=== PATIENT | female | born 1960 | race African-American/Black ===

== ENCOUNTER 2017-01-08 19:57 | Emergency (ER) | payer SELFPAY ==
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
[2017-01-08] MEDS ORDERED: ACETAMINOPHEN WITH CODEINE #3 TABLET PO ONE (22:15)
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
[2017-01-08] MEDS ORDERED: NAPROXEN 250 MG TABLET PO ONE (22:16)
[2017-01-08 22:41] VITALS: BP 179/81
== END 2017-01-08 22:40 | disposition home or self-care (01) ==
LOC: ER 19:57
DX: S16.1XXA Strain of muscle, fascia and tendon at neck level, initial encounter (principal); S20.219A Contusion of unspecified front wall of thorax, initial encounter; V43.52XA Car driver injured in collision with other type car in traffic accident, initial encounter; R07.89 Other chest pain; E10.9 Type 1 diabetes mellitus without complications; I10 Essential (primary) hypertension
CPT/HCPCS: 71020; 72050; 82962; 99285

== ENCOUNTER 2017-10-22 12:19 | Emergency (ER) | payer SELFPAY ==
[2017-10-22] MEDS ORDERED: NORMAL SALINE 1000 ML 1,000 ML IV ONE (13:31)
--- NOTE | 2017-10-22 13:31 | ER Document Report ---
ED Medical Screen (RME) - General Chief Complaint: Vomiting/Diarrhea Stated Complaint: VOMITING, DIARRHEA Time Seen by Provider: 10/22/17 13:31 Notes: Patient states all weekend she has been vomiting. She states she cannot tolerate her medicines. She also complains of diffuse abdominal pain. TRAVEL OUTSIDE OF THE [place] IN LAST 30 DAYS: No - Related Data Allergies/Adverse Reactions: No Known Allergies Allergy (Verified 10/22/17 12:23) Past Medical History - Social History Frequency of alcohol use: None Drug Abuse: None - Past Medical History Cardiac Medical History: Reports: Hx Hypercholesterolemia, Hx Hypertension Endocrine Medical History: Reports: Hx Diabetes Mellitus Type 1, Hx Diabetes Mellitus Type 2 Renal/ Medical History: Denies: Hx Peritoneal Dialysis Past Surgical History: Reports: Hx Cardiac Catheterization Physical Exam - Vital signs Vitals: Temp Pulse Resp BP Pulse Ox 98.7 F 74 16 168/78 H 96 10/22/17 12:35 10/22/17 12:35 10/22/17 12:35 10/22/17 12:35 10/22/17 12:35 Course - Vital Signs Vital signs: Temp Pulse Resp BP Pulse Ox 98.7 F 74 16 168/78 H 96 10/22/17 12:35 10/22/17 12:35 10/22/17 12:35 10/22/17 12:35 10/22/17 12:35
[2017-10-22 14:23] LABS: ABSOLUTE EOSINOPHILS # (AUTO) 0.1 10^3/uL (0.0-0.6); ABSOLUTE LYMPHOCYTES (AUTO) 1.5 10^3/uL (0.5-4.7); ABSOLUTE MONOCYTES (AUTO) 0.5 10^3/uL (0.1-1.4); ABSOLUTE NEUT (AUTO) 4.5 10^3/uL (1.7-8.2); BASOPHILS % (AUTO) 0.4 % (0-2); EOSINOPHILS % (AUTO) 1.3 % (0-6); HEMATOCRIT 34.5 % (36.0-47.0); HEMOGLOBIN 11.2 g/dL (12.0-15.5); LYMPHOCYTES % (AUTO) 22.9 % (13-45); MEAN CORPUSCULAR HEMOGLOBIN 24.7 pg (27.0-33.4); MEAN CORPUSCULAR HGB CONC 32.5 g/dL (32.0-36.0); MEAN CORPUSCULAR VOLUME 76 fl (80-97); MONOCYTES % (AUTO) 7.3 % (3-13); PLATELET COUNT 276 10^3/uL (150-450); RED BLOOD COUNT 4.56 10^6/uL (3.72-5.28); RED CELL DISTRIBUTION WIDTH 14.7 % (11.5-14.0); SEGMENTED NEUTROPHILS % (AUTO) 68.1 % (42-78); TOTAL CELLS COUNTED % (AUTO) 100 %; WHITE BLOOD COUNT 6.6 10^3/uL (4.0-10.5)
[2017-10-22 14:47] LABS: ALANINE AMINOTRANSFERASE 27 U/L (9-52); ALBUMIN 3.5 g/dL (3.5-5.0); ALKALINE PHOSPHATASE 141 U/L (38-126); ANION GAP 10 (5-19); ASPARTATE AMINO TRANSFERASE 15 U/L (14-36); BILIRUBIN,DIRECT 0.2 mg/dL (0.0-0.4); BILIRUBIN,TOTAL 0.2 mg/dL (0.2-1.3); BLOOD UREA NITROGEN 21 mg/dL (7-20); CALCIUM 9.2 mg/dL (8.4-10.2); CARBON DIOXIDE 27 mmol/L (22-30); CHLORIDE 96 mmol/L (98-107); GLUCOSE 316 mg/dL (75-110); LIPASE 71.8 U/L (23-300); POTASSIUM 4.4 mmol/L (3.6-5.0); SODIUM 133.2 mmol/L (137-145)
[2017-10-22] MEDS ORDERED: ONDANSETRON HCL INJ/PF 4 MG/2 ML SDV IV ONE (14:49)
--- NOTE | 2017-10-22 15:15 | ER Document Report ---
ED General - General Chief Complaint: Vomiting/Diarrhea Stated Complaint: VOMITING, DIARRHEA Time Seen by Provider: 10/22/17 13:31 Notes: Patient says she has been having vomiting and diarrhea for the past 3 days. Symptoms started on Sunday and still persists today. She is been unable to eat. Has not noticed any blood in her vomitus or in her bowel movements. She says the diarrhea is like "slime". She does not have any underlying gastrointestinal diseases. She has some lower abdominal discomfort for the 3 days. Some frequency with urination. Not aware of any fever. PMH: Patient has a history of but no other surgeries. History of NIDDM, hypertension, on metoprolol and furosemide, but ran out of the latter and is not taking it at this time. Hypothyroid. TRAVEL OUTSIDE OF THE [place] IN LAST 30 DAYS: No - Related Data Allergies/Adverse Reactions: No Known Allergies Allergy (Verified 10/22/17 12:23) Past Medical History - Social History Smoking Status: Never Smoker Frequency of alcohol use: None Drug Abuse: None Family History: Reviewed & Not Pertinent Patient has suicidal ideation: No Patient has homicidal ideation: No - Past Medical History Cardiac Medical History: Reports: Hx Hypercholesterolemia, Hx Hypertension Endocrine Medical History: Reports: Hx Diabetes Mellitus Type 2, Hx Hypothyroidism GI Medical History: Reports: None Past Surgical History: Reports: Hx Cardiac Catheterization, Hx Section Review of Systems - Review of Systems Notes: REVIEW OF SYSTEMS: CONSTITUTIONAL : Denies fever. EENT: Denies eye, ear, nose or mouth or throat pain or other symptoms. CARDIOVASCULAR: Denies chest pain. RESPIRATORY: Denies cough, chest congestion, or shortness of breath. GASTROINTESTINAL: See HPI. GENITOURINARY: Denies difficulty or painful urinating,, blood in urine, but has some urinary frequency. MUSCULOSKELETAL: Denies back or neck pain. Denies joint pain or swelling. SKIN: Denies rash or skin lesions. Swelling both lower legs for several weeks. Redness and warmth to the lower legs for about a year. NEUROLOGICAL: Denies LOC or altered mental status. Denies headache. Denies sensory loss or motor deficits. ALL OTHER SYSTEMS REVIEWED AND NEGATIVE. Physical Exam - Vital signs Vitals: Temp Pulse Resp BP Pulse Ox 98.7 F 74 16 168/78 H 96 10/22/17 12:35 10/22/17 12:35 10/22/17 12:35 10/22/17 12:35 10/22/17 12:35 Interpretation: Normal - Very minimal blood pressure elevation. - Notes Notes: PHYSICAL EXAMINATION: GENERAL: Well-appearing, in no acute distress. 139 kg. Afebrile. HEAD: Atraumatic, normocephalic. EYES: Pupils equal round and reactive to light, extraocular movements intact. ENT: oropharynx clear without exudates. Moist mucous membranes. NECK: Normal range of motion, supple. LUNGS: Breath sounds clear and equal bilaterally. HEART: Regular rate and rhythm without murmurs. ABDOMEN: Soft, not really tender anywhere. Certainly no guarding and no rebound present. No masses felt. No bruits heard. BACK: No tenderness throughout entire back. EXTREMITIES: Normal range of motion without pain. Patient has +3 pitting presacral edema bilaterally. This swelling has occurred since she ran out of her furosemide. Negative Homans bilaterally. Patient's skin in the lower leg is warm to the touch and slightly erythematous in color. Patient says this is been this way for about a year. Nothing new about the appearance of her legs. NEUROLOGICAL: Normal speech, normal gait. Normal sensory, motor, and reflex exams. Awake, alert, and oriented x3. Cranial nerves normal. PSYCH: Normal mood, normal affect. SKIN: Warm, dry, no rashes. Course - Vital Signs Vital signs: Temp Pulse Resp BP Pulse Ox 97.5 F 72 18 174/79 H 100 10/22/17 17:26 10/22/17 17:26 10/22/17 17:26 10/22/17 17:26 10/22/17 17:26 - Laboratory Result Diagrams: 10/22/17 13:52 10/22/17 13:52 Laboratory results interpreted by me: 10/22/17 10/22/17 13:52 13:52 Hgb 11.2 L Hct 34.5 L MCV 76 L MCH 24.7 L RDW 14.7 H Sodium 133.2 L Chloride 96 L BUN 21 H Glucose 316 H Alkaline Phosphatase 141 H Total Protein 6.0 L Discharge - Discharge Clinical Impression: Vomiting and diarrhea, Viral illness, Dehydration, Peripheral edema Disposition: HOME, SELF-CARE Additional Instructions: VOMITING: Vomiting (or nausea without vomiting) can be caused by many other different problems. It can mean that something's wrong with the stomach, such as ulcers or inflammation or the intestinal tract, such as appendicitis. But it can also be a symptom of a problem that has nothing to do with the stomach or intestines. Vomiting is common with severe headaches, earaches, tonsillitis, and kidney infections, etc. We see it with pneumonia or heart attacks. Drugs can cause nausea and vomiting. Many abdominal problems cause vomiting; for example, gallstones, kidney stones, pancreatitis, and intestinal obstruction ( blocked bowels). In most cases, curing the vomiting depends on fixing the problem that caused it. For temporary relief, we may use an anti-nausea medicine. For home use, we can prescribe suppositories, chewable pills, pills that dissolve in the mouth, or liquid anti-nausea drugs. If the vomiting seems to be caused by a problem in the stomach, acid-suppressing drugs may be prescribed as well. It's important to avoid dehydration. Sip small amounts of clear liquids ( soft drinks, tea, broth, etc) . Try to take fluids frequently even if you are vomiting to prevent dehydration. Take increasing amounts of fluid and when liquids are being consumed successfully, advance to small amounts of bland food (toast, soups, mashed potatoes, etc.) until you are able to resume a regular diet. Avoid aspirin, tobacco, and alcohol. If the vomiting worsens, if the problem that's making you vomit worsens, or if there's evidence of bleeding in the stomach (such as black, tarry stool, or bloody or black vomit), you should return immediately. Also, return if abdominal pain worsens or becomes localized to one area or you develop high fever. Call your doctor if you aren't improved in 24 hours. DIARRHEA, NON-SPECIFIC: Diarrhea means frequent, watery stools. There are many causes. Any problem that keeps the intestinal tract from absorbing water from the stool can lead to diarrhea. A sudden new diarrhea problem is usually caused by a virus, food sensitivity, toxic bacteria, or drugs. In this case, we expect the problem to go away soon. Testing is done only if you seem seriously ill from the diarrhea. If you have chronic diarrhea, or diarrhea that keeps coming back, we need to find out why. Chronic diarrhea can be due to inflammation of the bowels such as Crohn's disease or ulcerative colitis, food sensitivity such as intolerance to lactose or wheat protein, irritable bowel syndrome, and other problems. If your diarrhea is a significant problem but it's not clear why you have it, we' ll refer you to a specialist for further testing. During an episode of diarrhea, drink small amounts (two to six ounces) of clear liquids (soft drinks, sport drinks, herb teas, broth, etc). Take fluids frequently to prevent dehydration. It's usually not a problem to take mild anti- diarrhea medication such as Kaopectate or Pepto-Bismol. As the diarrhea eases, advance to small amounts of bland food (mashed potato, toast) for 24 hours. Call the physician if blood appears in your vomit or stool, if vomiting lasts longer than 24 hours, if the abdominal pain worsens or becomes localized to one area, if you develop high fever, or if you become lightheaded and weak. VIRAL SYNDROME: The physician has diagnosed a viral infection. Viruses not only cause "colds," but can cause many different symptoms including generalized aching, fever, headache, cough, diarrhea, nausea, vomiting, and fatigue. The treatment, for the most part, is simply relief of symptoms. This means that antibiotics are usually not given. Rest, fluids, pain medications and, occasionally, medication for the specific symptoms that are most bothersome will be prescribed. Use good handwashing to avoid passing the virus to others. Shared toys should be cleaned with disinfectant. Clean the toilets, sinks, and counter surfaces in bathrooms. Launder clothing in hot water. Contact the physician if you develop any new or unusual symptoms such as severe headache, stiff neck, high fever, chest pain, productive cough, or shortness of breath. You should be rechecked if you don't see marked improvement within seven to 10 days. INTRAVENOUS (I V) FLUIDS: As part of your care today, you received intravenous (IV) fluids. IV fluids are administered to patients who are dehydrated or to those who have certain chemical (electrolyte) abnormalities that need correcting. ANTINAUSEA MEDICATION: You have been given a medication to suppress nausea and vomiting. This type of medication can be given as a shot, pill, or suppository. It will usually last for many hours. Pills and shots usually last six to eight hours. For the typical illness, only one or two doses of the medication may be necessary. Mild lightheadedness may occur. This type of medicine can cause drowsiness. Do not drive or operate dangerous machinery while under its influence. Do not mix with alcohol. See your doctor at once if you have muscle spasms or tightness, or uncontrollable motions (particularly of the neck, mouth, or jaw). Persistent vomiting or severe lightheadedness should also be evaluated by the physician. Edema, Peripheral You have swelling in your legs. This is called peripheral edema. It can be caused by "leaky capillaries," inflammation, disease of the leg veins, or excess salt and water in your body. Edema may be a sign of heart, kidney, or liver disease. A medical evaluation can determine if there is a serious underlying cause for your edema. Avoid prolonged standing. If you must sit for a long time, occasionally get up and walk around or elevate your legs. Support stockings can be helpful in limiting swelling. Often diuretic or water pills are used to remove excess salt and water from your body. Call the doctor or return if you develop increased swelling, pain, or redness, shortness of breath, chest pain, or any other significant change. HYPERGLYCEMIA (HIGH BLOOD SUGAR): You have an abnormally high blood sugar. Not all high blood sugar requires long-term treatment. High blood sugar can be due to medications, , or the stress of illness. (These cases are "borderline diabetes.") If the doctor feels your high blood sugar might resolve with time, you may not require treatment now. It's very important that you follow through, to see if the blood sugar returns to normal levels. Uncontrolled high blood sugar leads to early heart disease, strokes, nerve damage, eye damage, and kidney damage. Call the physician if there is faintness, excess sleepiness, or very rapid breathing. ORAL HYPOGLYCEMIC MEDICATION: Oral hypoglycemics are medicines that lower blood sugar in diabetics. They are not effective for younger diabetics who require insulin. Some brands are tolbutamide, Orinase, glipizide, Glucotrol, glyburide, DiaBeta, Glynase, and Micronase. Some medications can increase or decrease the effect of Diabinese. Examples are Clofibrate (Atromid-S), phenylbutazone (Butazolidin), aspirin, sulfonamides, Coumadin, allopurinol (Zyloprim), probenecid (Benemid), acetazolamide (Diamox), beta blockers, steroids, estrogens, Indocin, INH, Levothyroxine, nicotinic acid, Diflucan, Dilantin, and thiazide diuretics. Be sure your doctor knows all the medicines you take, and talk to your doctor before making any changes in your medicines. If you develop symptoms of shakiness, sweats, and lightheadedness, your blood sugar may have gone too low. Eat or drink a small amount of sweet food. If symptoms don't go away, call your doctor. FOLLOW-UP CARE: If you have been referred to a physician for follow-up care, call the physician s office for an appointment as you were instructed or within the next two days. If you experience worsening or a significant change in your symptoms, notify the physician immediately or return to the Emergency Department at any time for re-evaluation. Prescriptions: Promethazine HCl [Phenergan 25 mg Tablet] 1 - 2 tab PO Q6HP PRN #15 tablet PRN Reason: Furosemide [Lasix 40 mg Tablet] 40 mg PO DAILY #30 tablet Glipizide 10 mg PO BID #60 tablet Forms: Return to Work
[2017-10-22 17:27] VITALS: BP 174/79
== END 2017-10-22 17:27 | disposition home or self-care (01) ==
LOC: ER 12:19
DX: B34.9 Viral infection, unspecified (principal); E86.0 Dehydration; R11.10 Vomiting, unspecified; R19.7 Diarrhea, unspecified; R35.0 Frequency of micturition; E11.9 Type 2 diabetes mellitus without complications; I10 Essential (primary) hypertension; R60.0 Localized edema; T50.1X6A Underdosing of loop [high-ceiling] diuretics, initial encounter; Z91.128 Patient's intentional underdosing of medication regimen for other reason; Z91.14 Patient's other noncompliance with medication regimen
CPT/HCPCS: 99283; 96361; 96374; 36415; 83690; 85025; 80053; J2405; J7030

== ENCOUNTER 2017-10-25 15:49 | Inpatient (IN) | payer SELFPAY ==
--- NOTE | 2017-10-25 17:08 | ER Document Report ---
ED General - General Chief Complaint: Diarrhea Stated Complaint: BREATHING DIFFICULTY Time Seen by Provider: 10/25/17 16:33 Notes: 57-year-old female to the emergency department via EMS for multiple complaints. Patient states that she was here recently for nausea, vomiting and diarrhea. Was treated and released. Presents today stating that she feels weak all over, numbness in her hands and feet, shortness of breath, generally not feeling well , unsteady on her feet. States that she does not have a primary care provider but uses walk-in clinics in the ER when she gets really sick. TRAVEL OUTSIDE OF THE [place] IN LAST 30 DAYS: No - Related Data Allergies/Adverse Reactions: No Known Allergies Allergy (Verified 10/25/17 16:18) Past Medical History - General Information source: Patient - Social History Smoking Status: Never Smoker Chew tobacco use (# tins/day): No Frequency of alcohol use: None Drug Abuse: None Lives with: Family Family History: Reviewed & Not Pertinent Patient has suicidal ideation: No Patient has homicidal ideation: No - Past Medical History Cardiac Medical History: Reports: Hx Hypercholesterolemia, Hx Hypertension Endocrine Medical History: Reports: Hx Diabetes Mellitus Type 1, Hx Diabetes Mellitus Type 2, Hx Hypothyroidism Renal/ Medical History: Denies: Hx Peritoneal Dialysis Past Surgical History: Reports: Hx Cardiac Catheterization, Hx Section Review of Systems - Review of Systems Constitutional: Malaise, Weakness. denies: Fever EENT: denies: Double vision, Ear pain, Difficulty swallowing, Throat swelling, Mouth pain Cardiovascular: Chest pain, Palpitations, Dyspnea. denies: Heart racing Respiratory: Short of breath. denies: Hurts to breathe, Wheezing Gastrointestinal: Abdominal pain, Diarrhea, Nausea, Vomiting Genitourinary: denies: Burning, Dysuria, Discharge, Flank pain, Hematuria, Incontinence Musculoskeletal: See HPI, Leg swelling. denies: Back pain, Joint pain, Muscle pain Skin: Dryness. denies: Lesions, Rash Hematologic/Lymphatic: denies: Anemia, Blood clots, Easy bleeding, Easy bruising Neurological/Psychological: Sensory change, Numbness, Tingling. denies: Confusion, Dementia, Depression, Weakness Physical Exam - Vital signs Vitals: Temp Pulse Resp BP Pulse Ox 97.7 F 86 22 H 157/94 H 100 10/25/17 15:55 10/25/17 15:55 10/25/17 15:55 10/25/17 15:55 10/25/17 15:55 Interpretation: Normal - Notes Notes: Patient is talking excessively. Has very difficult time explaining just exactly why she is here. Has a positive review of systems. - General General appearance: Appears well, Alert - HEENT Head: Normocephalic, Atraumatic Eyes: Normal Pupils: PERRL - Respiratory Respiratory status: No respiratory distress Chest status: Nontender Breath sounds: Normal Chest palpation: Normal - Cardiovascular Rhythm: Regular Heart sounds: Normal auscultation Murmur: No Notes: Bilateral lower extremity edema noted - Abdominal Inspection: Normal Distension: No distension Bowel sounds: Normal Tenderness: Nontender Organomegaly: No organomegaly - Back Back: Normal, Nontender - Extremities General upper extremity: Normal inspection, Nontender, Normal color, Normal ROM , Normal temperature General lower extremity: Normal inspection, Nontender, Edema, Normal color, Normal ROM, Normal temperature, Normal weight bearing. No: Nathaniel's sign - Neurological Neuro grossly intact: Yes Cognition: Normal Orientation: AAOx4 [place] Coma Scale Eye Opening: Spontaneous Les Coma Scale Verbal: Oriented [place] Coma Scale Motor: Obeys Commands Les Coma Scale Total: 15 Speech: Normal Motor strength normal: LUE, RUE, LLE, RLE Sensory: Normal - Psychological Associated symptoms: Anxious, Flight of ideas, Confucianism preoccupation - Skin Skin Temperature: Warm Skin Moisture: Dry Skin Color: Normal Course - Re-evaluation Re-evalutation: 10/25/17 18:18 Patient is basically complaining of just about everything you can think of. It is possible she could have an electrolyte abnormality or something else being that she had a recent gastroenteritis type presentation. She is denying any significant abdominal pain. Complaining of numbness in her feet with swelling. Hyperglycemia. Wants something done for her blood sugar. I will do a basic comprehensive workup on her at this time. We will address what we finding go from there. 10/25/17 18:36 Laboratory 10/25/17 10/25/17 10/25/17 16:01 16:01 16:01 WBC 7.1 RBC 4.77 Hgb 11.4 L Hct 36.2 MCV 76 L MCH 23.8 L MCHC 31.4 L RDW 14.9 H Plt Count 261 Seg Neutrophils % 68.2 Lymphocytes % 23.8 Monocytes % 7.1 Eosinophils % 0.7 Basophils % 0.2 Absolute Neutrophils 4.8 Absolute Lymphocytes 1.7 Absolute Monocytes 0.5 Absolute Eosinophils 0.1 Absolute Basophils 0.0 Sodium 132.0 L Potassium 4.2 Chloride 96 L Carbon Dioxide 26 Anion Gap 10 BUN 21 H Creatinine 0.91 Est GFR ( Amer) > 60 Est GFR (Non-Af Amer) > 60 Glucose 413 H* Calcium 9.0 Magnesium 1.1 L* Total Bilirubin 0.5 Direct Bilirubin 0.3 Neonat Total Bilirubin Not Reportable Neonat Direct Bilirubin Not Reportable Neonat Indirect Bili Not Reportable AST 16 ALT 27 Alkaline Phosphatase 132 H Troponin I < 0.012 NT-Pro-B Natriuret Pep 216 Total Protein 6.3 Albumin 3.5 TSH Free T4 10/25/17 16:01 WBC RBC Hgb Hct MCV MCH MCHC RDW Plt Count Seg Neutrophils % Lymphocytes % Monocytes % Eosinophils % Basophils % Absolute Neutrophils Absolute Lymphocytes Absolute Monocytes Absolute Eosinophils Absolute Basophils Sodium Potassium Chloride Carbon Dioxide Anion Gap BUN Creatinine Est GFR ( Amer) Est GFR (Non-Af Amer) Glucose Calcium Magnesium Total Bilirubin Direct Bilirubin Neonat Total Bilirubin Neonat Direct Bilirubin Neonat Indirect Bili AST ALT Alkaline Phosphatase Troponin I NT-Pro-B Natriuret Pep Total Protein Albumin TSH 5.45 H Free T4 1.92 Patient with atrial fibrillation which is new diagnosis, hyponatremia, hypomagnesia with hyperglycemia. Treating at this time with magnesium and insulin. IV fluids. Feel comfortable at this time stating that patient likely needs to be admitted. Consulted with Dr. Hood who will pass information on to Dr. Meraz. 10/25/17 18:44 Chest X-Ray 10/25/17 17:09 IMPRESSION: NO ACUTE RADIOGRAPHIC FINDING IN THE CHEST. - Vital Signs Vital signs: Temp Pulse Resp BP Pulse Ox 97.7 F 86 22 H 157/94 H 100 10/25/17 15:55 10/25/17 15:55 10/25/17 15:55 10/25/17 15:55 10/25/17 15:55 - Laboratory Result Diagrams: 10/25/17 16:01 10/25/17 16:01 Laboratory results interpreted by me: 10/25/17 10/25/17 10/25/17 16:01 16:01 16:01 Hgb 11.4 L MCV 76 L MCH 23.8 L MCHC 31.4 L RDW 14.9 H Sodium 132.0 L Chloride 96 L BUN 21 H Glucose 413 H* Magnesium 1.1 L* Alkaline Phosphatase 132 H TSH 5.45 H - EKG Interpretation by Me EKG shows normal: ST-T Waves Rhythm: A.Fib, A.Flutter Voltage: Consistant with LVH Discharge - Discharge Clinical Impression: Hyponatremia, Hypomagnesemia Atrial fibrillation Qualifiers: Atrial fibrillation type: unspecified Qualified Code(s): I48.91 - Unspecified atrial fibrillation Hyperglycemia due to type 2 diabetes mellitus Qualifiers: Diabetes mellitus retirement insulin use: without retirement use Qualified Code(s ): E11.65 - Type 2 diabetes mellitus with hyperglycemia Condition: Good Disposition: ADMITTED INPATIENT Admitting Provider: Hospitalist Unit [facility]
[2017-10-25 17:45] LABS: ABSOLUTE EOSINOPHILS # (AUTO) 0.1 10^3/uL (0.0-0.6); ABSOLUTE LYMPHOCYTES (AUTO) 1.7 10^3/uL (0.5-4.7); ABSOLUTE MONOCYTES (AUTO) 0.5 10^3/uL (0.1-1.4); ABSOLUTE NEUT (AUTO) 4.8 10^3/uL (1.7-8.2); BASOPHILS % (AUTO) 0.2 % (0-2); EOSINOPHILS % (AUTO) 0.7 % (0-6); HEMATOCRIT 36.2 % (36.0-47.0); HEMOGLOBIN 11.4 g/dL (12.0-15.5); LYMPHOCYTES % (AUTO) 23.8 % (13-45); MEAN CORPUSCULAR HEMOGLOBIN 23.8 pg (27.0-33.4); MEAN CORPUSCULAR HGB CONC 31.4 g/dL (32.0-36.0); MEAN CORPUSCULAR VOLUME 76 fl (80-97); MONOCYTES % (AUTO) 7.1 % (3-13); PLATELET COUNT 261 10^3/uL (150-450); RED BLOOD COUNT 4.77 10^6/uL (3.72-5.28); RED CELL DISTRIBUTION WIDTH 14.9 % (11.5-14.0); SEGMENTED NEUTROPHILS % (AUTO) 68.2 % (42-78); TOTAL CELLS COUNTED % (AUTO) 100 %; WHITE BLOOD COUNT 7.1 10^3/uL (4.0-10.5)
[2017-10-25 17:50] LABS: ALANINE AMINOTRANSFERASE 27 U/L (9-52); ALBUMIN 3.5 g/dL (3.5-5.0); ALKALINE PHOSPHATASE 132 U/L (38-126); ANION GAP 10 (5-19); ASPARTATE AMINO TRANSFERASE 16 U/L (14-36); BILIRUBIN,DIRECT 0.3 mg/dL (0.0-0.4); BILIRUBIN,TOTAL 0.5 mg/dL (0.2-1.3); BLOOD UREA NITROGEN 21 mg/dL (7-20); CARBON DIOXIDE 26 mmol/L (22-30); CHLORIDE 96 mmol/L (98-107); POTASSIUM 4.2 mmol/L (3.6-5.0); TOTAL PROTEIN 6.3 g/dL (6.3-8.2)
[2017-10-25 17:59] LABS: GLUCOSE 413 mg/dL (75-110)
[2017-10-25 18:02] LABS: NT PRO BNP 216 pg/mL (5-900); TROPONIN I < 0.012 ng/mL
[2017-10-25 18:07] LABS: FREE T4 (FREE THYROXINE) 1.92 ng/dL (0.78-2.19)
[2017-10-25 18:21] LABS: THYROID STIMULATING HORMONE 5.45 uIU/mL (0.47-4.68)
[2017-10-25] MEDS ORDERED: NORMAL SALINE 1000 ML 1,000 ML IV ONE (18:22)
--- NOTE | 2017-10-25 18:32 | RADIOLOGY REPORT (SQ) ---
EXAM DESCRIPTION: CHEST SINGLE VIEW COMPLETED DATE/TIME: 10/25/2017 6:24 pm REASON FOR STUDY: sob COMPARISON: 01/08/2017 EXAM PARAMETERS: NUMBER OF VIEWS: One view. TECHNIQUE: Single frontal radiographic view of the chest acquired. RADIATION DOSE: NA LIMITATIONS: None. FINDINGS: LUNGS AND PLEURA: Relatively low lung volumes. No infiltrate or effusion. No mass. MEDIASTINUM AND HILAR STRUCTURES: No masses. Contour normal. HEART AND VASCULAR STRUCTURES: Heart normal in size. Normal vasculature. BONES: No acute findings. HARDWARE: None in the chest. OTHER: No other significant finding. IMPRESSION: NO ACUTE RADIOGRAPHIC FINDING IN THE CHEST. TECHNICAL DOCUMENTATION: JOB ID: [id number] [employer]- All Rights Reserved Reading location - IP/workstation name: [email or web address]
[2017-10-25] MEDS ORDERED: INSULIN REG, HUMAN 100 UNIT/ML 3 ML VIAL (PYX) SUBCUT ONE (18:37)
[2017-10-25] MEDS: MAGNESIUM SULFATE/D5W 1 GM/100 ML RTUPB IV SCH ×2 (18:39→20:05)
[2017-10-25] MEDS ORDERED: ALBUTEROL SULFATE 0.083% NEB 2.5 MG/3 ML AMPUL NEB PRN (19:08)
[2017-10-25] MEDS ORDERED: PROMETHAZINE HCL INJ 25 MG/1 ML VIAL IV PRN (19:08)
[2017-10-25] MEDS ORDERED: ACETAMINOPHEN 325 MG TABLET PO PRN (19:08)
[2017-10-25] MEDS ORDERED: NORMAL SALINE 1000 ML 1,000 ML IV PRN (19:08)
[2017-10-25] MEDS ORDERED: INSULIN LISPRO 100 UNIT/ML 3 ML VIAL SUBCUT ONE (19:41)
[2017-10-25 19:53] LABS: APPEARANCE,URINE CLOUDY; BILIRUBIN,URINE NEGATIVE (NEGATIVE); COLOR,URINE YELLOW; GLUCOSE, URINE >=500 mg/dL (NEGATIVE); KETONES,URINE 20 mg/dL (NEGATIVE); LEUKOCYTE ESTERASE,URINE MODERATE (NEGATIVE); NITRITE,URINE NEGATIVE (NEGATIVE); PROTEIN,URINE 100 mg/dL (NEGATIVE); URINE SPECIFIC GRAVITY 1.014; UROBILINOGEN,URINE NEGATIVE mg/dL (<2.0)
[2017-10-25] MEDS ORDERED: ASPIRIN 325 MG TABLET PO ONE (20:00)
[2017-10-25 20:22] LABS: URINE AMPHETAMINES SCREEN NEGATIVE; URINE BARBITURATES SCREEN NEGATIVE; URINE BENZODIAZEPINES SCREEN NEGATIVE; URINE COCAINE SCREEN NEGATIVE; URINE MARIJUANA (THC) SCREEN NEGATIVE; URINE METHADONE SCREEN NEGATIVE; URINE PHENCYCLIDINE SCREEN NEGATIVE
[2017-10-25] MEDS ORDERED: DEXTROSE 50%-WATER 25 GM/50 ML DISP.SYRIN IV PRN ×2 (20:34)
[2017-10-25] MEDS ORDERED: DEXTROSE 40% GEL 15 GM TUBE PO PRN ×2 (20:34)
[2017-10-25] MEDS ORDERED: GLUCAGON,HUMAN RECOMB 1 MG INJ IM PRN (20:34)
[2017-10-25] MEDS ORDERED: FLUTICASONE NASAL SPRAY 50 MCG/SPRY 120 SPRAY/16 GM NASL ONE (21:00)
--- NOTE | 2017-10-25 22:05 | EKG REPORT ---
SEVERITY:- ABNORMAL ECG - ATRIAL FIBRILLATION, V-RATE 78-82 LEFT VENTRICULAR HYPERTROPHY : Confirmed by: Dario Keller 25-Oct-2017 22:04:43
[2017-10-25] MEDS ORDERED: METOPROLOL TARTRATE 50 MG TABLET PO SCH (23:15)
[2017-10-25] MEDS: INSULIN LISPRO 100 UNIT/ML 3 ML VIAL SUBCUT PRN (23:27)
--- NOTE | 2017-10-25 23:40 | PDOC H&P ---
History of Present Illness Patient complains of: Presyncope and generalized weakness today. She was found to be in atrial fib on admission with heart rate of 86. History of Present Illness: MARGARITO COLEY is a 57 year old female morbidly obese with history of hypertension and type 2 diabetes mellitus was admitted with above-mentioned complaints. She apparently presented to the ED on 10/22/2017 complaining of nausea, vomiting and diarrhea. She was diagnosed with viral syndrome and discharged from the ED since her symptoms improved. She returns today since she has not been feeling well since last night. She had recurrent diarrhea, 2- 3 times a day of liquid, nonbloody stool with some abdominal cramps. She denied any constipation, fever but complained of having chills, no urinary symptoms. She also denied any sick contact or recent antibiotics use or having eaten a different kind of food. But she said that she had some stool incontinence at times which has been getting more frequent. Of note, she is on metformin but she said that she has been taking it for many years now. I am not sure about her compliance with medications. The patient also denied any chest pain but complained of shortness of breath today and productive cough of yellowish sputum with nasal congestion since yesterday. She also said that she felt lightheaded/dizzy today but her blood pressure was 135/103 when she checked it. And later in the day, it was up to 175/117 so she decided to come back to the hospital for further management and treatment. She denied any loss of consciousness or any focal weakness or numbness but she said that she felt generally weak. In the ED, her temperature was 97.7, heart rate 86, respiratory rate 22, blood pressure 157/94 with oxygen saturation of 100% on room air. Her WBC was 7.1 with hemoglobin of 11.4. Her blood glucose was 413 with magnesium of 1.1. Her initial troponin was negative. UA and UDS pending. A CXR of the chest was done which was unremarkable. She received 10 units of regular insulin 1, 1 g of magnesium sulfate 1 and 1 L of normal saline 1 Past Medical History Medical History: Other - According to the patient and based on previous records. Cardiac Medical History: Reports: Hyperlipidema, Hypertension Endocrine Medical History: Reports: Diabetes Mellitus Type 2, Hypothyroidism Psychiatric Medical History: Reports: Depression Past Surgical History Past Surgical History: Reports: Section - x1, Other - post uvelectomy. Social History Lives with: Family Smoking Status: Never Smoker Frequency of Alcohol Use: None Hx Recreational Drug Use: No - Advance Directive Resuscitation Status: Full Code Family History Family History: Reviewed & Not Pertinent Parental Family History Reviewed: Yes - Mother: CAD, DM2. Children Family History Reviewed: No Sibling(s) Family History Reviewed.: Yes Medication/Allergy Home Medications: Ascorbic Acid [Vitamin C 500 mg Tablet] 500 mg PO DAILY 10/25/17 Furosemide [Lasix 40 mg Tablet] 40 mg PO QAM 10/25/17 Glipizide [Glocotrol 5 Mg Tablet] 10 mg PO BIDBS 10/25/17 Levothyroxine Sodium [Synthroid 0.15 mg Tablet] 0.15 mg PO Q6AM 10/25/17 Metformin HCl [Glucophage 500 mg Tablet] 1,000 mg PO BIDBS 10/25/17 Metoprolol Tartrate [Lopressor 50 mg Tablet] 50 mg PO Q12 10/25/17 Multivitamin [Tab-A-Stephen (Multiple Vitamin) Tablet] 1 tab PO DAILY 10/25/17 Promethazine HCl [Phenergan 25 mg Tablet] 25 mg PO Q6HP PRN 10/25/17 Allergies/Adverse Reactions: No Known Allergies Allergy (Verified 10/25/17 16:18) Review of Systems ROS unobtainable: Other - Pertinent positives and negatives as detailed in the HPI. Physical Exam Vital Signs: Temp Pulse Resp BP Pulse Ox 97.7 F 86 22 H 157/94 H 100 10/25/17 15:55 10/25/17 15:55 10/25/17 15:55 10/25/17 15:55 10/25/17 15:55 Intake & Output 10/24/17 10/25/17 10/26/17 06:59 06:59 06:59 Weight 128.8 kg General appearance: PRESENT: no acute distress, well-developed, well-nourished Head exam: PRESENT: atraumatic, normocephalic Eye exam: PRESENT: conjunctiva pink, EOMI. ABSENT: scleral icterus Mouth exam: PRESENT: moist, neck supple Neck exam: PRESENT: full ROM. ABSENT: JVD Respiratory exam: PRESENT: decreased breath sounds. ABSENT: rales, rhonchi, wheezes Cardiovascular exam: PRESENT: RRR, +S1, +S2 Pulses: PRESENT: normal dorsalis pedis pul GI/Abdominal exam: PRESENT: normal bowel sounds, soft. ABSENT: distended, rebound, tenderness Rectal exam: PRESENT: deferred Extremities exam: PRESENT: pedal edema, +1 edema - bilateral legs. Musculoskeletal exam: PRESENT: other - Limited range of motion bilateral lower extremities. Neurological exam: PRESENT: alert, altered, awake, motor sensory deficit - Motor bilateral lower extremities 3/5. Numbness of toes bilateral feet. Motor bilateral upper extremities 4+/5. Skin exam: PRESENT: dry, warm. ABSENT: erythema, rash Results Laboratory Results: 10/25/17 16:01 10/25/17 16:01 10/25/17 10/25/17 10/25/17 16:01 16:01 16:01 WBC 7.1 RBC 4.77 Hgb 11.4 L Hct 36.2 MCV 76 L MCH 23.8 L MCHC 31.4 L RDW 14.9 H Plt Count 261 Seg Neutrophils % 68.2 Lymphocytes % 23.8 Monocytes % 7.1 Eosinophils % 0.7 Basophils % 0.2 Absolute Neutrophils 4.8 Absolute Lymphocytes 1.7 Absolute Monocytes 0.5 Absolute Eosinophils 0.1 Absolute Basophils 0.0 Sodium 132.0 L Potassium 4.2 Chloride 96 L Carbon Dioxide 26 Anion Gap 10 BUN 21 H Creatinine 0.91 Est GFR ( Amer) > 60 Est GFR (Non-Af Amer) > 60 Glucose 413 H* Calcium 9.0 Magnesium 1.1 L* Total Bilirubin 0.5 AST 16 ALT 27 Alkaline Phosphatase 132 H Total Protein 6.3 Albumin 3.5 TSH 5.45 H Free T4 1.92 10/25/17 16:01 Troponin I < 0.012 NT-Pro-B Natriuret Pep 216 EKG Comments: Twelve-lead EKG, A. fib, ventricular rate 80, [place] 0, QTC prolongation, poor R- wave propagation no other changes. No previous EKG to compare. Impressions: Chest X-Ray 10/25/17 17:09 IMPRESSION: NO ACUTE RADIOGRAPHIC FINDING IN THE CHEST. Assessment & Plan - Diagnosis (1) Atrial fibrillation Qualifiers: Atrial fibrillation type: unspecified Qualified Code(s): I48.91 - Unspecified atrial fibrillation Is this a current diagnosis for this admission?: Yes Plan: Possibly new and/or paroxysmal. Her [id number] score is 3. Her TSH is 5.45 but her FT4 is 1.92. Will continue to cycle cardiac enzymes and repeat 12-lead EKG. We will also check an echocardiogram and replace her electrolytes as indicated. Will start ASA for now and resume her metoprolol. (2) Pre-syncope Is this a current diagnosis for this admission?: Yes Plan: Will continue IV fluids and check orthostatics in a.m. We will follow-up UA and UDS. Further management as mentioned in #1. (3) Type 2 diabetes mellitus Qualifiers: Diabetes mellitus senior living insulin use: without senior living use Is this a current diagnosis for this admission?: Yes Plan: Uncontrolled. According to the patient, her last HbA1c was 11 and she used to be on insulin. She is currently on metformin 1000 mg twice a day in addition to glipizide 10 mg twice a day. Will start 10 units Lantus daily with the Humalog sliding scale and adjust doses as needed. (4) Acute diarrhea Is this a current diagnosis for this admission?: Yes Plan: She denied any recent antibiotic use. Will check stool studies including C. difficile and CAT scan abdomen/pelvis. Will hold metformin for now although the patient said that she has been taking it for several years. If her symptoms persist, she may need to be referred for colonoscopy as outpatient. (5) Essential (primary) hypertension Is this a current diagnosis for this admission?: No Plan: Will monitor and adjust her BP medications as indicated. (6) Hypomagnesemia Is this a current diagnosis for this admission?: Yes Plan: Secondary to diarrhea most likely. Will replace as indicated. (7) Hypothyroid Is this a current diagnosis for this admission?: No Plan: Will resume Synthroid at 150 mcg every morning. - Time Time Spent: Greater than 70 Minutes Anticipated discharge: Home
--- NOTE | 2017-10-26 01:00 | RADIOLOGY REPORT (SQ) ---
EXAM DESCRIPTION: CT ABDOMEN AND PELVIS WITH CONTRAST CLINICAL HISTORY: Acute diarrhea COMPARISON: None Available. TECHNIQUE: CT of the abdomen and pelvis performed following IV administration of 100.3 mL of Isovue-370. DLP: 2306.00 mGycm FINDINGS: Lung Bases: Minimal dependent atelectasis or scarring. Bones: Degenerative spondylosis of the visualized thoracic and lumbar spine. Abdomen: Liver: The liver has normal size and density. No intrahepatic mass or biliary dilatation. Gallbladder: Cholelithiasis. Spleen, Pancreas, and Adrenal Glands: 1.4 cm right lipid rich adrenal adenoma. Left adrenal gland, spleen, and pancreas are unremarkable. Kidneys: The kidneys have normal size and contour without evidence of solid mass or hydronephrosis. Vasculature: Aortoiliac atherosclerosis. IVC is unremarkable. The portal vein is patent. The proximal visceral and renal arteries are patent. Stomach: The stomach and duodenum have normal course. Other: No free intraperitoneal air. No free fluid or lymphadenopathy. Pelvis: Bladder: Urinary bladder is unremarkable. Bowel: Wall thickening of the ascending colon. No dilated loops of large or small bowel. Appendix: The appendix is not identified however there is no right lower quadrant inflammatory change. Pelvis: Uterus is not enlarged. IMPRESSION: 1. Wall thickening of the ascending colon. This could be seen with colitis of infectious or inflammatory etiology. Neoplasm could also produce a similar appearance. 2. Cholelithiasis. This exam was performed according to our departmental dose-optimization program, which includes automated exposure control, adjustment of the mA and/or kV according to patient size and/or use of iterative reconstruction technique.
[2017-10-26] MEDS: LEVOTHYROXINE SODIUM 0.15 MG TABLET PO SCH (05:22)
[2017-10-26 07:35] LABS: HEMOGLOBIN 10.5 g/dL (12.0-15.5); MEAN CORPUSCULAR HEMOGLOBIN 23.8 pg (27.0-33.4); MEAN CORPUSCULAR VOLUME 75 fl (80-97); PLATELET COUNT 249 10^3/uL (150-450); RED BLOOD COUNT 4.42 10^6/uL (3.72-5.28); RED CELL DISTRIBUTION WIDTH 14.8 % (11.5-14.0); WHITE BLOOD COUNT 6.3 10^3/uL (4.0-10.5)
[2017-10-26 07:54] LABS: ANION GAP 7 (5-19); BLOOD UREA NITROGEN 14 mg/dL (7-20); CALCIUM 8.4 mg/dL (8.4-10.2); CARBON DIOXIDE 27 mmol/L (22-30); CHLORIDE 104 mmol/L (98-107); CHOLESTEROL 203.18 mg/dL (0-200); GLUCOSE 134 mg/dL (75-110); POTASSIUM 3.3 mmol/L (3.6-5.0); SODIUM 137.9 mmol/L (137-145); TRIGLYCERIDES 269 mg/dL (<150)
[2017-10-26 08:05] LABS: DIRECT LDL 101 mg/dL (<100)
[2017-10-26 08:06] LABS: VLDL CHOLESTEROL 53.8 mg/dL (10-31)
[2017-10-26] MEDS ORDERED: FUROSEMIDE INJ/PF 20 MG/2 ML SDV IV SCH (09:30)
[2017-10-26] MEDS ORDERED: ASPIRIN 325 MG TABLET, ENT COATED PO SCH (10:00)
[2017-10-26] MEDS ORDERED: INSULIN GLARGINE,HUM.REC.ANLOG 300 UNIT/3 ML INSULN.PEN SUBCUT SCH ×2 (10:00→22:00)
[2017-10-26] MEDS ORDERED: ENOXAPARIN SODIUM INJ 40 MG/0.4 ML DISP.SYRIN SUBCUT SCH (10:00)
[2017-10-26] MEDS ORDERED: MAGNESIUM SULFATE/D5W 1 GM/100 ML RTUPB IV SCH (11:00)
[2017-10-26] MEDS ORDERED: FUROSEMIDE INJ/PF 40 MG/4 ML SDV IV ONE (11:00)
[2017-10-26] MEDS ORDERED: APIXABAN 5 MG TABLET PO ONE (11:00)
[2017-10-26] MEDS ORDERED: METOPROLOL SUCCINATE 50 MG TAB.SR.24H PO ONE (11:00)
[2017-10-26] MEDS ORDERED: AMLODIPINE BESYLATE 5 MG TABLET PO ONE (11:00)
[2017-10-26] MEDS ORDERED: MAGNESIUM OXIDE 400 MG TABLET PO ONE (11:00)
[2017-10-26] MEDS ORDERED: LORAZEPAM INJ 2 MG/1 ML VIAL IV PRN (11:11)
[2017-10-26] MEDS ORDERED: FENOFIBRATE NANOCRYSTALLIZED 48 MG TABLET PO ONE (11:30)
[2017-10-26] MEDS ORDERED: LISINOPRIL 10 MG TABLET PO ONE (11:30)
[2017-10-26] MEDS: FLUTICASONE NASAL SPRAY 50 MCG/SPRY 120 SPRAY/16 GM NASL SCH (12:59)
[2017-10-26] MEDS: MAGNESIUM SULFATE/D5W 1 GM/100 ML RTUPB IV SCH ×3 (12:59→16:18)
[2017-10-26] MEDS: INSULIN LISPRO 100 UNIT/ML 3 ML VIAL SUBCUT PRN ×3 (13:23→22:00)
[2017-10-26] MEDS: POTASSIUM CHLORIDE 10 MEQ TABLET.SA PO SCH ×2 (13:24→21:14)
--- NOTE | 2017-10-26 14:29 | PDOC PROGRESS REPORT ---
Subjective Progress Note for:: 10/26/17 Subjective:: Patient complains of leg swelling. She denies drinking alcohol. Review of systems All organ systems evaluated and negative All significant laboratories and diagnostics have been reviewed Reason For Visit: AFIB NEW VS. PAROXYSMAL Physical Exam Vital Signs: Temp Pulse Resp BP Pulse Ox 97.4 F 83 18 168/69 H 97 10/26/17 03:58 10/26/17 07:00 10/26/17 03:58 10/26/17 03:58 10/26/17 03:58 Intake & Output 10/25/17 10/26/17 10/27/17 06:59 06:59 06:59 Intake Total 1070 Output Total 200 Balance 870 Weight 133.1 kg General appearance: PRESENT: cooperative, morbidly obese Head exam: PRESENT: atraumatic, normocephalic Eye exam: PRESENT: conjunctiva pink, EOMI, PERRLA Ear exam: PRESENT: normal external ear exam Mouth exam: PRESENT: neck supple Neck exam: PRESENT: full ROM. ABSENT: JVD, lymphadenopathy, tenderness Respiratory exam: PRESENT: clear to auscultation singh Cardiovascular exam: PRESENT: irregular rhythm. ABSENT: diastolic murmur, systolic murmur Vascular exam: PRESENT: normal capillary refill GI/Abdominal exam: PRESENT: normal bowel sounds, soft. ABSENT: tenderness Extremities exam: PRESENT: full ROM, +2 edema Musculoskeletal exam: PRESENT: ambulatory Neurological exam: PRESENT: alert, awake, oriented to person, oriented to place , oriented to time, oriented to situation, CN II-XII grossly intact Psychiatric exam: PRESENT: appropriate affect, normal mood Skin exam: PRESENT: intact, normal color Results Laboratory Results: 10/25/17 10/25/17 10/25/17 19:27 20:08 20:08 Lipase 48.6 TSH 4.46 Urine Color YELLOW Urine Appearance CLOUDY Urine pH 7.0 Ur Specific [place] 1.014 Urine Protein 100 H Urine Glucose (UA) >=500 H Urine Ketones 20 H Urine Blood NEGATIVE Urine Nitrite NEGATIVE Ur Leukocyte Esterase MODERATE H Urine WBC (Auto) 93 Urine RBC (Auto) 3 Stool Occult Blood Stool for White Cells 10/26/17 10/26/17 05:30 05:30 Lipase TSH Urine Color Urine Appearance Urine pH Ur Specific [place] Urine Protein Urine Glucose (UA) Urine Ketones Urine Blood Urine Nitrite Ur Leukocyte Esterase Urine WBC (Auto) Urine RBC (Auto) Stool Occult Blood POSITIVE Stool for White Cells NO WBCs SEEN 10/25/17 10/26/17 20:08 01:24 Troponin I < 0.012 < 0.012 Impressions: Abdomen/Pelvis CT 10/25/17 00:00 IMPRESSION: 1. Wall thickening of the ascending colon. This could be seen with colitis of infectious or inflammatory etiology. Neoplasm could also produce a similar appearance. 2. Cholelithiasis. This exam was performed according to our departmental dose-optimization program, which includes automated exposure control, adjustment of the mA and/or kV according to patient size and/or use of iterative reconstruction technique. Chest X-Ray 10/25/17 17:09 IMPRESSION: NO ACUTE RADIOGRAPHIC FINDING IN THE CHEST. Assessment & Plan - Diagnosis (1) Hypokalemia Is this a current diagnosis for this admission?: Yes Plan: Replace p.o. and trend (2) Atrial fibrillation Qualifiers: Atrial fibrillation type: paroxysmal Qualified Code(s): I48.0 - Paroxysmal atrial fibrillation Is this a current diagnosis for this admission?: Yes Plan: To place patient on Toprol-XL. Patient has a Chads- Vasc score of 3 and will start Eliquis. Likely exacerbated due to electrolyte abnormalities. Concern about the possibility of a sleep apnea on this patient. Order echocardiogram and nuclear stress test. (3) Essential (primary) hypertension Is this a current diagnosis for this admission?: Yes Plan: To place patient on Norvasc, lisinopril and metoprolol (4) Hyperglycemia due to type 2 diabetes mellitus Qualifiers: Diabetes mellitus long-term insulin use: without long-term use Qualified Code(s): E11.65 - Type 2 diabetes mellitus with hyperglycemia Is this a current diagnosis for this admission?: Yes Plan: Will discontinue IV fluids. Will increase Lantus and will continue on Humalog sliding scale coverage (5) Hypomagnesemia Is this a current diagnosis for this admission?: Yes Plan: Replace IV and p.o. and to trend (6) Hyponatremia Is this a current diagnosis for this admission?: Yes Plan: Due to volume contraction and improved (7) Hypothyroid Qualifiers: Hypothyroidism type: unspecified Qualified Code(s): E03.9 - Hypothyroidism , unspecified Is this a current diagnosis for this admission?: Yes Plan: Continue outpatient regimen (8) Pre-syncope Is this a current diagnosis for this admission?: Yes Plan: Likely due to hypotension. Considered MRI of head but patient refused due to claustrophobia. To order CT of head (9) Morbid obesity with BMI of 45.0-49.9, adult Is this a current diagnosis for this admission?: Yes Plan: Lifestyle modifications (10) Acute diarrhea Is this a current diagnosis for this admission?: Yes Plan: Improving. Contributing to presentation.. Add lactobacillus (11) Localized swelling of both lower legs Is this a current diagnosis for this admission?: Yes Plan: Concerned about pulmonary hypertension. To place patient on IV diuretic. Echocardiogram ordered - Time Time Spent with patient: 15-24 minutes Medications reviewed and adjusted accordingly: Yes Anticipated discharge: Home Within: within 48 hours - Inpatient Certification Based on my medical assessment, after consideration of the patient's comorbidities, presenting symptoms, or acuity I expect that the services needed warrant INPATIENT care.: Yes I certify that my determination is in accordance with my understanding of Medicare's requirements for reasonable and necessary INPATIENT services [42 CFR 412.3e].: Yes Medical Necessity: Need Close Monitoring Due to Risk of Patient Decompensation, Need For Continuous Telemetry Monitoring
--- NOTE | 2017-10-26 16:21 | RADIOLOGY REPORT (SQ) ---
EXAM DESCRIPTION: CT HEAD WITHOUT COMPLETED DATE/TIME: 10/26/2017 3:27 pm REASON FOR STUDY: pre syncope COMPARISON: None. TECHNIQUE: Axial images acquired through the brain without intravenous contrast. Images reviewed wi th bone, brain and subdural windows. Images stored on PACS. All CT scanners at this facility use dose modulation, iterative reconstruction, and/or weight based d osing when appropriate to reduce radiation dose to as low as reasonably achievable (ALARA). [facility]: Dose Right [facility]: CareDose [facility]: Dose Right [facility]: Teradose 4D [facility]: [email or web address] RADIATION DOSE: CT Rad equipment meets quality standard of care and radiation dose reduction techniq ues were employed. CTDIvol: 49.0 mGy. DLP: 881 mGy-cm. mGy. LIMITATIONS: None. FINDINGS: VENTRICLES: Normal size and contour. CEREBRUM: No masses. No hemorrhage. No midline shift. No evidence for acute infarction. Normal gra y/white matter differentiation. No areas of low density in the white matter. Cavum septum pellucidum , normal variant CEREBELLUM: No masses. No hemorrhage. No alteration of density. No evidence for acute infarction. EXTRAAXIAL SPACES: No fluid collections. No masses. ORBITS AND GLOBE: No intra- or extraconal masses. Normal contour of globe without masses. CALVARIUM: No fracture. PARANASAL SINUSES: No fluid or mucosal thickening. SOFT TISSUES: No mass or hematoma. OTHER: No other significant finding. IMPRESSION: NORMAL BRAIN CT WITHOUT CONTRAST. EVIDENCE OF ACUTE STROKE: NO. COMMENT: Quality ID # [id number]: Final reports with documentation of one or more dose reduction techniques (e.g., Automated exposure control, adjustment of the mA and/or kV according to patient size, use of iterative reconstruction technique) TECHNICAL DOCUMENTATION: JOB ID: [id number] [employer]- All Rights Reserved Reading location - IP/workstation name: [email or web address]
[2017-10-26] MEDS: MAGNESIUM OXIDE 400 MG TABLET PO SCH (18:19)
[2017-10-26] MEDS: APIXABAN 5 MG TABLET PO SCH (18:19)
[2017-10-26] MEDS: LACTOBACILLUS ACIDOPHILUS 250 MG TAB PO SCH (18:19)
[2017-10-26] MEDS: FUROSEMIDE INJ/PF 40 MG/4 ML SDV IV SCH (21:14)
[2017-10-26] MEDS: ATORVASTATIN CALCIUM 80 MG TABLET PO SCH (21:14)
[2017-10-26] MEDS ORDERED: ATORVASTATIN CALCIUM 40 MG TABLET PO SCH (22:00)
[2017-10-26] MEDS ORDERED: INSULIN LISPRO 100 UNIT/ML 3 ML VIAL SUBCUT ONE (23:15)
[2017-10-27] MEDS: INSULIN LISPRO 100 UNIT/ML 3 ML VIAL SUBCUT PRN ×4 (00:10→21:22)
[2017-10-27] MEDS: POTASSIUM CHLORIDE 10 MEQ TABLET.SA PO SCH ×2 (05:37→11:42)
[2017-10-27] MEDS: LEVOTHYROXINE SODIUM 0.15 MG TABLET PO SCH (05:37)
[2017-10-27 06:42] LABS: ANION GAP 6 (5-19); BLOOD UREA NITROGEN 12 mg/dL (7-20); CARBON DIOXIDE 33 mmol/L (22-30); CHLORIDE 101 mmol/L (98-107); GLUCOSE 130 mg/dL (75-110); POTASSIUM 3.9 mmol/L (3.6-5.0); SODIUM 140.1 mmol/L (137-145)
[2017-10-27] MEDS ORDERED: AMLODIPINE BESYLATE 5 MG TABLET PO SCH (10:00)
[2017-10-27] MEDS ORDERED: INSULIN GLARGINE,HUM.REC.ANLOG 300 UNIT/3 ML INSULN.PEN SUBCUT SCH ×2 (10:00→22:00)
[2017-10-27] MEDS ORDERED: LISINOPRIL 10 MG TABLET PO SCH (10:00)
[2017-10-27] MEDS: LACTOBACILLUS ACIDOPHILUS 250 MG TAB PO SCH ×2 (11:41→17:50)
[2017-10-27] MEDS: INSULIN LISPRO 100 UNIT/ML 3 ML VIAL SUBCUT SCH ×2 (11:41→16:51)
[2017-10-27] MEDS: MAGNESIUM OXIDE 400 MG TABLET PO SCH ×2 (11:42→17:51)
[2017-10-27] MEDS: APIXABAN 5 MG TABLET PO SCH ×2 (11:42→17:50)
[2017-10-27] MEDS: METOPROLOL SUCCINATE 50 MG TAB.SR.24H PO SCH (11:42)
[2017-10-27] MEDS: FLUTICASONE NASAL SPRAY 50 MCG/SPRY 120 SPRAY/16 GM NASL SCH (11:43)
[2017-10-27] MEDS: FUROSEMIDE INJ/PF 40 MG/4 ML SDV IV SCH ×2 (11:44→21:20)
[2017-10-27] MEDS: INSULIN GLARGINE,HUM.REC.ANLOG 300 UNIT/3 ML INSULN.PEN SUBCUT SCH ×2 (11:44→21:21)
--- NOTE | 2017-10-27 12:34 | PDOC PROGRESS REPORT ---
Subjective Progress Note for:: 10/27/17 Subjective:: Patient states that blood sugar was high yesterday because the friend brought her [employer]. Review of systems All organ systems evaluated and negative All significant laboratories and diagnostics have been reviewed Reason For Visit: AFIB NEW VS. PAROXYSMAL Physical Exam Vital Signs: Temp Pulse Resp BP Pulse Ox 97.7 F 92 18 167/73 H 97 10/27/17 04:24 10/27/17 04:24 10/27/17 04:24 10/27/17 04:24 10/27/17 04:24 Intake & Output 10/26/17 10/27/17 10/28/17 06:59 06:59 06:59 Intake Total 1070 3555 Output Total 200 Balance 870 3555 Weight 133.1 kg 133.1 kg General appearance: PRESENT: cooperative, morbidly obese Head exam: PRESENT: atraumatic, normocephalic Eye exam: PRESENT: conjunctiva pink, EOMI, PERRLA Mouth exam: PRESENT: moist Neck exam: PRESENT: full ROM. ABSENT: JVD, lymphadenopathy, tenderness Respiratory exam: PRESENT: clear to auscultation singh Cardiovascular exam: PRESENT: RRR. ABSENT: diastolic murmur, systolic murmur GI/Abdominal exam: PRESENT: normal bowel sounds, soft. ABSENT: tenderness Extremities exam: PRESENT: full ROM Musculoskeletal exam: PRESENT: ambulatory - 3+ edema Neurological exam: PRESENT: alert, awake, oriented to person, oriented to place , oriented to time, oriented to situation, CN II-XII grossly intact Psychiatric exam: PRESENT: appropriate affect, normal mood Skin exam: PRESENT: intact, normal color Results Laboratory Results: 10/26/17 07:10 10/27/17 05:53 10/26/17 10/26/17 10/27/17 07:10 07:10 05:53 WBC 6.3 RBC 4.42 Hgb 10.5 L Hct 33.0 L MCV 75 L MCH 23.8 L MCHC 32.0 RDW 14.8 H Plt Count 249 Sodium 137.9 140.1 Potassium 3.3 L 3.9 Chloride 104 101 Carbon Dioxide 27 33 H Anion Gap 7 6 BUN 14 12 Creatinine 0.60 0.66 Est GFR ( Amer) > 60 > 60 Est GFR (Non-Af Amer) > 60 > 60 Glucose 134 H 130 H Calcium 8.4 9.0 Magnesium 1.5 L 1.9 Triglycerides 269 H Cholesterol 203.18 H LDL Cholesterol Direct 101 H VLDL Cholesterol 53.8 H HDL Cholesterol 26 L 10/25/17 10/26/17 10/26/17 20:08 01:24 07:10 Troponin I < 0.012 < 0.012 < 0.012 Impressions: Abdomen/Pelvis CT 10/25/17 00:00 IMPRESSION: 1. Wall thickening of the ascending colon. This could be seen with colitis of infectious or inflammatory etiology. Neoplasm could also produce a similar appearance. 2. Cholelithiasis. This exam was performed according to our departmental dose-optimization program, which includes automated exposure control, adjustment of the mA and/or kV according to patient size and/or use of iterative reconstruction technique. Chest X-Ray 10/25/17 17:09 IMPRESSION: NO ACUTE RADIOGRAPHIC FINDING IN THE CHEST. Head CT 10/26/17 00:00 IMPRESSION: NORMAL BRAIN CT WITHOUT CONTRAST. EVIDENCE OF ACUTE STROKE: NO. Assessment & Plan - Diagnosis (1) Hypokalemia Is this a current diagnosis for this admission?: Yes Plan: Replaced (2) Atrial fibrillation Qualifiers: Atrial fibrillation type: paroxysmal Qualified Code(s): I48.0 - Paroxysmal atrial fibrillation Is this a current diagnosis for this admission?: Yes Plan: Likely precipitated by electrolyte abnormalities and dehydration. Continue Toprol-XL. Patient has a Chads- Vasc score of 3. Continue Eliquis. Echocardiogram pending. Nuclear stress test pending. CT of head negative (3) Essential (primary) hypertension Is this a current diagnosis for this admission?: Yes Plan: Continue Norvasc and metoprolol. Discontinue lisinopril because of cough and to place on losartan. 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: without engineering operator use Qualified Code(s): E11.65 - Type 2 diabetes mellitus with hyperglycemia Is this a current diagnosis for this admission?: Yes Plan: Will increase Lantus , add premeal Humalog and continue on Humalog sliding scale coverage (5) Hypomagnesemia Is this a current diagnosis for this admission?: Yes Plan: Replaced (6) Hyponatremia Is this a current diagnosis for this admission?: Yes Plan: Due to volume contraction and improved (7) Hypothyroid Qualifiers: Hypothyroidism type: unspecified Qualified Code(s): E03.9 - Hypothyroidism , unspecified Is this a current diagnosis for this admission?: Yes Plan: Continue outpatient regimen (8) Pre-syncope Is this a current diagnosis for this admission?: Yes Plan: Likely due to hypotension. CT of head negative (9) Morbid obesity with BMI of 45.0-49.9, adult Is this a current diagnosis for this admission?: Yes Plan: Lifestyle modifications (10) Acute diarrhea Is this a current diagnosis for this admission?: Yes Plan: Improving. Contributing to presentation. Continue lactobacillus (11) Localized swelling of both lower legs Is this a current diagnosis for this admission?: Yes Plan: Concerned about pulmonary hypertension. Continue IV diuretic. Echocardiogram ordered - Time Time Spent with patient: 15-24 minutes Medications reviewed and adjusted accordingly: Yes Anticipated discharge: Home Within: within 48 hours - Inpatient Certification Based on my medical assessment, after consideration of the patient's comorbidities, presenting symptoms, or acuity I expect that the services needed warrant INPATIENT care.: Yes I certify that my determination is in accordance with my understanding of Medicare's requirements for reasonable and necessary INPATIENT services [42 CFR 412.3e].: Yes Medical Necessity: Need Close Monitoring Due to Risk of Patient Decompensation
--- NOTE | 2017-10-27 13:01 | DRAGON STRESS TEST REPORT ---
INTRAVENOUS LEXISCAN CARDIOLITE STRESS TEST USING SINGLE PHOTON EMMISION COMPUTERIZED TOMOGRAPHIC. DATE OF PROCEDURE: October 27, 2017, INDICATION : Chest pain CARDIAC RISK FACTORS: Diabetes, hypertension RESTING EKG: Sinus rhythm without any baseline ST-T wave changes STRESS EKG: No significant ST segment changes noted with LexiScan bolus REASON FOR TERMINATION: Protocol. PROCEDURE REPORT: Baseline heart rate 82 beats per minute with blood pressure of 165/85. Patient had no significant complaints. Patient was bolused with Lexiscan 0.4 mg intravenously followed by saline bolus. Heart rate at 2 minutes post bolus 97 with a blood pressure of 187/86. 3 minutes post bolus heart rate 93 with blood pressure of 180/80. No significant EKG changes were noted. Patient had no significant complaints during the procedure or postprocedure. Patient injected with Aminophyllin 75 mg at 3 minutes or later after Lexiscan bolus. CONCLUSIONS: Normal EKG and hemodynamic response to IV LexiScan. NUCLEAR DATA: At rest the patient was given 14.25 millicuries of technetium 99 sestamibi injected intravenously. As per protocol rest gated SPECT images were obtained. On day of stress test, the patient was given intravenous LexiScan at a dose of 0.4 mg in 5 mL intravenously, followed by flush with normal saline. Subsequently the stress dose of 46.5 millicuries of technetium 99 sestamibi was injected intravenously. As per protocol stress gated images were obtained. NUCLEAR INTERPRETATION: Both raw and processed data were used for interpretation. Visual, qualitative, computer-generated quantitative data was used. There was good myocardial uptake of technetium compound. Motion artifact and soft tissue attenuations were noted. Increased visceral uptake was noted. Significant breast attenuation artifact was also noted. No definitive areas of transient perfusion defect noted, No definitive areas of fixed perfusion defect or scars noted. EKG gated imaging showed LV EF at 62 %, rest and stress gated EF similar visually. T. I D. ratio was 1.06. Lung heart ratio noted to be within normal limits 0.24. No significant extracardiac and abnormal radiotracer activities were noted. RV free wall uptake was noted to be WNL. IMPRESSION: Also refer to comments under nuclear interpretation. Also test results needs to be interpreted in the context of pretest probability. 1. No definitive areas of transient perfusion defect noted. 2. There is no definitive scintigraphic evidence of myocardial infarction/scar. 3. EKG gated imaging shows left ventricular ejection fraction of approx. 62 %. 4. Clinical correlation requested as occasionally single vessel disease or balanced ischemia could be missed. In approximately 10% of the cases Lexiscan may not cause adequate vasodilatory stress. RECOMMENDATIONS: Aggressive risk factor modification and medical management. Further evaluation may be needed if continued symptoms or other high risk indicators are noted on clinical evaluation. Close cardiology follow-up is also recommended. Clinical correlation with echocardiogram derived ejection fraction. Inability to exercise by itself can lead to increased cardiovascular event risks. Consider cardiology consultation and or follow-up if clinically indicated. I am available for cardiology evaluation and consultation if requested by the dermatology nurse, unless patient already has a project eng. JEAN
[2017-10-27] MEDS ORDERED: FUROSEMIDE INJ/PF 40 MG/4 ML SDV IV ONE (13:30)
[2017-10-27] MEDS: HYDRALAZINE HCL 50 MG TABLET PO SCH ×2 (13:41→21:20)
[2017-10-27] MEDS ORDERED: REGADENOSON INJ 0.4 MG/5 ML DISP.SYRIN IV ONE (15:48)
[2017-10-27] MEDS ORDERED: AMINOPHYLLINE INJ/PF 250 MG/10 ML SDV IV ONE (15:48)
[2017-10-27] MEDS: ATORVASTATIN CALCIUM 80 MG TABLET PO SCH (21:21)
[2017-10-27] MEDS ORDERED: INSULIN GLARGINE,HUM.REC.ANLOG 1,000 UNIT/10 ML UNIT SUBCUT ONE (23:15)
[2017-10-27] MEDS ORDERED: INSULIN LISPRO 100 UNIT/ML 3 ML VIAL SUBCUT ONE (23:15)
[2017-10-28 05:21] LABS: ANION GAP 8 (5-19); BLOOD UREA NITROGEN 19 mg/dL (7-20); CALCIUM 9.2 mg/dL (8.4-10.2); CARBON DIOXIDE 29 mmol/L (22-30); CHLORIDE 99 mmol/L (98-107); GLUCOSE 199 mg/dL (75-110); POTASSIUM 4.4 mmol/L (3.6-5.0); SODIUM 135.5 mmol/L (137-145)
[2017-10-28] MEDS: HYDRALAZINE HCL 50 MG TABLET PO SCH ×3 (06:23→22:02)
[2017-10-28] MEDS: LEVOTHYROXINE SODIUM 0.15 MG TABLET PO SCH (06:23)
[2017-10-28] MEDS: INSULIN LISPRO 100 UNIT/ML 3 ML VIAL SUBCUT PRN ×4 (08:14→22:02)
[2017-10-28] MEDS: INSULIN LISPRO 100 UNIT/ML 3 ML VIAL SUBCUT SCH ×3 (08:14→16:57)
[2017-10-28] MEDS: TORSEMIDE 20 MG TABLET PO SCH ×2 (10:37→17:22)
[2017-10-28] MEDS: AMLODIPINE BESYLATE 5 MG TABLET PO SCH (10:38)
[2017-10-28] MEDS: POTASSIUM CHLORIDE 10 MEQ TABLET.SA PO SCH (10:38)
[2017-10-28] MEDS: MAGNESIUM OXIDE 400 MG TABLET PO SCH ×2 (10:38→17:21)
[2017-10-28] MEDS: LACTOBACILLUS ACIDOPHILUS 250 MG TAB PO SCH ×2 (10:38→17:21)
[2017-10-28] MEDS: METOPROLOL SUCCINATE 50 MG TAB.SR.24H PO SCH (10:38)
[2017-10-28] MEDS: INSULIN GLARGINE,HUM.REC.ANLOG 300 UNIT/3 ML INSULN.PEN SUBCUT SCH ×2 (10:38→22:02)
[2017-10-28] MEDS: FLUTICASONE NASAL SPRAY 50 MCG/SPRY 120 SPRAY/16 GM NASL SCH (10:38)
[2017-10-28] MEDS: APIXABAN 5 MG TABLET PO SCH ×2 (10:38→17:22)
[2017-10-28] MEDS: LOSARTAN POTASSIUM 50 MG TABLET PO SCH (10:38)
--- NOTE | 2017-10-28 14:13 | PDOC PROGRESS REPORT ---
Subjective Progress Note for:: 10/28/17 Subjective:: Patient complains of a mole in her right leg. Yesterday a friend brought her a basket of fruits and she ate them Review of systems All organ systems evaluated and negative All significant laboratories and diagnostics have been reviewed Reason For Visit: ATRIAL FIBRILLATION WITH AVR Physical Exam Vital Signs: Temp Pulse Resp BP Pulse Ox 97.7 F 82 16 145/77 H 98 10/28/17 04:00 10/28/17 07:00 10/28/17 04:00 10/28/17 04:00 10/28/17 04:00 Intake & Output 10/27/17 10/28/17 10/29/17 06:59 06:59 06:59 Intake Total 960 Balance 960 Weight 136.9 kg General appearance: PRESENT: cooperative, morbidly obese Head exam: PRESENT: atraumatic, normocephalic Eye exam: PRESENT: conjunctiva pink, EOMI, PERRLA Ear exam: PRESENT: normal external ear exam Neck exam: PRESENT: full ROM. ABSENT: JVD, lymphadenopathy, tenderness Respiratory exam: PRESENT: clear to auscultation singh Cardiovascular exam: PRESENT: RRR. ABSENT: diastolic murmur, systolic murmur GI/Abdominal exam: PRESENT: normal bowel sounds, soft. ABSENT: tenderness Extremities exam: PRESENT: full ROM, +2 edema Musculoskeletal exam: PRESENT: ambulatory Neurological exam: PRESENT: alert, awake, oriented to person, oriented to place , oriented to time, CN II-XII grossly intact Psychiatric exam: PRESENT: appropriate affect, normal mood Skin exam: PRESENT: intact, normal color, other - Brownish mole measuring less than 0.5's centimeters with irregular borders noted to medial aspect of right lower extremity Results Laboratory Results: 10/28/17 03:47 10/28/17 03:47 Sodium 135.5 L Potassium 4.4 Chloride 99 Carbon Dioxide 29 Anion Gap 8 BUN 19 Creatinine 0.75 Est GFR ( Amer) > 60 Est GFR (Non-Af Amer) > 60 Glucose 199 H Calcium 9.2 Magnesium 1.8 10/28/17 03:47 NT-Pro-B Natriuret Pep 79 Impressions: Abdomen/Pelvis CT 10/25/17 00:00 IMPRESSION: 1. Wall thickening of the ascending colon. This could be seen with colitis of infectious or inflammatory etiology. Neoplasm could also produce a similar appearance. 2. Cholelithiasis. This exam was performed according to our departmental dose-optimization program, which includes automated exposure control, adjustment of the mA and/or kV according to patient size and/or use of iterative reconstruction technique. Chest X-Ray 10/25/17 17:09 IMPRESSION: NO ACUTE RADIOGRAPHIC FINDING IN THE CHEST. Head CT 10/26/17 00:00 IMPRESSION: NORMAL BRAIN CT WITHOUT CONTRAST. EVIDENCE OF ACUTE STROKE: NO. Assessment & Plan - Diagnosis (1) Hypokalemia Is this a current diagnosis for this admission?: Yes Plan: Replaced (2) Atrial fibrillation Qualifiers: Atrial fibrillation type: paroxysmal Qualified Code(s): I48.0 - Paroxysmal atrial fibrillation Is this a current diagnosis for this admission?: Yes Plan: Likely precipitated by electrolyte abnormalities and dehydration. Continue Toprol-XL. Patient has a Chads- Vasc score of 3. Continue Eliquis. Echocardiogram pending. Nuclear stress test negative. CT of head negative (3) Essential (primary) hypertension Is this a current diagnosis for this admission?: Yes Plan: Continue Norvasc, metoprolol, losartan and increase hydralazine dose (4) Hyperglycemia due to type 2 diabetes mellitus Qualifiers: Diabetes mellitus terminal gauger insulin use: without terminal gauger use Qualified Code(s): E11.65 - Type 2 diabetes mellitus with hyperglycemia Is this a current diagnosis for this admission?: Yes Plan: Will increase Lantus and premeal Humalog and continue on Humalog sliding scale coverage (5) Hypomagnesemia Is this a current diagnosis for this admission?: Yes Plan: Replaced (6) Hyponatremia Is this a current diagnosis for this admission?: Yes Plan: Due to volume contraction and improved (7) Hypothyroid Qualifiers: Hypothyroidism type: unspecified Qualified Code(s): E03.9 - Hypothyroidism , unspecified Is this a current diagnosis for this admission?: Yes Plan: Continue outpatient regimen (8) Pre-syncope Is this a current diagnosis for this admission?: Yes Plan: Likely due to hypotension. CT of head negative (9) Morbid obesity with BMI of 45.0-49.9, adult Is this a current diagnosis for this admission?: Yes Plan: Lifestyle modifications (10) Acute diarrhea Is this a current diagnosis for this admission?: Yes Plan: Improving. Contributing to presentation. Continue lactobacillus (11) Localized swelling of both lower legs Is this a current diagnosis for this admission?: Yes Plan: Concerned about pulmonary hypertension. Discontinue IV diuretic and change to oral. Echocardiogram ordered - Time Time Spent with patient: 15-24 minutes Medications reviewed and adjusted accordingly: Yes Anticipated discharge: Home Within: within 24 hours - Inpatient Certification Based on my medical assessment, after consideration of the patient's comorbidities, presenting symptoms, or acuity I expect that the services needed warrant INPATIENT care.: Yes I certify that my determination is in accordance with my understanding of Medicare's requirements for reasonable and necessary INPATIENT services [42 CFR 412.3e].: Yes Medical Necessity: Need Close Monitoring Due to Risk of Patient Decompensation, Need For Continuous Telemetry Monitoring
[2017-10-28] MEDS ORDERED: INSULIN GLARGINE,HUM.REC.ANLOG 300 UNIT/3 ML INSULN.PEN SUBCUT SCH (22:00)
[2017-10-28] MEDS: ATORVASTATIN CALCIUM 80 MG TABLET PO SCH (22:02)
[2017-10-29 05:00] VITALS: BP 154/81
[2017-10-29] MEDS: LEVOTHYROXINE SODIUM 0.15 MG TABLET PO SCH (05:57)
[2017-10-29] MEDS: HYDRALAZINE HCL 50 MG TABLET PO SCH (05:57)
[2017-10-29] MEDS: INSULIN LISPRO 100 UNIT/ML 3 ML VIAL SUBCUT SCH ×2 (07:59→12:53)
[2017-10-29] MEDS: INSULIN LISPRO 100 UNIT/ML 3 ML VIAL SUBCUT PRN ×2 (07:59→12:53)
[2017-10-29] MEDS: AMLODIPINE BESYLATE 5 MG TABLET PO SCH (09:22)
[2017-10-29] MEDS: MAGNESIUM OXIDE 400 MG TABLET PO SCH (09:22)
[2017-10-29] MEDS: METOPROLOL SUCCINATE 50 MG TAB.SR.24H PO SCH (09:22)
[2017-10-29] MEDS: INSULIN GLARGINE,HUM.REC.ANLOG 300 UNIT/3 ML INSULN.PEN SUBCUT SCH (09:22)
[2017-10-29] MEDS: TORSEMIDE 20 MG TABLET PO SCH (09:22)
[2017-10-29] MEDS: APIXABAN 5 MG TABLET PO SCH (09:22)
[2017-10-29] MEDS: FLUTICASONE NASAL SPRAY 50 MCG/SPRY 120 SPRAY/16 GM NASL SCH (09:22)
[2017-10-29] MEDS: LOSARTAN POTASSIUM 50 MG TABLET PO SCH (09:22)
[2017-10-29] MEDS: POTASSIUM CHLORIDE 10 MEQ TABLET.SA PO SCH (09:22)
[2017-10-29] MEDS: LACTOBACILLUS ACIDOPHILUS 250 MG TAB PO SCH (09:22)
--- NOTE | 2017-10-29 18:29 | XCELERA REPORT ---
[address] [address] Transthoracic Echocardiogram Report Name: MARGARITO COLEY Age: 57 yrs Gender: Female : 1960 Patient Status: Inpatient Patient Location: [address] [place] [address] Study Date: 10/29/2017 09:55 AM Height: 67 in Weight: 283 lb BSA: 2.3 m2 Procedure: A complete two-dimensional transthoracic echocardiogram was performed (2D, M-mode, spectral and color flow Doppler). The study was technically difficult with many images being suboptimal in quality. Reason For Study: chest pain Ordering Physician: COOPER JOSHI Performed By: Carey Nava Interpretation Summary The left ventricular ejection fraction is normal. There is mild concentric left ventricular hypertrophy. The left ventricle is grossly normal size. Doppler measurements suggest pseudonormalized left ventricular relaxation, which is associated with grade II/IV or mild to moderate diastolic dysfunction Wall motion cannot be accurately commented on, but no definite regional wall motion abnormalities noted. The right ventricular systolic function is normal. The right ventricle is mildly dilated. The left atrial size is normal. The right atrium is normal in size There is a trace amount of mitral regurgitation There is no mitral valve stenosis. No aortic regurgitation is present. There is no aortic valve stenosis There is a trace or physiologic amount of tricuspid regurgitation Tricuspid regurgitation jet envelope not well defined to measure RV systolic pressure accurately. The aortic root is not well visualized but is probably normal size. The inferior vena cava was not well visualized There is no pericardial effusion. MMode/2D Measurements & Calculations RVDd: 3.3 cm LVIDd: 3.3 cm FS: 37.2 % Ao root diam: 2.6 cm IVSd: 1.2 cm LVIDs: 2.0 cm EDV(Teich): 42.9 ml LVPWd: 1.2 cm ESV(Teich): 13.5 ml Ao root area: 5.4 cm2 EF(Teich): 68.5 % LA dimension: 3.1 cm Doppler Measurements & Calculations MV E max enrrique: MV P1/2t max enrrique: Ao V2 max: LV V1 max P.6 cm/sec 71.3 cm/sec 132.7 cm/sec 4.6 mmHg MV A max enrrique: MV P1/2t: 72.4 msec Ao max PG: LV V1 max: 83.4 cm/sec 7.0 mmHg 107.5 cm/sec MV E/A: 0.84 MVA(P1/2t): 3.0 cm2 MV dec slope: 288.6 cm/sec2 PA V2 max: 143.1 cm/sec PA max P.2 mmHg Left Ventricle The left ventricle is grossly normal size. There is mild concentric left ventricular hypertrophy. The left ventricular ejection fraction is normal. Doppler measurements suggest pseudonormalized left ventricular relaxation, which is associated with grade II/IV or mild to moderate diastolic dysfunction. Wall motion cannot be accurately commented on, but no definite regional wall motion abnormalities noted. Right Ventricle The right ventricle is mildly dilated. There is normal right ventricular wall thickness. The right ventricular systolic function is normal. Atria The right atrium is normal in size. The left atrial size is normal. Interarterial septum not well visualized and not well dopplered. Cannot comment on ASD/PFO presence. Mitral Valve The mitral valve is grossly normal. There is no mitral valve stenosis. There is a trace amount of mitral regurgitation. Aortic Valve The aortic valve is grossly normal. There is no aortic valve stenosis. No aortic regurgitation is present. Tricuspid Valve The tricuspid valve is not well visualized, but is grossly normal. There is no tricuspid stenosis. There is a trace or physiologic amount of tricuspid regurgitation. Tricuspid regurgitation jet envelope not well defined to measure RV systolic pressure accurately. Pulmonic Valve The pulmonic valve is not well visualized. Great Vessels The aortic root is not well visualized but is probably normal size. The inferior vena cava was not well visualized. Effusions There is no pericardial effusion. : COOPER JOSHI > Dario Keller
--- NOTE | 2017-10-29 18:56 | PDOC DISCHARGE SUMMARY ---
General - Admit/Disc Date/PCP Admission Date/Primary Care Provider: 10/27/17 09:28 Discharge Date: 10/29/17 - Discharge Diagnosis (1) Atrial fibrillation Is this a current diagnosis for this admission?: Yes (2) Hypokalemia Is this a current diagnosis for this admission?: Yes (3) Essential (primary) hypertension Is this a current diagnosis for this admission?: Yes (4) Hyperglycemia due to type 2 diabetes mellitus Is this a current diagnosis for this admission?: Yes (5) Hypomagnesemia Is this a current diagnosis for this admission?: Yes (6) Hyponatremia Is this a current diagnosis for this admission?: Yes (7) Hypothyroid Is this a current diagnosis for this admission?: Yes (8) Pre-syncope Is this a current diagnosis for this admission?: Yes (9) Morbid obesity with BMI of 45.0-49.9, adult Is this a current diagnosis for this admission?: Yes (10) Acute diarrhea Is this a current diagnosis for this admission?: Yes (11) Localized swelling of both lower legs Is this a current diagnosis for this admission?: Yes (12) Hyperlipidemia Is this a current diagnosis for this admission?: Yes - Additional Information Resuscitation Status: Full Code Prescriptions: Amlodipine Besylate [Norvasc 5 mg Tablet] 10 mg PO DAILY #60 tablet Aspirin [Aspirin 325 mg Tablet] 325 mg PO DAILY PRN #1 pkg PRN Reason: Atorvastatin Calcium [Lipitor 80 mg Tablet] 80 mg PO QHS #30 tablet Hydralazine HCl [Apresoline 50 mg Tablet] 100 mg PO Q8 #180 tablet Losartan Potassium [Cozaar 50 mg Tablet] 100 mg PO DAILY #60 tablet Magnesium Oxide [Mag-Ox 400 mg Tablet] 400 mg PO BID #60 tablet Potassium Chloride [Klor-Con 10 Meq Tablet.sa] 20 meq PO DAILY #30 tablet.sa Home Medications: Ascorbic Acid [Vitamin C 500 mg Tablet] 500 mg PO DAILY 10/25/17 Furosemide [Lasix 40 mg Tablet] 40 mg PO QAM 10/25/17 Glipizide [Glucotrol 5 mg Tablet] 10 mg PO BIDBS 10/25/17 Levothyroxine Sodium [Synthroid 0.15 mg Tablet] 0.15 mg PO Q6AM 10/25/17 Metformin HCl [Glucophage 500 mg Tablet] 1,000 mg PO BIDBS 10/25/17 Metoprolol Tartrate [Lopressor 50 mg Tablet] 50 mg PO Q12 10/25/17 Multivitamin [Tab-A-Stephen (Multiple Vitamin) Tablet] 1 tab PO DAILY 10/25/17 Promethazine HCl [Phenergan 25 mg Tablet] 25 mg PO Q6HP PRN 10/25/17 Amlodipine Besylate [Norvasc 5 mg Tablet] 10 mg PO DAILY #60 tablet 10/29/17 Aspirin [Aspirin 325 mg Tablet] 325 mg PO DAILY PRN #1 pkg 10/29/17 Atorvastatin Calcium [Lipitor 80 mg Tablet] 80 mg PO QHS #30 tablet 10/29/17 Hydralazine HCl [Apresoline 50 mg Tablet] 100 mg PO Q8 #180 tablet 10/29/17 Insulin Glargine,Hum.rec.anlog [Lantus Insulin 100 Unit/mL] 30 unit SUBCUT Q12 insuln.pen 10/29/17 Losartan Potassium [Cozaar 50 mg Tablet] 100 mg PO DAILY #60 tablet 10/29/17 Magnesium Oxide [Mag-Ox 400 mg Tablet] 400 mg PO BID #60 tablet 10/29/17 Potassium Chloride [Klor-Con 10 Meq Tablet.sa] 20 meq PO DAILY #30 tablet.sa History of Present Illness History of Present Illness: MARGARITO COLEY is a 57 year old female morbidly obese with history of hypertension and type 2 diabetes mellitus was admitted with complains of weakness and diarrhea. She presented to the ED on 10/22/2017 complaining of nausea, vomiting and diarrhea. She was diagnosed with viral syndrome and discharged from the ED since her symptoms improved. She returned on the day of admission since she has not been feeling well She had recurrent diarrhea, 2-3 times a day of liquid, nonbloody stool with some abdominal cramps. She denied any constipation, fever but complained of having chills, no urinary symptoms. She also denied any sick contact or recent antibiotics use or having eaten a different kind of food. But she said that she had some stool incontinence at times which has been getting more frequent. The patient also denied any chest pain but complained of shortness of breath today and productive cough of yellowish sputum with nasal congestion for one day. She also said that she felt lightheaded/dizzy today but her blood pressure was 135/103 when she checked it. SINCE BLOOD PRESSURE WENT UP to 175/ 117 so she decided to come back to the hospital for further management and treatment. She denied any loss of consciousness or any focal weakness or numbness but she said that she felt generally weak. In the ED, her temperature was 97.7, heart rate 86, respiratory rate 22, blood pressure 157/94 with oxygen saturation of 100% on room air. Her WBC was 7.1 with hemoglobin of 11.4. Her blood glucose was 413 with magnesium of 1.1. Her initial troponin was negative. UA and UDS pending. A CXR of the chest was done which was unremarkable. She received 10 units of regular insulin 1, 1 g of magnesium sulfate 1 and 1 L of normal saline 1 Hospital Course Hospital Course: Patient was found to be on atrial fibrillation with a rapid ventricular response. Patient improved upon hydration and correction of hypokalemia and hypomagnesemia. Patient's WARREN-Vasc score is 3 however on discharge placed patient on full strength aspirin due to lack of insurance. Nuclear stress test was negative. Blood pressure was treated aggressively as well as diabetes. One limiting factor is that patient lacks adequate follow-up and insurance. Patient has been made for patient to follow-up at the care clinic. Patient has been provided with medications for blood pressure management as for diabetes. Patient has been educated about diet as well. Patient had been advised as to lifestyle modifications. Diarrheal process was deemed to be viral and it improved while hospitalized. Since patient had achieved maximum benefit of hospitalization stay and was stable prompted to discharge Physical Exam Vital Signs: Temp Pulse Resp BP Pulse Ox 98.3 F 101 H 16 154/81 H 98 10/29/17 04:00 10/29/17 04:00 10/29/17 04:00 10/29/17 04:00 10/29/17 04:00 Intake & Output 10/28/17 10/29/17 10/30/17 06:59 06:59 06:59 Intake Total 960 1716 Output Total 0 Balance 960 -334 Weight 136.9 kg General appearance: PRESENT: no acute distress, cooperative, morbidly obese Head exam: PRESENT: atraumatic, normocephalic Eye exam: PRESENT: conjunctiva pink, EOMI, PERRLA Ear exam: PRESENT: normal external ear exam Neck exam: PRESENT: full ROM. ABSENT: JVD, lymphadenopathy, tenderness, thyromegaly Respiratory exam: PRESENT: clear to auscultation singh Cardiovascular exam: PRESENT: RRR. ABSENT: diastolic murmur, systolic murmur GI/Abdominal exam: PRESENT: normal bowel sounds, soft. ABSENT: tenderness Extremities exam: PRESENT: full ROM, +2 edema Musculoskeletal exam: PRESENT: ambulatory Neurological exam: PRESENT: alert, awake, oriented to person, oriented to place , oriented to time, oriented to situation, CN II-XII grossly intact Psychiatric exam: PRESENT: appropriate affect, normal mood Skin exam: PRESENT: intact, normal color Results Laboratory Results: 10/28/17 03:47 10/28/17 03:47 NT-Pro-B Natriuret Pep 79 Impressions: Abdomen/Pelvis CT 10/25/17 00:00 IMPRESSION: 1. Wall thickening of the ascending colon. This could be seen with colitis of infectious or inflammatory etiology. Neoplasm could also produce a similar appearance. 2. Cholelithiasis. This exam was performed according to our departmental dose-optimization program, which includes automated exposure control, adjustment of the mA and/or kV according to patient size and/or use of iterative reconstruction technique. Chest X-Ray 10/25/17 17:09 IMPRESSION: NO ACUTE RADIOGRAPHIC FINDING IN THE CHEST. Head CT 10/26/17 00:00 IMPRESSION: NORMAL BRAIN CT WITHOUT CONTRAST. EVIDENCE OF ACUTE STROKE: NO. Qualifiers - * PATEINT BEING DISCHARGED WITH ANY OF THE FOLLOWING DIAGNOSIS?: No
[2017-10-30] MEDS ORDERED: AMLODIPINE BESYLATE 10 MG TABLET PO SCH (10:00)
== END 2017-10-29 14:23 | disposition home or self-care (01) | DRG 309 ==
LOC: ER 15:49 → EH 19:19 → 5 21:30 → OBSVTOIN 10-27 09:28
PROVIDERS: ADMIT Internal Medicine Geriatric Medicine; ATTEND Internal Medicine Geriatric Medicine
DX: I48.91 Unspecified atrial fibrillation (principal); E87.1 Hypo-osmolality and hyponatremia; Z68.42 Body mass index [BMI] 45.0-49.9, adult; Z79.01 Long term (current) use of anticoagulants; E87.6 Hypokalemia; I10 Essential (primary) hypertension; E11.65 Type 2 diabetes mellitus with hyperglycemia; E83.42 Hypomagnesemia; E03.9 Hypothyroidism, unspecified; E86.0 Dehydration; R55 Syncope and collapse; E66.01 Morbid (severe) obesity due to excess calories; E78.5 Hyperlipidemia, unspecified; R19.7 Diarrhea, unspecified; R60.0 Localized edema; Z79.82 Long term (current) use of aspirin; Z79.84 Long term (current) use of oral hypoglycemic drugs; Z59.7 Insufficient social insurance and welfare support; F32.9 Major depressive disorder, single episode, unspecified; Z98.891 History of uterine scar from previous surgery; Z79.899 Other long term (current) drug therapy
CPT/HCPCS: 36415; 70450; 71045; 74177; 78452; 80048; 80053; 80061; 80307; 81001; 82272; 82962; 83036; 83690; 83735; 83880; 84439; 84443; 84484; 85025; 85027; 87045; 87205; 87493; 89055; 93005; 93010; 93017; 93306; 96365; 96366; 99285; A9500; J0280; J1815; J1940; J2060; J2785; J3475; J7030; Q9969

== ENCOUNTER 2017-11-02 12:06 | Observation (INO) | payer SELFPAY ==
--- NOTE | 2017-11-02 12:35 | ER Document Report ---
ED Medical Screen (RME) - General Chief Complaint: Shortness Of Breath Stated Complaint: CHEST PAIN Time Seen by Provider: 11/02/17 12:33 Mode of Arrival: Wheelchair Information source: Patient, Relative, [facility] Records Notes: 57-year-old female recent admission for A. fib RVR presents with complaints of shortness of breath difficulty ambulating, patient notes ambulation only a few steps causes shortness of breath I have greeted and performed a rapid initial assessment of this patient. A comprehensive ED assessment and evaluation of the patient, analysis of test results and completion of the medical decision making process will be conducted by additional ED providers. PHYSICAL EXAMINATION: GENERAL: Well-appearing, well-nourished and in no acute distress. HEAD: Atraumatic, normocephalic. EYES: Pupils equal round extraocular movements intact, conjunctiva are normal. ENT: Nares patent NECK: Normal range of motion LUNGS: No respiratory distress Musculoskeletal: Normal range of motion NEUROLOGICAL: Normal speech, normal gait. PSYCH: Normal mood, normal affect. SKIN: Warm, Dry, normal turgor, no rashes or lesions noted. TRAVEL OUTSIDE OF THE [place] IN LAST 30 DAYS: No - Related Data Allergies/Adverse Reactions: No Known Allergies Allergy (Verified 11/02/17 12:27) Past Medical History - Social History Chew tobacco use (# tins/day): No Frequency of alcohol use: None Drug Abuse: None - Past Medical History Cardiac Medical History: Reports: Hx Hypercholesterolemia, Hx Hypertension Endocrine Medical History: Reports: Hx Diabetes Mellitus Type 1, Hx Diabetes Mellitus Type 2, Hx Hypothyroidism Renal/ Medical History: Denies: Hx Peritoneal Dialysis Psychiatric Medical History: Reports: Hx Depression Past Surgical History: Reports: Hx Cardiac Catheterization, Hx Section - x1, Other - post uvelectomy. - Immunizations History of Influenza Vaccine for 05/2017 - 10/2017 Season: Yes Physical Exam - Vital signs Vitals: Temp Pulse Resp BP Pulse Ox 98.4 F 108 H 22 H 125/63 100 11/02/17 12:29 11/02/17 12:29 11/02/17 12:29 11/02/17 12:29 11/02/17 12:29 Course - Vital Signs Vital signs: Temp Pulse Resp BP Pulse Ox 98.4 F 108 H 22 H 125/63 100 11/02/17 12:29 11/02/17 12:29 11/02/17 12:29 11/02/17 12:29 11/02/17 12:29
[2017-11-02 13:06] LABS: ABSOLUTE BASOPHILS # (AUTO) 0.1 10^3/uL (0.0-0.2); ABSOLUTE EOSINOPHILS # (AUTO) 0.1 10^3/uL (0.0-0.6); ABSOLUTE MONOCYTES (AUTO) 0.6 10^3/uL (0.1-1.4); ABSOLUTE NEUT (AUTO) 4.2 10^3/uL (1.7-8.2); EOSINOPHILS % (AUTO) 0.8 % (0-6); HEMATOCRIT 35.2 % (36.0-47.0); HEMOGLOBIN 11.3 g/dL (12.0-15.5); MEAN CORPUSCULAR HEMOGLOBIN 24.1 pg (27.0-33.4); MEAN CORPUSCULAR HGB CONC 32.2 g/dL (32.0-36.0); MEAN CORPUSCULAR VOLUME 75 fl (80-97); MONOCYTES % (AUTO) 8.3 % (3-13); PLATELET COUNT 304 10^3/uL (150-450); RED CELL DISTRIBUTION WIDTH 14.9 % (11.5-14.0); SEGMENTED NEUTROPHILS % (AUTO) 60.9 % (42-78); TOTAL CELLS COUNTED % (AUTO) 100 %; WHITE BLOOD COUNT 6.9 10^3/uL (4.0-10.5)
[2017-11-02] MEDS ORDERED: NORMAL SALINE 1000 ML 500 ML IV ONE (13:09)
--- NOTE | 2017-11-02 13:10 | ER Document Report ---
ED Cardiac - General Chief Complaint: Shortness Of Breath Stated Complaint: CHEST PAIN Time Seen by Provider: 11/02/17 12:33 Mode of Arrival: Wheelchair Information source: Patient Notes: Patient is a 57-year-old female with a history of hypertension, newly diagnosed atrial fibrillation, possible history of congestive heart failure who does not see a primary care provider. She presents today with palpitations and shortness of breath on exertion that started today. She denies cough, wheezing , recent illness, fever, chills, swelling to the lower extremities. She denies any history of being short of breath on exertion before. She denies any chest pain. TRAVEL OUTSIDE OF THE [place] IN LAST 30 DAYS: No - Related Data Allergies/Adverse Reactions: No Known Allergies Allergy (Verified 11/02/17 12:27) Past Medical History - General Information source: Patient, Relative, [facility] Records - Social History Smoking Status: Never Smoker Chew tobacco use (# tins/day): No Frequency of alcohol use: None Drug Abuse: None Family History: Reviewed & Not Pertinent Patient has suicidal ideation: No Patient has homicidal ideation: No - Past Medical History Cardiac Medical History: Reports: Hx Hypercholesterolemia, Hx Hypertension Endocrine Medical History: Reports: Hx Diabetes Mellitus Type 1, Hx Diabetes Mellitus Type 2, Hx Hypothyroidism Renal/ Medical History: Denies: Hx Peritoneal Dialysis Psychiatric Medical History: Reports: Hx Depression Past Surgical History: Reports: Hx Cardiac Catheterization, Hx Section - x1, Other - post uvelectomy. Review of Systems - Review of Systems Constitutional: No symptoms reported EENT: No symptoms reported Cardiovascular: See HPI Respiratory: See HPI Gastrointestinal: No symptoms reported Genitourinary: No symptoms reported Female Genitourinary: No symptoms reported Musculoskeletal: No symptoms reported Skin: No symptoms reported Hematologic/Lymphatic: No symptoms reported Neurological/Psychological: No symptoms reported Physical Exam - Vital signs Vitals: Temp Pulse Resp BP Pulse Ox 98.4 F 108 H 22 H 125/63 100 11/02/17 12:29 11/02/17 12:29 11/02/17 12:29 11/02/17 12:29 11/02/17 12:29 - Notes Notes: PHYSICAL EXAMINATION: GENERAL: chronically ill-appearing, but and in no acute distress. HEAD: Atraumatic, normocephalic. EYES: Pupils equal round and reactive to light, extraocular movements intact, sclera anicteric, conjunctiva are normal. ENT: ear canals without erythema or foreign body, TMs pearly garza with good bony landmarks, nares patent, oropharynx clear without exudates. Moist mucous membranes. Airway patent NECK: Normal range of motion, supple without lymphadenopathy LUNGS: Shallow breaths, otherwise CTAB and equal. No wheezes rales or rhonchi. HEART: Tachycardic with regular rhythm without murmurs ABDOMEN: Soft, no tenderness. No guarding, no rebound BACK: no vertebral tenderness, normal ROM GI/: no CVA tenderness EXTREMITIES: Normal range of motion, no pitting edema. No cyanosis. NEUROLOGICAL: Cranial nerves grossly intact. Normal sensory/motor exams. PSYCH: Normal mood, normal affect. SKIN: Warm, Dry, normal turgor, no rashes or lesions noted Course - Re-evaluation Re-evalutation: 11/02/17 17:56 Lab work is unremarkable today, troponin is indeterminate, EKG a sinus tachycardia at a rate of 104 bpm with no evidence of ischemia. Patient has been with provider here in the emergency department for 5 hours at this point and is still tachycardic at right around 104 bpm, not responding to IV fluids. TSH is normal today. BNP is pending at this time. Chest x-ray reports no acute pathology, no fluid overload, CTA of the chest reports no pulmonary emboli or other acute abnormality. Patient is not requiring oxygen, is not hypoxic, just obviously dyspneic on exertion. Dr. Braden has admitted patient at this time for observation. - Vital Signs Vital signs: Temp Pulse Resp BP Pulse Ox 98.4 F 108 H 19 155/64 H 99 11/02/17 12:29 11/02/17 12:29 11/02/17 17:01 11/02/17 17:01 11/02/17 17:01 - Laboratory Result Diagrams: 11/02/17 12:50 11/02/17 13:55 Laboratory results interpreted by me: 11/02/17 11/02/17 12:50 13:55 Hgb 11.3 L Hct 35.2 L MCV 75 L MCH 24.1 L RDW 14.9 H Sodium 136.5 L BUN 35 H Glucose 190 H Alkaline Phosphatase 180 H Discharge - Discharge Clinical Impression: Dyspnea on exertion, Tachycardia Condition: Stable Disposition: ADMITTED OBSERVATION Admitting Provider: Hospitalist Sarah Braden Unit Admitted: Telemetry
--- NOTE | 2017-11-02 13:47 | EKG REPORT ---
SEVERITY:- ABNORMAL ECG - SINUS TACHYCARDIA ATRIAL PREMATURE COMPLEX LEFT VENTRICULAR HYPERTROPHY : Confirmed by: Scott Silverman MD 02-Nov-2017 13:47:08
--- NOTE | 2017-11-02 13:57 | RADIOLOGY REPORT (SQ) ---
EXAM DESCRIPTION: CHEST SINGLE VIEW COMPLETED DATE/TIME: 11/02/2017 1:41 pm REASON FOR STUDY: sob, tachycardia COMPARISON: 10/25/2017 EXAM PARAMETERS: NUMBER OF VIEWS: One view. TECHNIQUE: Single frontal radiographic view of the chest acquired. RADIATION DOSE: NA LIMITATIONS: None. FINDINGS: LUNGS AND PLEURA: No opacities, masses or pneumothorax. No pleural effusion. MEDIASTINUM AND HILAR STRUCTURES: No masses. Contour normal. HEART AND VASCULAR STRUCTURES: Heart normal in size. Normal vasculature. BONES: No acute findings. HARDWARE: None in the chest. OTHER: No other significant finding. IMPRESSION: NO ACUTE RADIOGRAPHIC FINDING IN THE CHEST. TECHNICAL DOCUMENTATION: JOB ID: [id number] [employer]- All Rights Reserved Reading location - IP/workstation name: [email or web address]
[2017-11-02 14:34] LABS: ALANINE AMINOTRANSFERASE 44 U/L (9-52); ALBUMIN 3.6 g/dL (3.5-5.0); ALKALINE PHOSPHATASE 180 U/L (38-126); ANION GAP 10 (5-19); ASPARTATE AMINO TRANSFERASE 20 U/L (14-36); BILIRUBIN,DIRECT 0.3 mg/dL (0.0-0.4); BILIRUBIN,TOTAL 0.4 mg/dL (0.2-1.3); BLOOD UREA NITROGEN 35 mg/dL (7-20); CALCIUM 9.7 mg/dL (8.4-10.2); CARBON DIOXIDE 25 mmol/L (22-30); CHLORIDE 102 mmol/L (98-107); GLUCOSE 190 mg/dL (75-110); POTASSIUM 3.9 mmol/L (3.6-5.0); SODIUM 136.5 mmol/L (137-145); TOTAL PROTEIN 6.6 g/dL (6.3-8.2)
--- NOTE | 2017-11-02 15:10 | RADIOLOGY REPORT (SQ) ---
EXAM DESCRIPTION: CTA CHEST COMPLETED DATE/TIME: 11/02/2017 2:36 pm REASON FOR STUDY: sob, afib COMPARISON: None. TECHNIQUE: CT scan of the chest performed using helical scanning technique with dynamic intravenous contrast injection. Images reviewed with lung, soft tissue and bone windows. Reconstructed coronal and sagittal MPR images reviewed. Additional 3 dimensional post-processing performed to develop Maximal Intensity Projection images (WI P). All images stored on PACS. All CT scanners at this facility use dose modulation, iterative reconstruction, and/or weight based d osing when appropriate to reduce radiation dose to as low as reasonably achievable (ALARA). [facility]: Dose Right [facility]: CareDose [facility]: Dose Right [facility]: Teradose 4D [facility]: [employer] CONTRAST TYPE AND DOSE: contrast/concentration: Isovue 370.00 mg/ml; Total Contrast Delivered: 161.0 ml; Total Saline Delivered: 155.1 ml RENAL FUNCTION: GFR > 60. RADIATION DOSE: CT Rad equipment meets quality standard of care and radiation dose reduction techniq ues were employed. CTDIvol: 26.4 - 35.9 mGy. DLP: 2488 mGy-cm. . LIMITATIONS: Timing of contrast bolus. FINDINGS: LUNGS AND PLEURA: No masses, infiltrates, pneumothorax. No pleural effusions, calcificati ons. AORTA AND GREAT VESSELS: No aneurysm. Contrast bolus not optimized for the aorta. HEART: No pericardial effusion. PULMONARY ARTERIES: No emboli visualized in the main pulmonary arteries or the segmental branches. HILAR AND MEDIASTINAL STRUCTURES: No identified masses or abnormal nodes. HARDWARE: None in the chest. UPPER ABDOMEN: No significant findings. Limited exam. THYROID AND OTHER SOFT TISSUES: No masses. No adenopathy. BONES: No acute or significant finding. 3D MIPS: Confirm above findings. OTHER: No other significant finding. IMPRESSION: No PE. No acute findings. COMMENT: Quality ID # [id number]: Final reports with documentation of one or more dose reduction techniques (e.g., Automated exposure control, adjustment of the mA and/or kV according to patient size, use of iterative reconstruction technique) TECHNICAL DOCUMENTATION: JOB ID: [id number] [employer]- All Rights Reserved Reading location - IP/workstation name: [email or web address]
[2017-11-02] MEDS ORDERED: NORMAL SALINE 1000 ML 1,000 ML IV ONE (16:02)
[2017-11-02] MEDS ORDERED: IPRATROPIUM/ALBUTEROL 0.5-2.5 MG/3 ML AMPUL NEB ONE (16:02)
[2017-11-02] MEDS ORDERED: 1/2 NORMAL SALINE 1,000 ML IV PRN (19:26)
[2017-11-02] MEDS ORDERED: ACETAMINOPHEN 325 MG TABLET PO PRN (19:27)
[2017-11-02] MEDS ORDERED: LEVALBUTEROL HCL NEB 1.25 MG/3 ML AMPUL NEB PRN (19:27)
--- NOTE | 2017-11-02 19:44 | PDOC H&P ---
History of Present Illness Admission Date/PCP: 11/02/17 18:24 [facility] History of Present Illness: MARGARITO COLEY is a 57 year old female With past medical history of Hypertension Insulin-dependent diabetes Hyperlipidemia Hypothyroidism Diastolic dysfunction on recent echocardiogram Atrial fibrillation She was recently discharged from the hospital after complaining of generalized weakness diarrhea nausea and vomiting. She was initially diagnosed with a viral gastroenteritis and sent back from the ED however came back to the hospital with abdominal cramps and liquid stools. She was found to be in A. fib with RVR with multiple electrolyte abnormalities which were corrected. Her medications were adjusted and in terms improved and she was discharged. She was placed on full-strength aspirin for stroke prevention. The patient presented back to the hospital today with generalized weakness severe fatigue dyspnea on exertion and palpitations. Chest x-ray is within normal limits CT angiogram of the chest and abdomen showed no dissection or evidence of pulmonary embolism. Twelve-lead EKG shows sinus tachycardia. TSH is within normal limits. She complains of constant palpitations and chest pressure and dyspnea on exertion. She reports compliance with her medications. BP and glucose have been under control. Past Medical History Cardiac Medical History: Reports: Hyperlipidema, Hypertension Endocrine Medical History: Reports: Diabetes Mellitus Type 2, Hypothyroidism Psychiatric Medical History: Reports: Depression Past Surgical History Past Surgical History: Reports: Cardiac Catheterization, Section - x1, Other - post uvelectomy. Social History Smoking Status: Never Smoker Frequency of Alcohol Use: None Hx Recreational Drug Use: No Drugs: None Hx Prescription Drug Abuse: No Family History Family History: Reviewed & Not Pertinent Parental Family History Reviewed: Yes Children Family History Reviewed: Yes Sibling(s) Family History Reviewed.: Yes Medication/Allergy Home Medications: Ascorbic Acid [Vitamin C 500 mg Tablet] 500 mg PO DAILY 10/25/17 Furosemide [Lasix 40 mg Tablet] 40 mg PO QAM 10/25/17 Glipizide [Glucotrol 5 mg Tablet] 10 mg PO BIDBS 10/25/17 Levothyroxine Sodium [Synthroid 0.15 mg Tablet] 0.15 mg PO Q6AM 10/25/17 Metformin HCl [Glucophage 500 mg Tablet] 1,000 mg PO BIDBS 10/25/17 Metoprolol Tartrate [Lopressor 50 mg Tablet] 50 mg PO Q12 10/25/17 Multivitamin [Tab-A-Stephen (Multiple Vitamin) Tablet] 1 tab PO DAILY 10/25/17 Promethazine HCl [Phenergan 25 mg Tablet] 25 mg PO Q6HP PRN 10/25/17 Amlodipine Besylate [Norvasc 5 mg Tablet] 10 mg PO DAILY #60 tablet 10/29/17 Aspirin [Aspirin 325 mg Tablet] 325 mg PO DAILY PRN #1 pkg 10/29/17 Atorvastatin Calcium [Lipitor 80 mg Tablet] 80 mg PO QHS #30 tablet 10/29/17 Hydralazine HCl [Apresoline 50 mg Tablet] 100 mg PO Q8 #180 tablet 10/29/17 Insulin Glargine,Hum.rec.anlog [Lantus Insulin 100 Unit/mL] 30 unit SUBCUT Q12 insuln.pen 10/29/17 Losartan Potassium [Cozaar 50 mg Tablet] 100 mg PO DAILY #60 tablet 10/29/17 Magnesium Oxide [Mag-Ox 400 mg Tablet] 400 mg PO BID #60 tablet 10/29/17 Potassium Chloride [Klor-Con 10 Meq Tablet.sa] 20 meq PO DAILY #30 tablet.sa Allergies/Adverse Reactions: No Known Allergies Allergy (Verified 11/02/17 12:27) Review of Systems Constitutional: PRESENT: weakness. ABSENT: fever(s), headache(s) Eyes: ABSENT: visual disturbances Ears: ABSENT: hearing changes Nose, Mouth, and Throat: ABSENT: sore throat Cardiovascular: PRESENT: dyspnea on exertion, palpitations. ABSENT: edema Gastrointestinal: ABSENT: abdominal pain, diarrhea, vomiting Musculoskeletal: ABSENT: deformity Integumentary: ABSENT: lesions, rash Neurological: ABSENT: focal weakness, numbness, paresthesias, syncope Psychiatric: ABSENT: hallucinations Endocrine: ABSENT: heat intolerance, menstrual abnormalities Allergic/Immunologic: ABSENT: seasonal rhinorrhea Physical Exam Vital Signs: Temp Pulse Resp BP Pulse Ox 98.4 F 108 H 19 155/64 H 99 11/02/17 12:29 11/02/17 12:29 11/02/17 17:01 11/02/17 17:01 11/02/17 17:01 General appearance: PRESENT: no acute distress, obese Eye exam: PRESENT: EOMI, PERRLA. ABSENT: scleral icterus Mouth exam: PRESENT: neck supple Neck exam: ABSENT: tracheal deviation Cardiovascular exam: PRESENT: RRR, tachycardia GI/Abdominal exam: PRESENT: normal bowel sounds, soft. ABSENT: tenderness Rectal exam: PRESENT: deferred Extremities exam: ABSENT: pedal edema Neurological exam: PRESENT: alert, awake, oriented to person, oriented to place , oriented to time Results Impressions: Chest/Abdomen CTA 11/02/17 12:33 IMPRESSION: No PE. No acute findings. Chest X-Ray 11/02/17 13:11 IMPRESSION: NO ACUTE RADIOGRAPHIC FINDING IN THE CHEST. Assessment & Plan - Diagnosis (1) Dyspnea on exertion Is this a current diagnosis for this admission?: Yes Plan: Monitor on tele for arrhythmias. Will fit her with a cardiac holter monitor in am if no events overnight. Check serial cardiac enzymes, orthostatic BP. (2) Tachycardia Is this a current diagnosis for this admission?: Yes (3) Essential (primary) hypertension Is this a current diagnosis for this admission?: Yes Plan: Outpatient meds will be resumed Will replace hydralazine since it can cause tachycardia and palpitations. 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
[2017-11-02] MEDS ORDERED: HYDRALAZINE HCL 50 MG TABLET PO SCH (19:45)
[2017-11-02 20:37] LABS: TROPONIN I 0.095 ng/mL
[2017-11-02 20:44] LABS: CREATINE KINASE MB < 0.22 ng/mL (<4.55)
[2017-11-02] MEDS ORDERED: ASPIRIN 325 MG TABLET PO ONE (21:30)
[2017-11-02] MEDS ORDERED: INSULIN GLARGINE,HUM.REC.ANLOG 1,000 UNIT/10 ML UNIT SUBCUT ONE (21:41)
[2017-11-02] MEDS: METOPROLOL TARTRATE 50 MG TABLET PO SCH (21:42)
[2017-11-02] MEDS: ATORVASTATIN CALCIUM 80 MG TABLET PO SCH (21:45)
[2017-11-02] MEDS: HEPARIN SOD (PORCINE) 5,000 UNIT/ML 1 ML SYRINGE SUBCUT SCH (21:45)
[2017-11-02] MEDS: INSULIN GLARGINE,HUM.REC.ANLOG 300 UNIT/3 ML INSULN.PEN SUBCUT SCH (21:55)
[2017-11-03 03:07] LABS: CREATINE KINASE MB < 0.22 ng/mL (<4.55)
[2017-11-03 03:10] LABS: TROPONIN I 0.079 ng/mL
[2017-11-03] MEDS: LEVOTHYROXINE SODIUM 0.15 MG TABLET PO SCH (06:12)
[2017-11-03] MEDS: HEPARIN SOD (PORCINE) 5,000 UNIT/ML 1 ML SYRINGE SUBCUT SCH ×3 (06:12→22:23)
[2017-11-03] MEDS ORDERED: METFORMIN HCL 500 MG TABLET PO SCH (08:00)
[2017-11-03 08:28] LABS: HEMATOCRIT 35.2 % (36.0-47.0); HEMOGLOBIN 11.2 g/dL (12.0-15.5); MEAN CORPUSCULAR HEMOGLOBIN 24.1 pg (27.0-33.4); MEAN CORPUSCULAR HGB CONC 31.8 g/dL (32.0-36.0); MEAN CORPUSCULAR VOLUME 76 fl (80-97); PLATELET COUNT 279 10^3/uL (150-450); RED BLOOD COUNT 4.65 10^6/uL (3.72-5.28); RED CELL DISTRIBUTION WIDTH 14.8 % (11.5-14.0); WHITE BLOOD COUNT 6.4 10^3/uL (4.0-10.5)
[2017-11-03 08:47] LABS: INTERNATIONAL RATION (INR) 0.94; PARTIAL THROMBOPLASTIN TIME 32.1 SEC (23.5-35.8); PROTHROMBIN TIME 13.3 SEC (11.4-15.4)
[2017-11-03 08:50] LABS: ANION GAP 6 (5-19); BLOOD UREA NITROGEN 21 mg/dL (7-20); CALCIUM 9.2 mg/dL (8.4-10.2); CARBON DIOXIDE 27 mmol/L (22-30); CHLORIDE 103 mmol/L (98-107); GLUCOSE 177 mg/dL (75-110); PHOSPHORUS 3.7 mg/dL (2.5-4.5); POTASSIUM 4.3 mmol/L (3.6-5.0); SODIUM 136.4 mmol/L (137-145)
[2017-11-03 09:01] LABS: TROPONIN I 0.066 ng/mL
[2017-11-03 09:07] LABS: CREATINE KINASE MB < 0.22 ng/mL (<4.55)
[2017-11-03] MEDS: INSULIN GLARGINE,HUM.REC.ANLOG 300 UNIT/3 ML INSULN.PEN SUBCUT SCH ×2 (09:17→22:22)
[2017-11-03] MEDS: GLIPIZIDE 5 MG TABLET PO SCH ×2 (09:18→17:21)
[2017-11-03] MEDS: MULTIVITAMIN TABLET PO SCH (09:18)
[2017-11-03] MEDS: ASCORBIC ACID 500 MG TABLET PO SCH (09:18)
[2017-11-03] MEDS: POTASSIUM CHLORIDE 10 MEQ TABLET.SA PO SCH (09:18)
[2017-11-03] MEDS: FUROSEMIDE 40 MG TABLET PO SCH (09:19)
[2017-11-03] MEDS: MAGNESIUM OXIDE 400 MG TABLET PO SCH ×2 (09:19→17:21)
[2017-11-03] MEDS: ASPIRIN 325 MG TABLET PO SCH (09:19)
[2017-11-03] MEDS: METOPROLOL TARTRATE 50 MG TABLET PO SCH ×2 (09:19→22:23)
[2017-11-03] MEDS: AMLODIPINE BESYLATE 5 MG TABLET PO SCH (09:20)
[2017-11-03] MEDS: LOSARTAN POTASSIUM 50 MG TABLET PO SCH (09:20)
[2017-11-03] MEDS ORDERED: DEXTROSE 50%-WATER 25 GM/50 ML DISP.SYRIN IV PRN ×2 (11:36)
[2017-11-03] MEDS ORDERED: GLUCAGON,HUMAN RECOMB 1 MG INJ IM PRN (11:36)
[2017-11-03] MEDS ORDERED: DEXTROSE 40% GEL 15 GM TUBE PO PRN ×2 (11:36)
[2017-11-03] MEDS: INSULIN LISPRO 100 UNIT/ML 3 ML VIAL SUBCUT PRN (12:17)
--- NOTE | 2017-11-03 13:24 | PDOC PROGRESS REPORT ---
Subjective Progress Note for:: 11/03/17 Subjective:: 57-year-old female with hypertension insulin-dependent diabetes hypothyroidism and atrial fibrillation who presented to the hospital with fatigue palpitations and dyspnea on exertion. She continued to have sinus tachycardia despite negative workup for PE. TSH was normal. Her hydralazine was held since this was felt to be contributing to the tachycardia. She feels much better today. Her fatigue has improved. She worked with physical therapy. We are in the process of titrating the rest of her blood pressure medications for optimal control. Reason For Visit: PALPITATIONS, DYSPNEA ON EXERTION, R/O ACS Physical Exam Vital Signs: Temp Pulse Resp BP Pulse Ox 97.6 F 74 16 149/73 H 99 11/03/17 07:44 11/03/17 12:10 11/03/17 12:10 11/03/17 07:44 11/03/17 12:10 Intake & Output 11/02/17 11/03/17 11/04/17 06:59 06:59 06:59 Intake Total 1673 Balance 1673 Weight 131.3 kg General appearance: PRESENT: obese Eye exam: PRESENT: EOMI, PERRLA. ABSENT: scleral icterus Ear exam: PRESENT: normal external ear exam Mouth exam: PRESENT: neck supple Neck exam: ABSENT: tracheal deviation Respiratory exam: PRESENT: clear to auscultation singh, symmetrical, unlabored. ABSENT: wheezes Cardiovascular exam: PRESENT: RRR GI/Abdominal exam: PRESENT: normal bowel sounds, soft. ABSENT: tenderness Rectal exam: PRESENT: deferred Extremities exam: ABSENT: calf tenderness, pedal edema Neurological exam: PRESENT: alert, awake, oriented to person, oriented to place , oriented to time Skin exam: ABSENT: rash Results Laboratory Results: 11/03/17 08:08 11/03/17 08:08 11/03/17 11/03/17 11/03/17 08:08 08:08 08:08 WBC 6.4 RBC 4.65 Hgb 11.2 L Hct 35.2 L MCV 76 L MCH 24.1 L MCHC 31.8 L RDW 14.8 H Plt Count 279 Sodium 136.4 L Potassium 4.3 Chloride 103 Carbon Dioxide 27 Anion Gap 6 BUN 21 H Creatinine 0.74 Est GFR ( Amer) > 60 Est GFR (Non-Af Amer) > 60 Glucose 177 H Calcium 9.2 Phosphorus 3.7 Magnesium 1.6 TSH 3.98 11/02/17 11/03/17 11/03/17 19:55 01:38 08:08 CK-MB (CK-2) < 0.22 < 0.22 < 0.22 Troponin I 0.095 0.079 0.066 Impressions: Chest/Abdomen CTA 11/02/17 12:33 IMPRESSION: No PE. No acute findings. Chest X-Ray 11/02/17 13:11 IMPRESSION: NO ACUTE RADIOGRAPHIC FINDING IN THE CHEST. Assessment & Plan - Diagnosis (1) Dyspnea on exertion Is this a current diagnosis for this admission?: Yes Plan: Monitor on tele for arrhythmias. Will fit her with a cardiac holter monitor in am if no events overnight. Serial cardiac enzymes unremarkable, Check orthostatic BP. (2) Tachycardia Is this a current diagnosis for this admission?: Yes Plan: [place] to be secondary to hydralazine. This was stopped. Continue to monitor heart rate and blood pressure closely. Check orthostatic blood pressure. (3) Essential (primary) hypertension Is this a current diagnosis for this admission?: Yes Plan: As above. 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 (5) Hypothyroid Qualifiers: Hypothyroidism type: unspecified Qualified Code(s): E03.9 - Hypothyroidism , unspecified Is this a current diagnosis for this admission?: Yes Plan: Synthroid, TSH normal. (6) Morbid obesity with BMI of 45.0-49.9, adult Is this a current diagnosis for this admission?: Yes (7) Type 2 diabetes mellitus Qualifiers: Diabetes mellitus chcf insulin use: without chcf use Is this a current diagnosis for this admission?: Yes Plan: Continue outpatient meds except for metformin since she received IV contrast yesterday. - Time Time Spent with patient: 25-34 minutes
[2017-11-03] MEDS: ATORVASTATIN CALCIUM 80 MG TABLET PO SCH (22:23)
[2017-11-04] MEDS: HEPARIN SOD (PORCINE) 5,000 UNIT/ML 1 ML SYRINGE SUBCUT SCH ×2 (05:40→14:06)
[2017-11-04] MEDS: LEVOTHYROXINE SODIUM 0.15 MG TABLET PO SCH (05:40)
[2017-11-04] MEDS: GLIPIZIDE 5 MG TABLET PO SCH ×2 (08:01→16:47)
[2017-11-04] MEDS: FUROSEMIDE 40 MG TABLET PO SCH (08:01)
[2017-11-04] MEDS ORDERED: MAGNESIUM SULFATE/D5W 1 GM/100 ML RTUPB IV SCH (09:00)
[2017-11-04] MEDS: ASPIRIN 325 MG TABLET PO SCH (10:55)
[2017-11-04] MEDS: POTASSIUM CHLORIDE 10 MEQ TABLET.SA PO SCH (10:55)
[2017-11-04] MEDS: MAGNESIUM OXIDE 400 MG TABLET PO SCH ×2 (10:55→18:06)
[2017-11-04] MEDS: MULTIVITAMIN TABLET PO SCH (10:55)
[2017-11-04] MEDS: METOPROLOL TARTRATE 50 MG TABLET PO SCH (10:56)
[2017-11-04] MEDS: LOSARTAN POTASSIUM 50 MG TABLET PO SCH (10:56)
[2017-11-04] MEDS: ASCORBIC ACID 500 MG TABLET PO SCH (10:56)
[2017-11-04] MEDS: AMLODIPINE BESYLATE 5 MG TABLET PO SCH (10:56)
[2017-11-04] MEDS: INSULIN GLARGINE,HUM.REC.ANLOG 300 UNIT/3 ML INSULN.PEN SUBCUT SCH (10:57)
[2017-11-04] MEDS: INSULIN LISPRO 100 UNIT/ML 3 ML VIAL SUBCUT PRN ×2 (12:39→16:47)
[2017-11-04] MEDS ORDERED: MAGNESIUM SULFATE/D5W 1 GM/100 ML RTUPB IV ONE (14:45)
[2017-11-04] MEDS ORDERED: PROMETHAZINE HCL 25 MG TABLET PO PRN (16:07)
--- NOTE | 2017-11-04 16:19 | PDOC DISCHARGE SUMMARY ---
General - Admit/Disc Date/PCP Admission Date/Primary Care Provider: 11/02/17 18:24 [facility] Discharge Date: 11/04/17 - Discharge Diagnosis (1) Dyspnea on exertion Is this a current diagnosis for this admission?: Yes (2) Tachycardia Is this a current diagnosis for this admission?: Yes (3) Essential (primary) hypertension Is this a current diagnosis for this admission?: Yes (4) Hyperglycemia due to type 2 diabetes mellitus Is this a current diagnosis for this admission?: No (5) Hypothyroid Is this a current diagnosis for this admission?: Yes (6) Morbid obesity with BMI of 45.0-49.9, adult Is this a current diagnosis for this admission?: Yes (7) Type 2 diabetes mellitus Is this a current diagnosis for this admission?: Yes - Additional Information Resuscitation Status: Full Code Discharge Diet: Cardiac, Diabetic Discharge Activity: Activity As Tolerated, Balance Activity w/Rest Home Medications: Ascorbic Acid [Vitamin C 500 mg Tablet] 500 mg PO DAILY 10/25/17 Furosemide [Lasix 40 mg Tablet] 40 mg PO QAM 10/25/17 Levothyroxine Sodium [Synthroid 0.15 mg Tablet] 0.15 mg PO Q6AM 10/25/17 Metformin HCl [Glucophage 500 mg Tablet] 1,000 mg PO BIDBS 10/25/17 Metoprolol Tartrate [Lopressor 50 mg Tablet] 50 mg PO Q12 10/25/17 Multivitamin [Tab-A-Stephen (Multiple Vitamin) Tablet] 1 tab PO DAILY 10/25/17 Promethazine HCl [Phenergan 25 mg Tablet] 25 mg PO Q6HP PRN 10/25/17 Amlodipine Besylate [Norvasc 5 mg Tablet] 10 mg PO DAILY #60 tablet 10/29/17 Atorvastatin Calcium [Lipitor 80 mg Tablet] 80 mg PO QHS #30 tablet 10/29/17 Insulin Glargine,Hum.rec.anlog [Lantus Insulin 100 Unit/mL] 30 unit SUBCUT Q12 insuln.pen 10/29/17 Losartan Potassium [Cozaar 50 mg Tablet] 100 mg PO DAILY #60 tablet 10/29/17 Magnesium Oxide [Mag-Ox 400 mg Tablet] 400 mg PO BID #60 tablet 10/29/17 Potassium Chloride [Klor-Con 10 Meq Tablet.sa] 20 meq PO DAILY #30 tablet.sa Aspirin [Aspirin 325 mg Tablet] 325 mg PO DAILY 11/03/17 Glipizide [Glucotrol 5 mg Tablet] 10 mg PO Q12 11/03/17 History of Present Illness History of Present Illness: MARGARITO COLEY is a 57 year old female With past medical history of Hypertension Insulin-dependent diabetes Hyperlipidemia Hypothyroidism Diastolic dysfunction on recent echocardiogram Atrial fibrillation She was recently discharged from the hospital after complaining of generalized weakness diarrhea nausea and vomiting. She was initially diagnosed with a viral gastroenteritis and sent back from the ED however came back to the hospital with abdominal cramps and liquid stools. She was found to be in A. fib with RVR with multiple electrolyte abnormalities which were corrected. Her medications were adjusted and in terms improved and she was discharged. She was placed on full-strength aspirin for stroke prevention. The patient presented back to the hospital today with generalized weakness severe fatigue dyspnea on exertion and palpitations. Chest x-ray is within normal limits CT angiogram of the chest and abdomen showed no dissection or evidence of pulmonary embolism. Twelve-lead EKG shows sinus tachycardia. TSH is within normal limits. She complained of constant palpitations and chest pressure and dyspnea on exertion. She reports compliance with her medications. BP and glucose have been under control. She was found to have sinus tachycardia and hypomagnesemia. Magnesium was replaced. Hydralazine was felt to be contributing to her symptoms including tachycardia and was stopped. This tachycardia resolved. Blood pressure remains stable. She was seen by physical therapy. She was felt to benefit from home physical therapy. Stable doing better. Ready for discharge. Hospital Course Hospital Course: As above. Physical Exam Vital Signs: Temp Pulse Resp BP Pulse Ox 97.7 F 78 18 160/76 H 99 11/04/17 15:40 11/04/17 15:40 11/04/17 15:40 11/04/17 15:40 11/04/17 15:40 Intake & Output 11/03/17 11/04/17 11/05/17 06:59 06:59 06:59 Intake Total 1673 1080 Output Total 2300 Balance 1673 -1220 Weight 131.3 kg General appearance: PRESENT: no acute distress, obese Eye exam: PRESENT: PERRLA. ABSENT: scleral icterus Mouth exam: PRESENT: moist Respiratory exam: PRESENT: clear to auscultation singh, symmetrical, unlabored Cardiovascular exam: PRESENT: RRR Results Laboratory Results: 11/03/17 08:08 11/03/17 08:08 11/02/17 11/03/17 11/03/17 19:55 01:38 08:08 CK-MB (CK-2) < 0.22 < 0.22 < 0.22 Troponin I 0.095 0.079 0.066 Impressions: Chest/Abdomen CTA 11/02/17 12:33 IMPRESSION: No PE. No acute findings. Chest X-Ray 11/02/17 13:11 IMPRESSION: NO ACUTE RADIOGRAPHIC FINDING IN THE CHEST. Qualifiers - * PATEINT BEING DISCHARGED WITH ANY OF THE FOLLOWING DIAGNOSIS?: No Plan Time Spent: Greater than 30 Minutes
[2017-11-04 16:59] VITALS: BP 147/75
[2017-11-04] MEDS ORDERED: GLIPIZIDE 5 MG TABLET PO SCH (22:00)
[2017-11-05] MEDS ORDERED: ASPIRIN 325 MG TABLET PO SCH (10:00)
== END 2017-11-04 19:00 | disposition home health service (06) ==
LOC: ER 12:06 → EH 18:24 → 5 22:45
PROVIDERS: ADMIT Internal Medicine; ATTEND Internal Medicine
DX: R06.09 Other forms of dyspnea (principal); R00.0 Tachycardia, unspecified; I48.91 Unspecified atrial fibrillation; I10 Essential (primary) hypertension; E11.65 Type 2 diabetes mellitus with hyperglycemia; E78.5 Hyperlipidemia, unspecified; E03.9 Hypothyroidism, unspecified; E66.01 Morbid (severe) obesity due to excess calories; Z68.42 Body mass index [BMI] 45.0-49.9, adult; Z79.4 Long term (current) use of insulin
CPT/HCPCS: 93005; 94640 ×2; 99285; 96372; 96360; 36415 ×2; 82553 ×2; 82962 ×3; 83735; 84100; 84443 ×2; 85025; 85027; 85610; 85730; 80048; 80053; 84484 ×2; 83880; 71045; 71275; 93010; 97162; G0378 ×4; J1644 ×3; J1815 ×3; J3475; J3490 ×2; J7030; J7620

== ENCOUNTER → 2017-11-16 | Outpatient (CLI) | payer OTHER ==
[2017-11-16 12:40] LABS: ANION GAP 12 (5-19); BLOOD UREA NITROGEN 25 mg/dL (7-20); CALCIUM 9.7 mg/dL (8.4-10.2); CARBON DIOXIDE 29 mmol/L (22-30); CHLORIDE 102 mmol/L (98-107); FOLATE > 20.00 ng/mL (>2.76); GLUCOSE 114 mg/dL (75-110); IRON 44.6 ug/dL (37-170); POTASSIUM 4.2 mmol/L (3.6-5.0); SODIUM 142.8 mmol/L (137-145)
== END ==
LOC: CCC 10:17
DX: I10 Essential (primary) hypertension (principal); E11.8 Type 2 diabetes mellitus with unspecified complications
CPT/HCPCS: 36415; 80048; 82607; 82728; 82746; 83036; 83540; 83735; 84443

== ENCOUNTER 2018-01-24 12:30 | Emergency (ER) | payer MEDICAID, OTHER ==
--- NOTE | 2018-01-24 14:25 | RADIOLOGY REPORT (SQ) ---
EXAM DESCRIPTION: CHEST 2 VIEWS COMPLETED DATE/TIME: 01/24/2018 1:40 pm REASON FOR STUDY: cough COMPARISON: Two-view chest 01/08/2017 EXAM PARAMETERS: NUMBER OF VIEWS: two views TECHNIQUE: Digital Frontal and Lateral radiographic views of the chest acquired. RADIATION DOSE: NA LIMITATIONS: none FINDINGS: LUNGS AND PLEURA: Right upper lobe pneumonia, outlines the right minor fissure. No other focal lung parenchymal consolidation. No pleural effusion. No pneumothorax. MEDIASTINUM AND HILAR STRUCTURES: No masses or contour abnormalities. HEART AND VASCULAR STRUCTURES: Mild stable cardiomegaly BONES: No acute findings. HARDWARE: None in the chest. OTHER: No other significant finding. IMPRESSION: Right upper lobe pneumonia TECHNICAL DOCUMENTATION: JOB ID: [id number] [employer]- All Rights Reserved Reading location - IP/workstation name: [email or web address]
[2018-01-24] MEDS ORDERED: AZITHROMYCIN 250 MG TABLET PO ONE (14:31)
[2018-01-24] MEDS ORDERED: DEXAMETHASONE SOD PHOS INJ 10 MG/1 ML VIAL IM ONE (14:31)
--- NOTE | 2018-01-24 14:34 | ER Document Report ---
ED Respiratory Problem - General Chief Complaint: Chest Congestion Stated Complaint: COUGH, PAIN IN CHEST Time Seen by Provider: 01/24/18 13:20 Mode of Arrival: Ambulatory Information source: Patient Notes: 57-year-old female presents to ED for complaint of cough congestion for the past week. She states she is having trouble getting a real deep breath. States she has had a history of bronchitis blood pressure and cholesterol. She is alert and oriented speaking in the full sentences respirations regular and unlabored and walking with a even steady gait. TRAVEL OUTSIDE OF THE [place] IN LAST 30 DAYS: No - HPI Patient complains to provider of: Cough Onset: Last week Duration: Continuous Initiating Event: URI Quality of pain: No pain Severity: None Pain Level: Denies Cough: Nonproductive Sputum amount: None Associated symptoms: Congestion, Cough, PND, Runny nose, Sinus pain/pressure, Short of breath, Sore Throat Similar symptoms previously: Yes Recently seen / treated by doctor: No - Related Data Allergies/Adverse Reactions: No Known Allergies Allergy (Verified 11/02/17 12:27) Past Medical History - General Information source: Patient - Social History Smoking Status: Never Smoker Cigarette use (# per day): No Chew tobacco use (# tins/day): No Smoking Education Provided: No Frequency of alcohol use: None Drug Abuse: None Lives with: Family Family History: Reviewed & Not Pertinent Patient has suicidal ideation: No Patient has homicidal ideation: No - Past Medical History Cardiac Medical History: Reports: Hx Hypercholesterolemia, Hx Hypertension Pulmonary Medical History: Reports: None EENT Medical History: Reports: None Neurological Medical History: Reports: None Endocrine Medical History: Reports: Hx Diabetes Mellitus Type 2, Hx Hypothyroidism Renal/ Medical History: Reports: None Malignancy Medical History: Reports: None GI Medical History: Reports: None Musculoskeltal Medical History: Reports None Skin Medical History: Reports None Psychiatric Medical History: Reports: Hx Depression Traumatic Medical History: Reports: None Infectious Medical History: Reports: None Past Surgical History: Reports: Hx Cardiac Catheterization, Hx Section - x1, Other - post uvelectomy. - Immunizations Immunizations up to date: Yes Hx Diphtheria, Pertussis, Tetanus Vaccination: Yes Review of Systems - Review of Systems Constitutional: No symptoms reported EENT: Nose congestion, Nose discharge, Sinus discharge, Throat pain Cardiovascular: No symptoms reported Respiratory: Cough, Short of breath Gastrointestinal: No symptoms reported Genitourinary: No symptoms reported Female Genitourinary: No symptoms reported Musculoskeletal: No symptoms reported Skin: No symptoms reported Hematologic/Lymphatic: No symptoms reported Neurological/Psychological: No symptoms reported -: Yes All other systems reviewed and negative Physical Exam - Vital signs Vitals: Temp Pulse Resp BP Pulse Ox 98.6 F 103 H 16 159/72 H 94 01/24/18 12:35 01/24/18 12:35 01/24/18 12:35 01/24/18 12:35 01/24/18 12:35 Interpretation: Normal - General General appearance: Appears well, Alert - HEENT Head: Normocephalic, Atraumatic Eyes: Normal Pupils: PERRL Sinus: Normal Nasal: Purulent discharge, Swelling Mouth/Lips: Normal Mucous membranes: Normal Pharynx: Post nasal drainage. No: Erythema, Exudate, Tonsillar hypertrophy Neck: Normal - Respiratory Respiratory status: No respiratory distress Chest status: Nontender Breath sounds: Nonproductive cough. No: Productive cough, Rales, Rhonchi, Stridor, Wheezing Chest palpation: Normal - Cardiovascular Rhythm: Regular Heart sounds: Normal auscultation Murmur: No - Abdominal Inspection: Normal Distension: No distension Bowel sounds: Normal Tenderness: Nontender Organomegaly: No organomegaly - Back Back: Normal, Nontender - Extremities General upper extremity: Normal inspection, Nontender, Normal color, Normal ROM , Normal temperature General lower extremity: Normal inspection, Nontender, Normal color, Normal ROM , Normal temperature, Normal weight bearing. No: Nathaniel's sign - Neurological Neuro grossly intact: Yes Cognition: Normal Orientation: AAOx4 Care[place] Coma Scale Eye Opening: Spontaneous [place]free Coma Scale Verbal: Oriented [place] Coma Scale Motor: Obeys Commands Carefree Coma Scale Total: 15 Speech: Normal Motor strength normal: LUE, RUE, LLE, RLE Sensory: Normal - Psychological Associated symptoms: Normal affect, Normal mood - Skin Skin Temperature: Warm Skin Moisture: Dry Skin Color: Normal Course - Re-evaluation Re-evalutation: 01/24/18 14:46 Chest x-ray shows a right upper lobe pneumonia. Patient was treated with Decadron and albuterol and azithromycin in the emergency room and discharged home with prescription for albuterol inhaler and azithromycin. Patient to follow-up with her primary doctor. Patient also to follow-up for her blood pressure. She verbalized understanding of instructions and agreement with treatment plan. - Vital Signs Vital signs: Temp Pulse Resp BP Pulse Ox 98.6 F 103 H 16 159/72 H 94 01/24/18 12:35 01/24/18 12:35 01/24/18 12:35 01/24/18 12:35 01/24/18 12:35 - Diagnostic Test Radiology reviewed: Image reviewed, Reports reviewed Discharge - Discharge Clinical Impression: Right upper lobe pneumonia Qualifiers: Pneumonia type: due to unspecified organism Qualified Code(s): J18.1 - Lobar pneumonia, unspecified organism Condition: Stable Disposition: HOME, SELF-CARE Additional Instructions: PNEUMONIA: Your examination indicates that you have pneumonia. This is an infection of the lung tissue, usually caused by bacteria or a virus. Symptoms include cough, fever, shaking chills, chest pain, shortness of breath, and coughing up bloody sputum. Treatment for bacterial pneumonia includes rest, antibiotics for 10 to 14 days, increasing your clear liquid intake, a cool mist humidifier at your bedside, and fever medication. Often, a repeat chest X-ray is performed in a few weeks--even if you feel better--to ascertain whether the infection has completely resolved and no underlying lung problem is present. You should call the physician if you develop persistent vomiting, high fever that does not respond to fever medication, increasing shortness of breath , confusion, or lethargy. Also, failure to improve within two to three days is an indication for re-examination. AZITHROMYCIN: Azithromycin (Zithromax) is a broad spectrum antibiotic in the same class as erythromycin. It can treat a variety of bacterial infections, but is most frequently used for respiratory infections. Azithromycin is extremely long-lasting. It accumulates in body tissues and continues to kill bacteria for many days. In order to improve absorption, Azithromycin should be taken at least one hour before or two hours after a meal. It does not have the same strong tendency to upset the stomach as erythromycin and is usually very well tolerated. Patients who have had a rash or other true allergic reactions to erythromycin should not take this medication. Call if you develop gastrointestinal distress, severe diarrhea, rash, hives, itching, or shortness of breath. STEROID MEDICATION: You have been given an injection of medicine of the cortisone/steroid class. This medication is used to control inflammation or allergy. It is often continued as a pill for a short period of time, until the acute process subsides. There are usually no side effects from short-term use of cortisone-like medications. Some persons feel an increased sense of well-being and are not sleepy at bedtime. Long-term use of cortisone medications is best avoided, unless required for a severe condition. If your condition does not remit, or relapses after the course of corticosteroid medication, you should consult your physician. USE OF ACETAMINOPHEN (Tylenol): Acetaminophen may be taken for pain relief or fever control. It's much safer than aspirin, offering a wider range of "safe" dosages. It is safe during . Some brand names are Tylenol, Panadol, Datril, Anacin 3, Tempra, and Liquiprin. Acetaminophen can be repeated every four hours. The following are maximum recommended dosages: WEIGHT Dose Drops Elixir Chewable( 80mg) (LBS.) drprs=droppers tsp=teaspoon 6 40 mg 0.4 ml (1/2) 6-11 80 mg 0.8 ml (full) tsp 1 tab 12-16 120 mg 1 1/2 drprs 3/4 tsp 1 1/2 tabs 17-23 160 mg 2 drprs 1 tsp 2 tabs 24-30 240 mg 3 drprs 1 1/2 tsp 3 tabs 30-35 320 mg 2 tsp 4 tabs 36-41 360 mg 2 1/4 tsp 4 1/2 tabs 42-47 400 mg 2 1/2 tsp 5 tabs 48-53 480 mg 3 tsp 6 tabs 54-59 520 mg 3 1/4 tsp 6 1/2 tabs 60-64 560 mg 3 1/2 tsp 7 tabs 65-70 600 mg 3 3/4 tsp 7 1/2 tabs 71-76 640 mg 4 tsp 8 tabs 77-82 720 mg 4 1/2 tsp 9 tabs 83-88 800 mg 5 tsp 10 tabs >89 pounds or adults 650 mg to 900 mg Acetaminophen can be repeated every four hours. Maximum dose not to exceed 4000 mg a day. These maximum recommended dosages are slightly higher than the dosages written on the product container, but these dosages are very safe and below the toxic dosage for acetaminophen. Bronchodilators You have received a prescription for a bronchodilator -- a medication which stimulates the airways in the lung to dilate. This improves the flow of air in asthma, bronchitis, and emphysema. These medicines have some similarity to adrenaline, and can cause similar side effects: shakiness, racing heart, and a sense of nervousness. These side effects decrease after you've taken the medicine a day or two. Contact your doctor if these side effects are severe. FOLLOW-UP CARE: If you have been referred to a physician for follow-up care, call the physician s office for an appointment as you were instructed or within the next two days. If you experience worsening or a significant change in your symptoms, notify the physician immediately or return to the Emergency Department at any time for re-evaluation. Prescriptions: Albuterol Sulfate [Proair HFA Inhalation Aerosol 8.5 gm MDI] 2 puff IH Q4H PRN # 1 mdi PRN Reason: Azithromycin [Zithromax 250 mg Tablet] 250 mg PO DAILY #4 tablet Forms: Elevated Blood Pressure, Return to Work Referrals: CELESTE BASURTO MD [Primary Care Provider] - Follow up as needed
[2018-01-24] MEDS: ALBUTEROL SULFATE 0.083% NEB 2.5 MG/3 ML AMPUL NEB SCH (14:37)
[2018-01-24 15:22] VITALS: BP 155/70
== END 2018-01-24 15:22 | disposition home or self-care (01) ==
LOC: ER 12:30
DX: J18.1 Lobar pneumonia, unspecified organism (principal); R09.89 Other specified symptoms and signs involving the circulatory and respiratory systems; R05 Cough; R09.82 Postnasal drip; R06.02 Shortness of breath; J02.9 Acute pharyngitis, unspecified; I10 Essential (primary) hypertension; E11.9 Type 2 diabetes mellitus without complications
CPT/HCPCS: 94640 ×2; 99283; 96372; 71046; Q0144; J1100

== ENCOUNTER 2018-01-28 13:08 | Emergency (ER) | payer MEDICAID, OTHER ==
--- NOTE | 2018-01-28 13:47 | ER Document Report ---
ED Medical Screen (RME) - General Chief Complaint: Breathing Difficulty Stated Complaint: COUGH,CONGESTION,SORE THROAT Time Seen by Provider: 01/28/18 13:41 Notes: 57-year-old female patient seen here 4 days ago with a dense right upper lobe infiltrate. She got a steroid shot and prescribed albuterol inhaler and Z-Andres. She reports that she has no improvement and possibly getting worse. I have greeted and performed a rapid initial assessment of this patient. A comprehensive ED assessment and evaluation of the patient, analysis of test results and completion of the medical decision making process will be conducted by additional ED providers. TRAVEL OUTSIDE OF THE [place] IN LAST 30 DAYS: No - Related Data Allergies/Adverse Reactions: No Known Allergies Allergy (Verified 01/28/18 13:09) Past Medical History - Social History Frequency of alcohol use: None - Past Medical History Cardiac Medical History: Reports: Hx Atrial Fibrillation, Hx Hypercholesterolemia, Hx Hypertension Endocrine Medical History: Reports: Hx Diabetes Mellitus Type 1, Hx Diabetes Mellitus Type 2, Hx Hypothyroidism Renal/ Medical History: Denies: Hx Peritoneal Dialysis Psychiatric Medical History: Reports: Hx Depression Past Surgical History: Reports: Hx Cardiac Catheterization, Hx Section - x1, Other - post uvelectomy. - Immunizations Immunizations up to date: Yes Hx Diphtheria, Pertussis, Tetanus Vaccination: Yes History of Influenza Vaccine for 05/2017 - 10/2017 Season: Yes Physical Exam - Vital signs Vitals: Temp Pulse Resp BP Pulse Ox 98.6 F 100 24 H 148/70 H 95 01/28/18 13:20 01/28/18 13:20 01/28/18 13:20 01/28/18 13:20 01/28/18 13:20 Course - Vital Signs Vital signs: Temp Pulse Resp BP Pulse Ox 98.6 F 100 24 H 148/70 H 95 01/28/18 13:20 01/28/18 13:20 01/28/18 13:20 01/28/18 13:20 01/28/18 13:20 Doctor's Discharge - Discharge Referrals: CELESTE BASURTO MD [Primary Care Provider] - Follow up as needed
[2018-01-28 14:49] LABS: ABSOLUTE EOSINOPHILS # (AUTO) 0.1 10^3/uL (0.0-0.6); ABSOLUTE MONOCYTES (AUTO) 1.2 10^3/uL (0.1-1.4); ABSOLUTE NEUT (AUTO) 10.3 10^3/uL (1.7-8.2); BASOPHILS % (AUTO) 0.1 % (0-2); HEMATOCRIT 32.1 % (36.0-47.0); HEMOGLOBIN 10.2 g/dL (12.0-15.5); LYMPHOCYTES % (AUTO) 14.7 % (13-45); MEAN CORPUSCULAR HEMOGLOBIN 23.5 pg (27.0-33.4); MEAN CORPUSCULAR HGB CONC 31.7 g/dL (32.0-36.0); MEAN CORPUSCULAR VOLUME 74 fl (80-97); MONOCYTES % (AUTO) 8.9 % (3-13); PLATELET COUNT 368 10^3/uL (150-450); RED BLOOD COUNT 4.33 10^6/uL (3.72-5.28); RED CELL DISTRIBUTION WIDTH 15.6 % (11.5-14.0); SEGMENTED NEUTROPHILS % (AUTO) 75.3 % (42-78); TOTAL CELLS COUNTED % (AUTO) 100 %; WHITE BLOOD COUNT 13.7 10^3/uL (4.0-10.5)
[2018-01-28 15:14] LABS: ALANINE AMINOTRANSFERASE 135 U/L (9-52); ALBUMIN 3.9 g/dL (3.5-5.0); ALKALINE PHOSPHATASE 344 U/L (38-126); ANION GAP 12 (5-19); ASPARTATE AMINO TRANSFERASE 58 U/L (14-36); BILIRUBIN,DIRECT 0.3 mg/dL (0.0-0.4); BILIRUBIN,TOTAL 0.5 mg/dL (0.2-1.3); BLOOD UREA NITROGEN 27 mg/dL (7-20); CALCIUM 9.9 mg/dL (8.4-10.2); CARBON DIOXIDE 29 mmol/L (22-30); CHLORIDE 99 mmol/L (98-107); GLUCOSE 174 mg/dL (75-110); POTASSIUM 4.8 mmol/L (3.6-5.0); TOTAL PROTEIN 7.3 g/dL (6.3-8.2)
--- NOTE | 2018-01-28 15:53 | RADIOLOGY REPORT (SQ) ---
EXAM DESCRIPTION: CHEST 2 VIEWS COMPLETED DATE/TIME: 01/28/2018 2:44 pm REASON FOR STUDY: Pneumonia, getting worse COMPARISON: 01/24/2018. EXAM PARAMETERS: NUMBER OF VIEWS: two views TECHNIQUE: Digital Frontal and Lateral radiographic views of the chest acquired. RADIATION DOSE: NA LIMITATIONS: none FINDINGS: LUNGS AND PLEURA: The previously seen infiltrate in the right upper lobe is smaller. Trinidad maco the right lung and left lung are clear. MEDIASTINUM AND HILAR STRUCTURES: No masses or contour abnormalities. HEART AND VASCULAR STRUCTURES: Heart normal size. No evidence for failure. BONES: No acute findings. HARDWARE: None in the chest. OTHER: No other significant finding. IMPRESSION: INTERVAL DECREASE IN THE RIGHT UPPER LOBE INFILTRATE. TECHNICAL DOCUMENTATION: JOB ID: [id number] [employer]- All Rights Reserved Reading location - IP/workstation name: [facility]
[2018-01-28] MEDS ORDERED: IPRATROPIUM/ALBUTEROL 0.5-2.5 MG/3 ML AMPUL NEB ONE (16:52)
--- NOTE | 2018-01-28 17:22 | ER Document Report ---
ED General - General Chief Complaint: Breathing Difficulty Stated Complaint: COUGH,CONGESTION,SORE THROAT Time Seen by Provider: 01/28/18 13:41 Mode of Arrival: Ambulatory Information source: Patient Notes: 57-year-old female with hypertension, atrial fibrillation, diabetes type 2, hypothyroidism presents with complaint of persisting cough, myalgias, malaise, nasal congestion. Patient states symptoms started 1 week prior to arrival. She describes the cough as productive with yellow sputum. Patient was seen 4 days prior to this visit in the emergency department and diagnosed with a right upper lobe pneumonia. She received antibiotics, steroids at that time and was discharged home. Patient is on her last day of antibiotics and is concerned because she is not feeling any better and she is having a hard time making it to work. TRAVEL OUTSIDE OF THE [place] IN LAST 30 DAYS: No - HPI Onset: Last week Onset/Duration: Gradual Quality of pain: No pain Associated symptoms: Hoarseness, Sinus pain/drainage Exacerbated by: Walking Relieved by: Remaining still Similar symptoms previously: Yes Recently seen / treated by doctor: Yes - Related Data Allergies/Adverse Reactions: No Known Allergies Allergy (Verified 01/28/18 13:09) Past Medical History - General Information source: Patient, [facility] Records - Social History Smoking Status: Never Smoker Frequency of alcohol use: None Lives with: Family Family History: Reviewed & Not Pertinent Patient has suicidal ideation: No Patient has homicidal ideation: No - Past Medical History Cardiac Medical History: Reports: Hx Atrial Fibrillation, Hx Hypercholesterolemia, Hx Hypertension Endocrine Medical History: Reports: Hx Diabetes Mellitus Type 1, Hx Diabetes Mellitus Type 2, Hx Hypothyroidism Renal/ Medical History: Denies: Hx Peritoneal Dialysis Psychiatric Medical History: Reports: Hx Depression Past Surgical History: Reports: Hx Cardiac Catheterization, Hx Section - x1, Other - post uvelectomy. - Immunizations Immunizations up to date: Yes Hx Diphtheria, Pertussis, Tetanus Vaccination: Yes Review of Systems - Review of Systems Constitutional: Chills, Malaise EENT: Nose congestion, Throat pain. denies: Difficulty swallowing Cardiovascular: denies: Chest pain, Palpitations, Dizziness Respiratory: Cough. denies: Hurts to breathe, Short of breath, Wheezing Gastrointestinal: denies: Abdominal pain Genitourinary: denies: Flank pain Female Genitourinary: No symptoms reported Musculoskeletal: Muscle pain Skin: denies: Rash Hematologic/Lymphatic: denies: Easy bruising -: Yes All other systems reviewed and negative Physical Exam - Vital signs Vitals: Temp Pulse Resp BP Pulse Ox 98.6 F 100 24 H 148/70 H 95 01/28/18 13:20 01/28/18 13:20 01/28/18 13:20 01/28/18 13:20 01/28/18 13:20 - Notes Notes: REVIEW OF SYSTEMS: CONSTITUTIONAL : Denies weight loss, recent hospitalizations. EENT: Denies visual changes, eye pain. Denies nasal or sinus congestion or discharge. Denies sore throat, oral lesions, difficulty swallowing. CARDIOVASCULAR: Denies chest pain. Denies palpitations. Denies lower extremity edema. RESPIRATORY: Denies shortness of breath, wheezing. GASTROINTESTINAL: Denies abdominal pain or distention. Denies nausea, vomiting , or diarrhea. Denies blood in vomitus, stools, or per rectum. Denies black, tarry stools. Denies constipation. GENITOURINARY: Denies difficulty urinating, painful urination, frequency, blood in urine, or vaginal discharge. MUSCULOSKELETAL: Denies back or neck pain or stiffness. Denies joint pain or swelling. SKIN: Denies rash, lesions or sores. HEMATOLOGIC : Denies easy bruising or bleeding. LYMPHATIC: Denies swollen glands. NEUROLOGICAL: Denies confusion or altered mental status. Denies passing out or loss of consciousness. Denies dizziness or lightheadedness. Denies headache. Denies weakness or paralysis. Denies problems difficulty with ambulation, slurred speech. Denies sensory loss, numbness, or tingling. Denies seizures. PSYCHIATRIC: Denies anxiety or stress. Denies depression, suicidal ideation, or homicidal ideation. Denies visual or auditory hallucinations. Course - Re-evaluation Re-evalutation: Microbiology 01/28/18 17:06 Gram Stain - Preliminary Sputum Sputum Culture - Preliminary 01/28/18 14:20 Blood Culture - Preliminary Blood NO GROWTH IN 24 HOURS Laboratory 01/28/18 01/28/18 14:20 14:20 WBC 13.7 H RBC 4.33 Hgb 10.2 L Hct 32.1 L MCV 74 L MCH 23.5 L MCHC 31.7 L RDW 15.6 H Plt Count 368 Seg Neutrophils % 75.3 Lymphocytes % 14.7 Monocytes % 8.9 Eosinophils % 1.0 Basophils % 0.1 Absolute Neutrophils 10.3 H Absolute Lymphocytes 2.0 Absolute Monocytes 1.2 Absolute Eosinophils 0.1 Absolute Basophils 0.0 Sodium 140.0 Potassium 4.8 Chloride 99 Carbon Dioxide 29 Anion Gap 12 BUN 27 H Creatinine 0.92 Est GFR ( Amer) > 60 Est GFR (Non-Af Amer) > 60 Glucose 174 H Calcium 9.9 Total Bilirubin 0.5 Direct Bilirubin 0.3 Neonat Total Bilirubin Not Reportable Neonat Direct Bilirubin Not Reportable Neonat Indirect Bili Not Reportable AST 58 H ALT 135 H Alkaline Phosphatase 344 H Total Protein 7.3 Albumin 3.9 Chest X-Ray 01/28/18 13:45 IMPRESSION: INTERVAL DECREASE IN THE RIGHT UPPER LOBE INFILTRATE. 57-year-old female with hypertension, atrial fibrillation, diabetes type 2, hypothyroidism presents with complaint of persisting cough, myalgias, malaise, nasal congestion. Patient states symptoms started 1 week prior to arrival. She describes the cough as productive with yellow sputum. Patient was seen 4 days prior to this visit in the emergency department and diagnosed with a right upper lobe pneumonia. She received antibiotics, steroids at that time and was discharged home. Patient is on her last day of antibiotics and is concerned because she is not feeling any better and she is having a hard time making it to work. Patient was seen by myself upon arrival. Vital signs were reviewed. Patient is afebrile, normotensive and not hypoxic. Patient does not appear toxic or dehydrated. They are in no acute distress. Previous medical records and nursing notes reviewed. Significant findings include a CBC with a leukocytosis which could be secondary to patient's recent steroid use. CMP shows an elevated glucose and BUN. Patient found to have mild elevation in her liver enzymes. She denies any abdominal pain, abdominal distention, previous history of hepatitis. Patient states chest x-ray does show interval improvement of the right upper lobe infiltrate. I explained to the patient that although she is almost done with her antibiotics that pneumonia can take a total on the patient's energy for the next couple of weeks. Patient was provided a breathing treatment during her ER course. She was ambulated with out difficulty, desaturation or hypoxia. Patient provided a note for work. Patient provided the opportunity to ask questions, and express concerns. Discharge instructions discussed. Patient is agreeable with discharge home. Return indications explained and discussed with the patient who displays understanding. Patient encouraged to return to the emergency department immediately with any concerns. 01/28/18 17:22 Patient ambulated on room air and was without desaturation, hypoxia, tachycardia. 01/29/18 19:28 01/29/18 19:29 01/29/18 19:31 - Vital Signs Vital signs: Temp Pulse Resp BP Pulse Ox 98.3 F 94 18 118/53 L 96 01/28/18 17:57 01/28/18 17:57 01/28/18 17:57 01/28/18 17:57 01/28/18 17:57 - Laboratory Result Diagrams: 01/28/18 14:20 01/28/18 14:20 Laboratory results interpreted by me: 01/28/18 01/28/18 14:20 14:20 WBC 13.7 H Hgb 10.2 L Hct 32.1 L MCV 74 L MCH 23.5 L MCHC 31.7 L RDW 15.6 H Absolute Neutrophils 10.3 H BUN 27 H Glucose 174 H AST 58 H ALT 135 H Alkaline Phosphatase 344 H - Diagnostic Test Radiology reviewed: Image reviewed, Reports reviewed Discharge - Discharge Clinical Impression: Myalgia, Cough, Elevated LFTs CAP (community acquired pneumonia) Qualifiers: Laterality: right Lung location: upper lobe of lung Qualified Code(s): J18.1 - Lobar pneumonia, unspecified organism Right upper lobe pneumonia Qualifiers: Pneumonia type: due to unspecified organism Qualified Code(s): J18.1 - Lobar pneumonia, unspecified organism Leukocytosis Qualifiers: Leukocytosis type: unspecified Qualified Code(s): D72.829 - Elevated white blood cell count, unspecified Condition: Good Disposition: HOME, SELF-CARE Instructions: Pneumonia ([facility]) Additional Instructions: Follow up with your physician tomorrow for further care or return to the ED IMMEDIATELY if symptoms worsen or new concerns occur. If you cannot afford to follow up with your primary care physician a list of low cost clinics have been provided at the end of your discharge papers as well. Prescriptions: Doxycycline Hyclate 100 mg PO BID #14 capsule Guaifenesin/Pseudoephedrne HCl [Mucinex D ER 600-60 mg Tablet] 1 each PO BID 5 Days #10 tab.er.12h Prednisone [Deltasone 20 mg Tablet] 3 tab PO DAILY 5 Days #15 tablet Forms: Elevated Blood Pressure, Return to Work Referrals: CELESTE BASURTO MD [Primary Care Provider] - Follow up as needed
[2018-01-28 18:01] VITALS: BP 118/53
== END 2018-01-28 18:01 | disposition home or self-care (01) ==
LOC: ER 13:08
DX: J18.1 Lobar pneumonia, unspecified organism (principal); M79.1 Myalgia; R05 Cough; R74.8 Abnormal levels of other serum enzymes; R53.81 Other malaise; R09.81 Nasal congestion; R68.83 Chills (without fever); J02.9 Acute pharyngitis, unspecified; J34.89 Other specified disorders of nose and nasal sinuses; R49.0 Dysphonia; I10 Essential (primary) hypertension; E11.9 Type 2 diabetes mellitus without complications
CPT/HCPCS: 94640; 99285; 36415; 87040; 87070; 87205; 85025; 80053; 71046; J7620

== ENCOUNTER → 2018-04-11 | Outpatient (CLI) | payer OTHER | LOC: CCC 13:47 | DX: E11.8 Type 2 diabetes mellitus with unspecified complications (principal) | CPT/HCPCS: 36415; 83036 ==

== ENCOUNTER 2018-04-18 13:44 | Emergency (ER) | payer OTHER ==
--- NOTE | 2018-04-18 14:12 | ER Document Report ---
ED Medical Screen (RME) - General TRAVEL OUTSIDE OF THE [place] IN LAST 30 DAYS: No <SILVANO ESPINOZA - Last Filed: 04/18/18 14:11> - General Mode of Arrival: Ambulatory - [facility] Patient complains to provider of: hyperventilating Onset: Other - 57-year-old female presents for evaluation from her father's hospital room where she was at his bedside because he has been sick for a couple of days. She notes that she has had a few episodes in which she has hyperventilated because of the stress being caused to her by her father's illness. Occasionally this causes her hands to tingle and her to have some feelings of pressure in her chest. She denies any recent illnesses fevers or chills. She notes that she has been sleeping in a chair for the better part of the last several days because of her father being in the hospital and she is concerned because her legs also seem to be a little more swollen than usual. <PETER HUI - Last Filed: 04/18/18 17:54> - General Chief Complaint: Shortness Of Breath Stated Complaint: SHORTNESS OF BREATH Time Seen by Provider: 04/18/18 14:02 Notes: 57-year-old female patient history of A. fib, anxiety and panic attacks, poorly controlled diabetes with an A1c of 9.8 a few days ago. Patient is visiting with her father who is an inpatient on the fourth floor. She got excited and developed panic attack stating she got excited because she could not eat. She is hyperventilating, seems dyspneic. I have greeted and performed a rapid initial assessment of this patient. A comprehensive ED assessment and evaluation of the patient, analysis of test results and completion of the medical decision making process will be conducted by additional ED providers. (SILVANO ESPINOZA) - Related Data Allergies/Adverse Reactions: No Known Allergies Allergy (Verified 01/28/18 13:09) Past Medical History - Social History Chew tobacco use (# tins/day): No Frequency of alcohol use: None Drug Abuse: None - Past Medical History Cardiac Medical History: Reports: Hx Atrial Fibrillation, Hx Hypercholesterolemia, Hx Hypertension Endocrine Medical History: Reports: Hx Diabetes Mellitus Type 1, Hx Diabetes Mellitus Type 2, Hx Hypothyroidism Renal/ Medical History: Denies: Hx Peritoneal Dialysis Psychiatric Medical History: Reports: Hx Depression Past Surgical History: Reports: Hx Cardiac Catheterization, Hx Section - x1, Other - post uvelectomy. - Immunizations Immunizations up to date: Yes Hx Diphtheria, Pertussis, Tetanus Vaccination: Yes History of Influenza Vaccine for 05/2017 - 10/2017 Season: Yes <SILVANO ESPINOZA - Last Filed: 04/18/18 14:11> - General Information source: Patient - Social History Cigarette use (# per day): No <PETER HUI - Last Filed: 04/18/18 17:54> Review of Systems - Review of Systems -: Yes All other systems reviewed and negative <PETER HUI - Last Filed: 04/18/18 17:54> Physical Exam - General General appearance: Appears well In distress: None - HEENT Head: Normocephalic Eyes: Normal Conjunctiva: Normal - Respiratory Respiratory status: No respiratory distress Chest status: Nontender Breath sounds: Normal Chest palpation: Normal - Cardiovascular Rhythm: Regular Heart sounds: Normal auscultation Murmur: No Friction rub: No Lilia's crunch: No - Abdominal Inspection: Normal Distension: No distension Tenderness: Nontender Organomegaly: No organomegaly - Back Back: Normal - Extremities General upper extremity: Normal inspection, Nontender, Normal ROM, Normal strength General lower extremity: Normal inspection, Nontender, Edema - +1 bilateral edema, Normal ROM, Normal strength - Neurological Neuro grossly intact: Yes Cognition: Normal Orientation: AAOx4 Les Coma Scale Eye Opening: Spontaneous [place] Coma Scale Verbal: Oriented Les Coma Scale Motor: Obeys Commands [place] Coma Scale Total: 15 Speech: Normal Cranial nerves: Normal Cerebellar coordination: Normal Motor strength normal: LUE, RUE, LLE, RLE - Psychological Associated symptoms: Normal affect <PETER HUI - Last Filed: 04/18/18 17:54> - Vital signs Vitals: Temp Pulse Resp BP Pulse Ox 97.4 F 95 28 H 167/78 H 100 04/18/18 13:52 04/18/18 13:52 04/18/18 13:52 04/18/18 13:52 04/18/18 13:52 Course <SILVANO ESPINOZA - Last Filed: 04/18/18 14:11> - Laboratory Result Diagrams: 04/18/18 14:19 04/18/18 14:19 <PETER HUI - Last Filed: 04/18/18 17:54> - Re-evaluation Re-evalutation: 04/18/18 16:33 of shortness of breath in the setting of stress related she denies any preceding events, she has had similar episodes in the past. On examination she is in no obvious distress at this time, is essentially back to her baseline. We will plan for troponin 2, EKG, cardiac monitoring, reassessment. Patient with a negative initial troponin, unchanged EKG from previous, 04/18/18 17:50 second troponin is negative. This patient is well appearing, while morbidly obese is ambulatory. We will plan for this patient to undergo discharge with return precautions and expectant management. She has been instructed to follow-up with her primary physician. (PETER HUI) - Vital Signs Vital signs: Temp Pulse Resp BP Pulse Ox 97.4 F 95 17 143/77 H 100 04/18/18 13:52 04/18/18 13:52 04/18/18 15:26 04/18/18 15:26 04/18/18 15:26 - Laboratory Laboratory results interpreted by me: 04/18/18 04/18/18 14:19 14:19 Hgb 10.4 L Hct 32.7 L MCV 74 L MCH 23.6 L RDW 17.0 H AST 37 H ALT 59 H Alkaline Phosphatase 170 H Doctor's Discharge <SILVANO ESPINOZA - Last Filed: 04/18/18 14:11> <PETER HUI - Last Filed: 04/18/18 17:54> - Discharge Clinical Impression: Hyperventilation, Leg swelling Condition: Good Disposition: HOME, SELF-CARE Instructions: Hyperventilation ([facility]) Additional Instructions: Your seen today in the emergency department for your hyperventilating episode. You had an evaluation including a physical exam as well as an EKG, 2 blood tests of your heart, and monitoring. No damage was identified to your heart, your blood work was reassuring. You should use twice the normal dose of your furosemide if you want to improve the swelling in your legs over the next 3 days. You should not sleep in a chair. Call your doctor tomorrow and schedule an appointment to refill all of your medications. Forms: Elevated Blood Pressure Referrals: [facility] [NO LOCAL MD] - Follow up as needed
[2018-04-18 14:32] LABS: ABSOLUTE EOSINOPHILS # (AUTO) 0.1 10^3/uL (0.0-0.6); ABSOLUTE LYMPHOCYTES (AUTO) 1.4 10^3/uL (0.5-4.7); ABSOLUTE MONOCYTES (AUTO) 0.5 10^3/uL (0.1-1.4); BASOPHILS % (AUTO) 0.2 % (0-2); EOSINOPHILS % (AUTO) 1.6 % (0-6); HEMATOCRIT 32.7 % (36.0-47.0); HEMOGLOBIN 10.4 g/dL (12.0-15.5); LYMPHOCYTES % (AUTO) 19.6 % (13-45); MEAN CORPUSCULAR HEMOGLOBIN 23.6 pg (27.0-33.4); MEAN CORPUSCULAR VOLUME 74 fl (80-97); MONOCYTES % (AUTO) 7.4 % (3-13); PLATELET COUNT 287 10^3/uL (150-450); RED BLOOD COUNT 4.42 10^6/uL (3.72-5.28); SEGMENTED NEUTROPHILS % (AUTO) 71.2 % (42-78); TOTAL CELLS COUNTED % (AUTO) 100 %
[2018-04-18 14:45] LABS: ALANINE AMINOTRANSFERASE 59 U/L (9-52); ALBUMIN 3.9 g/dL (3.5-5.0); ALKALINE PHOSPHATASE 170 U/L (38-126); ANION GAP 11 (5-19); ASPARTATE AMINO TRANSFERASE 37 U/L (14-36); BILIRUBIN,DIRECT 0.2 mg/dL (0.0-0.4); BILIRUBIN,TOTAL 0.4 mg/dL (0.2-1.3); BLOOD UREA NITROGEN 20 mg/dL (7-20); CALCIUM 9.5 mg/dL (8.4-10.2); CARBON DIOXIDE 24 mmol/L (22-30); CHLORIDE 106 mmol/L (98-107); GLUCOSE 108 mg/dL (75-110); POTASSIUM 4.4 mmol/L (3.6-5.0); SODIUM 141.3 mmol/L (137-145); TOTAL PROTEIN 6.8 g/dL (6.3-8.2)
--- NOTE | 2018-04-18 14:59 | RADIOLOGY REPORT (SQ) ---
EXAM DESCRIPTION: CHEST 2 VIEWS COMPLETED DATE/TIME: 04/18/2018 2:45 pm REASON FOR STUDY: sob COMPARISON: 01/28/2018. EXAM PARAMETERS: NUMBER OF VIEWS: two views TECHNIQUE: Digital Frontal and Lateral radiographic views of the chest acquired. RADIATION DOSE: NA LIMITATIONS: none FINDINGS: LUNGS AND PLEURA: No acute infiltrates or effusions. MEDIASTINUM AND HILAR STRUCTURES: No masses or contour abnormalities. HEART AND VASCULAR STRUCTURES: The heart remains unchanged in size. Pulmonary vasculature is normal. BONES: Dorsal spondylosis noted. HARDWARE: None in the chest. OTHER: No other significant finding. IMPRESSION: NO ACUTE DISEASE. TECHNICAL DOCUMENTATION: JOB ID: [id number] [employer]- All Rights Reserved Reading location - IP/workstation name: [email or web address]
--- NOTE | 2018-04-18 16:57 | EKG REPORT ---
SEVERITY:- ABNORMAL ECG - SINUS RHYTHM LEFT VENTRICULAR HYPERTROPHY ST ELEVATION SUGGESTS PERICARDITIS : Confirmed by: Dario Keller 18-Apr-2018 16:57:04
[2018-04-18 18:03] VITALS: BP 156/69
== END 2018-04-18 18:03 | disposition home or self-care (01) ==
LOC: ER 13:44
DX: R06.4 Hyperventilation (principal); R06.02 Shortness of breath; M79.89 Other specified soft tissue disorders; I10 Essential (primary) hypertension; E11.65 Type 2 diabetes mellitus with hyperglycemia; E78.00 Pure hypercholesterolemia, unspecified; E03.9 Hypothyroidism, unspecified
CPT/HCPCS: 36415; 71046; 80053; 84484; 85025; 93005; 93010; 99284

== ENCOUNTER → 2018-05-08 | Outpatient (CLI) | payer OTHER | LOC: CCC 17:00 | DX: Z00.00 Encounter for general adult medical examination without abnormal findings (principal) | CPT/HCPCS: 36415; 86701 ==

== ENCOUNTER 2018-08-04 12:57 | Emergency (ER) | payer OTHER ==
--- NOTE | 2018-08-04 13:53 | ER Document Report ---
ED Flu Like - General Chief Complaint: Flu Symptoms Stated Complaint: COUGH,CONGESTION,SORE THROAT Time Seen by Provider: 08/04/18 13:36 Mode of Arrival: Wheelchair Information source: Patient Notes: 58-year-old female presents to ED for complaint of flulike symptoms since Sunday. She is alert oriented respirations regular and unlabored speaking in full sentences. She does have cough cold and congestion. She states she had pneumonia earlier this year. TRAVEL OUTSIDE OF THE [place] IN LAST 30 DAYS: No - HPI Onset: Other Timing/Duration: Intermittent Quality of pain: Achy - Body ache Pain Level: 2 Associated symptoms: Body/muscle aches, Nonproductive cough, Earache, Rhinnorhea, Sinus pain/drainage, Sore throat Similar symptoms previously: Yes Recently seen / treated by doctor: No - Related Data Allergies/Adverse Reactions: No Known Allergies Allergy (Verified 08/04/18 12:57) Past Medical History - General Information source: Patient - Social History Smoking Status: Never Smoker Frequency of alcohol use: None Drug Abuse: None Lives with: Family Family History: Reviewed & Not Pertinent Patient has suicidal ideation: No Patient has homicidal ideation: No - Past Medical History Cardiac Medical History: Reports: Hx Atrial Fibrillation, Hx Hypercholesterolemia, Hx Hypertension Pulmonary Medical History: Reports: Hx Pneumonia, Hx Sleep Apnea EENT Medical History: Reports: None Neurological Medical History: Reports: None Endocrine Medical History: Reports: Hx Diabetes Mellitus Type 2, Hx Hypothyroidism Renal/ Medical History: Reports: None Malignancy Medical History: Reports: None GI Medical History: Reports: None Musculoskeletal Medical History: Reports None Skin Medical History: Reports None Psychiatric Medical History: Reports: None, Hx Depression Traumatic Medical History: Reports: None Infectious Medical History: Reports: None Past Surgical History: Reports: Hx Section - x1, Other - post uvelectomy. - Immunizations Immunizations up to date: Yes Hx Diphtheria, Pertussis, Tetanus Vaccination: Yes Review of Systems - Review of Systems Constitutional: Recent illness EENT: Ear pain, Nose congestion, Nose discharge, Sinus pressure, Sinus discharge, Throat pain Cardiovascular: No symptoms reported Respiratory: Cough, Short of breath Gastrointestinal: No symptoms reported Genitourinary: No symptoms reported Female Genitourinary: No symptoms reported Musculoskeletal: Muscle pain - Body aches Skin: No symptoms reported Hematologic/Lymphatic: No symptoms reported Neurological/Psychological: No symptoms reported -: Yes All other systems reviewed and negative Physical Exam - Vital signs Vitals: Temp Pulse Resp BP Pulse Ox 97.9 F 95 18 150/73 H 96 08/04/18 13:06 08/04/18 13:06 08/04/18 13:06 08/04/18 13:06 08/04/18 13:06 Interpretation: Normal - General General appearance: Appears well, Alert - HEENT Head: Normocephalic, Atraumatic Eyes: Normal Pupils: PERRL Ears: Normal External canal: Normal Tympanic membrane: Normal Sinus: Normal Nasal: Purulent discharge, Swelling, Other - Pale and boggy Mouth/Lips: Normal Mucous membranes: Normal Pharynx: Post nasal drainage Neck: Normal - Respiratory Respiratory status: No respiratory distress Chest status: Nontender Breath sounds: Nonproductive cough Chest palpation: Normal - Cardiovascular Rhythm: Regular Heart sounds: Normal auscultation Murmur: No - Abdominal Inspection: Normal Distension: No distension Bowel sounds: Normal Tenderness: Nontender Organomegaly: No organomegaly - Back Back: Normal, Nontender - Extremities General upper extremity: Normal inspection, Nontender, Normal color, Normal ROM, Normal temperature General lower extremity: Normal inspection, Nontender, Normal color, Normal ROM, Normal temperature, Normal weight bearing. No: Nathaniel's sign - Neurological Neuro grossly intact: Yes Cognition: Normal Orientation: AAOx4 Les Coma Scale Eye Opening: Spontaneous [place] Coma Scale Verbal: Oriented [place] Coma Scale Motor: Obeys Commands Les Coma Scale Total: 15 Speech: Normal Motor strength normal: LUE, RUE, LLE, RLE Sensory: Normal - Psychological Associated symptoms: Normal affect, Normal mood - Skin Skin Temperature: Warm Skin Moisture: Dry Skin Color: Normal Course - Re-evaluation Re-evalutation: 08/04/18 19:31 X-rays were negative for any acute changes. Patient was given instructions for cough cold congestion and upper respiratory infection. Patient was instructed to follow-up with her primary doctor. After performing a Medical Screening Examination, I estimate there is LOW risk for ACUTE CORONARY SYNDROME, RESPIRATORY FAILURE, SEPSIS OR MENINGITIS, thus I consider the discharge disposition reasonable. I have reevaluated this patient multiple times and no significant life threatening changes are noted. The patient and I have discussed the diagnosis and risks, and we agree with discharging home with close follow- up. We also discussed returning to the Emergency Department immediately if new or worsening symptoms occur. We have discussed the symptoms which are most concerning (e.g., changing or worsening pain, trouble swallowing or breathing, neck stiffness, fever) that necessitate immediate return. - Vital Signs Vital signs: Temp Pulse Resp BP Pulse Ox 98.0 F 92 17 146/82 H 95 08/04/18 15:09 08/04/18 15:09 08/04/18 15:09 08/04/18 15:09 08/04/18 15:09 - Diagnostic Test Radiology reviewed: Image reviewed, Reports reviewed Discharge - Discharge Clinical Impression: URI (upper respiratory infection) Qualifiers: URI type: unspecified URI Qualified Code(s): J06.9 - Acute upper respiratory infection, unspecified Condition: Stable Disposition: HOME, SELF-CARE Additional Instructions: UPPER RESPIRATORY ILLNESS: You have a viral infection of the respiratory passages -- a "cold." This common infection causes nasal congestion, drainage, and often sore throat and cough. It is highly contagious. The disease usually lasts about 10 to 14 days. There is no "cure" for the viral infection -- it must run its course. If there is a complication, such as bacterial infection in the nose, sinuses, middle ear, or bronchial tubes, antibiotics may be required. The antibiotics won't affect the virus. Drink plenty of fluids. A humidifier may help. An expectorant medication or decongestant may make you more comfortable. Use acetaminophen or ibuprofen for fever or aches. See the doctor if fever persists over two days, if there is any significant worsening of your symptoms, or if you simply fail to improve as expected. As we previously discussed if your x-ray was negative that this is an upper respiratory cough cold congestion. Your chest x-ray is negative for any acute changes. COUGH-SUPPRESSANT & EXPECTORANT MEDICATION: You are to use a cough medication as needed for relief of symptoms. This medicine is a combination of an expectorant (to make the mucous thinner and more easily "coughed up") and a cough suppressant (to reduce the frequency of coughing). The cough-suppressant medicine is related to narcotics. You may experience mild nausea and sleepiness. Some patients who are very sensitive to narcotics may have stomach pain from this medicine. Taking the medicine with food reduces these side effects. Do not drive or work with machinery until you know how this medicine affects you. The expectorant should have no side effects. Iodine-containing expectorants (such as organidin) should not be taken by persons with active thyroid disease unless approved by your doctor. Call the doctor if you develop shortness of breath, hives, rash, itching, lightheadedness, or severe nausea and vomiting. USE OF ACETAMINOPHEN (Tylenol): Acetaminophen may be taken for pain relief or fever control. It's much safer than aspirin, offering a wider range of "safe" dosages. It is safe during . Some brand names are Tylenol, Panadol, Datril, Anacin 3, Tempra, and Liquiprin. Acetaminophen can be repeated every four hours. The following are maximum recommended dosages: >89 pounds or adults 650 mg to 900 mg Acetaminophen can be repeated every four hours. Maximum dose not to exceed 4000 mg a day. You can use Flonase spray for your nose and Coricidin HB by mouth for your cough cold congestion. You cannot take normal [id number] medications for colds as you have elevated blood pressure and atrial fib. He can also use salt and soda solution gargles which will remove the postnasal drip from the back your throat which will help you with the cough. You would need to follow-up with your primary doctor in the next 3-5 days due to your medical history. Salt and soda solution 1 quart of water 1 tablespoon of salt 1 teaspoon of baking soda Mixed 3 ingredients together and boil for 1 minute Placed in a covered quart jar Use 1/2 ounce of cold solution to gargle 3 times a day FOLLOW-UP CARE: If you have been referred to a physician for follow-up care, call the physicians office for an appointment as you were instructed or within the next two days. If you experience worsening or a significant change in your symptoms, notify the physician immediately or return to the Emergency Department at any time for re-evaluation. Forms: Elevated Blood Pressure Referrals: [facility] [NO LOCAL MD] - Follow up as needed
--- NOTE | 2018-08-04 14:24 | RADIOLOGY REPORT (SQ) ---
EXAM DESCRIPTION: CHEST 2 VIEWS COMPLETED DATE/TIME: 08/04/2018 2:08 pm REASON FOR STUDY: cough cogestion short of breath COMPARISON: 04/18/2018 TECHNIQUE: Frontal and lateral radiographic views of the chest acquired. NUMBER OF VIEWS: Two view. LIMITATIONS: None. FINDINGS: LUNGS AND PLEURA: No opacities, masses or pneumothorax. No pleural effusion. MEDIASTINUM AND HILAR STRUCTURES: No masses or contour abnormalities. HEART AND VASCULAR STRUCTURES: Heart normal size. No evidence for failure. BONES: No acute findings. HARDWARE: None in the chest. OTHER: No other significant finding. IMPRESSION: NO SIGNIFICANT RADIOGRAPHIC FINDING IN THE CHEST. TECHNICAL DOCUMENTATION: JOB ID: [id number]- All Rights Reserved Reading location - IP/workstation name: [email or web address]
[2018-08-04 15:11] VITALS: BP 146/82
== END 2018-08-04 15:17 | disposition home or self-care (01) ==
LOC: ER 12:57
DX: J06.9 Acute upper respiratory infection, unspecified (principal); M79.10 Myalgia, unspecified site; I48.91 Unspecified atrial fibrillation; E78.00 Pure hypercholesterolemia, unspecified; I10 Essential (primary) hypertension; E11.9 Type 2 diabetes mellitus without complications; E03.9 Hypothyroidism, unspecified
CPT/HCPCS: 71046; 99283

== ENCOUNTER 2018-08-14 15:48 | Emergency (ER) | payer OTHER ==
[2018-08-14] MEDS ORDERED: PREDNISONE 20 MG TABLET PO ONE (16:49)
[2018-08-14] MEDS ORDERED: IPRATROPIUM/ALBUTEROL 0.5-2.5 MG/3 ML AMPUL NEB ONE (16:49)
--- NOTE | 2018-08-14 16:50 | ER Document Report ---
ED Medical Screen (RME) - General Chief Complaint: Cough Stated Complaint: COUGH Time Seen by Provider: 08/14/18 16:44 Notes: 58 years old female presents today with cough and wheezing for the last several weeks but last 2 days having generalized body aches and chills. No fever Non-smoker. Bilateral expiratory wheeze TRAVEL OUTSIDE OF THE [place] IN LAST 30 DAYS: No - Related Data Allergies/Adverse Reactions: No Known Allergies Allergy (Verified 08/14/18 15:50) Past Medical History - Social History Chew tobacco use (# tins/day): No Frequency of alcohol use: None Drug Abuse: None - Past Medical History Cardiac Medical History: Reports: Hx Atrial Fibrillation, Hx Hypercholesterolemia, Hx Hypertension Pulmonary Medical History: Reports: Hx Pneumonia, Hx Sleep Apnea Endocrine Medical History: Reports: Hx Diabetes Mellitus Type 1, Hx Diabetes Mellitus Type 2, Hx Hypothyroidism Renal/ Medical History: Denies: Hx Peritoneal Dialysis Psychiatric Medical History: Reports: Hx Depression Past Surgical History: Reports: Hx Cardiac Catheterization, Hx Section - x1, Other - post uvelectomy. - Immunizations Immunizations up to date: Yes Hx Diphtheria, Pertussis, Tetanus Vaccination: Yes History of Influenza Vaccine for 05/2017 - 10/2017 Season: Yes Physical Exam - Vital signs Vitals: Temp Pulse Resp BP Pulse Ox 97.8 F 90 24 H 152/65 H 95 08/14/18 15:58 08/14/18 15:58 08/14/18 15:58 08/14/18 15:58 08/14/18 15:58 Course - Vital Signs Vital signs: Temp Pulse Resp BP Pulse Ox 97.8 F 90 24 H 152/65 H 95 08/14/18 15:58 08/14/18 15:58 08/14/18 15:58 08/14/18 15:58 08/14/18 15:58
[2018-08-14 18:10] LABS: ABSOLUTE EOSINOPHILS # (AUTO) 0.1 10^3/uL (0.0-0.6); ABSOLUTE LYMPHOCYTES (AUTO) 1.7 10^3/uL (0.5-4.7); ABSOLUTE MONOCYTES (AUTO) 0.6 10^3/uL (0.1-1.4); ABSOLUTE NEUT (AUTO) 4.6 10^3/uL (1.7-8.2); BASOPHILS % (AUTO) 0.6 % (0-2); EOSINOPHILS % (AUTO) 1.9 % (0-6); HEMATOCRIT 32.4 % (36.0-47.0); HEMOGLOBIN 10.2 g/dL (12.0-15.5); LYMPHOCYTES % (AUTO) 23.8 % (13-45); MEAN CORPUSCULAR HEMOGLOBIN 23.3 pg (27.0-33.4); MEAN CORPUSCULAR HGB CONC 31.4 g/dL (32.0-36.0); MEAN CORPUSCULAR VOLUME 74 fl (80-97); PLATELET COUNT 325 10^3/uL (150-450); RED BLOOD COUNT 4.38 10^6/uL (3.72-5.28); RED CELL DISTRIBUTION WIDTH 16.5 % (11.5-14.0); SEGMENTED NEUTROPHILS % (AUTO) 65.7 % (42-78); TOTAL CELLS COUNTED % (AUTO) 100 %
[2018-08-14 18:13] LABS: APPEARANCE,URINE CLOUDY; BILIRUBIN,URINE NEGATIVE (NEGATIVE); COLOR,URINE YELLOW; GLUCOSE, URINE NEGATIVE (NEGATIVE); KETONES,URINE NEGATIVE (NEGATIVE); LEUKOCYTE ESTERASE,URINE SMALL (NEGATIVE); NITRITE,URINE NEGATIVE (NEGATIVE); PROTEIN,URINE 100 mg/dL (NEGATIVE); URINE SPECIFIC GRAVITY 1.018; UROBILINOGEN,URINE NEGATIVE mg/dL (<2.0)
--- NOTE | 2018-08-14 18:17 | RADIOLOGY REPORT (SQ) ---
EXAM DESCRIPTION: CHEST SINGLE VIEW COMPLETED DATE/TIME: 08/14/2018 5:51 pm REASON FOR STUDY: Shortness of breath COMPARISON: 08/04/2018. EXAM PARAMETERS: NUMBER OF VIEWS: One view. TECHNIQUE: Single frontal radiographic view of the chest acquired. RADIATION DOSE: NA LIMITATIONS: None. FINDINGS: LUNGS AND PLEURA: No opacities, masses or pneumothorax. No pleural effusion. MEDIASTINUM AND HILAR STRUCTURES: No masses. Contour normal. HEART AND VASCULAR STRUCTURES: Heart upper limits of normal in size. Normal vasculature. BONES: No acute findings. HARDWARE: None in the chest. OTHER: No other significant finding. IMPRESSION: NO ACUTE RADIOGRAPHIC FINDING IN THE CHEST. TECHNICAL DOCUMENTATION: JOB ID: [id number] [employer]- All Rights Reserved Reading location - IP/workstation name: [email or web address]
[2018-08-14 18:21] LABS: A TYPE INFLUENZA AG NEGATIVE (NEGATIVE); B INFLUENZA AG NEGATIVE (NEGATIVE)
[2018-08-14 18:37] LABS: ALANINE AMINOTRANSFERASE 124 U/L (9-52); ALBUMIN 4.3 g/dL (3.5-5.0); ALKALINE PHOSPHATASE 225 U/L (38-126); ANION GAP 9 (5-19); ASPARTATE AMINO TRANSFERASE 70 U/L (14-36); BILIRUBIN,DIRECT 0.3 mg/dL (0.0-0.4); BILIRUBIN,TOTAL 0.4 mg/dL (0.2-1.3); BLOOD UREA NITROGEN 27 mg/dL (7-20); CALCIUM 9.6 mg/dL (8.4-10.2); CARBON DIOXIDE 30 mmol/L (22-30); CHLORIDE 99 mmol/L (98-107); GLUCOSE 135 mg/dL (75-110); POTASSIUM 4.6 mmol/L (3.6-5.0); SODIUM 137.6 mmol/L (137-145); TOTAL PROTEIN 7.2 g/dL (6.3-8.2)
--- NOTE | 2018-08-14 19:42 | ER Document Report ---
HPI - HPI Patient complains to provider of: cough Pain Level: 2 Context: Patient is a 58-year-old female presents the emergency department for generalized cough and congestion. Patient states she was seen at this facility the end of July for cough, congestion, subjective fever. Patient states initially she felt as though her cough was getting better but then in the last week it has gotten worse. Patient states she feels as though she cannot take a deep breath. Patient denies any current fevers, patient also denies any nausea, vomiting, diarrhea, chest pain, abdominal pain, dysuria. Past medical history: Diabetes, hypertension, hyperlipidemia Medications: Metformin, Cozaar, aspirin, Norvasc Allergies: None - REPRODUCTIVE Reproductive: DENIES: : - DERM Skin Color: Normal <HELLEN BARROSO - Last Filed: 08/15/18 02:03> <SANDRA TURCIOS - Last Filed: 08/15/18 02:55> - HPI Time Seen by Provider: 08/14/18 16:44 Past Medical History - General Information source: Patient - Social History Smoking Status: Never Smoker Chew tobacco use (# tins/day): No Frequency of alcohol use: None Drug Abuse: None Family History: Reviewed & Not Pertinent Patient has suicidal ideation: No Patient has homicidal ideation: No - Past Medical History Cardiac Medical History: Reports: Hx Atrial Fibrillation, Hx Hypercholes terolemia, Hx Hypertension Pulmonary Medical History: Reports: Hx Pneumonia, Hx Sleep Apnea Endocrine Medical History: Reports: Hx Diabetes Mellitus Type 1, Hx Diabetes Mellitus Type 2, Hx Hypothyroidism Renal/ Medical History: Denies: Hx Peritoneal Dialysis Psychiatric Medical History: Reports: Hx Depression Past Surgical History: Reports: Hx Cardiac Catheterization, Hx Section - x1, Other - post uvelectomy. - Immunizations Immunizations up to date: Yes Hx Diphtheria, Pertussis, Tetanus Vaccination: Yes <HELLEN BARROSO - Last Filed: 08/15/18 02:03> Vertical Provider Document - CONSTITUTIONAL Agree With Documented VS: Yes Notes: GENERAL: Alert, interacts well. No acute distress. HEAD: Normocephalic, atraumatic. No frontal or maxillary sinus tenderness EYES: Pupils equal, round, and reactive to light. Extraocular movements intact. ENT: Oral mucosa moist, tongue midline. Nares patent, swollen turbinates bilaterally, TM's intact, nonerythematous, nonbulging. Pharynx within normal limits, no palatal petechiae or exudate noted tonsils +1 bilaterally NECK: Full range of motion. Supple. Trachea midline. LUNGS: Clear to auscultation bilaterally, no wheezes, rales, or rhonchi. No respiratory distress. HEART: Regular rate and rhythm. No murmur ABDOMEN: Soft, non-tender. Non-distended. Bowel sounds present in all 4 quadrants. EXTREMITIES: Moves all 4 extremities spontaneously. No edema, normal radial and dorsalis pedis pulses bilaterally. No cyanosis. BACK: no cervical, thoracic, lumbar midline tenderness. No saddle anesthesia, normal distal neurovascular exam. NEUROLOGICAL: Alert and oriented x3. Normal speech. cranial nerves II through XII grossly intact. PSYCH: Normal affect, normal mood. SKIN: Warm, dry, normal turgor. No rashes or lesions noted. - INFECTION CONTROL TRAVEL OUTSIDE OF THE [place] IN LAST 30 DAYS: No <HELLEN BARROSO - Last Filed: 08/15/18 02:03> Course - Re-evaluation Re-evalutation: 08/14/18 19:37 Patient's lab work shows no signs of leukocytosis, no signs of electrolyte abnormalities, no signs of urinary tract infection. Patient's chest x-ray shows no signs of pneumonia, pneumothorax, rib fracture. I did not listen to patient's lung sounds prior to administration of DuoNeb due to those orders being placed by the E provider but upon my examinations patient's lung sounds are clear and equal in all arredondo. Discussed symptomatic treatment of bronchitis, home use of steroids, albuterol, prescription cough medication. Patient stable for discharge and agreeable with plan. 08/14/18 19:41 Patient states she has been taking at home Flonase for her nasal congestion. Discussed with her to continue that. - Vital Signs Vital signs: Temp Pulse Resp BP Pulse Ox 97.8 F 90 24 H 152/65 H 95 08/14/18 15:58 08/14/18 15:58 08/14/18 15:58 08/14/18 15:58 08/14/18 15:58 - Laboratory Result Diagrams: 08/14/18 17:30 08/14/18 17:30 Laboratory results interpreted by me: 08/14/18 08/14/1808/14/19 17:30 17:30 17:30 Hgb 10.2 L Hct 32.4 L MCV 74 L MCH 23.3 L MCHC 31.4 L RDW 16.5 H BUN 27 H Glucose 135 H AST 70 H ALT 124 H Alkaline Phosphatase 225 H Urine Protein 100 H Ur Leukocyte Esterase SMALL H Urine Ascorbic Acid 40 H <HELLEN BARROSO - Last Filed: 08/15/18 02:03> - Re-evaluation Re-evalutation: 08/15/18 02:55 I was personally available for consultation during this patient's worse. I did not personally evaluate the patient. - Vital Signs Vital signs: Temp Pulse Resp BP Pulse Ox 98.1 F 90 18 141/69 H 94 08/14/18 19:54 08/14/18 19:54 08/14/18 19:54 08/14/18 19:54 08/14/18 19:54 - Laboratory Result Diagrams: 08/14/18 17:30 08/14/18 17:30 Laboratory results interpreted by me: 08/14/18 08/14/18 08/14/18 17:30 17:30 17:30 Hgb 10.2 L Hct 32.4 L MCV 74 L MCH 23.3 L MCHC 31.4 L RDW 16.5 H BUN 27 H Glucose 135 H AST 70 H ALT 124 H Alkaline Phosphatase 225 H Urine Protein 100 H Ur Leukocyte Esterase SMALL H Urine Ascorbic Acid 40 H <SANDRA TURCIOS E - Last Filed: 08/15/18 02:55> Discharge <HELLEN BARROSO - Last Filed: 08/15/18 02:03> <SANDRA TURCIOS - Last Filed: 08/15/18 02:55> - Discharge Clinical Impression: Bronchitis, Upper respiratory infection, Bronchospasm Condition: Stable Disposition: HOME, SELF-CARE Instructions: Bronchitis With Bronchospasm (Wheezing) ([facility]), Upper Respiratory Illness ([facility]) Additional Instructions: As we discussed you have been seen and treated in the emergency department for bronchitis and an upper respiratory infection. Please take medications as prescribed. Please follow-up with your primary care provider in the next 24-48 hours. Please return to the emergency room for any other concerning symptoms. Prescriptions: Benzonatate [Tessalon Perles 100 mg Capsule] 100 mg PO Q8HP PRN #40 capsule PRN Reason: RX: Albuterol Sulfate [Proair HFA Inhalation Aerosol 8.5 gm MDI] 1 puff IH Q4 PRN #1 mdi PRN Reason: RX: Prednisone [Deltasone 20 mg Tablet] 3 tab PO DAILY 5 Days tablet Forms: Elevated Blood Pressure Referrals: CELESTE BASURTO MD [Primary Care Provider] - Follow up as needed
[2018-08-14 19:56] VITALS: BP 141/69
== END 2018-08-14 19:57 | disposition home or self-care (01) ==
LOC: ER 15:48
DX: J40 Bronchitis, not specified as acute or chronic (principal); J06.9 Acute upper respiratory infection, unspecified; J98.01 Acute bronchospasm; R05 Cough; R09.81 Nasal congestion; I10 Essential (primary) hypertension; E11.9 Type 2 diabetes mellitus without complications; Z79.84 Long term (current) use of oral hypoglycemic drugs; Z79.82 Long term (current) use of aspirin; Z79.899 Other long term (current) drug therapy
CPT/HCPCS: 94640; 99284; 36415; 85025; 80053; 81001; 87804; 71045; J7512; J7620

== ENCOUNTER → 2018-08-28 | Outpatient (CLI) | payer OTHER ==
[2018-08-28 17:24] LABS: ABSOLUTE EOSINOPHILS # (AUTO) 0.1 10^3/uL (0.0-0.6); ABSOLUTE LYMPHOCYTES (AUTO) 1.8 10^3/uL (0.5-4.7); ABSOLUTE MONOCYTES (AUTO) 0.6 10^3/uL (0.1-1.4); ABSOLUTE NEUT (AUTO) 5.5 10^3/uL (1.7-8.2); BASOPHILS % (AUTO) 0.4 % (0-2); EOSINOPHILS % (AUTO) 1.5 % (0-6); HEMATOCRIT 31.9 % (36.0-47.0); HEMOGLOBIN 10.3 g/dL (12.0-15.5); LYMPHOCYTES % (AUTO) 22.3 % (13-45); MEAN CORPUSCULAR HEMOGLOBIN 23.6 pg (27.0-33.4); MEAN CORPUSCULAR HGB CONC 32.3 g/dL (32.0-36.0); MEAN CORPUSCULAR VOLUME 73 fl (80-97); MONOCYTES % (AUTO) 7.2 % (3-13); PLATELET COUNT 302 10^3/uL (150-450); RED BLOOD COUNT 4.35 10^6/uL (3.72-5.28); RED CELL DISTRIBUTION WIDTH 16.9 % (11.5-14.0); SEGMENTED NEUTROPHILS % (AUTO) 68.6 % (42-78); TOTAL CELLS COUNTED % (AUTO) 100 %
[2018-08-28 17:44] LABS: ALANINE AMINOTRANSFERASE 46 U/L (9-52); ALKALINE PHOSPHATASE 158 U/L (38-126); ANION GAP 7 (5-19); ASPARTATE AMINO TRANSFERASE 27 U/L (14-36); BILIRUBIN,DIRECT 0.2 mg/dL (0.0-0.4); BILIRUBIN,TOTAL 0.3 mg/dL (0.2-1.3); BLOOD UREA NITROGEN 21 mg/dL (7-20); CALCIUM 9.2 mg/dL (8.4-10.2); CARBON DIOXIDE 30 mmol/L (22-30); CHLORIDE 101 mmol/L (98-107); GLUCOSE 128 mg/dL (75-110); POTASSIUM 4.6 mmol/L (3.6-5.0); SODIUM 137.8 mmol/L (137-145); TOTAL PROTEIN 6.7 g/dL (6.3-8.2)
== END ==
LOC: CCC 16:31
DX: I10 Essential (primary) hypertension (principal); E11.8 Type 2 diabetes mellitus with unspecified complications
CPT/HCPCS: 36415; 80053; 83036; 85025

== ENCOUNTER 2018-11-22 19:40 | Emergency (ER) | payer SELFPAY ==
[2018-11-22] MEDS ORDERED: HYDROCODONE/ACETAMINOPHEN 5-325 MG TABLET PO ONE (20:14)
--- NOTE | 2018-11-22 20:17 | ER Document Report ---
ED Medical Screen (RME) - General Chief Complaint: Fall Injury Stated Complaint: FELL HEAD PAIN Time Seen by Provider: 11/22/18 20:13 Primary Care Provider: [facility] [Primary Care Provider] - Follow up as needed Mode of Arrival: Medic Information source: Patient Notes: 58-year-old female presented to ED for complaint of head injury with neck pain and left ankle pain. She states she was in the shower and a shower chair getting her shower when the leg fell off of the chair she fell backwards hitting her head and neck on the tile on the wall of the shower. She states she was not able to get up out of the floor after falling and because her left ankle would not hold her so she yelled and yelled and until her friend and special events driver was able to give me the door open to get to her. She states she then called 911 and came to the emergency room. She does have a cervical collar on at this time. Patient is alert oriented respirations regular night unlabored able to answer questions. She does have tenderness to the cervical spine back of the head and left ankle. I have greeted and performed a rapid initial assessment of this patient. A comprehensive ED assessment and evaluation of the patient, analysis of test results and completion of medical decision making process will be conducted by an additional ED providers. TRAVEL OUTSIDE OF THE [place] IN LAST 30 DAYS: No - Related Data Allergies/Adverse Reactions: No Known Allergies Allergy (Verified 08/14/18 15:50) Past Medical History - Social History Chew tobacco use (# tins/day): No Frequency of alcohol use: None Drug Abuse: None - Past Medical History Cardiac Medical History: Reports: Hx Atrial Fibrillation, Hx Hypercholesterolemia, Hx Hypertension Pulmonary Medical History: Reports: Hx Pneumonia, Hx Sleep Apnea Endocrine Medical History: Reports: Hx Diabetes Mellitus Type 1, Hx Diabetes Mellitus Type 2, Hx Hypothyroidism Renal/ Medical History: Denies: Hx Peritoneal Dialysis Psychiatric Medical History: Reports: Hx Depression Past Surgical History: Reports: Hx Cardiac Catheterization, Hx Section - x1, Other - post uvelectomy. - Immunizations Immunizations up to date: Yes Hx Diphtheria, Pertussis, Tetanus Vaccination: Yes History of Influenza Vaccine for 05/2017 - 10/2017 Season: Yes Physical Exam - Vital signs Vitals: Temp Pulse Resp BP Pulse Ox 97.7 F 90 22 H 178/70 H 94 11/22/18 19:54 11/22/18 19:54 11/22/18 19:54 11/22/18 19:54 11/22/18 19:54 Course - Vital Signs Vital signs: Temp Pulse Resp BP Pulse Ox 97.7 F 90 22 H 178/70 H 94 11/22/18 19:54 11/22/18 19:54 11/22/18 19:54 11/22/18 19:54 11/22/18 19:54 Doctor's Discharge - Discharge Referrals: [facility] [Primary Care Provider] - Follow up as needed
--- NOTE | 2018-11-22 21:12 | RADIOLOGY REPORT (SQ) ---
EXAM DESCRIPTION: CT HEAD WITHOUT IV CONTRAST COMPLETED DATE/TME: 11/22/2018 20:14 CLINICAL HISTORY: Fell in shower head and neck and left ankle pain COMPARISON: None Available. TECHNIQUE: Contiguous axial images of the brain were obtained without the administration of intravenous contrast. This exam was performed according to our departmental dose-optimization program, which includes automated exposure control, adjustment of the mA and/or kV according to patient size and/or use of iterative reconstruction technique. FINDINGS: There is no acute intracranial hemorrhage or mass effect. Ventricular system is within normal limits. There is adequate luo-white matter differentiation. There is no skull fracture. The visualized paranasal sinuses and mastoid air cells are within normal limits. IMPRESSION: No acute intracranial abnormalities.
--- NOTE | 2018-11-22 21:32 | RADIOLOGY REPORT (SQ) ---
EXAM DESCRIPTION: XR ANKLE 3 OR MORE VIEWS COMPLETED DATE/TME: 11/22/2018 20:15 CLINICAL HISTORY: 58 years Female ,Fell in shower head and neck and left ankle pain COMPARISON: None. TECHNIQUE: Left ankle, 3 view FINDINGS: No acute fractures or dislocations are identified. No osseous destructive lesions. Soft tissue swelling around the foot and ankle. Plantar spur. No ankle joint effusion noted. IMPRESSION: No acute fracture is identified. Significant soft tissue swelling over the foot and ankle
--- NOTE | 2018-11-22 21:38 | RADIOLOGY REPORT (SQ) ---
EXAM DESCRIPTION: XR SPINE 1 VIEW COMPLETED DATE/TME: 11/22/2018 00:00 CLINICAL HISTORY: 58 years Female Fell in shower head and neck and left ankle pain COMPARISON: None. TECHNIQUE: Three views FINDINGS: C1-C6 are seen in the lateral projection. Lower cervical spine and the cervicothoracic junction is not well seen. Odontoid appears intact. There is soft tissue swelling. Recommend correlation with CT the spine to exclude hematoma. IMPRESSION: No acute fracture is noted. However the prevertebral soft tissues appear significantly prominent. Recommend correlation with CT of the cervical spine to exclude hematoma or occult fracture. This can also be due to ectatic vascular structures extending into the retropharyngeal space
[2018-11-22] MEDS ORDERED: LORAZEPAM INJ 2 MG/1 ML VIAL IM ONE (22:52)
--- NOTE | 2018-11-22 22:55 | ER Document Report ---
ED General - General Chief Complaint: Fall Injury Stated Complaint: FELL HEAD PAIN Time Seen by Provider: 11/22/18 20:13 Primary Care Provider: [facility] [NO LOCAL MD] - Follow up in 3-5 days Mode of Arrival: Medic Notes: Patient is a pleasant 58-year-old female who presents with complaints of pain in her neck. Patient says she was getting out of her shower chair and slipped and fell falling backwards hitting her head and neck on the tile. She also hurt her left ankle. CT scans were in triage. CT scan of her head was negative. She is post a CAT scan of her neck but she felt anxious and therefore they did a cervical spine x-ray instead. X-ray of the left ankle was normal. She says she still has some pain in her neck. She did receive 1 Vicodin. She denies any nu mbness or weakness to the hands or arms. She denies any pain into the thoracic or lumbar spine. No pain to the hips or knees. No other complaints at this time. TRAVEL OUTSIDE OF THE [place] IN LAST 30 DAYS: No - Related Data Allergies/Adverse Reactions: No Known Allergies Allergy (Verified 08/14/18 15:50) Past Medical History - General Information source: Patient - Social History Smoking Status: Never Smoker Chew tobacco use (# tins/day): No Frequency of alcohol use: None Drug Abuse: None Family History: Reviewed & Not Pertinent Patient has suicidal ideation: No Patient has homicidal ideation: No - Past Medical History Cardiac Medical History: Reports: Hx Atrial Fibrillation, Hx Hypercholesterolemia, Hx Hypertension Pulmonary Medical History: Reports: Hx Pneumonia, Hx Sleep Apnea Endocrine Medical History: Reports: Hx Diabetes Mellitus Type 1, Hx Diabetes Mellitus Type 2, Hx Hypothyroidism Renal/ Medical History: Denies: Hx Peritoneal Dialysis Psychiatric Medical History: Reports: Hx Depression Past Surgical History: Reports: Hx Cardiac Catheterization, Hx Section - x1, Other - post uvelectomy. - Immunizations Immunizations up to date: Yes Hx Diphtheria, Pertussis, Tetanus Vaccination: Yes Review of Systems - Review of Systems Notes: My Normal Review Basic REVIEW OF SYSTEMS: CONSTITUTIONAL : Denies fever, chills, or sweats. Denies recent illness. CARDIOVASCULAR: Denies chest pain. RESPIRATORY: Denies cough, cold, or chest congestion. Denies shortness of breath, difficulty breathing, or wheezing. GASTROINTESTINAL: Denies abdominal pain. Denies nausea, vomiting, or diarrhea. MUSCULOSKELETAL: Pain in neck and left ankle. SKIN: Denies rash or skin lesions. NEUROLOGICAL: Denies altered mental status or loss of consciousness. Has a mild headache. Denies weakness or paralysis or loss of use of either side. Denies problems with gait or speech. Denies sensory or motor loss. ALL OTHER SYSTEMS REVIEWED AND NEGATIVE. Physical Exam - Vital signs Vitals: Temp Pulse Resp BP Pulse Ox 97.7 F 90 22 H 178/70 H 94 11/22/18 19:54 11/22/18 19:54 11/22/18 19:54 11/22/18 19:54 11/22/18 19:54 - Notes Notes: General Appearance: Well nourished, alert, cooperative, no acute distress, mild obvious discomfort. Vitals: reviewed, See vital signs table. Head: no swelling or tenderness to the head Eyes: PERRL, EOMI, Conjuctiva clear Mouth: No decreasd moisture Throat: No tonsillar inflammation, No airway obstruction, No lymphadenopathy Neck: There is over posterior cervical spine. Patient in soft cervical collar. Lungs: No wheezing, No rales, No rhonci, No accessory muscle use, good air exchange bilaterally. Heart: Normal rate, Regular rythm, No murmur, no rub Abdomen: Normal BS, soft, No rigidity, No abdominal tenderness, No guarding, no rebound, no abdominal masses, no organomegaly Extremities: strength 5/5 in all extremities, good pulses in all extremities, tremors are all nontender except for some pain to the patient over proximal left ankle. No deformity., no edema. Skin: warm, dry, appropriate color, no rash Neuro: speech clear, oriented x 3, normal affect, responds appropriately to questions. Cranial nerves II through XII are intact. Patient will move all extremities without difficulty. Course - Re-evaluation Re-evalutation: 11/23/18 07:28 CT scans are negative. Patient has no weakness or numbness into her ex tremities. I will give her crutches here. I have written a walker for her to olive picker weight at which will help her balance better. Mentions to me that she falls asleep a lot and this is been ongoing for a while. She says she is always kind of tired and sleepy. She does have history of sleep apnea that was diagnosed in the past but is not using a CPAP machine I informed her that she should talk to cardiology, Dr. Guevara, about having a sleep study performed as being placed on CPAP with probably help with this. I encouraged her return to ER if she has any further concerns. Patient agrees with plan and will be discharged home. Dictation of this chart was performed using voice recognition software; therefore, there may be some unintended grammatical errors. - Vital Signs Vital signs: Temp Pulse Resp BP Pulse Ox 97.9 F 76 20 162/74 H 95 11/23/18 02:10 11/23/18 02:10 11/23/18 02:10 11/23/18 02:10 11/23/18 02:10 Discharge - Discharge Clinical Impression: Cervical strain Qualifiers: Encounter type: initial encounter Qualified Code(s): S16.1XXA - Strain of muscle, fascia and tendon at neck level, initial encounter Ankle sprain Qualifiers: Encounter type: initial encounter Involved ligament of ankle: unspecified ligament Laterality: left Qualified Code(s): S93.402A - Sprain of unspecified ligament of left ankle, initial encounter Minor head injury Qualifiers: Encounter type: initial encounter Qualified Code(s): S09.90XA - Unspecified injury of head, initial encounter Condition: Good Disposition: HOME, SELF-CARE Additional Instructions: Your CT scan of your head and neck did not show any evidence of fracture or internal bleeding in the brain. Ankle x-ray was negative. I suspect you have an ankle sprain. Please use crutches to help stay nonweightbearing of the ankle until you are no longer having pain with weightbearing on the ankle. Your history of falling asleep on the toilet and falling asleep frequently is consistent with likelihood of sleep apnea. Please speak with Dr. Guevara about having a sleep study performed so that he can be diagnosed and placed on CPAP as this will likely help you. Please return to the ER immediately if you have severe headache, vomiting, intractable pain, or feel unwell. I have prescribed tramadol. This may make you a bit sleepy or drowsy so please do not drive after taking it. I have also prescribed you a walker as this may be more beneficial to you and helping to keep weight off your left ankle. Prescriptions: Tramadol HCl [Ultram 50 mg Tablet] 50 mg PO Q8HP PRN #12 tablet PRN Reason: For Breakthrough Pain RX: Walker [Folding Walker] 1 each MC ASDIR PRN #1 each PRN Reason: Referrals: [facility] [NO LOCAL MD] - Follow up in 3-5 days
--- NOTE | 2018-11-23 01:08 | RADIOLOGY REPORT (SQ) ---
EXAM DESCRIPTION: CT CERVICAL SPINE WITHOUT IV CONTRAST COMPLETED DATE/TME: 11/22/2018 22:52 CLINICAL HISTORY: trauma/injury COMPARISON: None available TECHNIQUE: Axial CT of the cervical spine obtained without contrast. FINDINGS: Straightening of the cervical lordosis. The atlantoaxial, atlantodental, and occipitoatlantal intervals are preserved. No fracture identified. Vertebral body height preserved. Prevertebral soft tissues are unremarkable. Mild loss of intervertebral disc height with endplate spondylosis, uncovertebral spurring, and facet arthropathy. No definite osseous central canal nor neural foraminal narrowing. Visualized skull base is intact. No fracture of the visualized facial bones. Visualized mastoid air cells and paranasal sinuses are well aerated. Visualized thyroid is unremarkable. No cervical lymphadenopathy. No pneumothorax in the visualized lung apices. DLP: 588.61 mGy-cm IMPRESSION: 1. No acute fracture or subluxation of the cervical spine. This exam was performed according to our departmental dose-optimization program, which includes automated exposure control, adjustment of the mA and/or kV according to patient size and/or use of iterative reconstruction technique.
[2018-11-23 02:11] VITALS: BP 162/74
== END 2018-11-23 02:11 | disposition home or self-care (01) ==
LOC: ER 19:40
DX: S16.1XXA Strain of muscle, fascia and tendon at neck level, initial encounter (principal); S93.402A Sprain of unspecified ligament of left ankle, initial encounter; S09.90XA Unspecified injury of head, initial encounter; M54.2 Cervicalgia; M25.572 Pain in left ankle and joints of left foot; W18.2XXA Fall in (into) shower or empty bathtub, initial encounter; Y93.89 Activity, other specified; R53.83 Other fatigue; I10 Essential (primary) hypertension; E11.9 Type 2 diabetes mellitus without complications
CPT/HCPCS: 99284; 96372; 73610; 72040; 70450; 72125; L0120; J2060

== ENCOUNTER → 2018-11-27 | Outpatient (CLI) | payer SELFPAY ==
[~2018-11-27] MED LIST: ALBUTEROL SULFATE 0.083% NEB 2.5 MG/3 ML AMPUL NEB ONE
--- NOTE | 2018-11-28 16:13 | Pulmonary Function Test ---
Pulmonary Function Test Date of Procedure:: 11/28/18 INDICATION:: Dyspnea Referring Provider: Dr.Wilbert Conteh Cupola Melting Supervisor: Ioana Wisdom PLATER HELPER - Report Spirometry: FVC 1.79 L 53% postbronchodilator 1.56 L 45% FEV1 1.60 L 58% postbronchodilator 1.33 L 48% FEV1/FVC % 89 postbronchodilator 85 predicted 82 FEF 25-75% 2.68 L 91% postbronchodilator 1.30 L 44% Impression: No evidence of obstructive ventilatory defect. No hyperinflation or air trapping. Restrictive defect is implied but cannot be diagnosed on the basis of spirometry alone. Clinically indicated complete pulmonary function test would be warranted.
== END ==
LOC: RT 14:13
PROVIDERS: ATTEND Family Medicine
DX: R06.00 Dyspnea, unspecified (principal); I10 Essential (primary) hypertension; E11.9 Type 2 diabetes mellitus without complications
CPT/HCPCS: 94060

== ENCOUNTER → 2018-11-28 | Outpatient (CLI) | payer OTHER ==
[2018-11-28 12:33] LABS: ALANINE AMINOTRANSFERASE 34 U/L (9-52); ALBUMIN 4.1 g/dL (3.5-5.0); ALKALINE PHOSPHATASE 128 U/L (38-126); ANION GAP 11 (5-19); ASPARTATE AMINO TRANSFERASE 23 U/L (14-36); BILIRUBIN,DIRECT 0.3 mg/dL (0.0-0.4); BILIRUBIN,TOTAL 0.3 mg/dL (0.2-1.3); BLOOD UREA NITROGEN 28 mg/dL (7-20); CALCIUM 10.1 mg/dL (8.4-10.2); CARBON DIOXIDE 29 mmol/L (22-30); CHLORIDE 99 mmol/L (98-107); GLUCOSE 102 mg/dL (75-110); POTASSIUM 4.6 mmol/L (3.6-5.0); SODIUM 139.4 mmol/L (137-145); TOTAL PROTEIN 7.2 g/dL (6.3-8.2)
== END ==
LOC: OD 11:08
DX: E11.8 Type 2 diabetes mellitus with unspecified complications (principal)
CPT/HCPCS: 36415; 80053; 83036

== ENCOUNTER 2018-12-10 18:20 | Observation (INO) | payer OTHER ==
[2018-12-10 18:59] LABS: ABSOLUTE EOSINOPHILS # (AUTO) 0.1 10^3/uL (0.0-0.6); ABSOLUTE LYMPHOCYTES (AUTO) 2.1 10^3/uL (0.5-4.7); ABSOLUTE MONOCYTES (AUTO) 0.7 10^3/uL (0.1-1.4); ABSOLUTE NEUT (AUTO) 5.9 10^3/uL (1.7-8.2); BASOPHILS % (AUTO) 0.4 % (0-2); EOSINOPHILS % (AUTO) 1.5 % (0-6); HEMATOCRIT 28.4 % (36.0-47.0); LYMPHOCYTES % (AUTO) 23.4 % (13-45); MEAN CORPUSCULAR HEMOGLOBIN 23.1 pg (27.0-33.4); MEAN CORPUSCULAR HGB CONC 31.7 g/dL (32.0-36.0); MEAN CORPUSCULAR VOLUME 73 fl (80-97); MONOCYTES % (AUTO) 7.9 % (3-13); PLATELET COUNT 278 10^3/uL (150-450); RED CELL DISTRIBUTION WIDTH 16.5 % (11.5-14.0); SEGMENTED NEUTROPHILS % (AUTO) 66.8 % (42-78); TOTAL CELLS COUNTED % (AUTO) 100 %; WHITE BLOOD COUNT 8.8 10^3/uL (4.0-10.5)
[2018-12-10 19:18] LABS: ALANINE AMINOTRANSFERASE 38 U/L (9-52); ALBUMIN 3.6 g/dL (3.5-5.0); ALKALINE PHOSPHATASE 155 U/L (38-126); ANION GAP 12 (5-19); ASPARTATE AMINO TRANSFERASE 22 U/L (14-36); BILIRUBIN,DIRECT 0.2 mg/dL (0.0-0.4); BILIRUBIN,TOTAL 0.2 mg/dL (0.2-1.3); BLOOD UREA NITROGEN 33 mg/dL (7-20); CALCIUM 9.3 mg/dL (8.4-10.2); CARBON DIOXIDE 26 mmol/L (22-30); CHLORIDE 100 mmol/L (98-107); GLUCOSE 289 mg/dL (75-110); POTASSIUM 4.5 mmol/L (3.6-5.0); TOTAL PROTEIN 6.2 g/dL (6.3-8.2)
[2018-12-10 19:22] LABS: ARTERIAL BLOOD BASE EXCESS 2.7 mmol/L; ARTERIAL BLOOD H2CO3 1.04 mmol/L (1.05-1.35); ARTERIAL BLOOD HCO3 25.8 mmol/L (20-24); ARTERIAL BLOOD O2 SATURATION 96.4 % (94-98); ARTERIAL BLOOD PCO2 34.4 mmHg (35-45); ARTERIAL BLOOD PH 7.49 (7.35-7.45); ARTERIAL BLOOD PO2 77.4 mmHg (80-100); ARTERIAL BLOOD TOTAL CO2 26.9 mmol/L (21-25)
[2018-12-10 19:24] LABS: ARTERIAL BLOOD FIO2 3L
--- NOTE | 2018-12-10 19:47 | RADIOLOGY REPORT (SQ) ---
EXAM DESCRIPTION: CT HEAD WITHOUT COMPLETED DATE/TIME: 12/10/2018 7:19 pm REASON FOR STUDY: confusion COMPARISON: 11/22/2018 TECHNIQUE: Axial images acquired through the brain without intravenous contrast. Images reviewed wi th bone, brain and subdural windows. Additional sagittal and coronal reconstructions were generated. Images stored on PACS. All CT scanners at this facility use dose modulation, iterative reconstruction, and/or weight based d osing when appropriate to reduce radiation dose to as low as reasonably achievable (ALARA). [facility]: Dose Right [facility]: CareDose [facility]: Dose Right [facility]: Teradose 4D [facility]: [employer] RADIATION DOSE: CT Rad equipment meets quality standard of care and radiation dose reduction techniq ues were employed. CTDIvol: 53.2 mGy. DLP: 1017 mGy-cm. mGy. LIMITATIONS: None. FINDINGS: VENTRICLES: Normal size and contour. CEREBRUM: No masses. No hemorrhage. No midline shift. No evidence for acute infarction. Normal gra y/white matter differentiation. No areas of low density in the white matter. CEREBELLUM: No masses. No hemorrhage. No alteration of density. No evidence for acute infarction. EXTRAAXIAL SPACES: No fluid collections. No masses. ORBITS AND GLOBE: No intra- or extraconal masses. Normal contour of globe without masses. CALVARIUM: No fracture. PARANASAL SINUSES: Mild mucoperiosteal thickening in the right maxillary sinus. SOFT TISSUES: No mass or hematoma. OTHER: No other significant finding. IMPRESSION: Mild right maxillary sinus disease with no acute intracranial imaging findings. EVIDENCE OF ACUTE STROKE: NO. COMMENT: Quality ID # [id number]: Final reports with documentation of one or more dose reduction techniques (e.g., Automated exposure control, adjustment of the mA and/or kV according to patient size, use of iterative reconstruction technique) TECHNICAL DOCUMENTATION: JOB ID: [id number] [employer]- All Rights Reserved Reading location - IP/workstation name: [email or web address]
[2018-12-10] MEDS ORDERED: NORMAL SALINE 500 ML IV ONE (20:01)
--- NOTE | 2018-12-10 20:02 | RADIOLOGY REPORT (SQ) ---
EXAM DESCRIPTION: CHEST SINGLE VIEW COMPLETED DATE/TIME: 12/10/2018 7:19 pm REASON FOR STUDY: hypoxia COMPARISON: None. EXAM PARAMETERS: NUMBER OF VIEWS: One view. TECHNIQUE: Single frontal radiographic view of the chest acquired. RADIATION DOSE: NA LIMITATIONS: None. FINDINGS: LUNGS AND PLEURA: No opacities, masses or pneumothorax. No pleural effusion. MEDIASTINUM AND HILAR STRUCTURES: No masses. Contour normal. HEART AND VASCULAR STRUCTURES: Heart size is borderline. There is no pulmonary edema. BONES: No acute findings. HARDWARE: None in the chest. OTHER: No other significant finding. IMPRESSION: Borderline cardiomegaly without pulmonary edema. TECHNICAL DOCUMENTATION: JOB ID: [id number] [employer]- All Rights Reserved Reading location - IP/workstation name: [email or web address]
[2018-12-10 20:05] LABS: APPEARANCE,URINE SLIGHTLY-CLOUDY; BILIRUBIN,URINE NEGATIVE (NEGATIVE); COLOR,URINE YELLOW; GLUCOSE, URINE 150 mg/dL (NEGATIVE); KETONES,URINE TRACE mg/dL (NEGATIVE); LEUKOCYTE ESTERASE,URINE MODERATE (NEGATIVE); NITRITE,URINE NEGATIVE (NEGATIVE); PROTEIN,URINE 30 mg/dL (NEGATIVE); URINE SPECIFIC GRAVITY 1.017; UROBILINOGEN,URINE NEGATIVE mg/dL (<2.0)
[2018-12-10 20:34] LABS: CREATINE KINASE MB < 0.22 ng/mL (<4.55); TROPONIN I < 0.012 ng/mL
[2018-12-10 20:39] LABS: APPEARANCE,URINE SLIGHTLY-CLOUDY; BILIRUBIN,URINE NEGATIVE (NEGATIVE); COLOR,URINE YELLOW; GLUCOSE, URINE 150 mg/dL (NEGATIVE); KETONES,URINE TRACE mg/dL (NEGATIVE); LEUKOCYTE ESTERASE,URINE SMALL (NEGATIVE); NITRITE,URINE NEGATIVE (NEGATIVE); PROTEIN,URINE 30 mg/dL (NEGATIVE); URINE SPECIFIC GRAVITY 1.017; UROBILINOGEN,URINE NEGATIVE mg/dL (<2.0)
--- NOTE | 2018-12-10 20:42 | ER Document Report ---
ED General - General Chief Complaint: Shortness Of Breath Stated Complaint: ALTERED MENTAL STATUS Time Seen by Provider: 12/10/18 19:01 Primary Care Provider: CELESTE BASURTO MD [Primary Care Provider] - Follow up as needed Mode of Arrival: Ambulatory Information source: Patient Notes: This is a 58-year-old female with a history of diabetes, hypertension, dyslipidemia, atrial fibrillation who was brought to the emergency room with dizziness, feeling faint, generalized weakness, palpitations and even a little confusion. 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 She states that she was fine at that time and the charter bus left off the group at the police station. From there she walked across the street and she noticed she started feeling generalized weak, near faint and almost passed out. He does report palpitations. She denies any chest pain. TRAVEL OUTSIDE OF THE [place] IN LAST 30 DAYS: No - HPI Onset: Just prior to arrival Onset/Duration: Gradual Quality of pain: No pain Severity: None Pain Level: Denies Associated symptoms: Shortness of breath, Weakness, Other - Feeling faint. denies: Chest pain, Fever, Nausea, Vomiting Exacerbated by: Denies Relieved by: Denies Similar symptoms previously: No Recently seen / treated by doctor: No - Related Data Allergies/Adverse Reactions: No Known Allergies Allergy (Verified 08/14/18 15:50) Past Medical History - General Information source: Patient - Social History Smoking Status: Unknown if Ever Smoked Cigarette use (# per day): No Chew tobacco use (# tins/day): No Frequency of alcohol use: None Drug Abuse: None Lives with: Family Family History: Reviewed & Not Pertinent Patient has suicidal ideation: No Patient has homicidal ideation: No - Past Medical History Cardiac Medical History: Reports: Hx Atrial Fibrillation, Hx Hypercholesterolemia, Hx Hypertension Pulmonary Medical History: Reports: Hx Pneumonia, Hx Sleep Apnea Endocrine Medical History: Reports: Hx Diabetes Mellitus Type 1, Hx Diabetes Mellitus Type 2, Hx Hypothyroidism Renal/ Medical History: Denies: Hx Peritoneal Dialysis Psychiatric Medical History: Reports: Hx Depression Past Surgical History: Reports: Hx Cardiac Catheterization, Hx Section - x1, Other - post uvelectomy. - Immunizations Immunizations up to date: Yes Hx Diphtheria, Pertussis, Tetanus Vaccination: Yes Review of Systems - Review of Systems Constitutional: denies: Chills, Fever EENT: No symptoms reported Cardiovascular: Palpitations, Syncope, Dizziness, Lightheaded. denies: Chest pain Respiratory: denies: Cough, Wheezing Gastrointestinal: No symptoms reported Genitourinary: No symptoms reported Female Genitourinary: No symptoms reported Musculoskeletal: No symptoms reported Skin: No symptoms reported Hematologic/Lymphatic: No symptoms reported Neurological/Psychological: See HPI Physical Exam - Vital signs Vitals: Resp BP Pulse Ox 23 H 180/87 H 100 12/10/18 18:29 12/10/18 18:29 12/10/18 18:29 Notes: Physical exam: GENERAL: Patient is alert but did initially appear confused but was answering questions and appropriate short while later. Her oxygen saturation on room air was 100%. The nurse did report at times that the oxygen saturation would drop. For this reason she was put on supplemental oxygen. HEAD: Atraumatic, normocephalic. EYES: Pupils equal round and reactive to light, extraocular movements intact, sclera anicteric, conjunctiva are normal. ENT: TMs normal, nares patent, oropharynx clear without exudates. Moist mucous membranes. NECK: Normal range of motion, supple without obvious mass or JVD. LUNGS: Breath sounds clear to auscultation bilaterally and equal. No wheezes rales or rhonchi. HEART: Regular rate and rhythm without murmurs, rubs or gallops. ABDOMEN: Soft, normoactive bowel sounds. No tenderness to palpation. No guarding, no rebound. No masses appreciated. EXTREMITIES: Normal range of motion, no pitting or edema. No clubbing or cyanosis. NEUROLOGICAL: Cranial nerves II through XII grossly intact. Normal speech, moving all extremities. There is no focal weakness, cerebellar ([id number]) is good. PSYCH: Normal mood, normal affect. SKIN: Warm, Dry, normal turgor, no rashes or lesions noted. Course - Vital Signs Vital signs: Temp Pulse Resp BP Pulse Ox 98.9 F 89 20 180/74 H 97 12/10/18 20:01 12/10/18 18:37 12/10/18 20:01 12/10/18 20:01 12/10/18 20:01 - Laboratory Result Diagrams: 12/10/18 18:30 12/10/18 18:30 Laboratory results interpreted by me: 12/10/18 12/10/18 12/10/18 18:30 18:30 19:04 Hgb 9.0 L Hct 28.4 L MCV 73 L MCH 23.1 L MCHC 31.7 L RDW 16.5 H Carbonic Acid 1.04 L ABG pH 7.49 H ABG pCO2 34.4 L ABG pO2 77.4 L ABG HCO3 25.8 H ABG Total CO2 26.9 H BUN 33 H Creatinine 1.30 H Est GFR ( Amer) 51 L Est GFR (Non-Af Amer) 42 L Glucose 289 H Alkaline Phosphatase 155 H Total Protein 6.2 L Urine Protein Urine Glucose (UA) Urine Ketones Ur Leukocyte Esterase Urine Ascorbic Acid 12/10/18 12/10/18 19:38 20:05 Hgb Hct MCV MCH MCHC RDW Carbonic Acid ABG pH ABG pCO2 ABG pO2 ABG HCO3 ABG Total CO2 BUN Creatinine Est GFR ( Amer) Est GFR (Non-Af Amer) Glucose Alkaline Phosphatase Total Protein Urine Protein 30 H 30 H Urine Glucose (UA) 150 H 150 H Urine Ketones TRACE H TRACE H Ur Leukocyte Esterase MODERATE H SMALL H Urine Ascorbic Acid 20 H 20 H - Diagnostic Test Radiology reviewed: Image reviewed, Reports reviewed - TA of the chest shows no pulmonary emboli - EKG Interpretation by Me Rhythm: NSR - EKG shows normal sinus rhythm with a ventricular rate of 85, there does appear to be some early re-pole but there is no changes from previous EKG April 18, 2018. Critical Care Note - Critical Care Note Total time excluding time spent on procedures (mins): 60 Discharge - Discharge Clinical Impression: Near syncope Condition: Stable Disposition: ADMITTED OBSERVATION Admitting Provider: Baltazar (Hospitalist) Unit Admitted: Telemetry Referrals: CELESTE BASURTO MD [Primary Care Provider] - Follow up as needed
[2018-12-10 21:45] LABS: URINE AMPHETAMINES SCREEN NEGATIVE; URINE BARBITURATES SCREEN NEGATIVE; URINE BENZODIAZEPINES SCREEN NEGATIVE; URINE COCAINE SCREEN NEGATIVE; URINE MARIJUANA (THC) SCREEN NEGATIVE; URINE METHADONE SCREEN NEGATIVE; URINE PHENCYCLIDINE SCREEN NEGATIVE
--- NOTE | 2018-12-10 22:29 | RADIOLOGY REPORT (SQ) ---
EXAM DESCRIPTION: CT CHEST ANGIOGRAPHY WITHOUT THEN WITH IV CONTRAST COMPLETED DATE/TME: 12/10/2018 20:43 CLINICAL HISTORY: 58 years, Female, sob COMPARISON: 11/02/2017 CTA chest TECHNIQUE: [id number] Images stored on PACS. All CT scanners at this facility use dose modulation, iterative reconstruction, and/or weight based dosing when appropriate to reduce radiation dose to as low as reasonably achievable (ALARA). Axial images with coronal and sagittal MIPS reconstructions [facility]: Dose Right [facility]: CareDose [facility]: Dose Right [facility]: Teradose 4D [facility]: [employer] LIMITATIONS: None. FINDINGS: The mediastinal vasculature enhances normally. No intraluminal filling defect to suggest pulmonary embolus. Negative for thoracic aortic aneurysm or dissection. There is significant venous interference which does limit the exam. Several nonenlarged anterior mediastinal lymph nodes. These appear unchanged. Cardiomegaly. Limited evaluation of the upper abdomen shows fatty infiltrative change to the liver. Cholelithiasis. Stable right adrenal nodule. Osseous structures are grossly intact. No pneumothorax. Visualized airways are patent. Lungs are clear. IMPRESSION: Negative for pulmonary embolus, thoracic aortic aneurysm, or dissection. The lungs are clear. Cholelithiasis. Fatty liver. Stable right adrenal nodule, likely adenoma. TECHNICAL DOCUMENTATION: Quality ID # 436: Final reports with documentation of one or more dose reduction techniques (e.g., Automated exposure control, adjustment of the mA and/or kV according to patient size, use of iterative reconstruction technique) copyright 2010 [employer]- All Rights Reserved
[2018-12-10] MEDS ORDERED: CEFTRIAXONE 1 GM/D5W RTU 1 GM/50 ML RTUPB IV ONE (22:30)
--- NOTE | 2018-12-10 22:30 | EKG REPORT ---
SEVERITY:- ABNORMAL ECG - SINUS RHYTHM LVH BY VOLTAGE ST ELEV, PROBABLE NORMAL EARLY REPOL PATTERN : Confirmed by: Riri Schreiber MD 10-Dec-2018 22:30:16
[2018-12-10] MEDS ORDERED: MAG HYDROX/AL HYDROX/SIMETH SUSP 30 ML UDCUP PO PRN (22:55)
[2018-12-10] MEDS ORDERED: ONDANSETRON HCL INJ/PF 4 MG/2 ML SDV IV PRN (22:55)
[2018-12-10] MEDS ORDERED: IPRATROPIUM/ALBUTEROL 0.5-2.5 MG/3 ML AMPUL NEB PRN (22:55)
[2018-12-10] MEDS ORDERED: ACETAMINOPHEN 325 MG TABLET PO PRN (22:55)
[2018-12-10] MEDS ORDERED: DEXTROSE 50%-WATER 25 GM/50 ML DISP.SYRIN IV PRN ×2 (22:58)
[2018-12-10] MEDS ORDERED: DEXTROSE 40% GEL 15 GM TUBE PO PRN ×2 (22:58)
[2018-12-10] MEDS ORDERED: GLUCAGON,HUMAN RECOMB 1 MG INJ IM PRN (22:58)
[2018-12-10] MEDS ORDERED: INSULIN GLARGINE,HUM.REC.ANLOG 1,000 UNIT/10 ML VIAL (PYX) SUBCUT PRN (23:08)
[2018-12-10] MEDS ORDERED: ATORVASTATIN CALCIUM 80 MG TABLET PO ONE (23:30)
[2018-12-10] MEDS ORDERED: INSULIN GLARGINE,HUM.REC.ANLOG 1,000 UNIT/10 ML VIAL SUBCUT ONE (23:30)
[2018-12-10] MEDS ORDERED: DOCUSATE SODIUM 100 MG CAPSULE PO ONE (23:30)
[2018-12-10] MEDS ORDERED: GLIPIZIDE 5 MG TABLET PO ONE (23:30)
[2018-12-11] MEDS: HYDRALAZINE HCL INJ/PF 20 MG/1 ML SDV IV PRN ×2 (00:03→00:42)
[2018-12-11] MEDS ORDERED: HYDRALAZINE HCL INJ/PF 20 MG/1 ML SDV IV ONE (00:32)
[2018-12-11] MEDS ORDERED: ENALAPRILAT DIHYDRATE INJ/PF 2.5 MG/2 ML SDV IV ONE (00:45)
[2018-12-11] MEDS ORDERED: NITROGLYCERIN 2% OINTMENT 1 GM PACKET TP ONE (00:50)
[2018-12-11] MEDS ORDERED: DEXAMETHASONE SOD PHOS INJ 10 MG/1 ML VIAL IV ONE (01:00)
[2018-12-11 01:17] LABS: ABSOLUTE RETICS # 0.043 10^6/uL (0.028-0.122)
[2018-12-11] MEDS: LACTULOSE SYRUP 20 GM/30 ML UDCUP PO ONE ×2 (01:31→03:34)
[2018-12-11] MEDS ORDERED: CEFTRIAXONE INJ 1000 MG VIAL IV ONE (01:39)
[2018-12-11 01:41] LABS: IRON(TIBC) 32.6 ug/dL (37-170)
[2018-12-11 02:00] LABS: CREATINE KINASE MB < 0.22 ng/mL (<4.55); TROPONIN I < 0.012 ng/mL
[2018-12-11 02:49] LABS: FOLATE > 20.00 ng/mL (>2.76)
--- NOTE | 2018-12-11 04:58 | PDOC H&P ---
History of Present Illness Admission Date/PCP: 12/10/18 23:04 CELESTE BASURTO MD Patient complains of: Generalized weakness, hypertensive urgency. History of Present Illness: MARGARITO COLEY is a 58 year old female with a past medical history of morbid obesity diastolic heart failure,, insulin-dependent diabetes, hypertension, paroxysmal atrial fibrillation without anticoagulation, depression and obstructive sleep apnea. She presents 30 minutes after the onset of confusion, profound fatigue and generalized weakness after attending a [facility] in [place]. She describes excessive walking, heat exposure and exhaustion. Upon arrival to [facility] she was found confused, short of breath and weak. In the emergency room she is found to have confusion, a blood pressure of 202/84, adrenal incidentaloma, microcytic anemia and constipation. She receives hydralazine and referred to the hospitalist for admission. Patient's mental status has returned to baseline patient denies recent change in medications. She admits to recent exceptional decline in exertional stamina, poorly controlled hyperglycemia and fatigue. Past Medical History Cardiac Medical History: Reports: Atrial Fibrillation, Hyperlipidema, Hypertension Pulmonary Medical History: Reports: Pneumonia, Sleep Apnea Endocrine Medical History: Reports: Diabetes Mellitus Type 1, Diabetes Mellitus Type 2, Hypothyroidism, Obesity Psychiatric Medical History: Reports: Depression Past Surgical History Past Surgical History: Reports: Cardiac Catheterization, Section - x1, Other - post uvelectomy. Social History Information Source: Patient Lives with: Family Smoking Status: Never Smoker Frequency of Alcohol Use: Rare Hx Recreational Drug Use: No Drugs: None Hx Prescription Drug Abuse: No - Advance Directive Resuscitation Status: Full Code Family History Family History: DM, Hypertension Parental Family History Reviewed: Yes Children Family History Reviewed: Yes Sibling(s) Family History Reviewed.: Yes Medication/Allergy Home Medications: Ascorbic Acid [Vitamin C 500 mg Tablet] 500 mg PO DAILY 10/25/17 Furosemide [Lasix 40 mg Tablet] 40 mg PO QAM 10/25/17 Levothyroxine Sodium [Synthroid 0.15 mg Tablet] 0.15 mg PO Q6AM 10/25/17 Metformin HCl [Glucophage 500 mg Tablet] 1,000 mg PO BIDBS 10/25/17 Multivitamin [Tab-A-Stephen (Multiple Vitamin) Tablet] 1 tab PO DAILY 10/25/17 Promethazine HCl [Phenergan 25 mg Tablet] 25 mg PO Q6HP PRN 10/25/17 Amlodipine Besylate [Norvasc 5 mg Tablet] 10 mg PO DAILY #60 tablet 10/29/17 Atorvastatin Calcium [Lipitor 80 mg Tablet] 80 mg PO QHS #30 tablet 10/29/17 Insulin Glargine,Hum.rec.anlog [Lantus Insulin 100 Unit/mL] 30 unit SUBCUT Q12 insuln.pen 10/29/17 Losartan Potassium [Cozaar 50 mg Tablet] 100 mg PO DAILY #60 tablet 10/29/17 Magnesium Oxide [Mag-Ox 400 mg Tablet] 400 mg PO BID #60 tablet 10/29/17 Potassium Chloride [Klor-Con 10 Meq Capsule ER] 20 meq PO DAILY #30 tablet.sa 10/29/17 Aspirin [Aspirin 325 mg Tablet] 325 mg PO DAILY 11/03/17 Glipizide [Glucotrol 5 mg Tablet] 10 mg PO Q12 11/03/17 Albuterol Sulfate [Proair HFA Inhalation Aerosol 8.5 gm MDI] 2 puff IH Q4H PRN #1 mdi 01/24/18 Guaifenesin/Pseudoephedrne HCl [Mucinex D ER 600-60 mg Tablet] 1 each PO BID 5 Days #10 tab.er.12h 01/28/18 Albuterol Sulfate [Proair HFA Inhalation Aerosol 8.5 gm MDI] 1 puff IH Q4 PRN #1 mdi 08/14/18 Benzonatate [Tessalon Perles 100 mg Capsule] 100 mg PO Q8HP PRN #40 capsule 08/14/18 Prednisone [Deltasone 20 mg Tablet] 3 tab PO DAILY 5 Days tablet 08/14/18 Tramadol HCl [Ultram 50 mg Tablet] 50 mg PO Q8HP PRN #12 tablet 11/23/18 Walker [Folding Walker] 1 each MC ASDIR PRN #1 each 11/23/18 Allergies/Adverse Reactions: No Known Allergies Allergy (Verified 08/14/18 15:50) Review of Systems Constitutional: PRESENT: as per HPI, fatigue, weakness, weight gain. ABSENT: chills, fever(s), headache(s), weight loss Eyes: ABSENT: visual disturbances Ears: ABSENT: hearing changes Cardiovascular: PRESENT: as per HPI, dyspnea on exertion, orthropnea. ABSENT: chest pain, edema, palpitations Respiratory: PRESENT: as per HPI, dyspnea. ABSENT: cough, hemoptysis Gastrointestinal: ABSENT: abdominal pain, constipation, diarrhea, hematemesis, hematochezia, nausea, vomiting Genitourinary: ABSENT: dysuria, hematuria Musculoskeletal: ABSENT: joint swelling Integumentary: ABSENT: rash, wounds Neurological: ABSENT: abnormal gait, abnormal speech, confusion, dizziness, focal weakness, syncope Psychiatric: ABSENT: anxiety, depression, homidical ideation, suicidal ideation Endocrine: ABSENT: cold intolerance, heat intolerance, polydipsia, polyuria Hematologic/Lymphatic: ABSENT: easy bleeding, easy bruising Physical Exam Vital Signs: Temp Pulse Resp BP Pulse Ox 98.1 F 100 22 H 161/62 H 96 12/11/18 03:05 12/11/18 03:05 12/11/18 03:05 12/11/18 03:05 12/11/18 03:05 Intake & Output 12/09/18 12/10/18 12/11/18 11:59 11:59 11:59 Intake Total 550 Balance 550 Weight 142.5 kg General appearance: PRESENT: no acute distress, cooperative, morbidly obese. AB SENT: disheveled Head exam: PRESENT: atraumatic, normocephalic Eye exam: PRESENT: conjunctiva pink, EOMI, PERRLA. ABSENT: scleral icterus Ear exam: PRESENT: normal external ear exam Mouth exam: PRESENT: moist, tongue midline Neck exam: ABSENT: carotid bruit, JVD, lymphadenopathy, thyromegaly Respiratory exam: PRESENT: accessory muscle use, crackles. ABSENT: rales, rhonchi, wheezes Cardiovascular exam: PRESENT: RRR. ABSENT: diastolic murmur, rubs, systolic murmur Pulses: PRESENT: normal dorsalis pedis pul Vascular exam: PRESENT: normal capillary refill GI/Abdominal exam: PRESENT: hypoactive bowel sounds, normal bowel sounds, soft. ABSENT: distended, guarding, mass, organolmegaly, rebound, tenderness Rectal exam: PRESENT: deferred Extremities exam: PRESENT: full ROM. ABSENT: calf tenderness, clubbing, pedal edema Neurological exam: PRESENT: alert, awake, oriented to person, oriented to place, oriented to time, oriented to situation, CN II-XII grossly intact. ABSENT: motor sensory deficit Psychiatric exam: PRESENT: appropriate affect, normal mood. ABSENT: homicidal ideation, suicidal ideation Skin exam: PRESENT: dry, intact, warm. ABSENT: cyanosis, rash Results Laboratory Results: 12/10/18 18:30 12/10/18 18:30 12/10/18 12/10/18 12/10/18 18:30 18:30 18:30 WBC 8.8 RBC 3.90 Hgb 9.0 L Hct 28.4 L MCV 73 L MCH 23.1 L MCHC 31.7 L RDW 16.5 H Plt Count 278 Seg Neutrophils % 66.8 Lymphocytes % 23.4 Monocytes % 7.9 Eosinophils % 1.5 Basophils % 0.4 Absolute Neutrophils 5.9 Absolute Lymphocytes 2.1 Absolute Monocytes 0.7 Absolute Eosinophils 0.1 Absolute Basophils 0.0 Retic Count (auto) Absolute Retic Carbonic Acid HCO3/H2CO3 Ratio ABG pH ABG pCO2 ABG pO2 ABG HCO3 ABG O2 Saturation ABG Base Excess FiO2 Sodium 138.0 Potassium 4.5 Chloride 100 Carbon Dioxide 26 Anion Gap 12 BUN 33 H Creatinine 1.30 H Est GFR ( Amer) 51 L Est GFR (Non-Af Amer) 42 L Glucose 289 H Calcium 9.3 Iron TIBC % Saturation Ferritin Total Bilirubin 0.2 AST 22 ALT 38 Alkaline Phosphatase 155 H Total Protein 6.2 L Albumin 3.6 Vitamin B12 Folate TSH 3.62 Urine Color Urine Appearance Urine pH Ur Specific [place] Urine Protein Urine Glucose (UA) Urine Ketones Urine Blood Urine Nitrite Ur Leukocyte Esterase Urine WBC (Auto) Urine RBC (Auto) 12/10/18 12/10/18 12/10/18 19:04 19:38 20:05 WBC RBC Hgb Hct MCV MCH MCHC RDW Plt Count Seg Neutrophils % Lymphocytes % Monocytes % Eosinophils % Basophils % Absolute Neutrophils Absolute Lymphocytes Absolute Monocytes Absolute Eosinophils Absolute Basophils Retic Count (auto) Absolute Retic Carbonic Acid 1.04 L HCO3/H2CO3 Ratio 24:1 ABG pH 7.49 H ABG pCO2 34.4 L ABG pO2 77.4 L ABG HCO3 25.8 H ABG O2 Saturation 96.4 ABG Base Excess 2.7 FiO2 3L Sodium Potassium Chloride Carbon Dioxide Anion Gap BUN Creatinine Est GFR ( Amer) Est GFR (Non-Af Amer) Glucose Calcium Iron TIBC % Saturation Ferritin Total Bilirubin AST ALT Alkaline Phosphatase Total Protein Albumin Vitamin B12 Folate TSH Urine Color YELLOW YELLOW Urine Appearance SLIGHTLY-CLOUDY SLIGHTLY-CLOUDY Urine pH 7.0 7.0 Ur Specific [place] 1.017 1.017 Urine Protein 30 H 30 H Urine Glucose (UA) 150 H 150 H Urine Ketones TRACE H TRACE H Urine Blood NEGATIVE NEGATIVE Urine Nitrite NEGATIVE NEGATIVE Ur Leukocyte Esterase MODERATE H SMALL H Urine WBC (Auto) 18 14 Urine RBC (Auto) 2 1 12/11/18 12/11/18 00:40 00:40 WBC RBC Hgb Hct MCV MCH MCHC RDW Plt Count Seg Neutrophils % Lymphocytes % Monocytes % Eosinophils % Basophils % Absolute Neutrophils Absolute Lymphocytes Absolute Monocytes Absolute Eosinophils Absolute Basophils Retic Count (auto) 1.00 Absolute Retic 0.043 Carbonic Acid HCO3/H2CO3 Ratio ABG pH ABG pCO2 ABG pO2 ABG HCO3 ABG O2 Saturation ABG Base Excess FiO2 Sodium Potassium Chloride Carbon Dioxide Anion Gap BUN Creatinine Est GFR ( Amer) Est GFR (Non-Af Amer) Glucose Calcium Iron 32.6 L TIBC 340 % Saturation 10 Ferritin 62.40 Total Bilirubin AST ALT Alkaline Phosphatase Total Protein Albumin Vitamin B12 711.0 Folate > 20.00 TSH Urine Color Urine Appearance Urine pH Ur Specific [place] Urine Protein Urine Glucose (UA) Urine Ketones Urine Blood Urine Nitrite Ur Leukocyte Esterase Urine WBC (Auto) Urine RBC (Auto) 12/10/18 12/10/18 12/11/18 18:30 18:30 00:40 Creatine Kinase 44 45 CK-MB (CK-2) < 0.22 Troponin I < 0.012 12/11/18 00:40 Creatine Kinase CK-MB (CK-2) < 0.22 Troponin I < 0.012 Impressions: Chest X-Ray 12/10/18 19:02 IMPRESSION: Borderline cardiomegaly without pulmonary edema. Head CT 12/10/18 19:02 IMPRESSION: Mild right maxillary sinus disease with no acute intracranial imaging findings. EVIDENCE OF ACUTE STROKE: NO. Chest/Abdomen CTA 12/10/18 20:43 IMPRESSION: Negative for pulmonary embolus, thoracic aortic aneurysm, or dissection. The lungs are clear. Cholelithiasis. Fatty liver. Stable right adrenal nodule, likely adenoma. TECHNICAL DOCUMENTATION: Quality ID # 436: Final reports with documentation of one or more dose reduction techniques (e.g., Automated exposure control, adjustment of the mA and/or kV according to patient size, use of iterative reconstruction technique) copyright 2011 [email or web address]- All Rights Reserved Assessment and Plan - Diagnosis (1) Hypertensive urgency Is this a current diagnosis for this admission?: Yes Plan: Unclear cause possible functioning adrenal incidentaloma, follow-up urine metanephrines, catecholamines, low-dose dexamethasone suppression test, TSH. Hydralazine, nitroglycerin and Lopressor as needed (2) Fatigue Is this a current diagnosis for this admission?: Yes Plan: Multifactorial secondary to anemia, morbid obesity with deconditioning, diastolic heart failure, possible hypothyroidism, functional adrenal mass. Follow-up anemia work-up, TSH, renin, angiotensin, urine metanephrines. (3) Paroxysmal atrial fibrillation Is this a current diagnosis for this admission?: Yes Plan: Rate controlled sinus rhythm currently, patient not anticoagulated will initiate Arixtra. (4) Adrenal incidentaloma Is this a current diagnosis for this admission?: Yes Plan: Follow-up labs as indicated. (5) Anemia Is this a current diagnosis for this admission?: Yes Plan: Follow-up labs as indicated. 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 Follow-up A1c - Time Time Spent with patient: 35 or more minutes - Inpatient Certification Medical Necessity: Need Close Monitoring Due to Risk of Patient Decompensation
[2018-12-11] MEDS ORDERED: NORMAL SALINE 100 ML with PANTOPRAZOLE SODIUM 80 MG IV PRN ×2 (05:01)
[2018-12-11] MEDS ORDERED: HEPARIN SOD (PORCINE) 5,000 UNIT/ML 1 ML SYRINGE SUBCUT SCH (06:00)
[2018-12-11 07:40] LABS: ABSOLUTE EOSINOPHILS # (AUTO) 0.1 10^3/uL (0.0-0.6); ABSOLUTE LYMPHOCYTES (AUTO) 1.1 10^3/uL (0.5-4.7); ABSOLUTE MONOCYTES (AUTO) 0.4 10^3/uL (0.1-1.4); ABSOLUTE NEUT (AUTO) 6.9 10^3/uL (1.7-8.2); BASOPHILS % (AUTO) 0.3 % (0-2); EOSINOPHILS % (AUTO) 0.7 % (0-6); HEMATOCRIT 30.1 % (36.0-47.0); HEMOGLOBIN 9.3 g/dL (12.0-15.5); LYMPHOCYTES % (AUTO) 13.1 % (13-45); MEAN CORPUSCULAR HEMOGLOBIN 22.5 pg (27.0-33.4); MEAN CORPUSCULAR VOLUME 73 fl (80-97); MONOCYTES % (AUTO) 4.2 % (3-13); PLATELET COUNT 281 10^3/uL (150-450); RED BLOOD COUNT 4.16 10^6/uL (3.72-5.28); RED CELL DISTRIBUTION WIDTH 16.8 % (11.5-14.0); SEGMENTED NEUTROPHILS % (AUTO) 81.7 % (42-78); TOTAL CELLS COUNTED % (AUTO) 100 %; WHITE BLOOD COUNT 8.4 10^3/uL (4.0-10.5)
[2018-12-11 08:08] LABS: ANION GAP 11 (5-19); BLOOD UREA NITROGEN 21 mg/dL (7-20); CALCIUM 9.2 mg/dL (8.4-10.2); CARBON DIOXIDE 25 mmol/L (22-30); CHLORIDE 105 mmol/L (98-107); CREATINE KINASE 41 U/L (30-135); GLUCOSE 235 mg/dL (75-110); POTASSIUM 4.6 mmol/L (3.6-5.0); SODIUM 141.4 mmol/L (137-145)
[2018-12-11 08:22] LABS: CREATINE KINASE MB < 0.22 ng/mL (<4.55); TROPONIN I < 0.012 ng/mL
[2018-12-11] MEDS: INSULIN LISPRO 100 UNIT/ML 3 ML VIAL SUBCUT SCH ×3 (09:51→16:59)
[2018-12-11] MEDS: ASPIRIN 81 MG TABLET, ENT COATED PO SCH (09:58)
[2018-12-11] MEDS: AMLODIPINE BESYLATE 10 MG TABLET PO SCH (09:58)
[2018-12-11] MEDS: GLIPIZIDE 10 MG TABLET PO SCH ×2 (09:59→17:04)
[2018-12-11] MEDS: LOSARTAN POTASSIUM 50 MG TABLET PO SCH (09:59)
[2018-12-11] MEDS: INSULIN GLARGINE,HUM.REC.ANLOG 1,000 UNIT/10 ML VIAL SUBCUT SCH ×2 (09:59→23:24)
[2018-12-11] MEDS: DOCUSATE SODIUM 100 MG CAPSULE PO SCH ×2 (09:59→17:05)
[2018-12-11] MEDS ORDERED: INSULIN GLARGINE,HUM.REC.ANLOG 1,000 UNIT/10 ML VIAL SUBCUT SCH (10:00)
[2018-12-11] MEDS ORDERED: GLIPIZIDE 5 MG TABLET PO SCH (10:00)
[2018-12-11] MEDS ORDERED: AMLODIPINE BESYLATE 5 MG TABLET PO SCH (10:00)
[2018-12-11] MEDS ORDERED: FONDAPARINUX SODIUM INJ 10 MG/0.8 ML DISP.SYRIN SUBCUT SCH (10:00)
[2018-12-11] MEDS ORDERED: ASPIRIN 325 MG TABLET PO SCH (10:00)
[2018-12-11 13:27] LABS: CREATINE KINASE MB 0.24 ng/mL (<4.55)
[2018-12-11 13:32] LABS: TROPONIN I < 0.012 ng/mL
[2018-12-11] MEDS ORDERED: NORMAL SALINE 1000 ML 1,000 ML IV PRN (15:59)
--- NOTE | 2018-12-11 16:02 | PDOC PROGRESS REPORT ---
Subjective Progress Note for:: 12/11/18 Subjective:: This is a 58 year old female with a past medical history of morbid obesity diastolic heart failure, insulin-dependent diabetes, hypertension, paroxysmal atrial fibrillation without anticoagulation, depression and obstructive sleep apnea who was brought in due to confusion, profound fatigue and generalized weakness after attending a [facility] in [place]. She reported excessive walking, heat exposure and exhaustion. In the ER, she was found to have confusion, appear dehydrated, hypertensive at 202/84, adrenal incidentaloma, microcytic anemia and constipation. No acute event overnight. She is back to her baseline mentation. She does say she felt like she was severely dehydrated when she went to the [facility]. Reason For Visit: SOB,WEAKNESS Physical Exam Vital Signs: Temp Pulse Resp BP Pulse Ox 97.7 F 92 16 165/65 H 100 12/11/18 12:12 12/11/18 12:12 12/11/18 12:12 12/11/18 12:12 12/11/18 12:12 Intake & Output 12/10/18 12/11/18 12/12/18 06:59 06:59 06:59 Intake Total 550 Output Total 1325 Balance -775 Weight 314 lb 2.539 oz General appearance: PRESENT: no acute distress, well-developed, well-nourished Head exam: PRESENT: atraumatic, normocephalic Eye exam: PRESENT: conjunctiva pink, EOMI, PERRLA. ABSENT: scleral icterus Ear exam: PRESENT: normal external ear exam Mouth exam: PRESENT: moist, tongue midline Neck exam: ABSENT: carotid bruit, JVD, lymphadenopathy, thyromegaly Respiratory exam: PRESENT: clear to auscultation singh. ABSENT: rales, rhonchi, wheezes Cardiovascular exam: PRESENT: RRR. ABSENT: diastolic murmur, rubs, systolic murmur Pulses: PRESENT: normal dorsalis pedis pul GI/Abdominal exam: PRESENT: normal bowel sounds, soft. ABSENT: distended, guarding, mass, organolmegaly, rebound, tenderness Rectal exam: PRESENT: deferred Neurological exam: PRESENT: alert, awake, oriented to person, oriented to place, oriented to time, oriented to situation, CN II-XII grossly intact. ABSENT: motor sensory deficit Results Laboratory Results: 12/11/18 07:02 12/11/18 07:02 12/10/18 12/10/18 12/10/18 18:30 18:30 18:30 WBC 8.8 RBC 3.90 Hgb 9.0 L Hct 28.4 L MCV 73 L MCH 23.1 L MCHC 31.7 L RDW 16.5 H Plt Count 278 Seg Neutrophils % 66.8 Lymphocytes % 23.4 Monocytes % 7.9 Eosinophils % 1.5 Basophils % 0.4 Absolute Neutrophils 5.9 Absolute Lymphocytes 2.1 Absolute Monocytes 0.7 Absolute Eosinophils 0.1 Absolute Basophils 0.0 Retic Count (auto) Absolute Retic Carbonic Acid HCO3/H2CO3 Ratio ABG pH ABG pCO2 ABG pO2 ABG HCO3 ABG O2 Saturation ABG Base Excess FiO2 Sodium 138.0 Potassium 4.5 Chloride 100 Carbon Dioxide 26 Anion Gap 12 BUN 33 H Creatinine 1.30 H Est GFR ( Amer) 51 L Est GFR (Non-Af Amer) 42 L Glucose 289 H Calcium 9.3 Iron TIBC % Saturation Ferritin Total Bilirubin 0.2 AST 22 ALT 38 Alkaline Phosphatase 155 H Total Protein 6.2 L Albumin 3.6 Vitamin B12 Folate TSH 3.62 Urine Color Urine Appearance Urine pH Ur Specific Duarte Urine Protein Urine Glucose (UA) Urine Ketones Urine Blood Urine Nitrite Ur Leukocyte Esterase Urine WBC (Auto) Urine RBC (Auto) 12/10/18 12/10/18 12/10/18 19:04 19:38 20:05 WBC RBC Hgb Hct MCV MCH MCHC RDW Plt Count Seg Neutrophils % Lymphocytes % Monocytes % Eosinophils % Basophils % Absolute Neutrophils Absolute Lymphocytes Absolute Monocytes Absolute Eosinophils Absolute Basophils Retic Count (auto) Absolute Retic Carbonic Acid 1.04 L HCO3/H2CO3 Ratio 24:1 ABG pH 7.49 H ABG pCO2 34.4 L ABG pO2 77.4 L ABG HCO3 25.8 H ABG O2 Saturation 96.4 ABG Base Excess 2.7 FiO2 3L Sodium Potassium Chloride Carbon Dioxide Anion Gap BUN Creatinine Est GFR ( Amer) Est GFR (Non-Af Amer) Glucose Calcium Iron TIBC % Saturation Ferritin Total Bilirubin AST ALT Alkaline Phosphatase Total Protein Albumin Vitamin B12 Folate TSH Urine Color YELLOW YELLOW Urine Appearance SLIGHTLY-CLOUDY SLIGHTLY-CLOUDY Urine pH 7.0 7.0 Ur Specific Duarte 1.017 1.017 Urine Protein 30 H 30 H Urine Glucose (UA) 150 H 150 H Urine Ketones TRACE H TRACE H Urine Blood NEGATIVE NEGATIVE Urine Nitrite NEGATIVE NEGATIVE Ur Leukocyte Esterase MODERATE H SMALL H Urine WBC (Auto) 18 14 Urine RBC (Auto) 2 1 12/11/18 12/11/18 12/11/18 00:40 00:40 07:02 WBC RBC Hgb Hct MCV MCH MCHC RDW Plt Count Seg Neutrophils % Lymphocytes % Monocytes % Eosinophils % Basophils % Absolute Neutrophils Absolute Lymphocytes Absolute Monocytes Absolute Eosinophils Absolute Basophils Retic Count (auto) 1.00 Absolute Retic 0.043 Carbonic Acid HCO3/H2CO3 Ratio ABG pH ABG pCO2 ABG pO2 ABG HCO3 ABG O2 Saturation ABG Base Excess FiO2 Sodium 141.4 Potassium 4.6 Chloride 105 Carbon Dioxide 25 Anion Gap 11 BUN 21 H Creatinine 0.91 Est GFR ( Amer) > 60 Est GFR (Non-Af Amer) > 60 Glucose 235 H Calcium 9.2 Iron 32.6 L TIBC 340 % Saturation 10 Ferritin 62.40 Total Bilirubin AST ALT Alkaline Phosphatase Total Protein Albumin Vitamin B12 711.0 Folate > 20.00 TSH Urine Color Urine Appearance Urine pH Ur Specific Duarte Urine Protein Urine Glucose (UA) Urine Ketones Urine Blood Urine Nitrite Ur Leukocyte Esterase Urine WBC (Auto) Urine RBC (Auto) 12/11/18 07:02 WBC 8.4 RBC 4.16 Hgb 9.3 L Hct 30.1 L MCV 73 L MCH 22.5 L MCHC 31.0 L RDW 16.8 H Plt Count 281 Seg Neutrophils % 81.7 H Lymphocytes % 13.1 Monocytes % 4.2 Eosinophils % 0.7 Basophils % 0.3 Absolute Neutrophils 6.9 Absolute Lymphocytes 1.1 Absolute Monocytes 0.4 Absolute Eosinophils 0.1 Absolute Basophils 0.0 Retic Count (auto) Absolute Retic Carbonic Acid HCO3/H2CO3 Ratio ABG pH ABG pCO2 ABG pO2 ABG HCO3 ABG O2 Saturation ABG Base Excess FiO2 Sodium Potassium Chloride Carbon Dioxide Anion Gap BUN Creatinine Est GFR ( Amer) Est GFR (Non-Af Amer) Glucose Calcium Iron TIBC % Saturation Ferritin Total Bilirubin AST ALT Alkaline Phosphatase Total Protein Albumin Vitamin B12 Folate TSH Urine Color Urine Appearance Urine pH Ur Specific Duarte Urine Protein Urine Glucose (UA) Urine Ketones Urine Blood Urine Nitrite Ur Leukocyte Esterase Urine WBC (Auto) Urine RBC (Auto) 12/10/18 12/10/18 12/11/18 18:30 18:30 00:40 Creatine Kinase 44 45 CK-MB (CK-2) < 0.22 Troponin I < 0.012 12/11/18 12/11/18 12/11/18 00:40 07:02 07:02 Creatine Kinase 41 CK-MB (CK-2) < 0.22 < 0.22 Troponin I < 0.012 < 0.012 12/11/18 12/11/18 12:33 12:33 Creatine Kinase 38 CK-MB (CK-2) 0.24 Troponin I < 0.012 Impressions: Chest X-Ray 12/10/18 19:02 IMPRESSION: Borderline cardiomegaly without pulmonary edema. Head CT 12/10/18 19:02 IMPRESSION: Mild right maxillary sinus disease with no acute intracranial imaging findings. EVIDENCE OF ACUTE STROKE: NO. Chest/Abdomen CTA 12/10/18 20:43 IMPRESSION: Negative for pulmonary embolus, thoracic aortic aneurysm, or dissection. The lungs are clear. Cholelithiasis. Fatty liver. Stable right adrenal nodule, likely adenoma. TECHNICAL DOCUMENTATION: Quality ID # 436: Final reports with documentation of one or more dose reduction techniques (e.g., Automated exposure control, adjustment of the mA and/or kV according to patient size, use of iterative reconstruction technique) copyright 2011 [employer]- All Rights Reserved Assessment and Plan - Diagnosis (1) Hypertensive urgency Is this a current diagnosis for this admission?: Yes Plan: Blood pressures have improved to the 160s systolic. Continue Losartan and amlodipine. (2) Adrenal incidentaloma Is this a current diagnosis for this admission?: Yes Plan: Renin, aldosterone studies pending. 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 (4) Dehydration Is this a current diagnosis for this admission?: Yes Plan: She got a liter of fluid bolus on admission. Continue IV fluids. (5) UTI (urinary tract infection) Is this a current diagnosis for this admission?: Yes Plan: On Rocephin. - Time Time Spent with patient: 15-24 minutes
[2018-12-11] MEDS: HEPARIN SOD (PORCINE) 5,000 UNIT/ML 1 ML SYRINGE SUBCUT SCH (17:05)
[2018-12-11] MEDS: ATORVASTATIN CALCIUM 80 MG TABLET PO SCH (22:24)
[2018-12-11] MEDS: CEFTRIAXONE SODIUM 1,000 MG in DEXTROSE 5%-WATER 50 ML IV SCH (22:25)
[2018-12-12] MEDS: MAGNESIUM HYDROXIDE SUSP 30 ML UDCUP PO PRN ×2 (02:00→21:38)
[2018-12-12] MEDS: HEPARIN SOD (PORCINE) 5,000 UNIT/ML 1 ML SYRINGE SUBCUT SCH ×2 (05:17→17:51)
[2018-12-12] MEDS: LOSARTAN POTASSIUM 50 MG TABLET PO SCH (09:15)
[2018-12-12] MEDS: INSULIN LISPRO 100 UNIT/ML 3 ML VIAL SUBCUT SCH ×3 (09:16→17:46)
[2018-12-12] MEDS: DOCUSATE SODIUM 100 MG CAPSULE PO SCH ×2 (09:16→17:47)
[2018-12-12] MEDS: GLIPIZIDE 10 MG TABLET PO SCH ×2 (09:16→17:47)
[2018-12-12] MEDS: ASPIRIN 81 MG TABLET, ENT COATED PO SCH (09:17)
[2018-12-12] MEDS: INSULIN GLARGINE,HUM.REC.ANLOG 1,000 UNIT/10 ML VIAL SUBCUT SCH ×2 (09:17→21:39)
[2018-12-12] MEDS: AMLODIPINE BESYLATE 10 MG TABLET PO SCH (09:17)
[2018-12-12] MEDS ORDERED: CEFTRIAXONE 1 GM/D5W RTU 1 GM/50 ML RTUPB IV SCH (10:00)
[2018-12-12] MEDS ORDERED: VANCOMYCIN HCL 0 MG in DEXTROSE 5%-WATER 250 ML IV NR (10:15)
[2018-12-12 10:24] LABS: ARTERIAL BLOOD BASE EXCESS 2.6 mmol/L; ARTERIAL BLOOD H2CO3 1.22 mmol/L (1.05-1.35); ARTERIAL BLOOD O2 SATURATION 97.8 % (94-98); ARTERIAL BLOOD PCO2 40.6 mmHg (35-45); ARTERIAL BLOOD PH 7.44 (7.35-7.45); ARTERIAL BLOOD PO2 100.7 mmHg (80-100); ARTERIAL BLOOD TOTAL CO2 28.2 mmol/L (21-25)
[2018-12-12 10:25] LABS: ARTERIAL BLOOD FIO2 ROOM AIR
[2018-12-12] MEDS: METOPROLOL TARTRATE 25 MG TABLET PO SCH ×2 (10:35→21:39)
--- NOTE | 2018-12-12 11:27 | RADIOLOGY REPORT (SQ) ---
EXAM DESCRIPTION: CT HEAD WITHOUT COMPLETED DATE/TIME: 12/12/2018 11:18 am REASON FOR STUDY: acute enceph COMPARISON: 12/10/2018 TECHNIQUE: Axial images acquired through the brain without intravenous contrast. Images reviewed wi th bone, brain and subdural windows. Images stored on PACS. All CT scanners at this facility use dose modulation, iterative reconstruction, and/or weight based d osing when appropriate to reduce radiation dose to as low as reasonably achievable (ALARA). [facility]: Dose Right [facility]: CareDose [facility]: Dose Right [facility]: Teradose 4D [facility]: Shopetti RADIATION DOSE: mGy. LIMITATIONS: None. FINDINGS: VENTRICLES: Normal size and contour. CEREBRUM: No masses. No hemorrhage. No midline shift. No evidence for acute infarction. Normal gra y/white matter differentiation. No areas of low density in the white matter. CEREBELLUM: No masses. No hemorrhage. No alteration of density. No evidence for acute infarction. EXTRAAXIAL SPACES: No fluid collections. No masses. ORBITS AND GLOBE: No intra- or extraconal masses. Normal contour of globe without masses. CALVARIUM: No fracture. PARANASAL SINUSES: Mild mucoperiosteal thickening in the right maxillary sinus. SOFT TISSUES: No mass or hematoma. OTHER: No other significant finding. IMPRESSION: Mild right maxillary sinus disease with no acute intracranial imaging findings. EVIDENCE OF ACUTE STROKE: NO. COMMENT: Quality ID # 436: Final reports with documentation of one or more dose reduction techniques (e.g., Automated exposure control, adjustment of the mA and/or kV according to patient size, use of iterative reconstruction technique) TECHNICAL DOCUMENTATION: JOB ID: [id number] [employer]- All Rights Reserved Reading location - IP/workstation name: [email or web address]
[2018-12-12 11:53] LABS: ABSOLUTE EOSINOPHILS # (AUTO) 0.2 10^3/uL (0.0-0.6); ABSOLUTE LYMPHOCYTES (AUTO) 2.1 10^3/uL (0.5-4.7); ABSOLUTE MONOCYTES (AUTO) 0.6 10^3/uL (0.1-1.4); ABSOLUTE NEUT (AUTO) 5.3 10^3/uL (1.7-8.2); BASOPHILS % (AUTO) 0.2 % (0-2); HEMATOCRIT 32.9 % (36.0-47.0); HEMOGLOBIN 10.3 g/dL (12.0-15.5); LYMPHOCYTES % (AUTO) 25.6 % (13-45); MEAN CORPUSCULAR HEMOGLOBIN 22.9 pg (27.0-33.4); MEAN CORPUSCULAR HGB CONC 31.2 g/dL (32.0-36.0); MEAN CORPUSCULAR VOLUME 73 fl (80-97); PLATELET COUNT 298 10^3/uL (150-450); RED BLOOD COUNT 4.49 10^6/uL (3.72-5.28); RED CELL DISTRIBUTION WIDTH 16.6 % (11.5-14.0); SEGMENTED NEUTROPHILS % (AUTO) 65.2 % (42-78); TOTAL CELLS COUNTED % (AUTO) 100 %; WHITE BLOOD COUNT 8.2 10^3/uL (4.0-10.5)
[2018-12-12 12:17] LABS: ALANINE AMINOTRANSFERASE 36 U/L (9-52); ALBUMIN 3.9 g/dL (3.5-5.0); ALKALINE PHOSPHATASE 129 U/L (38-126); ANION GAP 10 (5-19); ASPARTATE AMINO TRANSFERASE 22 U/L (14-36); BILIRUBIN,DIRECT 0.2 mg/dL (0.0-0.4); BILIRUBIN,TOTAL 0.2 mg/dL (0.2-1.3); BLOOD UREA NITROGEN 12 mg/dL (7-20); CALCIUM 9.9 mg/dL (8.4-10.2); CARBON DIOXIDE 27 mmol/L (22-30); CHLORIDE 106 mmol/L (98-107); GLUCOSE 154 mg/dL (75-110); POTASSIUM 4.1 mmol/L (3.6-5.0); SODIUM 143.3 mmol/L (137-145); TOTAL PROTEIN 6.6 g/dL (6.3-8.2)
[2018-12-12] MEDS: VANCOMYCIN HCL 1,000 MG in DEXTROSE 5%-WATER 250 ML IV SCH ×2 (13:50→23:49)
[2018-12-12] MEDS ORDERED: BENZOCAINE/MENTHOL SORE THROAT LOZENGE BUCCAL PRN (14:57)
[2018-12-12] MEDS: LIDOCAINE 5% (700 MG) TRANSDERMAL ADH..PATCH TP SCH (15:26)
--- NOTE | 2018-12-12 15:28 | PDOC PROGRESS REPORT ---
Subjective Progress Note for:: 12/12/18 Subjective:: This is a 58 year old female with a past medical history of morbid obesity diastolic heart failure, insulin-dependent diabetes, hypertension, paroxysmal atrial fibrillation without anticoagulation, depression and obstructive sleep apnea who was brought in due to confusion, profound fatigue and generalized weakness after attending a [facility] in [place]. She reported excessive walking, heat exposure and exhaustion. In the ER, she was found to have confusion, appear dehydrated, hypertensive at 202/84, adrenal incidentaloma, microcytic anemia and constipation. 12/11: She is back to her baseline mentation. She does say she felt like she was severely dehydrated when she went to the [facility]. 12/12: No acute event overnight. Blood pressures in the 170 systolic. Patient was on her baseline this morning. On reassessment, she became suddenly lethargic and not able to maintain conversation. She had slurry speech and was difficult to arouse. Neuro exam was non-focal. She did go back to her baseline after [address] head were unremarkable. Appears she likely has narcolepsy. She says she had the same prior episodes before and was recommended by her PCP to get a sleep study. Reason For Visit: SOB,WEAKNESS Physical Exam Vital Signs: Temp Pulse Resp BP Pulse Ox 98.1 F 81 16 174/60 H 94 12/12/18 03:32 12/12/18 14:00 12/12/18 09:10 12/12/18 03:32 12/12/18 09:10 Intake & Output 12/11/18 12/12/18 12/13/18 06:59 06:59 06:59 Intake Total 550 2565 Output Total 1325 3875 Balance -775 -1310 Weight 314 lb 2.539 oz 308 lb 10.354 oz General appearance: PRESENT: no acute distress, well-developed, well-nourished Head exam: PRESENT: atraumatic, normocephalic Eye exam: PRESENT: conjunctiva pink, EOMI, PERRLA. ABSENT: scleral icterus Ear exam: PRESENT: normal external ear exam Mouth exam: PRESENT: moist, tongue midline Neck exam: ABSENT: carotid bruit, JVD, lymphadenopathy, thyromegaly Respiratory exam: PRESENT: clear to auscultation singh. ABSENT: rales, rhonchi, wheezes Cardiovascular exam: PRESENT: RRR. ABSENT: diastolic murmur, rubs, systolic murmur Pulses: PRESENT: normal dorsalis pedis pul GI/Abdominal exam: PRESENT: normal bowel sounds, soft. ABSENT: distended, guarding, mass, organolmegaly, rebound, tenderness Rectal exam: PRESENT: deferred Neurological exam: PRESENT: alert, awake, oriented to person, oriented to place, oriented to time, oriented to situation, CN II-XII grossly intact. ABSENT: motor sensory deficit Results Laboratory Results: 12/12/18 11:42 12/12/18 11:42 12/12/18 12/12/18 12/12/18 06:03 10:15 11:42 WBC RBC Hgb Hct MCV MCH MCHC RDW Plt Count Seg Neutrophils % Lymphocytes % Monocytes % Eosinophils % Basophils % Absolute Neutrophils Absolute Lymphocytes Absolute Monocytes Absolute Eosinophils Absolute Basophils Carbonic Acid 1.22 HCO3/H2CO3 Ratio 22:1 ABG pH 7.44 ABG pCO2 40.6 ABG pO2 100.7 H ABG HCO3 27.0 H ABG O2 Saturation 97.8 ABG Base Excess 2.6 FiO2 ROOM AIR Sodium 143.3 Potassium 4.1 Chloride 106 Carbon Dioxide 27 Anion Gap 10 BUN 12 Creatinine 0.81 Est GFR ( Amer) > 60 Est GFR (Non-Af Amer) > 60 Glucose 154 H Calcium 9.9 Total Bilirubin 0.2 AST 22 ALT 36 Alkaline Phosphatase 129 H Total Protein 6.6 Albumin 3.9 Ur Epinephrine 24 Hr Cancelled U Norepinephrine 24 Hr Cancelled Ur Dopamine 24 Hr Cancelled 12/12/18 11:42 WBC 8.2 RBC 4.49 Hgb 10.3 L Hct 32.9 L MCV 73 L MCH 22.9 L MCHC 31.2 L RDW 16.6 H Plt Count 298 Seg Neutrophils % 65.2 Lymphocytes % 25.6 Monocytes % 7.0 Eosinophils % 2.0 Basophils % 0.2 Absolute Neutrophils 5.3 Absolute Lymphocytes 2.1 Absolute Monocytes 0.6 Absolute Eosinophils 0.2 Absolute Basophils 0.0 Carbonic Acid HCO3/H2CO3 Ratio ABG pH ABG pCO2 ABG pO2 ABG HCO3 ABG O2 Saturation ABG Base Excess FiO2 Sodium Potassium Chloride Carbon Dioxide Anion Gap BUN Creatinine Est GFR ( Amer) Est GFR (Non-Af Amer) Glucose Calcium Total Bilirubin AST ALT Alkaline Phosphatase Total Protein Albumin Ur Epinephrine 24 Hr U Norepinephrine 24 Hr Ur Dopamine 24 Hr 12/10/18 19:38 Tsai Catheter Urine Culture - Final Escherichia Coli 12/10/18 12/10/18 12/11/18 18:30 18:30 00:40 Creatine Kinase 44 45 CK-MB (CK-2) < 0.22 Troponin I < 0.012 12/11/18 12/11/18 12/11/18 00:40 07:02 07:02 Creatine Kinase 41 CK-MB (CK-2) < 0.22 < 0.22 Troponin I < 0.012 < 0.012 12/11/18 12/11/18 12:33 12:33 Creatine Kinase 38 CK-MB (CK-2) 0.24 Troponin I < 0.012 Impressions: Chest X-Ray 12/10/18 19:02 IMPRESSION: Borderline cardiomegaly without pulmonary edema. Chest/Abdomen CTA 12/10/18 20:43 IMPRESSION: Negative for pulmonary embolus, thoracic aortic aneurysm, or dissection. The lungs are clear. Cholelithiasis. Fatty liver. Stable right adrenal nodule, likely adenoma. TECHNICAL DOCUMENTATION: Quality ID # 436: Final reports with documentation of one or more dose reduction techniques (e.g., Automated exposure control, adjustment of the mA and/or kV according to patient size, use of iterative reconstruction technique) copyright 2011 [employer]- All Rights Reserved Head CT 12/12/18 10:13 IMPRESSION: Mild right maxillary sinus disease with no acute intracranial imaging findings. EVIDENCE OF ACUTE STROKE: NO. Assessment and Plan - Diagnosis (1) Hypertensive urgency Is this a current diagnosis for this admission?: Yes Plan: Blood pressures have improved to the 160s systolic. Continue Losartan and amlodipine. 12/12: Blood pressures in the 170 systolic. Will add lopressor. (2) Adrenal incidentaloma Is this a current diagnosis for this admission?: Yes Plan: Renin, aldosterone studies pending. (3) Hyperglycemia due to type 2 diabetes mellitus Qualifiers: Diabetes mellitus long-term insulin use: without long-term use Qualified Code(s): E11.65 - Type 2 diabetes mellitus with hyperglycemia Is this a current diagnosis for this admission?: Yes Plan: Continue Lantus and sliding scale. (4) Dehydration Is this a current diagnosis for this admission?: Yes Plan: Improved. Continue IV fluids. (5) UTI (urinary tract infection) Is this a current diagnosis for this admission?: Yes Plan: On Rocephin. - Time Time Spent with patient: 25-34 minutes
[2018-12-12] MEDS: ATORVASTATIN CALCIUM 80 MG TABLET PO SCH (21:39)
[2018-12-12] MEDS: CEFTRIAXONE SODIUM 1,000 MG in DEXTROSE 5%-WATER 50 ML IV SCH (21:39)
[2018-12-12] MEDS: HYDRALAZINE HCL INJ/PF 20 MG/1 ML SDV IV PRN (23:48)
[2018-12-13] MEDS: HEPARIN SOD (PORCINE) 5,000 UNIT/ML 1 ML SYRINGE SUBCUT SCH ×2 (05:38→19:43)
[2018-12-13] MEDS: AMLODIPINE BESYLATE 10 MG TABLET PO SCH (09:49)
[2018-12-13] MEDS: ASPIRIN 81 MG TABLET, ENT COATED PO SCH (09:49)
[2018-12-13] MEDS: METOPROLOL TARTRATE 25 MG TABLET PO SCH (09:49)
[2018-12-13] MEDS: GLIPIZIDE 10 MG TABLET PO SCH ×2 (09:49→19:42)
[2018-12-13] MEDS: DOCUSATE SODIUM 100 MG CAPSULE PO SCH ×2 (09:49→19:42)
[2018-12-13] MEDS: LOSARTAN POTASSIUM 50 MG TABLET PO SCH (09:49)
[2018-12-13] MEDS: INSULIN LISPRO 100 UNIT/ML 3 ML VIAL SUBCUT SCH ×3 (09:50→19:39)
[2018-12-13] MEDS: LIDOCAINE 5% (700 MG) TRANSDERMAL ADH..PATCH TP SCH (09:53)
[2018-12-13] MEDS: INSULIN GLARGINE,HUM.REC.ANLOG 1,000 UNIT/10 ML VIAL SUBCUT SCH (09:54)
[2018-12-13 12:00] VITALS: BP 141/52
[2018-12-13] MEDS: VANCOMYCIN HCL 1,000 MG in DEXTROSE 5%-WATER 250 ML IV SCH (13:06)
[2018-12-13 13:48] LABS: ALDOSTERONE RENIN RATIO 2 <.5 (0.0-30.0); RENIN ACTIVITY 1.962 ng/mL/hr (0.167-5.38)
[2018-12-13] MEDS ORDERED: BISACODYL 10 MG SUPP.RECT PR ONE (16:45)
--- NOTE | 2018-12-13 17:37 | Progress Note ---
Provider Note Provider Note: ID Telephone Consultation Note Asked to review patient's chart by Dr. Blunt and spoke with him briefly via telephone. Pt not seen or examined. Ms. Su is a 58 year old woman with PMH including morbid obesity, DM, HTN, HLD, diastolic heart failure and pAF who presented on 12/10/18 with presyncopal symptoms - dizziness, feeling faint, generalized weakness, palpitations, possible confusion - and history of excessive walking, heat exposure and exhaustion. She was found to have hypertensive urgency and acute kidney injury, which have been managed. She had no fever nor any history or exam features that were particularly suggestive of infection. She has had no objective fever, nor any leukocytosis. One bottle of four drawn on presentation grew a viridans Streptococcus species - Streptococcus salivarius. Impression/Recommendations Viridans group streptococci in blood cultures, like coagulase negative Staph, can be frequently blood culture contaminants. What significance to assign to them depends upon the surrounding clinical picture. The patient had no sustained or high grade bacteremia, no fever or murmur documented. Fatigue is frequent and nonspecific. The Streptococcus salivarius in one blood culture appears to most likely be a blood culture contaminant in this patient who presented without a compatible clinical syndrome to substantiate true infection. No antibiotics for this should be indicated. Osmany Segovia MD [facility] pager [phone]
--- NOTE | 2018-12-13 18:36 | PDOC DISCHARGE SUMMARY ---
General - Admit/Disc Date/PCP Admission Date/Primary Care Provider: 12/10/18 23:04 CELESTE BASURTO MD Discharge Date: 12/13/18 - Discharge Diagnosis (1) Hypertensive urgency Is this a current diagnosis for this admission?: Yes (2) Narcolepsy Is this a current diagnosis for this admission?: Yes (3) Adrenal incidentaloma Is this a current diagnosis for this admission?: Yes (4) Hyperglycemia due to type 2 diabetes mellitus Is this a current diagnosis for this admission?: Yes (5) Dehydration Is this a current diagnosis for this admission?: Yes (6) UTI (urinary tract infection) Is this a current diagnosis for this admission?: Yes - Additional Information Resuscitation Status: Full Code Prescriptions: Amoxicillin/Potassium Clav [Augmentin 500-125 Tablet] 1 each PO BID 3 Days #6 tablet Lidocaine [Lidoderm 5% (700 mg) Transdermal Patch] 1 patch TP DAILY PRN #5 adh..patch PRN Reason: Metoprolol Tartrate [Lopressor 25 mg Tablet] 25 mg PO Q12 #60 tablet Polyethylene Glycol 3350 [Miralax Powder 17 gm/Packet] 1 packet PO BID PRN #1 pkg PRN Reason: For Constipation Home Medications: Ascorbic Acid [Vitamin C 500 mg Tablet] 500 mg PO DAILY 10/25/17 Levothyroxine Sodium [Synthroid 0.15 mg Tablet] 0.15 mg PO Q6AM 10/25/17 Metformin HCl [Glucophage 500 mg Tablet] 1,000 mg PO BIDBS 10/25/17 Multivitamin [Tab-A-Stephen (Multiple Vitamin) Tablet] 1 tab PO DAILY 10/25/17 Atorvastatin Calcium [Lipitor 80 mg Tablet] 80 mg PO QHS #30 tablet 10/29/17 Insulin Glargine,Hum.rec.anlog [Lantus Insulin 100 Unit/mL] 30 unit SUBCUT Q12 insuln.pen 10/29/17 Losartan Potassium [Cozaar 50 mg Tablet] 100 mg PO DAILY #60 tablet 10/29/17 Magnesium Oxide [Mag-Ox 400 mg Tablet] 400 mg PO BID #60 tablet 10/29/17 Potassium Chloride [Klor-Con 10 Meq Capsule ER] 20 meq PO DAILY #30 tablet.sa 10/29/17 Glipizide [Glucotrol 5 mg Tablet] 10 mg PO BID 11/03/17 Amlodipine Besylate [Norvasc 10 mg Tablet] 10 mg PO DAILY 12/11/18 Aspirin [Ecotrin 81 mg EC Tablet] 81 mg PO DAILY 12/11/18 Diclofenac Sodium [Voltaren 50 mg Tablet.dr] 50 mg PO Q12 12/11/18 Docusate Sodium [Colace 100 mg Capsule] 100 mg PO DAILY 12/11/18 Ferrous Sulfate [Feosol 325 mg Tablet] 975 mg PO DAILY 12/11/18 Furosemide [Lasix 20 mg Tablet] 40 mg PO BID 12/11/18 Insulin Lispro [Humalog Insulin (Lispro) 100 unit/mL] 10 unit SUBCUT ACSUPPER 12/11/18 Amoxicillin/Potassium Clav [Augmentin 500-125 Tablet] 1 each PO BID 3 Days #6 tablet 12/13/18 Lidocaine [Lidoderm 5% (700 mg) Transdermal Patch] 1 patch TP DAILY PRN #5 adh..patch 12/13/18 Metoprolol Tartrate [Lopressor 25 mg Tablet] 25 mg PO Q12 #60 tablet 12/13/18 Polyethylene Glycol 3350 [Miralax Powder 17 gm/Packet] 1 packet PO BID PRN #1 pkg 12/13/18 History of Present Illness History of Present Illness: Admitting hospitalist' H&P: MARGARITO COLEY is a 58 year old female with a past medical history of morbid obesity diastolic heart failure,, insulin-dependent diabetes, hypertension, paroxysmal atrial fibrillation without anticoagulation, depression and obstructive sleep apnea. She presents 30 minutes after the onset of confusion, profound fatigue and generalized weakness after attending a [facility] [place] in [place]. She describes excessive walking, heat exposure and exhaustion. Upon arrival to [place] she was found confused, short of breath and weak. In the emergency room she is found to have confusion, a blood pressure of 202/84, adrenal incidentaloma, microcytic anemia and constipation. She receives hydralazine and referred to the hospitalist for admission. Patient's mental status has returned to baseline patient denies recent change in medications. She admits to recent exceptional decline in exertional stamina, poorly controlled hyperglycemia and fatigue. Hospital Course Hospital Course: This is a 58 year old female with a past medical history of morbid obesity diastolic heart failure, insulin-dependent diabetes, hypertension, paroxysmal atrial fibrillation without anticoagulation, depression and obstructive sleep apnea who was brought in due to confusion, profound fatigue and generalized weakness after attending a [facility] in [place]. She reported excessive walking, heat exposure and exhaustion. In the ER, she was found to have confusion, appear dehydrated, hypertensive at 202/84, adrenal incidentaloma. She was started on IV fluids. 12/11: She is back to her baseline mentation. She does say she felt like she was severely dehydrated when she went to the rally. 12/12: Blood pressures in the 170 systolic. Patient was on her baseline this morning. On reassessment, she became suddenly lethargic and not able to maintain conversation. She had slurry speech and was difficult to arouse. Neuro exam was non-focal. She did go back to her baseline after [address] head were unremarkable. Appears she likely has narcolepsy. She says she had the same prior episodes before and was recommended by her PCP to get a sleep study. She was continued on her Losartan and amlodipine. Metoprolol was added to her regimen. Her CT showed an incidental finding of adrenal nodule and biochemical testing were sent out upon admission. Results are still pending on day discharge and will be followed by PCP. She was also started on Rocephin for UTI and will require 3 more days of PO antibiotics. She will be given an appt with Dr. Keller for sleep study. Physical Exam Vital Signs: Temp Pulse Resp BP Pulse Ox 97.6 F 73 20 141/52 H 95 12/13/18 11:19 12/13/18 11:19 12/13/18 11:19 12/13/18 11:19 12/13/18 11:19 Intake & Output 12/12/18 12/13/18 12/14/18 06:59 06:59 06:59 Intake Total 2565 878 474 Output Total 5975 1650 Balance -1310 -772 474 Weight 308 lb 10.354 oz 309 lb 11.991 oz General appearance: PRESENT: no acute distress, well-developed, well-nourished Head exam: PRESENT: atraumatic, normocephalic Eye exam: PRESENT: conjunctiva pink, EOMI, PERRLA. ABSENT: scleral icterus Ear exam: PRESENT: normal external ear exam Mouth exam: PRESENT: moist, tongue midline Neck exam: ABSENT: carotid bruit, JVD, lymphadenopathy, thyromegaly Respiratory exam: PRESENT: clear to auscultation singh. ABSENT: rales, rhonchi, wheezes Cardiovascular exam: PRESENT: RRR. ABSENT: diastolic murmur, rubs, systolic murmur Pulses: PRESENT: normal dorsalis pedis pul GI/Abdominal exam: PRESENT: normal bowel sounds, soft. ABSENT: distended, guarding, mass, organolmegaly, rebound, tenderness Rectal exam: PRESENT: deferred Neurological exam: PRESENT: alert, awake, oriented to person, oriented to place, oriented to time, oriented to situation, CN II-XII grossly intact. ABSENT: motor sensory deficit Results Laboratory Results: 12/12/18 11:42 12/12/18 11:42 12/10/18 23:30 Blood Blood Culture - Final Streptococcus Salivarius 12/10/18 12/10/18 12/11/18 18:30 18:30 00:40 Creatine Kinase 44 45 CK-MB (CK-2) < 0.22 Troponin I < 0.012 12/11/18 12/11/18 12/11/18 00:40 07:02 07:02 Creatine Kinase 41 CK-MB (CK-2) < 0.22 < 0.22 Troponin I < 0.012 < 0.012 12/11/18 12/11/18 12:33 12:33 Creatine Kinase 38 CK-MB (CK-2) 0.24 Troponin I < 0.012 Impressions: Chest X-Ray 12/10/18 19:02 IMPRESSION: Borderline cardiomegaly without pulmonary edema. Chest/Abdomen CTA 12/10/18 20:43 IMPRESSION: Negative for pulmonary embolus, thoracic aortic aneurysm, or dissection. The lungs are clear. Cholelithiasis. Fatty liver. Stable right adrenal nodule, likely adenoma. TECHNICAL DOCUMENTATION: Quality ID # [id number]: Final reports with documentation of one or more dose reduction techniques (e.g., Automated exposure control, adjustment of the mA and/or kV according to patient size, use of iterative reconstruction technique) copyright 2011 [employer]- All Rights Reserved Head CT 12/12/18 10:13 IMPRESSION: Mild right maxillary sinus disease with no acute intracranial imaging findings. EVIDENCE OF ACUTE STROKE: NO. Qualifiers - * PATIENT BEING DISCHARGED WITH ANY OF THE FOLLOWING DIAGNOSIS: No Acute Heart Failure Is this a Heart Failure Patient?: No
[2018-12-13] MEDS: MAGNESIUM HYDROXIDE SUSP 30 ML UDCUP PO PRN (19:42)
[2018-12-15 12:25] LABS: METANEPHRINE URINE 70 ug/L (Undefined); METANEPHRINE URINE 24HR 193 ug/24 hr (45-290); NORMETANEPHRINE URINE 422 ug/L (Undefined); NORMETANEPHRINE URINE 24HR 1161 ug/24 hr (82-500)
== END 2018-12-13 20:40 | disposition home or self-care (01) ==
LOC: ER 18:20 → EH 23:04 → 3W 12-11 02:55
PROVIDERS: ADMIT Internal Medicine; ATTEND Internal Medicine
DX: I16.0 Hypertensive urgency (principal); G47.419 Narcolepsy without cataplexy; E11.65 Type 2 diabetes mellitus with hyperglycemia; E86.0 Dehydration; N39.0 Urinary tract infection, site not specified; E27.9 Disorder of adrenal gland, unspecified; I11.0 Hypertensive heart disease with heart failure; I50.30 Unspecified diastolic (congestive) heart failure; D50.9 Iron deficiency anemia, unspecified; K59.00 Constipation, unspecified; R47.81 Slurred speech; I48.0 Paroxysmal atrial fibrillation; E66.01 Morbid (severe) obesity due to excess calories; R53.81 Other malaise; N17.9 Acute kidney failure, unspecified; R55 Syncope and collapse; G47.33 Obstructive sleep apnea (adult) (pediatric); M62.81 Muscle weakness (generalized); Z68.42 Body mass index [BMI] 45.0-49.9, adult; Z79.82 Long term (current) use of aspirin; Z79.899 Other long term (current) drug therapy; Z79.4 Long term (current) use of insulin; Z82.49 Family history of ischemic heart disease and other diseases of the circulatory system; Z83.3 Family history of diabetes mellitus
CPT/HCPCS: 93005; 99291; 96365; 36415 ×3; 87040 ×2; 87086; 82553 ×2; 82962 ×4; 80307 ×2; 82607; 82803 ×2; 82550 ×2; 82728; 82746; 83540; 83550; 84443; 82570; 85025 ×3; 87077; 87088; 85045; 80048; 80053 ×2; 81001; 84484 ×2; 87186; 82533; 83036; 82088; 84244; 71045; 70450 ×2; 71275; 93010; 94660 ×2; 97110; 97116 ×2; 97163; G0378 ×5; J3490 ×6; J1815 ×6; J1644 ×3; J0360 ×2; J0696 ×3; J7060 ×4; J7030; J7040; J3370 ×2; J1100

== ENCOUNTER → 2019-01-31 | Outpatient (CLI) | payer OTHER ==
--- NOTE | 2019-02-03 12:16 | Pulmonary Function Test ---
Pulmonary Function Test Date of Procedure:: 01/31/19 INDICATION:: Dyspnea Referring Provider: Dr. Jovanni Conteh Senior Search Marketing Analyst: Prisca Cedeño, PRESS SET UP PERSON, FISCAL ASSISTANT - Report Lung Volume: Total lung capacity: 2.66 L 48% Vital capacity: 0.11 L 3% Inspiratory capacity: 1.84 L FRC N2: 0.81 L 33% ERV: RV: 2.55 L1 24% RV/TLC %: 96 predicted 37 Diffusion Capactity: Diffusion Capacity: DLCO; 13.9 44% DLCO/VA;4.05 102% Impression: Severe restrictive ventilatory defect and severe decrease in diffusion capacity.
== END ==
LOC: RT 13:35
PROVIDERS: ATTEND Family Medicine
DX: R06.00 Dyspnea, unspecified (principal); E11.9 Type 2 diabetes mellitus without complications; I11.0 Hypertensive heart disease with heart failure; I50.9 Heart failure, unspecified; E03.9 Hypothyroidism, unspecified; E78.5 Hyperlipidemia, unspecified; I48.91 Unspecified atrial fibrillation
CPT/HCPCS: 94727; 94729

== ENCOUNTER → 2019-05-14 | Outpatient (CLI) | payer OTHER ==
--- NOTE | 2019-05-16 11:26 | Pulmonary Function Test ---
Pulmonary Function Test Date of Procedure:: 05/14/19 INDICATION:: Dyspnea Referring Provider: Dr.Wilbert Conteh Food Service Agent: Prisca Cedeño, WORLD DESIGNER, RUSSIAN LANGUAGE PROFESSOR - Report Spirometry: Spirometry: pre-FVC: 2.13 L 63% post-FVC: 1.88 L 55% pre-FEV:1 1.59 L 58% post-FEV1: 1.45 L 53% pre-FEV1/FVC %: 75 post-FEV1/FVC%: 77 predicted: 82 [id number]%: 1.37 L 47% [id number]%: 0.46 L 16% Lung Volume: Total lung capacity: 3.44 L 62% Vital capacity: 2.13 L 63% Inspiratory capacity: 1.56 L FRC N2: 1.86 L 94% ERV: 0.22 L RV: 1.31 L 64% RV/TLC %:: 38 predicted 37 Diffusion Capactity: DLCO: 21.0 68% DLCO/VA: 4.78 120% Impression: Mild obstructive ventilatory defect with insignificant response to bronchodilator therapy. This in and of itself does not preclude a clinical trial of bronchodilator therapy. Mild restrictive ventilatory defect. (Restrictive defect may mask the degree of obstruction.). No hyperinflation or air trapping. Mild decrease in diffusion capacity.
== END ==
LOC: RT 14:00
PROVIDERS: ATTEND Family Medicine
DX: J98.4 Other disorders of lung (principal); R06.00 Dyspnea, unspecified
CPT/HCPCS: 94060; 94727; 94729

== ENCOUNTER 2019-09-05 13:37 | Emergency (ER) | payer OTHER ==
[2019-09-05] MEDS ORDERED: ASPIRIN 81 MG TABLET, CHEWABLE PO ONE (14:44)
--- NOTE | 2019-09-05 14:44 | ER Document Report ---
ED Medical Screen (RME) - General Chief Complaint: Chest Pain Stated Complaint: COUGH/CONGESTION Time Seen by Provider: 09/05/19 14:36 Primary Care Provider: CELESTE BASURTO MD [Primary Care Provider] - Follow up as needed Mode of Arrival: Ambulatory Information source: Patient Notes: 59-year-old female presents to ED for complaint of chest pain shortness of breath chest congestion difficulty breathing dizziness cough headache and sore throat since Sunday. She states she does have a cardiac history of A. fib. She states Dr. Guevara is her artificial intelligence specialist. She states she did have a negative stress test in June 2019 at [facility]. She is on Eliquis and low-dose aspirin and losartan for blood pressure I have greeted and performed a rapid initial assessment of this patient. A comprehensive ED assessment and evaluation of the patient, analysis of test results and completion of medical decision making process will be conducted by an additional ED providers. TRAVEL OUTSIDE OF THE [place] IN LAST 30 DAYS: No - Related Data Allergies/Adverse Reactions: No Known Allergies Allergy (Verified 08/14/18 15:50) Past Medical History - Social History Frequency of alcohol use: None Drug Abuse: None - Past Medical History Cardiac Medical History: Reports: Hx Atrial Fibrillation, Hx Hypercholesterolemia, Hx Hypertension Pulmonary Medical History: Reports: Hx Pneumonia, Hx Sleep Apnea Endocrine Medical History: Reports: Hx Diabetes Mellitus Type 1, Hx Diabetes Mellitus Type 2, Hx Hypothyroidism Renal/ Medical History: Denies: Hx Peritoneal Dialysis Psychiatric Medical History: Reports: Hx Depression Past Surgical History: Reports: Hx Cardiac Catheterization, Hx Section - x1, Other - post uvelectomy. - Immunizations Immunizations up to date: Yes Hx Diphtheria, Pertussis, Tetanus Vaccination: Yes Physical Exam - Vital signs Vitals: Temp Pulse Resp BP Pulse Ox 98.0 F 101 H 22 H 178/79 H 95 09/05/19 14:29 09/05/19 14:29 09/05/19 14:29 09/05/19 14:29 09/05/19 14:29 Course - Vital Signs Vital signs: Temp Pulse Resp BP Pulse Ox 98.0 F 101 H 22 H 178/79 H 95 09/05/19 14:29 09/05/19 14:29 09/05/19 14:29 09/05/19 14:29 09/05/19 14:29 Doctor's Discharge - Discharge Referrals: CELESTE BASURTO MD [Primary Care Provider] - Follow up as needed
--- NOTE | 2019-09-05 15:28 | RADIOLOGY REPORT (SQ) ---
EXAM DESCRIPTION: CHEST 2 VIEWS COMPLETED DATE/TIME: 09/05/2019 3:18 pm REASON FOR STUDY: Chest pain cough congestion dizziness COMPARISON: None. EXAM PARAMETERS: NUMBER OF VIEWS: Two views. TECHNIQUE: PA and lateral views of the chest were obtained.. RADIATION DOSE: NA LIMITATIONS: none FINDINGS: LUNGS AND PLEURA: Peribronchial cuffing without a superimposed consolidation, pleural effu marcial or pneumothorax. MEDIASTINUM AND HILAR STRUCTURES: No mediastinal or hilar contour abnormality. HEART AND VASCULAR STRUCTURES: The cardiac silhouette is enlarged. The pulmonary vasculature is with in normal limits. BONES: No acute findings. HARDWARE: None in the chest. OTHER: No other finding. IMPRESSION: Cardiomegaly and mild peribronchial cuffing. Correlate clinically for signs and symptom s of volume overload, asthma or a small airways inflammatory disease. TECHNICAL DOCUMENTATION: JOB ID: [id number] [employer]- All Rights Reserved Reading location - IP/workstation name: [email or web address]
[2019-09-05 15:55] LABS: ABSOLUTE EOSINOPHILS # (AUTO) 0.1 10^3/uL (0.0-0.6); ABSOLUTE LYMPHOCYTES (AUTO) 1.4 10^3/uL (0.5-4.7); ABSOLUTE MONOCYTES (AUTO) 0.4 10^3/uL (0.1-1.4); ABSOLUTE NEUT (AUTO) 4.1 10^3/uL (1.7-8.2); BASOPHILS % (AUTO) 0.3 % (0-2); EOSINOPHILS % (AUTO) 1.7 % (0-6); HEMATOCRIT 30.5 % (36.0-47.0); HEMOGLOBIN 9.5 g/dL (12.0-15.5); MEAN CORPUSCULAR HEMOGLOBIN 22.5 pg (27.0-33.4); MEAN CORPUSCULAR HGB CONC 31.2 g/dL (32.0-36.0); MEAN CORPUSCULAR VOLUME 72 fl (80-97); MONOCYTES % (AUTO) 7.4 % (3-13); PLATELET COUNT 301 10^3/uL (150-450); RED BLOOD COUNT 4.23 10^6/uL (3.72-5.28); RED CELL DISTRIBUTION WIDTH 18.4 % (11.5-14.0); SEGMENTED NEUTROPHILS % (AUTO) 67.6 % (42-78); TOTAL CELLS COUNTED % (AUTO) 100 %; WHITE BLOOD COUNT 6.1 10^3/uL (4.0-10.5)
[2019-09-05 16:16] LABS: ALBUMIN 3.4 g/dL (3.5-5.0); ALKALINE PHOSPHATASE 145 U/L (38-126); ANION GAP 7 (5-19); ASPARTATE AMINO TRANSFERASE 31 U/L (14-36); BILIRUBIN,DIRECT 0.2 mg/dL (0.0-0.4); BILIRUBIN,TOTAL 0.2 mg/dL (0.2-1.3); BLOOD UREA NITROGEN 23 mg/dL (7-20); CARBON DIOXIDE 29 mmol/L (22-30); CHLORIDE 101 mmol/L (98-107); GLUCOSE 278 mg/dL (75-110); POTASSIUM 4.6 mmol/L (3.6-5.0); TOTAL PROTEIN 6.5 g/dL (6.3-8.2)
--- NOTE | 2019-09-05 17:58 | ER Document Report ---
ED General - General Chief Complaint: Chest Pain Stated Complaint: COUGH/CONGESTION Time Seen by Provider: 09/05/19 14:36 Primary Care Provider: CELESTE BASURTO MD [Primary Care Provider] - Follow up as needed Mode of Arrival: Ambulatory Information source: Patient Notes: 59-year-old black female arrives by POV sitting in the triage area in a wheelchair with chief complaints of cough and congestion and dizziness and some wheezing. She has a hand-held nebulizer at home but needs another. She has a history of A. fib diabetes hypertension obesity anemia and she recently had a diagnosis of detached right eye retina around 7 days ago. She saw her eye doctor last Sunday and then came down with these current symptoms a few days later. She is scheduled for surgery for her right eye but is concerned because she has been coughing. TRAVEL OUTSIDE OF THE [place] IN LAST 30 DAYS: No - HPI Onset: Other - 2 days ago Quality of pain: No pain Severity: None Pain Level: 1 Associated symptoms: None Exacerbated by: Coughing, Deep breathing Relieved by: Remaining still Similar symptoms previously: Yes - Colitis in the past Recently seen / treated by doctor: Yes - Lastex Thread Winder - Related Data Allergies/Adverse Reactions: No Known Allergies Allergy (Verified 09/05/19 14:42) Past Medical History - General Information source: Patient - Social History Smoking Status: Never Smoker Cigarette use (# per day): No Chew tobacco use (# tins/day): No Smoking Education Provided: No Frequency of alcohol use: None Drug Abuse: None Lives with: Family Family History: DM, Hypertension Patient has suicidal ideation: No Patient has homicidal ideation: No - Past Medical History Cardiac Medical History: Reports: Hx Atrial Fibrillation, Hx Hypercholesterolemia, Hx Hypertension Pulmonary Medical History: Reports: Hx Pneumonia, Hx Sleep Apnea Endocrine Medical History: Reports: Hx Diabetes Mellitus Type 1, Hx Diabetes Mellitus Type 2, Hx Hypothyroidism Renal/ Medical History: Denies: Hx Peritoneal Dialysis Psychiatric Medical History: Reports: Hx Depression Past Surgical History: Reports: Hx Cardiac Catheterization, Hx Section - x1, Other - post uvelectomy. - Immunizations Immunizations up to date: Yes Hx Diphtheria, Pertussis, Tetanus Vaccination: Yes Review of Systems - Review of Systems Constitutional: Malaise, Weakness EENT: Sinus pressure, Sinus discharge, Throat pain Cardiovascular: No symptoms reported Respiratory: Cough, Wheezing Gastrointestinal: No symptoms reported Genitourinary: No symptoms reported Female Genitourinary: No symptoms reported Musculoskeletal: No symptoms reported Skin: No symptoms reported Hematologic/Lymphatic: No symptoms reported Neurological/Psychological: No symptoms reported Physical Exam - Vital signs Vitals: Temp Pulse Resp BP Pulse Ox 98.0 F 101 H 22 H 178/79 H 95 09/05/19 14:29 09/05/19 14:29 09/05/19 14:29 09/05/19 14:09/05/19 14:29 Interpretation: Hypertensive, Tachycardic, Tachypneic - General General appearance: Appears well, Alert - HEENT Head: Normocephalic, Atraumatic Eyes: Periorbital edema - Retinal detachment right eye, Other Extraocular movements intact: Yes Eyelashes: Normal Pupils: PERRL Sinus: Tenderness - Maxillary Nasal: Clear rhinorrhea Mouth/Lips: Normal Mucous membranes: Moist Pharynx: Erythema, Post nasal drainage - Respiratory Respiratory status: No respiratory distress Chest status: Nontender Breath sounds: Wheezing Chest palpation: Normal - Cardiovascular Rhythm: Tachycardia Heart sounds: Normal auscultation Murmur: No - Abdominal Inspection: Normal Distension: No distension Bowel sounds: Normal Tenderness: Nontender Organomegaly: No organomegaly - Back Back: Normal, Nontender - Extremities General upper extremity: Normal inspection, Nontender, Normal color, Normal ROM, Normal temperature General lower extremity: Normal inspection, Nontender, Normal color, Normal ROM, Normal temperature, Normal weight bearing. No: Nathaniel's sign - Neurological Neuro grossly intact: Yes Cognition: Normal Orientation: AAOx4 Les Coma Scale Eye Opening: Spontaneous [place] Coma Scale Verbal: Oriented [place] Coma Scale Motor: Obeys Commands Les Coma Scale Total: 15 Speech: Normal Motor strength normal: LUE, RUE, LLE, RLE Sensory: Normal - Psychological Associated symptoms: Normal affect, Normal mood - Skin Skin Temperature: Warm Skin Moisture: Dry Skin Color: Normal Course - Vital Signs Vital signs: Temp Pulse Resp BP Pulse Ox 98.0 F 101 H 22 H 178/79 H 95 09/05/19 14:29 09/05/19 14:29 09/05/19 14:29 09/05/19 14:29 09/05/19 14:29 - Laboratory Result Diagrams: 09/05/19 15:32 09/05/19 15:32 Laboratory results interpreted by me: 09/05/19 09/05/19 15:32 15:32 Hgb 9.5 L Hct 30.5 L MCV 72 L MCH 22.5 L MCHC 31.2 L RDW 18.4 H BUN 23 H Est GFR (MDRD) Non-Af 56 L Glucose 278 H Alkaline Phosphatase 145 H Albumin 3.4 L - Diagnostic Test Radiology reviewed: Reports reviewed Critical Care Note - Critical Care Note Total time excluding time spent on procedures (mins): 60 Comments: Advised patient of her lab work and x-rays Discharge - Discharge Clinical Impression: Bronchitis Condition: Good Disposition: HOME, SELF-CARE Additional Instructions: Follow-up with with personal doctor this week return to ER as needed take medicines as directed encourage fluids like honey lemon juice; your eye doctor about your retinal attachment problem next week Prescriptions: Hydrocodone Bit/Homatropine [Hycodan Syrup 5-1.5 mg/5 ml Ud Cup] 5 ml PO Q4HP PRN #120 ml PRN Reason: Levofloxacin [Levaquin 750 mg Tablet] 500 mg PO DAILY #10 tablet Albuterol Sulfate [Proair HFA Inhalation Aerosol 8.5 gm MDI] 2 puff IH Q4H PRN #1 mdi PRN Reason: Referrals: CELESTE BASURTO MD [Primary Care Provider] - Follow up as needed
[2019-09-05] MEDS ORDERED: LEVOFLOXACIN 750 MG TABLET PO ONE ×2 (18:06→19:27)
[2019-09-05 18:49] VITALS: BP 179/91
--- NOTE | 2019-09-06 23:42 | EKG REPORT ---
SEVERITY:- ABNORMAL ECG - SINUS RHYTHM PROBABLE LEFT ATRIAL ABNORMALITY LEFT VENTRICULAR HYPERTROPHY ANTERIOR Q WAVES, POSSIBLY DUE TO LVH : Confirmed by: Dario Keller 06-Sep-2019 23:42:02
== END 2019-09-05 19:24 | disposition home or self-care (01) ==
LOC: ER 13:37
DX: J40 Bronchitis, not specified as acute or chronic (principal); R05 Cough; R42 Dizziness and giddiness; R06.2 Wheezing; J34.89 Other specified disorders of nose and nasal sinuses; R09.82 Postnasal drip; R00.0 Tachycardia, unspecified; E11.9 Type 2 diabetes mellitus without complications; I10 Essential (primary) hypertension; H33.21 Serous retinal detachment, right eye; Z87.01 Personal history of pneumonia (recurrent)
CPT/HCPCS: 36415; 71046; 80053; 84484; 85025; 93005; 93010; 99285

== ENCOUNTER 2020-04-22 21:46 | Inpatient (IN) | payer MEDICAID ==
[2020-04-23] MEDS ORDERED: NORMAL SALINE 1000 ML 1,000 ML IV ONE (01:16)
--- NOTE | 2020-04-23 01:16 | ER Document Report ---
ED General - General Chief Complaint: Cough Stated Complaint: FEVER/COUGH Time Seen by Provider: 04/23/20 00:33 Notes: Patient is a 59-year-old female who comes emergency department for chief complaint of approximately 1 week of sick symptoms. She states initially she had a sore throat, congestion, shortly after she developed a cough and chills, she reports generalized weakness and body aches. She states that she feels like she cannot get up and walk. She denies specific chest pain, denies abdominal pain, she states she vomited once about 3 days ago but has not since and has been able to tolerate p.o. without difficulty. She states she feels dehydrated and she was told that she needs an iron infusion. Patient has a history of type 2 diabetes, hypertension, atrial fibrillation (on anticoagulation but unable to tell me the name), obesity, sleep apnea. She denies smoking, COPD, asthma. She denies any obvious sick exposures, she denies any fever. TRAVEL OUTSIDE OF THE [place] IN LAST 30 DAYS: No - Related Data Allergies/Adverse Reactions: No Known Allergies Allergy (Verified 09/05/19 14:42) Past Medical History - General Information source: Patient - Social History Smoking Status: Never Smoker Chew tobacco use (# tins/day): No Frequency of alcohol use: None Drug Abuse: None Lives with: Alone Family History: DM, Hypertension Patient has homicidal ideation: No - Past Medical History Cardiac Medical History: Reports: Hx Atrial Fibrillation, Hx Hypercholeste rolemia, Hx Hypertension Pulmonary Medical History: Reports: Hx Pneumonia, Hx Sleep Apnea Endocrine Medical History: Reports: Hx Diabetes Mellitus Type 2, Hx Hypothyroidism Renal/ Medical History: Denies: Hx Peritoneal Dialysis Psychiatric Medical History: Reports: Hx Depression Past Surgical History: Reports: Hx Cardiac Catheterization, Hx Section - x1, Other - post uvelectomy. - Immunizations Immunizations up to date: Yes Hx Diphtheria, Pertussis, Tetanus Vaccination: Yes Review of Systems - Review of Systems Constitutional: See HPI EENT: See HPI Cardiovascular: See HPI Respiratory: See HPI Gastrointestinal: No symptoms reported Genitourinary: No symptoms reported Female Genitourinary: No symptoms reported Musculoskeletal: No symptoms reported Skin: No symptoms reported Hematologic/Lymphatic: No symptoms reported Neurological/Psychological: No symptoms reported Physical Exam - Vital signs Vitals: Temp Pulse Resp BP Pulse Ox 98.6 F 95 20 147/73 H 100 04/22/20 22:36 04/22/20 22:36 04/22/20 22:36 04/22/20 22:36 04/22/20 22:36 - Notes Notes: GENERAL: Patient is slightly ill-appearing but is still alert, cooperative, and shows no signs of distress HEAD: Normocephalic, atraumatic. EYES: Pupils equal, round, and reactive to light. Extraocular movements intact. ENT: Oral mucosa moist, tongue midline. Oropharynx unremarkable. Airway patent. Nares patent, sinuses non-tender, ear canals unremarkable, TM's intact. NECK: Full range of motion. Supple. Trachea midline. No lymphadenopathy. LUNGS: Clear to auscultation bilaterally, no wheezes, rales, or rhonchi. No respiratory distress. Non-tender chest wall. Occasional congested coughing episodes. HEART: Regular rate and rhythm. No murmur ABDOMEN: Soft, non-tender. Non-distended. EXTREMITIES: Moves all 4 extremities spontaneously. No edema, normal radial and dorsalis pedis pulses bilaterally. No cyanosis. BACK: no cervical, thoracic, lumbar midline tenderness. No saddle anesthesia, normal distal neurovascular exam. Moves all extremities in full range of motion. NEUROLOGICAL: Alert and oriented x3. Normal speech. Cranial nerves II through XII grossly intact. Strength 5/5 in all extremities. Patient is able to ambulate using a cane but does have some unsteadiness with gait and requires assistance to ambulate. PSYCH: Normal affect, normal mood. SKIN: Warm, dry, normal turgor. No rashes or lesions noted. Course - Re-evaluation Re-evalutation: Patient is not hypoxic, tachycardic, hypotensive, or febrile. She does have intermittent congested coughing episodes, otherwise unremarkable physical exam. CBC shows microcytic anemia, no leukocytosis, nonspecific otherwise. Chemistry shows elevated glucose but no acidosis, creatinine is slightly elevated compared to prior, patient has been given IV fluids. Urinalysis shows urinary tract infection. Chest x-ray shows possible pneumonitis. Because of patient's chills, productive cough, possible pneumonitis, COVID-19 test performed after discussion with patient, patient is very strongly requesting this. Troponin unremarkable, EKG unremarkable. Attempted to get patient up and ambulate her, she was able to do so in only a very limited fashion and had to be assisted. Patient is very concerned about going home with her current weakness, she states she does not always have help at home, she states she would like to be admitted for being unable to ambulate without assistance, for her iron infusion, and in addition to this patient with questionable pneumonia and also urinary tract infection. I discussed the patient with her provider, Dr. Adams. I discussed with Dr. Adams, patient accepted to medical floor admission. - Vital Signs Vital signs: Temp Pulse Resp BP Pulse Ox 98.8 F 94 22 H 141/62 H 89 L 04/23/20 05:48 04/23/20 05:48 04/23/20 05:48 04/23/20 05:48 04/23/20 05:48 - Laboratory Result Diagrams: 04/23/20 01:39 04/23/20 01:39 Laboratory results interpreted by me: 04/23/20 04/23/20 04/23/20 00:09 01:39 01:39 Hgb 10.5 L Hct 32.0 L MCV 73 L MCH 23.8 L RDW 16.4 H Sodium 135.3 L BUN 40 H Creatinine 1.42 H Est GFR ( Amer) 46 L Est GFR (MDRD) Non-Af 38 L Glucose 287 H AST 51 H ALT 44 H Alkaline Phosphatase 173 H Urine Protein 30 H Urine Glucose (UA) >=500 H Urine Blood SMALL H Ur Leukocyte Esterase MODERATE H - EKG Interpretation by Me Additional EKG results interpreted by me: EKG shows sinus rhythm at a rate of 88, QTc 460, normal axis, no T wave inversions or ST segment changes in consecutive leads. Discharge - Discharge Clinical Impression: Chills, Generalized weakness, Productive cough, Person under investigation for COVID-19, Increased weakness when ambulating UTI (urinary tract infection) Qualifiers: Urinary tract infection type: site unspecified Hematuria presence: without hematuria Qualified Code(s): N39.0 - Urinary tract infection, site not specified Condition: Stable Disposition: ADMITTED INPATIENT Admitting Provider: Angie Unit Admitted: Medical Floor
[2020-04-23 01:52] LABS: ABSOLUTE LYMPHOCYTES (AUTO) 1.1 10^3/uL (0.5-4.7); ABSOLUTE MONOCYTES (AUTO) 0.5 10^3/uL (0.1-1.4); ABSOLUTE NEUT (AUTO) 3.4 10^3/uL (1.7-8.2); BASOPHILS % (AUTO) 0.1 % (0-2); HEMOGLOBIN 10.5 g/dL (12.0-15.5); LYMPHOCYTES % (AUTO) 21.2 % (13-45); MEAN CORPUSCULAR HEMOGLOBIN 23.8 pg (27.0-33.4); MEAN CORPUSCULAR HGB CONC 32.6 g/dL (32.0-36.0); MEAN CORPUSCULAR VOLUME 73 fl (80-97); MONOCYTES % (AUTO) 10.4 % (3-13); PLATELET COUNT 233 10^3/uL (150-450); RED CELL DISTRIBUTION WIDTH 16.4 % (11.5-14.0); SEGMENTED NEUTROPHILS % (AUTO) 68.3 % (42-78); TOTAL CELLS COUNTED % (AUTO) 100 %
[2020-04-23 02:00] LABS: APPEARANCE,URINE SLIGHTLY-CLOUDY; BILIRUBIN,URINE NEGATIVE (NEGATIVE); COLOR,URINE YELLOW; GLUCOSE, URINE >=500 mg/dL (NEGATIVE); KETONES,URINE NEGATIVE (NEGATIVE); LEUKOCYTE ESTERASE,URINE MODERATE (NEGATIVE); NITRITE,URINE NEGATIVE (NEGATIVE); PROTEIN,URINE 30 mg/dL (NEGATIVE); URINE SPECIFIC GRAVITY 1.011; UROBILINOGEN,URINE NEGATIVE mg/dL (<2.0)
[2020-04-23 02:10] LABS: ALBUMIN 3.8 g/dL (3.5-5.0); ALKALINE PHOSPHATASE 173 U/L (38-126); ANION GAP 10 (5-19); ASPARTATE AMINO TRANSFERASE 51 U/L (14-36); BILIRUBIN,DIRECT 0.3 mg/dL (0.0-0.4); BILIRUBIN,TOTAL 0.4 mg/dL (0.2-1.3); BLOOD UREA NITROGEN 40 mg/dL (7-20); CALCIUM 8.7 mg/dL (8.4-10.2); CARBON DIOXIDE 27 mmol/L (22-30); CHLORIDE 98 mmol/L (98-107); GLUCOSE 287 mg/dL (75-110); POTASSIUM 4.5 mmol/L (3.6-5.0); TOTAL PROTEIN 6.7 g/dL (6.3-8.2)
--- NOTE | 2020-04-23 02:38 | RADIOLOGY REPORT (SQ) ---
EXAM DESCRIPTION: XR CHEST 1 VIEW COMPLETED DATE/TME: 04/23/2020 01:15 CLINICAL HISTORY: 59 years, Female, productive cough, weakness COMPARISON: 12/10/2018 chest NUMBER OF VIEWS: 1 TECHNIQUE: Portable chest LIMITATIONS: None. FINDINGS: Heart size stable. Equivocal right upper lobe airspace opacity.. No pneumothorax. Mild elevation right hemidiaphragm IMPRESSION: Equivocal right upper lobe airspace opacity may reflect minor pneumonitis copyright 2010 [employer]- All Rights Reserved
[2020-04-23] MEDS ORDERED: CEFTRIAXONE 1 GM/D5W RTU 1 GM/50 ML RTUPB IV ONE (03:37)
[2020-04-23] MEDS ORDERED: FERRIC CARBOXYMALTOSE INJ 750 MG/15 ML VIAL IV ONE ×2 (04:00→13:09)
[2020-04-23] MEDS ORDERED: AZITHROMYCIN INJ 500 MG VIAL IV ONE (06:21)
[2020-04-23] MEDS: AZITHROMYCIN 500 MG in DEXTROSE 5%-WATER 250 ML IV SCH ×2 (06:32→22:31)
--- NOTE | 2020-04-23 07:21 | EKG REPORT ---
SEVERITY:- ABNORMAL ECG - SINUS RHYTHM PROBABLE LEFT ATRIAL ABNORMALITY PROBABLE LEFT VENTRICULAR HYPERTROPHY : Confirmed by: Dario Keller 23-Apr-2020 07:19:40
[2020-04-23] MEDS: ENOXAPARIN SODIUM INJ 40 MG/0.4 ML DISP.SYRIN SUBCUT SCH (09:43)
[2020-04-23] MEDS ORDERED: [UNRECOGNIZED DRUG - OTHER] PO PRN (13:07)
[2020-04-23] MEDS ORDERED: CHLORPHENIRAMINE MALEATE 4 MG TABLET PO PRN (13:07)
[2020-04-23] MEDS ORDERED: ACETAMINOPHEN PO PRN (13:07)
[2020-04-23] MEDS ORDERED: DIPHENHYDRAMINE PO PRN (13:07)
[2020-04-23] MEDS ORDERED: INSULN ASP SUBCUT SCH (13:15)
[2020-04-23] MEDS ORDERED: INSULIN ASPART PROT SUBCUT SCH (13:15)
[2020-04-23] MEDS ORDERED: [UNRECOGNIZED DRUG - OTHER] SUBCUT SCH (13:15)
[2020-04-23] MEDS ORDERED: (PENDING PHARMACY ID) (Lamotrigine [Lamotrigine] 200 MG) PO SCH (13:15)
[2020-04-23] MEDS: POTASSIUM CHLORIDE 10 MEQ TABLET.ER PO SCH (14:13)
[2020-04-23] MEDS: VENLAFAXINE HCL 75 MG CAP.SR.24H PO SCH (14:14)
[2020-04-23] MEDS: LOSARTAN POTASSIUM 50 MG TABLET PO SCH (14:14)
[2020-04-23] MEDS: LEVOTHYROXINE SODIUM 0.15 MG TABLET PO SCH (14:14)
[2020-04-23] MEDS: APIXABAN 5 MG TABLET PO SCH ×2 (14:14→17:06)
[2020-04-23] MEDS: FUROSEMIDE 40 MG TABLET PO SCH (14:14)
[2020-04-23] MEDS: GLIPIZIDE 5 MG TABLET PO SCH ×2 (14:14→17:06)
[2020-04-23] MEDS ORDERED: FERRIC CARBOXYMALTOSE 750 MG in NORMAL SALINE 250 ML IV ONE (16:00)
[2020-04-23] MEDS: METFORMIN HCL 500 MG TABLET PO SCH (17:06)
[2020-04-23] MEDS: NORMAL SALINE 1000 ML 1,000 ML IV PRN (17:08)
[2020-04-23] MEDS: CEFTRIAXONE 1 GM/D5W RTU 1 GM/50 ML RTUPB IV SCH (21:08)
[2020-04-23] MEDS: ATORVASTATIN CALCIUM 80 MG TABLET PO SCH (21:09)
[2020-04-23] MEDS: LAMOTRIGINE 100 MG TABLET PO SCH (21:09)
[2020-04-23] MEDS ORDERED: INSULIN GLARGINE,HUM.REC.ANLOG 1,000 UNIT/10 ML VIAL (PYX) SUBCUT ONE (21:09)
--- NOTE | 2020-04-23 21:21 | PDOC H&P ---
History of Present Illness Admission Date/PCP: 04/23/20 03:55 CELESTE BASURTO MD History of Present Illness: MARGARITO COLEY is a 59 year old female, She came to emergency room for evaluation of, cough, fatigue, generalized body aches, there was concern for SARS-CoV-2 infection., Chest x-ray demonstrated mild pneumonia Past Medical History Cardiac Medical History: Reports: Atrial Fibrillation, Hyperlipidema, Hypertension Pulmonary Medical History: Reports: Pneumonia, Sleep Apnea Endocrine Medical History: Reports: Diabetes Mellitus Type 2, Hypothyroidism, Obesity Psychiatric Medical History: Reports: Depression Past Surgical History Past Surgical History: Reports: Cardiac Catheterization, Section - x1, Other - post uvelectomy. Social History Lives with: Alone Smoking Status: Never Smoker Electronic Cigarette use?: No Frequency of Alcohol Use: Rare Hx Recreational Drug Use: No Drugs: None Hx Prescription Drug Abuse: No Family History Family History: DM, Hypertension Parental Family History Reviewed: Yes Children Family History Reviewed: Yes Sibling(s) Family History Reviewed.: Yes Medication/Allergy Home Medications: Levothyroxine Sodium [Synthroid 0.15 mg Tablet] 0.15 mg PO Q6AM 10/25/17 Metformin HCl [Glucophage 500 mg Tablet] 1,000 mg PO BIDBS 10/25/17 Atorvastatin Calcium [Lipitor 80 mg Tablet] 80 mg PO QHS #30 tablet 10/29/17 Insulin Glargine,Hum.rec.anlog [Lantus Insulin 100 Unit/mL Insulin Pen] 30 unit SUBCUT Q12 insuln.pen 10/29/17 Losartan Potassium [Cozaar 50 mg Tablet] 100 mg PO DAILY #60 tablet 10/29/17 Potassium Chloride [Klor-Con 10 Meq Tablet ER] 20 meq PO DAILY #30 tablet.sa 10/29/17 Glipizide [Glucotrol 5 mg Tablet] 10 mg PO BID 11/03/17 Acetaminophen [Acetaminophen Extra Strength] 500 mg PO Q6HP PRN 04/23/20 Apixaban [Eliquis 5 mg Tablet] 5 mg PO BID 04/23/20 Chlorpheniramine Maleate [Allergy Relief] 4 mg PO Q6HP PRN 04/23/20 Desvenlafaxine [Desvenlafaxine ER] 100 mg PO DAILY 04/23/20 Furosemide [Lasix 40 mg Tablet] 40 mg PO QAM 04/23/20 Insulin Aspart Prot/Insuln Asp [Novolog Mix 70-30 Flexpen Syrn] 10 unit SQ DAILY 04/23/20 Lamotrigine 200 mg PO BID 04/23/20 Phentermine HCl 37.5 mg PO DAILY 04/23/20 Allergies/Adverse Reactions: No Known Allergies Allergy (Verified 09/05/19 14:42) Review of Systems Constitutional: ABSENT: chills, fever(s), headache(s), weight gain, weight loss Eyes: ABSENT: visual disturbances Ears: ABSENT: hearing changes Cardiovascular: ABSENT: chest pain, dyspnea on exertion, edema, orthropnea, palpitations Respiratory: PRESENT: cough. ABSENT: hemoptysis Gastrointestinal: ABSENT: abdominal pain, constipation, diarrhea, hematemesis, hematochezia, nausea, vomiting Genitourinary: ABSENT: dysuria, hematuria Musculoskeletal: ABSENT: joint swelling Integumentary: ABSENT: rash, wounds Neurological: ABSENT: abnormal gait, abnormal speech, confusion, dizziness, focal weakness, syncope Psychiatric: ABSENT: anxiety, depression, homidical ideation, suicidal ideation Endocrine: ABSENT: cold intolerance, heat intolerance, menstrual abnormalities, polydipsia, polyuria Hematologic/Lymphatic: ABSENT: easy bleeding, easy bruising, lymphadenopathy Physical Exam Vital Signs: Temp Pulse Resp BP Pulse Ox 98.3 F 89 20 155/58 H 98 04/23/20 16:15 04/23/20 16:15 04/23/20 11:09 04/23/20 16:15 04/23/20 16:15 Intake & Output 04/22/20 04/23/20 04/24/20 06:59 06:59 06:59 Intake Total 1050 755 Balance 1050 755 Weight 133.5 kg General appearance: PRESENT: no acute distress Head exam: PRESENT: atraumatic, normocephalic Eye exam: PRESENT: conjunctiva pink, EOMI, PERRLA Ear exam: PRESENT: normal external ear exam Mouth exam: PRESENT: moist, tongue midline Neck exam: PRESENT: full ROM Respiratory exam: PRESENT: rhonchi Cardiovascular exam: PRESENT: RRR, +S1, +S2 Vascular exam: PRESENT: normal capillary refill GI/Abdominal exam: PRESENT: normal bowel sounds, soft Rectal exam: PRESENT: deferred Neurological exam: PRESENT: alert, CN II-XII grossly intact Psychiatric exam: PRESENT: appropriate affect, normal mood Skin exam: PRESENT: dry, intact, warm Results Laboratory Results: 04/23/20 01:39 04/23/20 01:39 04/23/20 04/23/20 04/23/20 00:09 01:39 01:39 WBC 5.0 RBC 4.40 Hgb 10.5 L Hct 32.0 L MCV 73 L MCH 23.8 L MCHC 32.6 RDW 16.4 H Plt Count 233 Seg Neutrophils % 68.3 Sodium 135.3 L Potassium 4.5 Chloride 98 Carbon Dioxide 27 Anion Gap 10 BUN 40 H Creatinine 1.42 H Est GFR ( Amer) 46 L Glucose 287 H Calcium 8.7 Total Bilirubin 0.4 AST 51 H Alkaline Phosphatase 173 H Total Protein 6.7 Albumin 3.8 Urine Color YELLOW Urine Appearance SLIGHTLY-CLOUDY Urine pH 5.0 Ur Specific [place] 1.011 Urine Protein 30 H Urine Glucose (UA) >=500 H Urine Ketones NEGATIVE Urine Blood SMALL H Urine Nitrite NEGATIVE Ur Leukocyte Esterase MODERATE H Urine WBC (Auto) 69 Urine RBC (Auto) 1 04/23/20 01:39 Troponin I < 0.012 Impressions: Chest X-Ray 04/23/20 01:15 IMPRESSION: Equivocal right upper lobe airspace opacity may reflect minor pneumonitis copyright 2011 [employer]- All Rights Reserved Assessment & Plan - Diagnosis (1) Pneumonia Qualifiers: Pneumonia type: due to unspecified organism Laterality: right Lung location: upper lobe of lung Qualified Code(s): J18.9 - Pneumonia, unspecified organism Is this a current diagnosis for this admission?: Yes Plan: Treat for community-acquired pneumonia with IV antibiotic (2) Person under investigation for COVID-19 Is this a current diagnosis for this admission?: Yes (3) Morbid obesity with BMI of 45.0-49.9, adult Is this a current diagnosis for this admission?: Yes (4) Type 2 diabetes mellitus Qualifiers: Diabetes mellitus chcf insulin use: without terminal computer operator use Diabetes mellitus complication status: with neurologic complications Diabetes mellitus complication detail: with polyneuropathy Qualified Code(s): E11.42 - Type 2 diabetes mellitus with diabetic polyneuropathy Is this a current diagnosis for this admission?: Yes - Time Time Spent: Greater than 70 Minutes Medications reviewed and adjusted accordingly: Yes Anticipated Discharge Disposition: Home, Self Care Anticipated Discharge Timeframe: within 72 hours
[2020-04-23] MEDS: INSULIN GLARGINE,HUM.REC.ANLOG 1,000 UNIT/10 ML VIAL SUBCUT SCH (22:30)
[2020-04-24] MEDS: OXYCODONE-ACETAMINOPHEN 5-325 MG TABLET PO PRN (00:54)
[2020-04-24] MEDS: LEVOTHYROXINE SODIUM 0.15 MG TABLET PO SCH (06:20)
[2020-04-24] MEDS: METFORMIN HCL 500 MG TABLET PO SCH ×2 (08:09→17:13)
[2020-04-24] MEDS: FUROSEMIDE 40 MG TABLET PO SCH (08:10)
--- NOTE | 2020-04-24 10:12 | PDOC PROGRESS REPORT ---
Subjective Progress Note for:: 04/24/20 Subjective:: Patient is currently doing well Patient's denied any chest pain no short of breath Patient admitted for the pneumonia and rule out COVID Reason For Visit: PNEUMONIA R/O SARS-O-V2,IRON DEFICIENCY ANEMIA Physical Exam Vital Signs: Temp Pulse Resp BP Pulse Ox 98.4 F 87 18 145/64 H 92 04/24/20 07:33 04/24/20 07:33 04/24/20 07:33 04/24/20 07:33 04/24/20 07:33 Intake & Output 04/23/20 04/24/20 04/25/20 06:59 06:59 06:59 Intake Total 1050 1305 Balance 1050 1305 Weight 133.5 kg 131.4 kg General appearance: PRESENT: no acute distress, well-developed, well-nourished Head exam: PRESENT: atraumatic, normocephalic Eye exam: PRESENT: conjunctiva pink, EOMI, PERRLA. ABSENT: scleral icterus Ear exam: PRESENT: normal external ear exam Mouth exam: PRESENT: moist, tongue midline Neck exam: PRESENT: full ROM. ABSENT: carotid bruit, JVD, lymphadenopathy, thyromegaly Respiratory exam: PRESENT: clear to auscultation singh Cardiovascular exam: PRESENT: RRR. ABSENT: diastolic murmur, rubs, systolic murmur Vascular exam: PRESENT: normal capillary refill GI/Abdominal exam: PRESENT: normal bowel sounds, soft. ABSENT: distended, guarding, mass, organolmegaly, rebound, tenderness Rectal exam: PRESENT: deferred Neurological exam: PRESENT: alert, awake, oriented to person, oriented to place, oriented to time, oriented to situation. ABSENT: motor sensory deficit Psychiatric exam: PRESENT: appropriate affect, normal mood. ABSENT: homicidal ideation, suicidal ideation Skin exam: PRESENT: dry, intact, warm. ABSENT: cyanosis, rash Results Laboratory Results: 04/23/20 01:39 04/23/20 01:39 04/23/20 01:39 Troponin I < 0.012 Impressions: Chest X-Ray 04/23/20 01:15 IMPRESSION: Equivocal right upper lobe airspace opacity may reflect minor pneumonitis copyright 2011 [employer]- All Rights Reserved Assessment & Plan - Diagnosis (1) Person under investigation for COVID-19 Is this a current diagnosis for this admission?: Yes Plan: Continues to current medications will waiting for the COVID test (2) Pneumonia Qualifiers: Pneumonia type: due to unspecified organism Laterality: right Lung location: upper lobe of lung Qualified Code(s): J18.9 - Pneumonia, unspecified organism Is this a current diagnosis for this admission?: Yes Plan: Continues the IV antibiotic - Time Time Spent with patient: 15-24 minutes Level of Care: IMCU Medications reviewed and adjusted accordingly: Yes Anticipated discharge: Other Anticipated DC Timeframe: Other - Plan Summary Plan Summary: Continues to current medications
[2020-04-24] MEDS: VENLAFAXINE HCL 75 MG CAP.SR.24H PO SCH (10:17)
[2020-04-24] MEDS: LAMOTRIGINE 100 MG TABLET PO SCH ×2 (10:17→22:15)
[2020-04-24] MEDS: GLIPIZIDE 5 MG TABLET PO SCH ×2 (10:17→17:13)
[2020-04-24] MEDS: APIXABAN 5 MG TABLET PO SCH ×2 (10:17→17:13)
[2020-04-24] MEDS: POTASSIUM CHLORIDE 10 MEQ TABLET.ER PO SCH (10:17)
[2020-04-24] MEDS: LOSARTAN POTASSIUM 50 MG TABLET PO SCH (10:17)
[2020-04-24] MEDS: ENOXAPARIN SODIUM INJ 40 MG/0.4 ML DISP.SYRIN SUBCUT SCH (10:18)
[2020-04-24] MEDS: INSULIN GLARGINE,HUM.REC.ANLOG 1,000 UNIT/10 ML VIAL SUBCUT SCH ×2 (10:42→22:17)
[2020-04-24] MEDS: AZITHROMYCIN 500 MG in DEXTROSE 5%-WATER 250 ML IV SCH (22:15)
[2020-04-24] MEDS: ATORVASTATIN CALCIUM 80 MG TABLET PO SCH (22:15)
[2020-04-24] MEDS: CEFTRIAXONE 1 GM/D5W RTU 1 GM/50 ML RTUPB IV SCH (22:17)
[2020-04-25] MEDS: NORMAL SALINE 1000 ML 1,000 ML IV PRN (05:10)
[2020-04-25] MEDS: LEVOTHYROXINE SODIUM 0.15 MG TABLET PO SCH (05:10)
[2020-04-25 06:43] LABS: ABSOLUTE MONOCYTES (AUTO) 0.6 10^3/uL (0.1-1.4); ABSOLUTE NEUT (AUTO) 3.8 10^3/uL (1.7-8.2); BASOPHILS % (AUTO) 0.3 % (0-2); EOSINOPHILS % (AUTO) 0.1 % (0-6); HEMATOCRIT 28.5 % (36.0-47.0); HEMOGLOBIN 9.2 g/dL (12.0-15.5); LYMPHOCYTES % (AUTO) 17.7 % (13-45); MEAN CORPUSCULAR HEMOGLOBIN 23.6 pg (27.0-33.4); MEAN CORPUSCULAR HGB CONC 32.2 g/dL (32.0-36.0); MEAN CORPUSCULAR VOLUME 73 fl (80-97); MONOCYTES % (AUTO) 11.2 % (3-13); PLATELET COUNT 241 10^3/uL (150-450); RED BLOOD COUNT 3.89 10^6/uL (3.72-5.28); RED CELL DISTRIBUTION WIDTH 16.2 % (11.5-14.0); SEGMENTED NEUTROPHILS % (AUTO) 70.7 % (42-78); TOTAL CELLS COUNTED % (AUTO) 100 %; WHITE BLOOD COUNT 5.4 10^3/uL (4.0-10.5)
[2020-04-25 07:13] LABS: ANION GAP 7 (5-19); BLOOD UREA NITROGEN 18 mg/dL (7-20); CALCIUM 8.3 mg/dL (8.4-10.2); CARBON DIOXIDE 29 mmol/L (22-30); CHLORIDE 102 mmol/L (98-107); GLUCOSE 101 mg/dL (75-110); POTASSIUM 4.5 mmol/L (3.6-5.0)
[2020-04-25] MEDS: FUROSEMIDE 40 MG TABLET PO SCH (07:51)
[2020-04-25] MEDS: METFORMIN HCL 500 MG TABLET PO SCH ×2 (07:51→17:09)
[2020-04-25] MEDS ORDERED: DEXTROSE 50%-WATER 25 GM/50 ML DISP.SYRIN IV PRN ×2 (09:28)
[2020-04-25] MEDS ORDERED: DEXTROSE 40% GEL 15 GM TUBE PO PRN ×2 (09:28)
[2020-04-25] MEDS ORDERED: GLUCAGON,HUMAN RECOMB 1 MG INJ IM PRN (09:28)
--- NOTE | 2020-04-25 09:31 | PDOC PROGRESS REPORT ---
Subjective Progress Note for:: 04/25/20 Subjective:: Patient is currently doing fair Patient's E. coli urinary tract infections resistance to those Rocephin Patient's blood sugar is running on the lower end No chest pain no short of breath Still waiting for the COVID Reason For Visit: PNEUMONIA R/O SARS-O-V2,IRON DEFICIENCY ANEMIA Physical Exam Vital Signs: Temp Pulse Resp BP Pulse Ox 98.7 F 95 19 152/61 H 89 L 04/25/20 08:13 04/25/20 08:13 04/25/20 08:13 04/25/20 08:13 04/25/20 08:13 Intake & Output 04/24/20 04/25/20 04/26/20 06:59 06:59 06:59 Intake Total 1305 2891 Balance 1305 2891 Weight 131.4 kg 132.4 kg General appearance: PRESENT: no acute distress Eye exam: PRESENT: PERRLA Mouth exam: PRESENT: neck supple Respiratory exam: PRESENT: decreased breath sounds Cardiovascular exam: PRESENT: +S1, +S2 GI/Abdominal exam: PRESENT: normal bowel sounds, soft Neurological exam: PRESENT: alert, awake, oriented to person, oriented to place, oriented to time, oriented to situation Results Laboratory Results: 04/25/20 05:01 04/25/20 05:01 04/25/20 04/25/20 05:01 05:01 WBC 5.4 RBC 3.89 Hgb 9.2 L Hct 28.5 L MCV 73 L MCH 23.6 L MCHC 32.2 RDW 16.2 H Plt Count 241 Seg Neutrophils % 70.7 Sodium 137.9 Potassium 4.5 Chloride 102 Carbon Dioxide 29 Anion Gap 7 BUN 18 Creatinine 0.85 Est GFR ( Amer) > 60 Glucose 101 Calcium 8.3 L 04/23/20 00:09 Clean Catch Midstream Urine Culture - Final Escherichia Coli 04/23/20 01:39 Troponin I < 0.012 Impressions: Chest X-Ray 04/23/20 01:15 IMPRESSION: Equivocal right upper lobe airspace opacity may reflect minor pneumonitis copyright 2011 [employer]- All Rights Reserved Assessment & Plan - Diagnosis (1) Person under investigation for COVID-19 Is this a current diagnosis for this admission?: Yes (2) Pneumonia Qualifiers: Pneumonia type: due to unspecified organism Laterality: right Lung location: upper lobe of lung Qualified Code(s): J18.9 - Pneumonia, unspecified organism Is this a current diagnosis for this admission?: Yes Plan: Continues the IV antibiotic (3) E. coli urinary tract infection Is this a current diagnosis for this admission?: Yes Plan: Change the IV Rocephin to the IV cefepime (4) Type 2 diabetes mellitus Qualifiers: Diabetes mellitus watermelon inspector insulin use: without watermelon inspector use Diabetes mellitus complication status: with neurologic complications Diabetes mellitus complication detail: with polyneuropathy Qualified Code(s): E11.42 - Type 2 diabetes mellitus with diabetic polyneuropathy Is this a current diagnosis for this admission?: Yes Plan: Discontinued the glipizide adjust the insulin sliding scale - Time Time Spent with patient: 15-24 minutes Level of Care: IMCU Medications reviewed and adjusted accordingly: Yes Anticipated discharge: Other Anticipated DC Timeframe: Other - Plan Summary Plan Summary: Continues to current medications
[2020-04-25] MEDS: VENLAFAXINE HCL 75 MG CAP.SR.24H PO SCH (10:19)
[2020-04-25] MEDS: LOSARTAN POTASSIUM 50 MG TABLET PO SCH (10:19)
[2020-04-25] MEDS: APIXABAN 5 MG TABLET PO SCH ×2 (10:19→17:09)
[2020-04-25] MEDS: LAMOTRIGINE 100 MG TABLET PO SCH ×2 (10:19→22:30)
[2020-04-25] MEDS: POTASSIUM CHLORIDE 10 MEQ TABLET.ER PO SCH (10:19)
[2020-04-25] MEDS ORDERED: INSULIN GLARGINE,HUM.REC.ANLOG 1,000 UNIT/10 ML VIAL (PYX) SUBCUT ONE (10:30)
[2020-04-25] MEDS: CEFEPIME 1 GM/D5W RTU 1 GM/50 ML RTUPB IV SCH ×2 (12:09→22:30)
[2020-04-25] MEDS: INSULIN LISPRO 100 UNIT/ML 3 ML VIAL SUBCUT SCH ×3 (12:10→22:32)
[2020-04-25] MEDS ORDERED: PHARMACY COMMUNICATION ORDER MC PRN (18:58)
[2020-04-25] MEDS ORDERED: DEXAMETHASONE SOD PHOSPHATE INJ 4 MG/1 ML VIAL IV ONE (19:00)
[2020-04-25] MEDS: AZITHROMYCIN 500 MG in DEXTROSE 5%-WATER 250 ML IV SCH (22:29)
[2020-04-25] MEDS: ATORVASTATIN CALCIUM 80 MG TABLET PO SCH (22:30)
[2020-04-25] MEDS: INSULIN GLARGINE,HUM.REC.ANLOG 1,000 UNIT/10 ML VIAL SUBCUT SCH (22:31)
[2020-04-26] MEDS: LEVOTHYROXINE SODIUM 0.15 MG TABLET PO SCH (05:48)
[2020-04-26] MEDS: DEXAMETHASONE SOD PHOSPHATE INJ 4 MG/1 ML VIAL IV SCH ×2 (05:48→17:20)
[2020-04-26] MEDS: INSULIN LISPRO 100 UNIT/ML 3 ML VIAL SUBCUT SCH ×4 (08:47→21:29)
[2020-04-26] MEDS: FUROSEMIDE 40 MG TABLET PO SCH (08:48)
[2020-04-26] MEDS: METFORMIN HCL 500 MG TABLET PO SCH ×2 (08:48→17:20)
[2020-04-26 08:49] LABS: ANION GAP 9 (5-19); BLOOD UREA NITROGEN 14 mg/dL (7-20); CALCIUM 8.3 mg/dL (8.4-10.2); CARBON DIOXIDE 24 mmol/L (22-30); CHLORIDE 103 mmol/L (98-107); GLUCOSE 207 mg/dL (75-110); POTASSIUM 4.4 mmol/L (3.6-5.0)
[2020-04-26] MEDS: POTASSIUM CHLORIDE 10 MEQ TABLET.ER PO SCH (11:54)
[2020-04-26] MEDS: LAMOTRIGINE 100 MG TABLET PO SCH ×2 (11:54→21:31)
[2020-04-26] MEDS: VENLAFAXINE HCL 75 MG CAP.SR.24H PO SCH (11:54)
[2020-04-26] MEDS: LOSARTAN POTASSIUM 50 MG TABLET PO SCH (11:54)
[2020-04-26] MEDS: APIXABAN 5 MG TABLET PO SCH ×2 (11:54→17:20)
[2020-04-26] MEDS: CEFEPIME 1 GM/D5W RTU 1 GM/50 ML RTUPB IV SCH ×2 (11:55→21:29)
[2020-04-26] MEDS ORDERED: REMDESIVIR (EUA) 200 MG in NORMAL SALINE 250 ML IV ONE (12:00)
[2020-04-26] MEDS: INSULIN GLARGINE,HUM.REC.ANLOG 1,000 UNIT/10 ML VIAL SUBCUT SCH (12:05)
--- NOTE | 2020-04-26 20:24 | PDOC PROGRESS REPORT ---
Subjective Progress Note for:: 04/26/20 Subjective:: Patient seen by the bedside , positive for SARS-CoV-2, Reason For Visit: PNEUMONIA R/O SARS-O-V2,IRON DEFICIENCY ANEMIA Physical Exam Vital Signs: Temp Pulse Resp BP Pulse Ox 97.6 F 85 16 150/66 H 94 04/26/20 16:40 04/26/20 16:40 04/26/20 16:40 04/26/20 16:40 04/26/20 16:40 Intake & Output 04/25/20 04/26/20 04/27/20 06:59 06:59 06:59 Intake Total 2891 1251 560 Output Total 1 Balance 2891 1250 560 Weight 132.4 kg 131.4 kg General appearance: PRESENT: no acute distress Eye exam: PRESENT: PERRLA Respiratory exam: PRESENT: clear to auscultation singh Cardiovascular exam: PRESENT: +S1, +S2 GI/Abdominal exam: PRESENT: soft Results Laboratory Results: 04/25/20 05:01 04/26/20 06:47 04/26/20 06:47 Sodium 136.0 L Potassium 4.4 Chloride 103 Carbon Dioxide 24 Anion Gap 9 BUN 14 Creatinine 0.74 Est GFR ( Amer) > 60 Glucose 207 H Calcium 8.3 L 04/23/20 01:39 Troponin I < 0.012 Impressions: Chest X-Ray 04/23/20 01:15 IMPRESSION: Equivocal right upper lobe airspace opacity may reflect minor pneumonitis copyright 2011 [employer]- All Rights Reserved Assessment & Plan - Diagnosis (1) Pneumonia due to COVID-19 virus Is this a current diagnosis for this admission?: Yes Plan: Patient on dexamethasone, Remdesivir , She will continue dexamethasone for 10 days, Remdesivir for 5 days (2) Pneumonia Qualifiers: Pneumonia type: due to unspecified organism Laterality: right Lung location: upper lobe of lung Qualified Code(s): J18.9 - Pneumonia, unspecified organism Is this a current diagnosis for this admission?: Yes (3) Morbid obesity with BMI of 45.0-49.9, adult Is this a current diagnosis for this admission?: Yes (4) Type 2 diabetes mellitus Qualifiers: Diabetes mellitus fpc insulin use: without salvage determiner use Diabetes mellitus complication status: with neurologic complications Diabetes mellitus complication detail: with polyneuropathy Qualified Code(s): E11.42 - Type 2 diabetes mellitus with diabetic polyneuropathy Is this a current diagnosis for this admission?: Yes Plan: The blood sugar is running high, adjust insulin - Time Time Spent with patient: 35 or more minutes Level of Care: IMCU Medications reviewed and adjusted accordingly: Yes Anticipated discharge: Home Anticipated DC Timeframe: Other - Inpatient Certification Based on my medical assessment, after consideration of the patient's comorbidities, presenting symptoms, or acuity I expect that the services needed warrant INPATIENT care.: Yes I certify that my determination is in accordance with my understanding of Medicare's requirements for reasonable and necessary INPATIENT services [42 CFR 412.3e].: Yes
[2020-04-26] MEDS ORDERED: INSULIN GLARGINE,HUM.REC.ANLOG 1,000 UNIT/10 ML VIAL (PYX) SUBCUT ONE (21:00)
[2020-04-26] MEDS: NORMAL SALINE 1000 ML 1,000 ML IV PRN (21:29)
[2020-04-26] MEDS: ATORVASTATIN CALCIUM 80 MG TABLET PO SCH (21:31)
[2020-04-26] MEDS: ACETAMINOPHEN 325 MG TABLET PO PRN (21:31)
[2020-04-26] MEDS: AZITHROMYCIN 500 MG in DEXTROSE 5%-WATER 250 ML IV SCH (22:30)
[2020-04-27] MEDS: LEVOTHYROXINE SODIUM 0.15 MG TABLET PO SCH (05:53)
[2020-04-27] MEDS: DEXAMETHASONE SOD PHOSPHATE INJ 4 MG/1 ML VIAL IV SCH ×2 (05:53→16:59)
[2020-04-27 05:57] LABS: ANION GAP 6 (5-19); BLOOD UREA NITROGEN 23 mg/dL (7-20); CALCIUM 8.3 mg/dL (8.4-10.2); CARBON DIOXIDE 26 mmol/L (22-30); CHLORIDE 106 mmol/L (98-107); GLUCOSE 140 mg/dL (75-110); POTASSIUM 4.3 mmol/L (3.6-5.0)
[2020-04-27] MEDS: INSULIN LISPRO 100 UNIT/ML 3 ML VIAL SUBCUT SCH ×4 (08:39→22:38)
[2020-04-27] MEDS: FUROSEMIDE 40 MG TABLET PO SCH (08:58)
[2020-04-27] MEDS: METFORMIN HCL 500 MG TABLET PO SCH ×2 (08:58→16:46)
[2020-04-27] MEDS: POTASSIUM CHLORIDE 10 MEQ TABLET.ER PO SCH (08:59)
[2020-04-27] MEDS: LOSARTAN POTASSIUM 50 MG TABLET PO SCH (08:59)
[2020-04-27] MEDS: LAMOTRIGINE 100 MG TABLET PO SCH ×2 (08:59→22:38)
[2020-04-27] MEDS: APIXABAN 5 MG TABLET PO SCH ×2 (08:59→17:00)
[2020-04-27] MEDS: OXYCODONE-ACETAMINOPHEN 5-325 MG TABLET PO PRN (08:59)
[2020-04-27] MEDS: CEFEPIME 1 GM/D5W RTU 1 GM/50 ML RTUPB IV SCH ×2 (09:00→22:39)
[2020-04-27] MEDS: VENLAFAXINE HCL 75 MG CAP.SR.24H PO SCH (09:01)
[2020-04-27] MEDS: INSULIN GLARGINE,HUM.REC.ANLOG 1,000 UNIT/10 ML VIAL SUBCUT SCH ×2 (09:40→22:38)
[2020-04-27] MEDS: REMDESIVIR (EUA) 100 MG in NORMAL SALINE 250 ML IV SCH (09:40)
--- NOTE | 2020-04-27 21:50 | PDOC PROGRESS REPORT ---
Subjective Progress Note for:: 04/27/20 Subjective:: Patient with COVID, blood sugar continue evaluated, she is on Decadron and Remdesivir Reason For Visit: PNEUMONIA R/O SARS-O-V2,IRON DEFICIENCY ANEMIA Physical Exam Vital Signs: Temp Pulse Resp BP Pulse Ox 97.9 F 89 16 164/69 H 95 04/27/20 16:30 04/27/20 16:30 04/27/20 16:30 04/27/20 16:30 04/27/20 16:30 Intake & Output 04/26/20 04/27/20 04/28/20 06:59 06:59 06:59 Intake Total 1251 2490 540 Output Total 1 0 1300 Balance 1250 2490 -760 Weight 131.4 kg 128 kg General appearance: PRESENT: no acute distress Eye exam: PRESENT: PERRLA Respiratory exam: PRESENT: clear to auscultation singh Cardiovascular exam: PRESENT: +S1, +S2 Neurological exam: PRESENT: alert Results Laboratory Results: 04/25/20 05:01 04/27/20 04:52 04/27/20 04:52 Sodium 137.9 Potassium 4.3 Chloride 106 Carbon Dioxide 26 Anion Gap 6 BUN 23 H Creatinine 0.86 Est GFR ( Amer) > 60 Glucose 140 H Calcium 8.3 L 04/23/20 14:36 Blood Blood Culture (PCR) - Final 04/23/20 01:39 Troponin I < 0.012 Impressions: Chest X-Ray 04/23/20 01:15 IMPRESSION: Equivocal right upper lobe airspace opacity may reflect minor pneumonitis copyright 2011 [employer]- All Rights Reserved Assessment & Plan - Diagnosis (1) Pneumonia due to COVID-19 virus Is this a current diagnosis for this admission?: Yes Plan: Patient on dexamethasone, Remdesivir , She will continue dexamethasone for 10 days, Remdesivir for 5 days (2) Pneumonia Qualifiers: Pneumonia type: due to unspecified organism Laterality: right Lung location: upper lobe of lung Qualified Code(s): J18.9 - Pneumonia, unspecified organism Is this a current diagnosis for this admission?: Yes (3) Morbid obesity with BMI of 45.0-49.9, adult Is this a current diagnosis for this admission?: Yes (4) Type 2 diabetes mellitus Qualifiers: Diabetes mellitus nursing home insulin use: without termite control technician use Diabetes mellitus complication status: with neurologic complications Diabetes mellitus complication detail: with polyneuropathy Qualified Code(s): E11.42 - Type 2 diabetes mellitus with diabetic polyneuropathy Is this a current diagnosis for this admission?: Yes - Time Time Spent with patient: 25-34 minutes Level of Care: IMCU Medications reviewed and adjusted accordingly: Yes Anticipated discharge: Home - Inpatient Certification Based on my medical assessment, after consideration of the patient's comorbi dities, presenting symptoms, or acuity I expect that the services needed warrant INPATIENT care.: No I certify that my determination is in accordance with my understanding of Medicare's requirements for reasonable and necessary INPATIENT services [42 CFR 412.3e].: No
[2020-04-27] MEDS: AZITHROMYCIN 500 MG in DEXTROSE 5%-WATER 250 ML IV SCH (22:37)
[2020-04-27] MEDS: ATORVASTATIN CALCIUM 80 MG TABLET PO SCH (22:39)
[2020-04-27] MEDS: NORMAL SALINE 1000 ML 1,000 ML IV PRN (23:01)
[2020-04-28] MEDS: DEXAMETHASONE SOD PHOSPHATE INJ 4 MG/1 ML VIAL IV SCH ×2 (05:57→18:19)
[2020-04-28] MEDS: LEVOTHYROXINE SODIUM 0.15 MG TABLET PO SCH (05:58)
[2020-04-28] MEDS: INSULIN LISPRO 100 UNIT/ML 3 ML VIAL SUBCUT SCH ×4 (09:14→22:50)
[2020-04-28] MEDS: LAMOTRIGINE 100 MG TABLET PO SCH ×2 (09:15→22:49)
[2020-04-28] MEDS: VENLAFAXINE HCL 75 MG CAP.SR.24H PO SCH (09:15)
[2020-04-28] MEDS: APIXABAN 5 MG TABLET PO SCH ×2 (09:15→18:20)
[2020-04-28] MEDS: LOSARTAN POTASSIUM 50 MG TABLET PO SCH (09:15)
[2020-04-28] MEDS: FUROSEMIDE 40 MG TABLET PO SCH (09:16)
[2020-04-28] MEDS: METFORMIN HCL 500 MG TABLET PO SCH ×2 (09:16→18:20)
[2020-04-28] MEDS: POTASSIUM CHLORIDE 10 MEQ TABLET.ER PO SCH (09:16)
[2020-04-28] MEDS: INSULIN GLARGINE,HUM.REC.ANLOG 1,000 UNIT/10 ML VIAL SUBCUT SCH ×2 (09:16→22:49)
[2020-04-28] MEDS: CEFEPIME 1 GM/D5W RTU 1 GM/50 ML RTUPB IV SCH ×2 (09:17→22:49)
[2020-04-28] MEDS: REMDESIVIR (EUA) 100 MG in NORMAL SALINE 250 ML IV SCH (11:14)
--- NOTE | 2020-04-28 16:22 | PDOC PROGRESS REPORT ---
Subjective Progress Note for:: 04/28/20 Subjective:: Patient seen by the bedside, I had a long discussion with regarding specifically disposition, she continues to make progress with a SARS-CoV-2 infection Reason For Visit: PNEUMONIA R/O SARS-O-V2,IRON DEFICIENCY ANEMIA Physical Exam Vital Signs: Temp Pulse Resp BP Pulse Ox 97.6 F 84 21 H 157/67 H 93 04/28/20 11:19 04/28/20 11:19 04/28/20 11:19 04/28/20 11:19 04/28/20 11:19 Intake & Output 04/27/20 04/28/20 04/29/20 06:59 06:59 06:59 Intake Total 2490 1856 920 Output Total 0 2600 200 Balance 2490 -744 720 Weight 128 kg 130 kg General appearance: PRESENT: no acute distress Eye exam: PRESENT: PERRLA Respiratory exam: PRESENT: clear to auscultation singh Cardiovascular exam: PRESENT: +S1, +S2 GI/Abdominal exam: PRESENT: soft Neurological exam: PRESENT: alert Results Laboratory Results: 04/25/20 05:01 04/27/20 04:52 04/23/20 15:10 Blood Blood Culture - Final NO GROWTH IN 5 DAYS 04/23/20 14:36 Blood Blood Culture (PCR) - Final 04/23/20 14:36 Blood Blood Culture - Final Micrococcus Species 04/23/20 01:39 Troponin I < 0.012 Impressions: Chest X-Ray 04/23/20 01:15 IMPRESSION: Equivocal right upper lobe airspace opacity may reflect minor pneumonitis copyright 2011 [employer]- All Rights Reserved Assessment & Plan - Diagnosis (1) Pneumonia due to COVID-19 virus Is this a current diagnosis for this admission?: Yes Plan: Patient on dexamethasone, Remdesivir , She will continue dexamethasone for 10 days, Remdesivir for 5 days (2) Pneumonia Qualifiers: Pneumonia type: due to unspecified organism Laterality: right Lung location: upper lobe of lung Qualified Code(s): J18.9 - Pneumonia, unspecified organism Is this a current diagnosis for this admission?: Yes (3) Morbid obesity with BMI of 45.0-49.9, adult Is this a current diagnosis for this admission?: Yes (4) Type 2 diabetes mellitus Qualifiers: Diabetes mellitus care home insulin use: without intermediate school teacher use Diabetes mellitus complication status: with neurologic complications Diabetes mellitus complication detail: with polyneuropathy Qualified Code(s): E11.42 - Type 2 diabetes mellitus with diabetic polyneuropathy Is this a current diagnosis for this admission?: Yes - Time Time Spent with patient: 25-34 minutes Level of Care: IMCU Medications reviewed and adjusted accordingly: Yes Anticipated discharge: Home with Homehealth Anticipated DC Timeframe: Other - Inpatient Certification Based on my medical assessment, after consideration of the patient's comorbidities, presenting symptoms, or acuity I expect that the services needed warrant INPATIENT care.: Yes I certify that my determination is in accordance with my understanding of Medicare's requirements for reasonable and necessary INPATIENT services [42 CFR 412.3e].: Yes
[2020-04-28] MEDS: ATORVASTATIN CALCIUM 80 MG TABLET PO SCH (22:49)
[2020-04-28] MEDS: AZITHROMYCIN 500 MG in DEXTROSE 5%-WATER 250 ML IV SCH (22:49)
[2020-04-29] MEDS: DEXAMETHASONE SOD PHOSPHATE INJ 4 MG/1 ML VIAL IV SCH ×2 (05:30→17:11)
[2020-04-29] MEDS: NORMAL SALINE 1000 ML 1,000 ML IV PRN (05:33)
[2020-04-29 05:36] LABS: HEMATOCRIT 28.6 % (36.0-47.0); HEMOGLOBIN 9.2 g/dL (12.0-15.5); MEAN CORPUSCULAR HEMOGLOBIN 23.5 pg (27.0-33.4); MEAN CORPUSCULAR HGB CONC 32.3 g/dL (32.0-36.0); MEAN CORPUSCULAR VOLUME 73 fl (80-97); PLATELET COUNT 340 10^3/uL (150-450); RED BLOOD COUNT 3.92 10^6/uL (3.72-5.28); RED CELL DISTRIBUTION WIDTH 16.9 % (11.5-14.0); WHITE BLOOD COUNT 9.9 10^3/uL (4.0-10.5)
[2020-04-29 05:46] LABS: ANION GAP 8 (5-19); BLOOD UREA NITROGEN 21 mg/dL (7-20); CALCIUM 8.3 mg/dL (8.4-10.2); CARBON DIOXIDE 25 mmol/L (22-30); CHLORIDE 100 mmol/L (98-107); GLUCOSE 194 mg/dL (75-110); POTASSIUM 4.5 mmol/L (3.6-5.0)
[2020-04-29] MEDS: LEVOTHYROXINE SODIUM 0.15 MG TABLET PO SCH (06:00)
[2020-04-29 06:08] LABS: ABSOLUTE LYMPHOCYTES# (MANUAL) 1.3 10^3/uL (0.5-4.7); ABSOLUTE MONOCYTES # (MANUAL) 0.5 10^3/uL (0.1-1.4); BAND NEUTROPHILS % (MANUAL) 4 % (3-5); BASOPHILS % (MANUAL) 0 % (0-2); EOSINOPHILS % (MANUAL) 0 % (0-6); LYMPHOCYTES % (MANUAL) 11 % (13-45); MONOCYTES % (MANUAL) 5 % (3-13); SEGMENTED NEUTROPHILS % (MAN) 78 % (42-78); TOTAL CELLS COUNTED 100
[2020-04-29 06:09] LABS: ANISOCYTOSIS 1+; BURR CELLS SLIGHT; HYPOCHROMASIA SLIGHT; OVALOCYTES SLIGHT; POIKILOCYTOSIS SLIGHT; POLYCHROMASIA SLIGHT; SCHISTOCYTES SLIGHT; TOXIC GRANULATION SLIGHT; TOXIC VACUOLATION PRESENT
[2020-04-29 06:10] LABS: PLATELET COMMENT ADEQUATE; TEAR DROP CELLS SLIGHT
[2020-04-29] MEDS: INSULIN LISPRO 100 UNIT/ML 3 ML VIAL SUBCUT SCH ×4 (09:02→22:31)
[2020-04-29] MEDS: LAMOTRIGINE 100 MG TABLET PO SCH ×2 (09:03→22:25)
[2020-04-29] MEDS: POTASSIUM CHLORIDE 10 MEQ TABLET.ER PO SCH (09:03)
[2020-04-29] MEDS: APIXABAN 5 MG TABLET PO SCH ×2 (09:03→17:11)
[2020-04-29] MEDS: VENLAFAXINE HCL 75 MG CAP.SR.24H PO SCH (09:03)
[2020-04-29] MEDS: LOSARTAN POTASSIUM 50 MG TABLET PO SCH (09:03)
[2020-04-29] MEDS: METFORMIN HCL 500 MG TABLET PO SCH ×2 (09:03→17:11)
[2020-04-29] MEDS: FUROSEMIDE 40 MG TABLET PO SCH (09:03)
[2020-04-29] MEDS: CEFEPIME 1 GM/D5W RTU 1 GM/50 ML RTUPB IV SCH ×2 (09:04→22:26)
[2020-04-29] MEDS: INSULIN GLARGINE,HUM.REC.ANLOG 1,000 UNIT/10 ML VIAL SUBCUT SCH ×2 (09:04→22:31)
[2020-04-29] MEDS: REMDESIVIR (EUA) 100 MG in NORMAL SALINE 250 ML IV SCH (09:45)
--- NOTE | 2020-04-29 20:05 | PDOC PROGRESS REPORT ---
Subjective Progress Note for:: 04/29/20 Subjective:: Patient with COVID, doing well, she was seen by physical therapy today Reason For Visit: PNEUMONIA R/O SARS-O-V2,IRON DEFICIENCY ANEMIA Physical Exam Vital Signs: Temp Pulse Resp BP Pulse Ox 97.7 F 81 18 150/60 H 94 04/29/20 15:22 04/29/20 15:22 04/29/20 15:22 04/29/20 15:22 04/29/20 15:22 Intake & Output 04/28/20 04/29/20 04/30/20 06:59 06:59 06:59 Intake Total 1856 2586 1020 Output Total 2600 1950 2500 Balance -744 636 -1480 Weight 130 kg 125.9 kg 125.9 kg General appearance: PRESENT: no acute distress Eye exam: PRESENT: PERRLA Respiratory exam: PRESENT: clear to auscultation singh Cardiovascular exam: PRESENT: +S1, +S2 Neurological exam: PRESENT: alert, CN II-XII grossly intact Results Laboratory Results: 04/29/20 04:28 04/29/20 04:28 04/29/20 04/29/20 04:28 04:28 WBC 9.9 RBC 3.92 Hgb 9.2 L Hct 28.6 L MCV 73 L MCH 23.5 L MCHC 32.3 RDW 16.9 H Plt Count 340 Seg Neutrophils % Not Reportable Sodium 133.3 L Potassium 4.5 Chloride 100 Carbon Dioxide 25 Anion Gap 8 BUN 21 H Creatinine 0.72 Est GFR ( Amer) > 60 Glucose 194 H Calcium 8.3 L 04/23/20 01:39 Troponin I < 0.012 Impressions: Chest X-Ray 04/23/20 01:15 IMPRESSION: Equivocal right upper lobe airspace opacity may reflect minor pneumonitis copyright 2011 [employer]- All Rights Reserved Assessment & Plan - Diagnosis (1) Pneumonia due to COVID-19 virus Is this a current diagnosis for this admission?: Yes Plan: Patient on dexamethasone, Remdesivir , She will continue dexamethasone for 10 days, Remdesivir for 5 days (2) Pneumonia Qualifiers: Pneumonia type: due to unspecified organism Laterality: right Lung loc ation: upper lobe of lung Qualified Code(s): J18.9 - Pneumonia, unspecified organism Is this a current diagnosis for this admission?: Yes (3) Morbid obesity with BMI of 45.0-49.9, adult Is this a current diagnosis for this admission?: Yes (4) Type 2 diabetes mellitus Qualifiers: Diabetes mellitus usp insulin use: without long wall mining machine tender use Diabetes mellitus complication status: with neurologic complications Diabetes mellitus complication detail: with polyneuropathy Qualified Code(s): E11.42 - Type 2 diabetes mellitus with diabetic polyneuropathy Is this a current diagnosis for this admission?: Yes - Time Time Spent with patient: 25-34 minutes Level of Care: IMCU Medications reviewed and adjusted accordingly: Yes Anticipated discharge: Home with Homehealth Anticipated DC Timeframe: within 72 hours - Inpatient Certification Based on my medical assessment, after consideration of the patient's comorbidities, presenting symptoms, or acuity I expect that the services needed warrant INPATIENT care.: Yes I certify that my determination is in accordance with my understanding of Medicare's requirements for reasonable and necessary INPATIENT services [42 CFR 412.3e].: Yes
[2020-04-29] MEDS: ATORVASTATIN CALCIUM 80 MG TABLET PO SCH (22:25)
[2020-04-29] MEDS: AZITHROMYCIN 500 MG in DEXTROSE 5%-WATER 250 ML IV SCH (22:27)
[2020-04-30] MEDS: DEXAMETHASONE SOD PHOSPHATE INJ 4 MG/1 ML VIAL IV SCH ×2 (06:33→17:28)
[2020-04-30] MEDS: LEVOTHYROXINE SODIUM 0.15 MG TABLET PO SCH (06:34)
[2020-04-30] MEDS: INSULIN LISPRO 100 UNIT/ML 3 ML VIAL SUBCUT SCH ×3 (07:50→17:28)
[2020-04-30] MEDS: METFORMIN HCL 500 MG TABLET PO SCH ×2 (07:51→17:28)
[2020-04-30] MEDS: FUROSEMIDE 40 MG TABLET PO SCH (07:51)
[2020-04-30] MEDS: INSULIN GLARGINE,HUM.REC.ANLOG 1,000 UNIT/10 ML VIAL SUBCUT SCH (09:52)
[2020-04-30] MEDS: APIXABAN 5 MG TABLET PO SCH ×2 (09:52→17:28)
[2020-04-30] MEDS: VENLAFAXINE HCL 75 MG CAP.SR.24H PO SCH (09:52)
[2020-04-30] MEDS: CEFEPIME 1 GM/D5W RTU 1 GM/50 ML RTUPB IV SCH ×2 (09:52→21:22)
[2020-04-30] MEDS: LOSARTAN POTASSIUM 50 MG TABLET PO SCH (09:53)
[2020-04-30] MEDS: LAMOTRIGINE 100 MG TABLET PO SCH ×2 (09:53→21:22)
[2020-04-30] MEDS: POTASSIUM CHLORIDE 10 MEQ TABLET.ER PO SCH (09:53)
[2020-04-30] MEDS: REMDESIVIR (EUA) 100 MG in NORMAL SALINE 250 ML IV SCH (11:26)
[2020-04-30] MEDS: NORMAL SALINE 1000 ML 1,000 ML IV PRN (17:27)
--- NOTE | 2020-04-30 20:55 | PDOC PROGRESS REPORT ---
Subjective Progress Note for:: 04/30/20 Subjective:: Patient seen by the bedside, she continues to make progress, the serum glucose elevated poorly controlled, the Lantus dose adjusted to achieve glucose control Reason For Visit: PNEUMONIA R/O SARS-O-V2,IRON DEFICIENCY ANEMIA Physical Exam Vital Signs: Temp Pulse Resp BP Pulse Ox 97.6 F 98 21 H 161/75 H 97 04/30/20 19:48 04/30/20 19:48 04/30/20 19:48 04/30/20 19:48 04/30/20 19:48 Intake & Output 04/29/20 04/30/20 05/01/20 06:59 06:59 06:59 Intake Total 2586 1490 1800 Output Total 1950 3800 450 Balance 636 -2310 1350 Weight 125.9 kg 124.5 kg General appearance: PRESENT: no acute distress Eye exam: PRESENT: PERRLA Respiratory exam: PRESENT: clear to auscultation singh Cardiovascular exam: PRESENT: +S1, +S2 Results Laboratory Results: 04/29/20 04:28 04/29/20 04:28 04/23/20 01:39 Troponin I < 0.012 Impressions: Chest X-Ray 04/23/20 01:15 IMPRESSION: Equivocal right upper lobe airspace opacity may reflect minor pneumonitis copyright 2011 [employer]- All Rights Reserved Assessment & Plan - Diagnosis (1) Pneumonia due to COVID-19 virus Is this a current diagnosis for this admission?: Yes Plan: Continue present antibiotic regimen including antiviral regimen remdesivir (2) Pneumonia Qualifiers: Pneumonia type: due to unspecified organism Laterality: right Lung location: upper lobe of lung Qualified Code(s): J18.9 - Pneumonia, unspecified organism Is this a current diagnosis for this admission?: Yes (3) Morbid obesity with BMI of 45.0-49.9, adult Is this a current diagnosis for this admission?: Yes (4) Type 2 diabetes mellitus Qualifiers: Diabetes mellitus group home insulin use: without local company intermodal truck driver use Diabetes mellitus complication status: with neurologic complications Diabetes mellitus complication detail: with polyneuropathy Qualified Code(s): E11.42 - Type 2 diabetes mellitus with diabetic polyneuropathy Is this a current diagnosis for this admission?: Yes - Time Time Spent with patient: 25-34 minutes Level of Care: IMCU Medications reviewed and adjusted accordingly: Yes Anticipated discharge: Home Anticipated DC Timeframe: within 72 hours - Inpatient Certification Based on my medical assessment, after consideration of the patient's comorbidities, presenting symptoms, or acuity I expect that the services needed warrant INPATIENT care.: Yes I certify that my determination is in accordance with my understanding of Medicare's requirements for reasonable and necessary INPATIENT services [42 CFR 412.3e].: Yes
[2020-04-30] MEDS: ATORVASTATIN CALCIUM 80 MG TABLET PO SCH (21:22)
[2020-05-01] MEDS: INSULIN GLARGINE,HUM.REC.ANLOG 1,000 UNIT/10 ML VIAL SUBCUT SCH ×3 (00:06→22:16)
[2020-05-01] MEDS: INSULIN LISPRO 100 UNIT/ML 3 ML VIAL SUBCUT SCH ×5 (00:07→22:15)
[2020-05-01] MEDS: DEXAMETHASONE SOD PHOSPHATE INJ 4 MG/1 ML VIAL IV SCH ×2 (05:34→17:00)
[2020-05-01] MEDS: LEVOTHYROXINE SODIUM 0.15 MG TABLET PO SCH (05:34)
[2020-05-01] MEDS: FUROSEMIDE 40 MG TABLET PO SCH (08:30)
[2020-05-01] MEDS: METFORMIN HCL 500 MG TABLET PO SCH ×2 (08:30→17:01)
[2020-05-01] MEDS: LAMOTRIGINE 100 MG TABLET PO SCH ×2 (10:55→22:17)
[2020-05-01] MEDS: LOSARTAN POTASSIUM 50 MG TABLET PO SCH (10:55)
[2020-05-01] MEDS: APIXABAN 5 MG TABLET PO SCH ×2 (10:55→17:01)
[2020-05-01] MEDS: CEFEPIME 1 GM/D5W RTU 1 GM/50 ML RTUPB IV SCH ×2 (10:55→22:16)
[2020-05-01] MEDS: VENLAFAXINE HCL 75 MG CAP.SR.24H PO SCH (10:55)
[2020-05-01] MEDS: POTASSIUM CHLORIDE 10 MEQ TABLET.ER PO SCH (10:56)
--- NOTE | 2020-05-01 13:31 | PDOC PROGRESS REPORT ---
Subjective Progress Note for:: 05/01/20 Subjective:: Patient seen by the bedside she continues to improve Reason For Visit: PNEUMONIA R/O SARS-O-V2,IRON DEFICIENCY ANEMIA Physical Exam Vital Signs: Temp Pulse Resp BP Pulse Ox 97.6 F 92 20 167/72 H 97 05/01/20 12:00 05/01/20 12:00 05/01/20 12:00 05/01/20 12:00 05/01/20 12:00 Intake & Output 04/30/20 05/01/20 05/02/20 06:59 06:59 06:59 Intake Total 1490 2250 50 Output Total 3800 2150 Balance -2310 100 50 Weight 124.5 kg 124.5 kg General appearance: PRESENT: no acute distress Eye exam: PRESENT: PERRLA Respiratory exam: PRESENT: clear to auscultation singh Cardiovascular exam: PRESENT: +S1, +S2 Results Laboratory Results: 04/29/20 04:28 04/29/20 04:28 04/23/20 01:39 Troponin I < 0.012 Impressions: Chest X-Ray 04/23/20 01:15 IMPRESSION: Equivocal right upper lobe airspace opacity may reflect minor pneumonitis copyright 2011 [employer]- All Rights Reserved Assessment & Plan - Diagnosis (1) Pneumonia due to COVID-19 virus Is this a current diagnosis for this admission?: Yes Plan: She has SARS-CoV-2 pneumonia, she has finished 5-day course of remdesivir, presently on dexamethasone for a total of 10 days, obtain chest x-ray today (2) Pneumonia Qualifiers: Pneumonia type: due to unspecified organism Laterality: right Lung l ocation: upper lobe of lung Qualified Code(s): J18.9 - Pneumonia, unspecified organism Is this a current diagnosis for this admission?: Yes (3) Morbid obesity with BMI of 45.0-49.9, adult Is this a current diagnosis for this admission?: Yes (4) Type 2 diabetes mellitus Qualifiers: Diabetes mellitus assisted insulin use: without predatory animal exterminator use Diabetes mellitus complication status: with neurologic complications Diabetes mellitus complication detail: with polyneuropathy Qualified Code(s): E11.42 - Type 2 diabetes mellitus with diabetic polyneuropathy Is this a current diagnosis for this admission?: Yes Plan: The dose of the insulin was adjusted yesterday because of persisting hyperglycemia - Time Time Spent with patient: 35 or more minutes Level of Care: IMCU Medications reviewed and adjusted accordingly: Yes Anticipated discharge: Home Anticipated DC Timeframe: Other
--- NOTE | 2020-05-01 14:28 | RADIOLOGY REPORT (SQ) ---
EXAM DESCRIPTION: CHEST SINGLE VIEW IMAGES COMPLETED DATE/TIME: 05/01/2020 2:15 pm REASON FOR STUDY: pneumonia COMPARISON: 04/23/2020 TECHNIQUE: Single frontal radiographic view of the chest acquired. NUMBER OF VIEWS: One view. LIMITATIONS: Mild RPO positioning. FINDINGS: LUNGS AND PLEURA: No pneumothorax. New right basilar patchy consolidation. No significan t pleural effusion. MEDIASTINUM AND HILAR STRUCTURES: Stable. HEART AND VASCULAR STRUCTURES: Stable. BONES: No acute findings. HARDWARE: None in the chest. OTHER: No other significant finding. IMPRESSION: New right basilar patchy consolidation. TECHNICAL DOCUMENTATION: JOB ID: [id number] 2010 [employer]- All Rights Reserved Reading location - IP/workstation name: [email or web address]
[2020-05-01] MEDS: NORMAL SALINE 1000 ML 1,000 ML IV PRN (22:15)
[2020-05-01] MEDS: ATORVASTATIN CALCIUM 80 MG TABLET PO SCH (22:17)
[2020-05-02] MEDS: LEVOTHYROXINE SODIUM 0.15 MG TABLET PO SCH (05:18)
[2020-05-02] MEDS: DEXAMETHASONE SOD PHOSPHATE INJ 4 MG/1 ML VIAL IV SCH ×2 (05:18→17:37)
[2020-05-02] MEDS: INSULIN LISPRO 100 UNIT/ML 3 ML VIAL SUBCUT SCH ×4 (09:04→22:33)
[2020-05-02] MEDS: APIXABAN 5 MG TABLET PO SCH ×2 (09:07→17:37)
[2020-05-02] MEDS: FUROSEMIDE 40 MG TABLET PO SCH (09:07)
[2020-05-02] MEDS: VENLAFAXINE HCL 75 MG CAP.SR.24H PO SCH (09:07)
[2020-05-02] MEDS: LOSARTAN POTASSIUM 50 MG TABLET PO SCH (09:07)
[2020-05-02] MEDS: LAMOTRIGINE 100 MG TABLET PO SCH ×2 (09:07→22:36)
[2020-05-02] MEDS: POTASSIUM CHLORIDE 10 MEQ TABLET.ER PO SCH (09:07)
[2020-05-02] MEDS: METFORMIN HCL 500 MG TABLET PO SCH ×2 (09:07→17:37)
[2020-05-02] MEDS: CEFEPIME 1 GM/D5W RTU 1 GM/50 ML RTUPB IV SCH (09:08)
[2020-05-02] MEDS: INSULIN GLARGINE,HUM.REC.ANLOG 1,000 UNIT/10 ML VIAL SUBCUT SCH ×2 (09:08→22:36)
[2020-05-02] MEDS ORDERED: FERRIC CARBOXYMALTOSE INJ 750 MG/15 ML VIAL IV ONE (14:00)
[2020-05-02] MEDS ORDERED: FERRIC CARBOXYMALTOSE 750 MG in NORMAL SALINE 250 ML IV ONE (14:30)
--- NOTE | 2020-05-02 14:53 | PDOC PROGRESS REPORT ---
Subjective Progress Note for:: 05/02/20 Subjective:: Patient seen by the bedside, she continues to make progress, tentatively she be discharged on Sunday Reason For Visit: PNEUMONIA R/O SARS-O-V2,IRON DEFICIENCY ANEMIA Physical Exam Vital Signs: Temp Pulse Resp BP Pulse Ox 97.9 F 102 H 16 159/70 H 92 05/02/20 11:38 05/02/20 14:00 05/02/20 11:38 05/02/20 11:38 05/02/20 11:38 Intake & Output 05/01/20 05/02/20 05/03/20 06:59 06:59 06:59 Intake Total 2250 1484 50 Output Total 2150 1520 Balance 100 -36 50 Weight 124.5 kg 124.5 kg General appearance: PRESENT: no acute distress Eye exam: PRESENT: PERRLA Respiratory exam: PRESENT: clear to auscultation singh Cardiovascular exam: PRESENT: +S1, +S2 GI/Abdominal exam: PRESENT: soft Neurological exam: PRESENT: alert, CN II-XII grossly intact Results Laboratory Results: 04/29/20 04:28 04/29/20 04:28 04/23/20 01:39 Troponin I < 0.012 Impressions: Chest X-Ray 05/01/20 00:00 IMPRESSION: New right basilar patchy consolidation. Assessment & Plan - Diagnosis (1) Pneumonia due to COVID-19 virus Is this a current diagnosis for this admission?: Yes Plan: She has SARS-CoV-2 pneumonia, she has finished 5-day course of remdesivir, presently on dexamethasone for a total of 10 days, (2) Pneumonia Qualifiers: Pneumonia type: due to unspecified organism Laterality: right Lung location: upper lobe of lung Qualified Code(s): J18.9 - Pneumonia, unspecified organism Is this a current diagnosis for this admission?: Yes (3) Morbid obesity with BMI of 45.0-49.9, adult Is this a current diagnosis for this admission?: Yes (4) Type 2 diabetes mellitus Qualifiers: Diabetes mellitus water hauler insulin use: without long-term use Diabetes mellitus complication status: with neurologic complications Diabetes mellitus complication detail: with polyneuropathy Qualified Code(s): E11.42 - Type 2 diabetes mellitus with diabetic polyneuropathy Is this a current diagnosis for this admission?: Yes - Time Time Spent with patient: 25-34 minutes Level of Care: IMCU Medications reviewed and adjusted accordingly: Yes Anticipated DC Timeframe: within 72 hours
[2020-05-02 15:31] LABS: ABSOLUTE MONOCYTES (AUTO) 0.8 10^3/uL (0.1-1.4); BASOPHILS % (AUTO) 0.2 % (0-2); EOSINOPHILS % (AUTO) 0.3 % (0-6); HEMOGLOBIN 9.8 g/dL (12.0-15.5); LYMPHOCYTES % (AUTO) 13.2 % (13-45); MEAN CORPUSCULAR HEMOGLOBIN 24.1 pg (27.0-33.4); MEAN CORPUSCULAR HGB CONC 32.8 g/dL (32.0-36.0); MEAN CORPUSCULAR VOLUME 74 fl (80-97); MONOCYTES % (AUTO) 9.8 % (3-13); PLATELET COUNT 353 10^3/uL (150-450); RED BLOOD COUNT 4.07 10^6/uL (3.72-5.28); RED CELL DISTRIBUTION WIDTH 16.8 % (11.5-14.0); SEGMENTED NEUTROPHILS % (AUTO) 76.5 % (42-78); TOTAL CELLS COUNTED % (AUTO) 100 %; WHITE BLOOD COUNT 7.9 10^3/uL (4.0-10.5)
[2020-05-02 15:42] LABS: ALBUMIN 3.2 g/dL (3.5-5.0); ALKALINE PHOSPHATASE 145 U/L (38-126); ANION GAP 7 (5-19); ASPARTATE AMINO TRANSFERASE 29 U/L (14-36); BILIRUBIN,DIRECT 0.3 mg/dL (0.0-0.4); BILIRUBIN,TOTAL 0.5 mg/dL (0.2-1.3); BLOOD UREA NITROGEN 24 mg/dL (7-20); CALCIUM 8.3 mg/dL (8.4-10.2); CARBON DIOXIDE 30 mmol/L (22-30); CHLORIDE 94 mmol/L (98-107); GLUCOSE 236 mg/dL (75-110); POTASSIUM 4.3 mmol/L (3.6-5.0); TOTAL PROTEIN 5.9 g/dL (6.3-8.2)
[2020-05-02] MEDS: ATORVASTATIN CALCIUM 80 MG TABLET PO SCH (22:36)
[2020-05-03] MEDS: NORMAL SALINE 1000 ML 1,000 ML IV PRN ×2 (01:30→08:41)
[2020-05-03] MEDS: LEVOTHYROXINE SODIUM 0.15 MG TABLET PO SCH ×2 (05:44→06:37)
[2020-05-03] MEDS: DEXAMETHASONE SOD PHOSPHATE INJ 4 MG/1 ML VIAL IV SCH ×3 (05:44→17:05)
[2020-05-03] MEDS: ACETAMINOPHEN 325 MG TABLET PO PRN (06:38)
[2020-05-03 06:53] LABS: ABSOLUTE EOSINOPHILS # (AUTO) 0.1 10^3/uL (0.0-0.6); ABSOLUTE LYMPHOCYTES (AUTO) 2.1 10^3/uL (0.5-4.7); ABSOLUTE MONOCYTES (AUTO) 0.8 10^3/uL (0.1-1.4); ABSOLUTE NEUT (AUTO) 4.8 10^3/uL (1.7-8.2); BASOPHILS % (AUTO) 0.5 % (0-2); EOSINOPHILS % (AUTO) 1.1 % (0-6); HEMATOCRIT 29.2 % (36.0-47.0); HEMOGLOBIN 9.8 g/dL (12.0-15.5); LYMPHOCYTES % (AUTO) 26.3 % (13-45); MEAN CORPUSCULAR HEMOGLOBIN 24.5 pg (27.0-33.4); MEAN CORPUSCULAR HGB CONC 33.6 g/dL (32.0-36.0); MEAN CORPUSCULAR VOLUME 73 fl (80-97); MONOCYTES % (AUTO) 10.4 % (3-13); PLATELET COUNT 332 10^3/uL (150-450); RED BLOOD COUNT 4.01 10^6/uL (3.72-5.28); SEGMENTED NEUTROPHILS % (AUTO) 61.7 % (42-78); TOTAL CELLS COUNTED % (AUTO) 100 %; WHITE BLOOD COUNT 7.8 10^3/uL (4.0-10.5)
[2020-05-03 07:23] LABS: ALBUMIN 3.1 g/dL (3.5-5.0); ALKALINE PHOSPHATASE 139 U/L (38-126); ANION GAP 6 (5-19); ASPARTATE AMINO TRANSFERASE 28 U/L (14-36); BILIRUBIN,DIRECT 0.2 mg/dL (0.0-0.4); BILIRUBIN,TOTAL 0.5 mg/dL (0.2-1.3); BLOOD UREA NITROGEN 21 mg/dL (7-20); CALCIUM 8.4 mg/dL (8.4-10.2); CARBON DIOXIDE 33 mmol/L (22-30); CHLORIDE 96 mmol/L (98-107); POTASSIUM 3.9 mmol/L (3.6-5.0); TOTAL PROTEIN 5.9 g/dL (6.3-8.2)
[2020-05-03 07:32] LABS: GLUCOSE 65 mg/dL (75-110)
[2020-05-03] MEDS: FUROSEMIDE 40 MG TABLET PO SCH (07:56)
[2020-05-03] MEDS: INSULIN LISPRO 100 UNIT/ML 3 ML VIAL SUBCUT SCH ×4 (08:01→21:33)
[2020-05-03] MEDS: METFORMIN HCL 500 MG TABLET PO SCH ×2 (08:01→17:05)
[2020-05-03] MEDS: APIXABAN 5 MG TABLET PO SCH ×2 (09:04→17:05)
[2020-05-03] MEDS: LAMOTRIGINE 100 MG TABLET PO SCH ×2 (09:04→21:33)
[2020-05-03] MEDS: LOSARTAN POTASSIUM 50 MG TABLET PO SCH (09:04)
[2020-05-03] MEDS: VENLAFAXINE HCL 75 MG CAP.SR.24H PO SCH (09:04)
[2020-05-03] MEDS: POTASSIUM CHLORIDE 10 MEQ TABLET.ER PO SCH (09:04)
[2020-05-03] MEDS: INSULIN GLARGINE,HUM.REC.ANLOG 1,000 UNIT/10 ML VIAL SUBCUT SCH ×2 (09:57→21:34)
[2020-05-03] MEDS ORDERED: INSULIN GLARGINE,HUM.REC.ANLOG 1,000 UNIT/10 ML VIAL (PYX) SUBCUT ONE (21:32)
[2020-05-03] MEDS: ATORVASTATIN CALCIUM 80 MG TABLET PO SCH (21:33)
--- NOTE | 2020-05-03 21:39 | PDOC PROGRESS REPORT ---
Subjective Progress Note for:: 05/03/20 Subjective:: Patient seen by the bedside, she continues to improve, she will be finishing the IV dexamethasone in 2 days time and then she be discharged home Reason For Visit: PNEUMONIA R/O SARS-O-V2,IRON DEFICIENCY ANEMIA Physical Exam Vital Signs: Temp Pulse Resp BP Pulse Ox 97.7 F 91 18 159/76 H 91 L 05/03/20 20:00 05/03/20 20:00 05/03/20 20:00 05/03/20 20:00 05/03/20 20:00 Intake & Output 05/02/20 05/03/20 05/04/20 06:59 06:59 06:59 Intake Total 1484 1736 2580 Output Total 1520 2650 1999 Balance -36 -914 580 Weight 124.5 kg 126 kg General appearance: PRESENT: no acute distress Eye exam: PRESENT: PERRLA Respiratory exam: PRESENT: clear to auscultation singh Cardiovascular exam: PRESENT: +S1, +S2 GI/Abdominal exam: PRESENT: soft Neurological exam: PRESENT: alert Results Laboratory Results: 05/03/20 05:41 05/03/20 05:41 05/03/20 05/03/20 05:41 05:41 WBC 7.8 RBC 4.01 Hgb 9.8 L Hct 29.2 L MCV 73 L MCH 24.5 L MCHC 33.6 RDW 17.0 H Plt Count 332 Seg Neutrophils % 61.7 Sodium 134.9 L Potassium 3.9 Chloride 96 L Carbon Dioxide 33 H Anion Gap 6 BUN 21 H Creatinine 0.79 Est GFR ( Amer) > 60 Glucose 65 L Calcium 8.4 Total Bilirubin 0.5 AST 28 Alkaline Phosphatase 139 H Total Protein 5.9 L Albumin 3.1 L 04/23/20 01:39 Troponin I < 0.012 Impressions: Chest X-Ray 05/01/20 00:00 IMPRESSION: New right basilar patchy consolidation. Assessment & Plan - Diagnosis (1) Pneumonia due to COVID-19 virus Is this a current diagnosis for this admission?: Yes Plan: She has SARS-CoV-2 pneumonia, she has finished 5-day course of remdesivir, presently on dexamethasone for a total of 10 days, (2) Pneumonia Qualifiers: Pneumonia type: due to unspecified organism Laterality: right Lung location: upper lobe of lung Qualified Code(s): J18.9 - Pneumonia, unspecified organism Is this a current diagnosis for this admission?: Yes (3) Morbid obesity with BMI of 45.0-49.9, adult Is this a current diagnosis for this admission?: Yes (4) Type 2 diabetes mellitus Qualifiers: Diabetes mellitus fpc insulin use: without intermediate card tender use Diabetes mellitus complication status: with neurologic complications Diabetes mellitus complication detail: with polyneuropathy Qualified Code(s): E11.42 - Type 2 diabetes mellitus with diabetic polyneuropathy Is this a current diagnosis for this admission?: Yes - Time Time Spent with patient: 25-34 minutes Level of Care: IMCU Medications reviewed and adjusted accordingly: Yes Anticipated discharge: Home
[2020-05-04] MEDS: LEVOTHYROXINE SODIUM 0.15 MG TABLET PO SCH (06:03)
[2020-05-04] MEDS: DEXAMETHASONE SOD PHOSPHATE INJ 4 MG/1 ML VIAL IV SCH ×2 (06:04→17:28)
[2020-05-04] MEDS: FUROSEMIDE 40 MG TABLET PO SCH (08:11)
[2020-05-04] MEDS: METFORMIN HCL 500 MG TABLET PO SCH ×2 (08:11→17:28)
[2020-05-04] MEDS: INSULIN LISPRO 100 UNIT/ML 3 ML VIAL SUBCUT SCH ×4 (08:12→21:37)
[2020-05-04] MEDS: LOSARTAN POTASSIUM 50 MG TABLET PO SCH (10:42)
[2020-05-04] MEDS: LAMOTRIGINE 100 MG TABLET PO SCH ×2 (10:42→21:38)
[2020-05-04] MEDS: POTASSIUM CHLORIDE 10 MEQ TABLET.ER PO SCH (10:43)
[2020-05-04] MEDS: VENLAFAXINE HCL 75 MG CAP.SR.24H PO SCH (10:43)
[2020-05-04] MEDS: APIXABAN 5 MG TABLET PO SCH ×2 (10:43→17:28)
[2020-05-04] MEDS: INSULIN GLARGINE,HUM.REC.ANLOG 1,000 UNIT/10 ML VIAL SUBCUT SCH ×2 (10:44→21:38)
[2020-05-04] MEDS: NORMAL SALINE 1000 ML 1,000 ML IV PRN (16:20)
--- NOTE | 2020-05-04 19:24 | PDOC PROGRESS REPORT ---
Subjective Progress Note for:: 05/04/20 Subjective:: Patient seen by the bedside,improving Reason For Visit: PNEUMONIA R/O SARS-O-V2,IRON DEFICIENCY ANEMIA Physical Exam Vital Signs: Temp Pulse Resp BP Pulse Ox 98.2 F 97 20 151/82 H 96 05/04/20 10:54 05/04/20 14:00 05/04/20 07:44 05/04/20 10:54 05/04/20 10:54 Intake & Output 05/03/20 05/04/20 05/05/20 06:59 06:59 06:59 Intake Total 1736 2580 950 Output Total 2650 3800 1600 Balance -120 -4925 -515 Weight 126 kg 126 kg General appearance: PRESENT: no acute distress Eye exam: PRESENT: PERRLA Respiratory exam: PRESENT: clear to auscultation singh Cardiovascular exam: PRESENT: +S1, +S2 Results Laboratory Results: 05/03/20 05:41 05/03/20 05:41 04/23/20 01:39 Troponin I < 0.012 Impressions: Chest X-Ray 05/01/20 00:00 IMPRESSION: New right basilar patchy consolidation. Assessment & Plan - Diagnosis (1) Pneumonia due to COVID-19 virus Is this a current diagnosis for this admission?: Yes Plan: She has SARS-CoV-2 pneumonia, she has finished 5-day course of remdesivir, presently on dexamethasone for a total of 10 days, (2) Pneumonia Qualifiers: Pneumonia type: due to unspecified organism Laterality: right Lung location: upper lobe of lung Qualified Code(s): J18.9 - Pneumonia, unspecified organism Is this a current diagnosis for this admission?: Yes (3) Morbid obesity with BMI of 45.0-49.9, adult Is this a current diagnosis for this admission?: Yes (4) Type 2 diabetes mellitus Qualifiers: Diabetes mellitus chcf insulin use: without superintendent marine oil terminal use Diabetes mellitus complication status: with neurologic complications Diabetes mellitus complication detail: with polyneuropathy Qualified Code(s): E11.42 - Type 2 diabetes mellitus with diabetic polyneuropathy Is this a current diagnosis for this admission?: Yes - Time Time Spent with patient: 15-24 minutes Level of Care: IMCU Medications reviewed and adjusted accordingly: Yes Anticipated discharge: Home Anticipated DC Timeframe: within 72 hours - Inpatient Certification Based on my medical assessment, after consideration of the patient's comorbidities, presenting symptoms, or acuity I expect that the services needed warrant INPATIENT care.: Yes I certify that my determination is in accordance with my understanding of Medicare's requirements for reasonable and necessary INPATIENT services [42 CFR 412.3e].: Yes
[2020-05-04] MEDS: ATORVASTATIN CALCIUM 80 MG TABLET PO SCH (21:38)
[2020-05-05] MEDS: DEXAMETHASONE SOD PHOSPHATE INJ 4 MG/1 ML VIAL IV SCH ×2 (06:09→17:43)
[2020-05-05] MEDS: LEVOTHYROXINE SODIUM 0.15 MG TABLET PO SCH (06:10)
[2020-05-05] MEDS: METFORMIN HCL 500 MG TABLET PO SCH ×2 (07:57→17:42)
[2020-05-05] MEDS: FUROSEMIDE 40 MG TABLET PO SCH (07:57)
[2020-05-05] MEDS: INSULIN LISPRO 100 UNIT/ML 3 ML VIAL SUBCUT SCH ×3 (07:57→17:43)
[2020-05-05] MEDS: INSULIN GLARGINE,HUM.REC.ANLOG 1,000 UNIT/10 ML VIAL SUBCUT SCH (09:38)
[2020-05-05] MEDS: LOSARTAN POTASSIUM 50 MG TABLET PO SCH (09:39)
[2020-05-05] MEDS: APIXABAN 5 MG TABLET PO SCH ×2 (09:39→17:43)
[2020-05-05] MEDS: LAMOTRIGINE 100 MG TABLET PO SCH (09:39)
[2020-05-05] MEDS: POTASSIUM CHLORIDE 10 MEQ TABLET.ER PO SCH (09:39)
[2020-05-05] MEDS: VENLAFAXINE HCL 75 MG CAP.SR.24H PO SCH (09:39)
--- NOTE | 2020-05-05 13:13 | PDOC DISCHARGE SUMMARY ---
Impression - Admit/DC Date/PCP Admission Date/Primary Care Provider: 04/23/20 03:55 CELESTE BASURTO MD Discharge Date: 05/05/20 - Discharge Diagnosis (1) Pneumonia due to COVID-19 virus Is this a current diagnosis for this admission?: Yes (2) Pneumonia Is this a current diagnosis for this admission?: Yes (3) Morbid obesity with BMI of 45.0-49.9, adult Is this a current diagnosis for this admission?: Yes (4) Type 2 diabetes mellitus Is this a current diagnosis for this admission?: Yes (5) Acute hypoxemic respiratory failure Is this a current diagnosis for this admission?: Yes (6) Iron deficiency anemia Is this a current diagnosis for this admission?: Yes (7) Constipation Is this a current diagnosis for this admission?: Yes - Additional Information Resuscitation Status: Full Code Discharge Diet: Diabetic Referrals: AMIE DOUGLAS MD [ACTIVE STAFF] - 05/12/20 10:30 am Prescriptions: Linaclotide [Linzess] 290 mcg PO DAILY #30 capsule Home Medications: Levothyroxine Sodium [Synthroid 0.15 mg Tablet] 0.15 mg PO Q6AM 10/25/17 Metformin HCl [Glucophage 500 mg Tablet] 1,000 mg PO BIDBS 10/25/17 Atorvastatin Calcium [Lipitor 80 mg Tablet] 80 mg PO QHS #30 tablet 10/29/17 Insulin Glargine,Hum.rec.anlog [Lantus Insulin 100 Unit/mL Insulin Pen] 30 unit SUBCUT Q12 insuln.pen 10/29/17 Losartan Potassium [Cozaar 50 mg Tablet] 100 mg PO DAILY #60 tablet 10/29/17 Potassium Chloride [Klor-Con 10 Meq Tablet ER] 20 meq PO DAILY #30 tablet.sa 10/29/17 Glipizide [Glucotrol 5 mg Tablet] 10 mg PO BID 11/03/17 Acetaminophen [Acetaminophen Extra Strength] 500 mg PO Q6HP PRN 04/23/20 Apixaban [Eliquis 5 mg Tablet] 5 mg PO BID 04/23/20 Chlorpheniramine Maleate [Allergy Relief] 4 mg PO Q6HP PRN 04/23/20 Desvenlafaxine [Desvenlafaxine ER] 100 mg PO DAILY 04/23/20 Furosemide [Lasix 40 mg Tablet] 40 mg PO QAM 04/23/20 Insulin Aspart Prot/Insuln Asp [Novolog Mix 70-30 Flexpen] 10 unit SQ DAILY 04/23/20 Lamotrigine 200 mg PO BID 04/23/20 Phentermine HCl 37.5 mg PO DAILY 04/23/20 Linaclotide [Linzess] 290 mcg PO DAILY #30 capsule 05/05/20 History of Present Illiness History of Present Illness: MARGARITO COLEY is a 59 year old female, She came to emergency room for evaluation of, cough, fatigue, generalized body aches, there was concern for SARS-CoV-2 infection., Chest x-ray demonstrated mild pneumonia Hospital Course Hospital Course: Patient was admitted for the management of acute hypoxemic respiratory failure due to pneumonia, there was concern for SARS-CoV-2 infectionthe test was positive. She was treated with dual, dexamethasone 6 mg IV daily and Remdesivir. She received total of 5 days of IV Remdesivir and 10 days of IV dexamethasone. She improved significantly. She also received intravenous Injectafer for iron deficiency anemia.Patient improved significantly, she is discharged home today. She also complained of constipation, she said she has not had a BM for the last 8 days, she normally moves her bowels every 5 days. She is a diabetic, she has episode of elevated blood sugar because of the intravenous dexamethasone, the long-acting insulin was adjusted, she average serum glucose, 180 Physical Exam Vital Signs: Temp Pulse Resp BP Pulse Ox 97.8 F 101 H 18 153/66 H 94 05/05/20 12:13 05/05/20 12:13 05/05/20 12:13 05/05/20 12:13 05/05/20 12:13 Intake & Output 05/04/20 05/05/20 05/06/20 06:59 06:59 06:59 Intake Total 2580 950 Output Total 3800 3100 Balance -1220 -2150 Weight 126 kg 124.2 kg General appearance: PRESENT: no acute distress Eye exam: PRESENT: PERRLA Respiratory exam: PRESENT: clear to auscultation singh Cardiovascular exam: PRESENT: +S1, +S2 GI/Abdominal exam: PRESENT: soft Neurological exam: PRESENT: alert, CN II-XII grossly intact Results Laboratory Results: WBC 7.8 10^3/uL (4.0-10.5) 05/03/20 05:41 RBC 4.01 10^6/uL (3.72-5.28) 05/03/20 05:41 Hgb 9.8 g/dL (12.0-15.5) L 05/03/20 05:41 Hct 29.2 % (36.0-47.0) L 05/03/20 05:41 MCV 73 fl (80-97) L 05/03/20 05:41 MCH 24.5 pg (27.0-33.4) L 05/03/20 05:41 MCHC 33.6 g/dL (32.0-36.0) 05/03/20 05:41 RDW 17.0 % (11.5-14.0) H 05/03/20 05:41 Plt Count 332 10^3/uL (150-450) 05/03/20 05:41 Lymph % (Auto) 26.3 % (13-45) 05/03/20 05:41 [place] % (Auto) 10.4 % (3-13) 05/03/20 05:41 Eos % (Auto) 1.1 % (0-6) 05/03/20 05:41 Baso % (Auto) 0.5 % (0-2) 05/03/20 05:41 Absolute Neuts (auto) 4.8 10^3/uL (1.7-8.2) 05/03/20 05:41 Absolute Lymphs (auto) 2.1 10^3/uL (0.5-4.7) 05/03/20 05:41 Absolute Monos (auto) 0.8 10^3/uL (0.1-1.4) 05/03/20 05:41 Absolute Eos (auto) 0.1 10^3/uL (0.0-0.6) 05/03/20 05:41 Absolute Basos (auto) 0.0 10^3/uL (0.0-0.2) 05/03/20 05:41 Total Counted 100 04/29/20 04:28 Seg Neutrophils % 61.7 % (42-78) 05/03/20 05:41 Seg Neuts % (Manual) 78 % (42-78) 04/29/20 04:28 Band Neutrophils % 4 % (3-5) 04/29/20 04:28 Lymphocytes % (Manual) 11 % (13-45) L 04/29/20 04:28 Atypical Lymphs % 2 % (0) 04/29/20 04:28 Monocytes % (Manual) 5 % (3-13) 04/29/20 04:28 Eosinophils % (Manual) 0 % (0-6) 04/29/20 04:28 Basophils % (Manual) 0 % (0-2) 04/29/20 04:28 Abs Neuts (Manual) 8.1 10^3/uL (1.7-8.2) 04/29/20 04:28 Abs Lymphs (Manual) 1.3 10^3/uL (0.5-4.7) 04/29/20 04:28 Abs Monocytes (Manual) 0.5 10^3/uL (0.1-1.4) 04/29/20 04:28 Absolute Eos (Manual) 0.0 10^3/uL (0.0-0.6) 04/29/20 04:28 Abs Basophils (Manual) 0.0 10^3/uL (0.0-0.2) 04/29/20 04:28 Toxic Granulation SLIGHT 04/29/20 04:28 Toxic Vacuolation PRESENT 04/29/20 04:28 Platelet Comment ADEQUATE 04/29/20 04:28 Polychromasia SLIGHT 04/29/20 04:28 Hypochromasia SLIGHT 04/29/20 04:28 Poikilocytosis SLIGHT 04/29/20 04:28 Anisocytosis 1+ 04/29/20 04:28 Microcytosis 1+ 04/29/20 04:28 Tear Drop Cells SLIGHT 04/29/20 04:28 Ovalocytes SLIGHT 04/29/20 04:28 [place] Cells SLIGHT 04/29/20 04:28 Schistocytes SLIGHT 04/29/20 04:28 Sodium 134.9 mmol/L (137-145) L 05/03/20 05:41 Potassium 3.9 mmol/L (3.6-5.0) 05/03/20 05:41 Chloride 96 mmol/L (98-107) L 05/03/20 05:41 Carbon Dioxide 33 mmol/L (22-30) H 05/03/20 05:41 Anion Gap 6 (5-19) 05/03/20 05:41 BUN 21 mg/dL (7-20) H 05/03/20 05:41 Creatinine 0.79 mg/dL (0.52-1.25) 05/03/20 05:41 Est GFR ( Amer) > 60 (>60) 05/03/20 05:41 Est GFR (MDRD) Non-Af > 60 (>60) 05/03/20 05:41 Glucose 65 mg/dL (75-110) L 05/03/20 05:41 POC Glucose 262 mg/dL (70-110) H 05/05/20 12:14 Calcium 8.4 mg/dL (8.4-10.2) 05/03/20 05:41 Total Bilirubin 0.5 mg/dL (0.2-1.3) 05/03/20 05:41 Direct Bilirubin 0.2 mg/dL (0.0-0.4) 05/03/20 05:41 Neonat Total Bilirubin Not Reportable 05/03/20 05:41 Neonat Direct Bilirubin Not Reportable 05/03/20 05:41 Neonat Indirect Bili Not Reportable 05/03/20 05:41 AST 28 U/L (14-36) 05/03/20 05:41 ALT 34 U/L (<35) 05/03/20 05:41 Alkaline Phosphatase 139 U/L (38-126) H 05/03/20 05:41 Troponin I < 0.012 ng/mL 04/23/20 01:39 Total Protein 5.9 g/dL (6.3-8.2) L 05/03/20 05:41 Albumin 3.1 g/dL (3.5-5.0) L 05/03/20 05:41 Urine Color YELLOW 04/23/20 00:09 Urine Appearance SLIGHTLY-CLOUDY 04/23/20 00:09 Urine pH 5.0 (5.0-9.0) 04/23/20 00:09 Ur Specific [place] 1.011 04/23/20 00:09 Urine Protein 30 mg/dL (NEGATIVE) H 04/23/20 00:09 Urine Glucose (UA) >=500 mg/dL (NEGATIVE) H 04/23/20 00:09 Urine Ketones NEGATIVE mg/dL (NEGATIVE) 04/23/20 00:09 Urine Blood SMALL (NEGATIVE) H 04/23/20 00:09 Urine Nitrite NEGATIVE (NEGATIVE) 04/23/20 00:09 Urine Bilirubin NEGATIVE (NEGATIVE) 04/23/20 00:09 Urine Urobilinogen NEGATIVE mg/dL (<2.0) 04/23/20 00:09 Ur Leukocyte Esterase MODERATE (NEGATIVE) H 04/23/20 00:09 Urine WBC (Auto) 69 /HPF 04/23/20 00:09 Urine RBC (Auto) 1 /HPF 04/23/20 00:09 U Hyaline Cast (Auto) 1 /LPF 04/23/20 00:09 Urine Bacteria (Auto) TRACE /HPF 04/23/20 00:09 Squamous Epi Cells Auto <1 /HPF 04/23/20 00:09 Urine Mucus (Auto) RARE /LPF 04/23/20 00:09 Urine Ascorbic Acid NEGATIVE (NEGATIVE) 04/23/20 00:09 COVID-19 Source See comment 04/23/20 15:20 COVID-19 ([facility]) DETECTED (Not Detect) A 04/23/20 15:20 04/23/20 01:39 Troponin I < 0.012 Impressions: Chest X-Ray 04/23/20 01:15 IMPRESSION: Equivocal right upper lobe airspace opacity may reflect minor pneumonitis copyright 2011 [employer]- All Rights Reserved Chest X-Ray 05/01/20 00:00 IMPRESSION: New right basilar patchy consolidation. Stroke Is this a Stroke Patient?: No Acute Heart Failure Is this a Heart Failure Patient?: No
[2020-05-05 20:38] VITALS: BP 158/76
== END 2020-05-05 22:06 | disposition home or self-care (01) | DRG 177 ==
LOC: ER 21:46 → EH 04-23 03:55 → 3N 04-23 07:42
PROVIDERS: ADMIT Internal Medicine; ATTEND Internal Medicine
PROC: XW033E5 Introduction of Remdesivir Anti-infective into Peripheral Vein, Percutaneous Approach, New Technology Group 5 (ICD-10-PCS; principal; 2020-04-26)
DX: U07.1 COVID-19 (principal); J12.89 Other viral pneumonia; J96.00 Acute respiratory failure, unspecified whether with hypoxia or hypercapnia; Z68.42 Body mass index [BMI] 45.0-49.9, adult; N39.0 Urinary tract infection, site not specified; E78.5 Hyperlipidemia, unspecified; I10 Essential (primary) hypertension; I48.91 Unspecified atrial fibrillation; E03.9 Hypothyroidism, unspecified; F32.9 Major depressive disorder, single episode, unspecified; E11.42 Type 2 diabetes mellitus with diabetic polyneuropathy; E66.01 Morbid (severe) obesity due to excess calories; B96.20 Unspecified Escherichia coli [E. coli] as the cause of diseases classified elsewhere; D50.9 Iron deficiency anemia, unspecified; Z79.01 Long term (current) use of anticoagulants; K59.00 Constipation, unspecified; Z79.899 Other long term (current) drug therapy; Z79.4 Long term (current) use of insulin
CPT/HCPCS: 36415; 71045; 80048; 80053; 81001; 82962; 84484; 85025; 87040; 87077; 87086; 87088; 87150; 87186; 87635; 93005; 93010; 99285; C9803; J0456; J0692; J0696; J1100; J1439; J1650; J1815; J3490; J7030; J7050; J7060